=== PATIENT | female | born 1945 | race Caucasian/White ===

== ENCOUNTER → 2016-12-03 | Outpatient (CLI) | payer MEDICARE ==
--- NOTE | 2016-12-03 16:26 | XR ---
Third digit left hand HISTORY: Swelling and pain 3 views of the third digit of the sample hand. Loss of joint space, marginal spurring present especially at the distal interphalangeal joint. Soft t issue swelling is noted. Soft tissue calcifications are present especially the dorsal aspect of the d istal interphalangeal joint. 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
== END | disposition home or self-care (01) ==
LOC: RADXRMAIN 15:46
PROVIDERS: ATTEND Family Medicine
DX: M79.645 Pain in left finger(s) (principal)

== ENCOUNTER 2017-03-07 10:07 | Day surgery (SDC) | payer MEDICARE ==
[2017-03-06 12:13] VITALS: BMI 41.0
[~2017-03-07 10:07] MED LIST: LACTATED RINGERS 1,000 ML IV SCH
[2017-03-07 11:25] VITALS: TEMP 96.9
[2017-03-07] MEDS ORDERED: LIDOCAINE 1% 20 ML VIAL (10MG/ML) FOR IV START INTRADERMA ONE (11:30)
[2017-03-07 11:34] LABS: Glucose,Whole Blood 103 mg/dL (75-99)
[2017-03-07] MEDS ORDERED: PROPOFOL 10 MG/ML 20 ML VIAL IV ONE (11:47)
--- NOTE | 2017-03-07 12:14 | P.PCN ---
Date of Procedure: 03/07/17 Preoperative Diagnosis: Postoperative Diagnosis: Procedure(s) Performed: Brief history: Patient is a pleasant scheduled for an elective upper endoscopy as well as colonoscopy as a part of evaluation of iron deficiency anemia and was recently detected on routine blood testing. Hemoglobin was 10 and iron indices consistent with iron deficiency anemia. Procedure performed: Esophagogastroduodenoscopy with biopsy Colonoscopy with snare polypectomy Preoperative diagnosis: Iron deficiency anemia Anesthesia: MAC Procedure: After informed consent was obtained from the patient was brought into the endoscopy unit and IV sedation was administered by anesthesia under continuous monitoring. Initially upper endoscopy was done. The Olympus GF 160 video endoscope was inserted inserted into the mouth and esophagus intubated without any difficulty and was gradually advanced into the stomach and duodenum and carefully examined. The bulb and second part of the duodenum appeared normal. Biopsies were done from the duodenum to rule out celiac disease. The scope was then withdrawn into the stomach adequately insufflated with air and upon careful examination the antrum had multiple scattered erosions in the antrum consistent with gastritis and biopsies were done from this area. The body, cardia and fundus appeared normal. The scope was then withdrawn into the esophagus. The GE junction was located at 40 cm to the incisors. It appeared regular with no erythema erosions or ulcerations. Rest of the esophagus appeared normal. Patient tolerated the procedure well. At this time the patient continued to remain sedation. Initial digital rectal examination was normal. Olympus CF 160 video colonoscope was then inserted into the rectum and gradually advanced to the cecum without any difficulty. Careful examination was performed as the scope was gradually being withdrawn. The prep was excellent. In the cecum there was a 1 cm flat polyp removed by snare polypectomy. The cecum, ascending colon, transverse colon, descending colon, appeared normal. In the descending colon there was a 5 mm polyp removed by snare polypectomy and in the sigmoid colon there was a 1 cm polyp removed by snare polypectomy. The rest of the sigmoid colon and rectum appeared normal. Retroflexion was performed in the rectum and no lesions were noted. Patient tolerated the procedure well. Impression: 1. Upper endoscopy revealed diffuse antral gastritis and mild duodenitis. 2. Colonoscopy revealed: a) 1 cm flat cecal polyp status post snare polypectomy b) 5 mm descending colon polyp status post snare polypectomy c) 1 cm sigmoid colon polyp status post snare polypectomy. Recommendations: Findings of this examination were discussed with the patient as well as her family. She was advised to follow with the biopsy results. If the biopsies of the colon polyp showed tubal adenoma she can have a repeat colonoscopy in 3 years. In the meantime she was advised to start omeprazole 20 mg daily. Implants: Indications for Procedure: Operative Findings: Description of Procedure:
[2017-03-07 12:19] VITALS: RESP 16
[2017-03-07 12:39] VITALS: BP 131/85; PULSE 78
== END 2017-03-07 13:04 | disposition home or self-care (01) ==
LOC: ORWHC2ENDO 10:07
PROVIDERS: ATTEND Internal Medicine Gastroenterology
DX: D12.0 Benign neoplasm of cecum (principal); D12.4 Benign neoplasm of descending colon; D12.5 Benign neoplasm of sigmoid colon; K29.80 Duodenitis without bleeding; K29.70 Gastritis, unspecified, without bleeding; I10 Essential (primary) hypertension; E78.5 Hyperlipidemia, unspecified; E11.9 Type 2 diabetes mellitus without complications; Z79.84 Long term (current) use of oral hypoglycemic drugs; Z79.899 Other long term (current) drug therapy; Z88.5 Allergy status to narcotic agent
CPT/HCPCS: 88305; 88342; 45385; 43239; J2704

== ENCOUNTER → 2017-07-31 | Outpatient (CLI) | payer MEDICARE ==
--- NOTE | 2017-07-31 11:58 | US ---
EXAMINATION TYPE: US liver DATE OF EXAM: 07/31/2017 COMPARISON: NONE CLINICAL HISTORY: Abnormal LFTs R94.5. Difficult and limited exam due to patient body habitus and ove rlying bowel gas EXAM MEASUREMENTS: Liver Length: 18.2 cm Gallbladder Wall: 0.2 cm CBD: 0.3 cm Right Kidney: 12.5 x 4.6 x 4.9 cm Pancreas: Tail obscured by overlying bowel gas Liver: Limited visualization. Enlarged, heterogeneous. This finding limits evaluation for underlying hepatic masses. Gallbladder: wnl Evidence for sonographic Minor's sign: No CBD: wnl as visualized, distal portion obscured by bowel gas Right Kidney: No hydronephrosis or masses seen IMPRESSION: Slightly heterogenous hepatic echotexture, most commonly related to underlying mild hepat ic steatosis. No sonographic evidence of acute cholecystitis or cholelithiasis.
== END | disposition home or self-care (01) ==
LOC: RADUSWWP 10:53
PROVIDERS: ATTEND Internal Medicine Hematology & Oncology
DX: R93.2 Abnormal findings on diagnostic imaging of liver and biliary tract (principal); R94.5 Abnormal results of liver function studies
CPT/HCPCS: 76705

== ENCOUNTER → 2017-11-13 | Outpatient (CLI) | payer MEDICARE ==
[2017-11-13 14:14] LABS: HCT 36.1 % (34.0-46.0); HGB 11.7 gm/dL (11.4-16.0); MCH 30.5 pg (25.0-35.0); MCHC 32.3 g/dL (31.0-37.0); MCV 94.6 fL (80.0-100.0); Platelet Count 207 k/uL (150-450); RBC 3.82 m/uL (3.80-5.40); RDW 14.2 % (11.5-15.5); WBC 4.3 k/uL (3.8-10.6)
[2017-11-13 14:45] LABS: Appearance,Urine Clear (Clear); Bilirubin,Urine Negative (Negative); Blood,Urine Negative (Negative); Color,Urine Yellow; Glucose,Urine (UA) Negative (Negative); Hyaline Casts,Urine 3 /lpf (0-2); Ketones,Urine Negative (Negative); Leukocyte Esterase,Urine Trace (Negative); Mucus,Urine Rare /hpf; Nitrite,Urine Negative (Negative); PH, Urine 5.5 (5.0-8.0); Protein,Urine Trace (Negative); RBC,Urine 1 /hpf (0-5); Specific Gravity,Urine 1.017 (1.001-1.035); Squamous Epithelial Cell,Urine 4 /hpf (0-4); Urobilinogen,Urine <2.0 mg/dL (<2.0); WBC,Urine 2 /hpf (0-5)
[2017-11-13 14:59] LABS: C Reactive Protein 9.4 mg/L (<10.0); Calcium 9.5 mg/dL (8.4-10.2); Magnesium 1.6 mg/dL (1.6-2.3); Potassium 4.3 mmol/L (3.5-5.1); Total Bilirubin 0.4 mg/dL (0.2-1.3); Total Protein 7.4 g/dL (6.3-8.2)
[2017-11-13 17:47] LABS: Erythrocyte Sedimentation Rate 46 mm/hr (0-20)
[2017-11-15 07:58] LABS: Vitamin B6 7 ug/L (5-50)
[2017-11-16 01:19] LABS: Vitamin B1 54 ug/L (38-122)
[2017-11-16 11:04] LABS: Vitamin A 61 ug/dL (38-106); Vitamin E (Alpha Tocopherol) 744 ug/dL (500-1800)
== END ==
LOC: LABWHC1 13:39
PROVIDERS: ATTEND Psychiatry & Neurology Pain Medicine
DX: Z01.818 Encounter for other preprocedural examination (principal); G89.4 Chronic pain syndrome; M79.7 Fibromyalgia; Z79.899 Other long term (current) drug therapy
CPT/HCPCS: 36415; 80053; 81001; 82306; 82550; 83036; 83519; 83735; 84207; 84425; 84446; 84590; 84591; 84597; 85027; 85652; 86140; 93005

== ENCOUNTER 2018-04-25 23:45 | Emergency (ER) | payer MEDICARE ==
[2018-04-25 23:55] VITALS: BP 119/59; PULSE 81; RESP 20; TEMP 98.3
[2018-04-26] MEDS ORDERED: DIPH,PERTUS(ACELL)TETVAC-LF 0.5 ML VIAL IM ONE (00:15)
--- NOTE | 2018-04-26 00:18 | ED ---
Upper Extremity HPI - General Chief Complaint: Extremity Injury, Upper Stated Complaint: FINGER INJURY Time Seen by Provider: 04/26/18 00:13 Source: patient, family, RN notes reviewed Mode of arrival: ambulatory Limitations: no limitations - History of Present Illness Initial Comments: This is a 73-year-old female who presents to the emergency department with chief complaint of left pinky finger injury. Patient states that prior to arrival she was getting out of the shower. She states that she normally puts her foot up onto the toilet seat to dry her legs. She states that her foot slipped and she fell forward hitting her left pinky on the toilet seat. She states that the pinky bent backwards and when she turned her hand over noticed a laceration. Patient states she has normal range of motion and sensation. States she does not believe she is up-to-date with her tetanus vaccination. Denies any other injuries or trauma. Denies hitting her head. Denies neck or back pain. Denies actually falling and hitting the ground. Denies recent fevers or chills, chest pain or shortness of breath, abdominal pain, nausea or vomiting, dizziness or weakness. - Related Data Home Medications Medication Instructions Recorded Confirmed Pioglitazone HCl/Metformin HCl 1 each PO BID 09/17/14 04/25/18 [Pioglitazone-Metformin 15-850] Simvastatin [Zocor] 40 mg PO HS 09/17/14 04/25/18 Valsartan/Hydrochlorothiazide 1 each PO HS 09/17/14 04/25/18 [Diovan Hct 320-25 mg Tablet] Calcium Carbonate/Vitamin D3 2 tab PO DAILY 09/28/14 04/25/18 [Caltrate 600 Plus D3 Tablet] Gabapentin [Neurontin] 400 mg PO TID 12/05/15 04/25/18 Aspirin 81 mg PO DAILY 03/06/17 04/25/18 Allergies Allergy/AdvReac Type Severity Reaction Status Date / Time tramadol Allergy Nausea, Verified 04/25/18 23:55 "DRY HEAVES" Review of Systems ROS Statement: Those systems with pertinent positive or pertinent negative responses have been documented in the HPI. ROS Other: All systems not noted in ROS Statement are negative. Past Medical History Past Medical History: Diabetes Mellitus, Hyperlipidemia, Hypertension, Pneumonia , Sleep Apnea/CPAP/BIPAP Additional Past Medical History / Comment(s): anemia,arthritis History of Any Multi-Drug Resistant Organisms: None Reported Past Surgical History: Joint Replacement, Orthopedic Surgery Additional Past Surgical History / Comment(s): total lt knee,carpel tunnel lt wrist Past Anesthesia/Blood Transfusion Reactions: Motion Sickness, Postoperative Nausea & Vomiting (PONV) Additional Past Anesthesia/Blood Transfusion Reaction / Comment(s): no hx blood transfusion Past Psychological History: No Psychological Hx Reported Smoking Status: Former smoker Past Alcohol Use History: None Reported Past Drug Use History: None Reported - Past Family History Sister(s) Family Medical History: Cancer Additional Family Medical History / Comment(s): lymph General Exam - General Exam Comments Initial Comments: General: Awake and alert, well-developed; in no apparent distress. HEENT: Head atraumatic, normocephalic. Pupils are equal, round and reactive to light. Extraocular movements intact. Oropharynx moist without erythema or exudate. Neck: Supple. Normal ROM. Cardiovascular: Regular rate and rhythm. No murmurs, rubs or gallops. Chest symmetrical. Respiratory: Lungs clear to auscultation bilaterally. No wheezes, rales or rhonchi. Normal respiratory effort with no use of accessory muscles. Musculoskeletal: Normal range of motion of the left fifth finger. There is an approximately 1.0 cm linear laceration to the distal left fifth finger. No active bleeding. Sensation is intact. Radial pulses are 2+ equal and palpable bilaterally. Skin: [place], warm and dry without rashes. Neurological: Alert and oriented x3. CN II-XII grossly intact. Speech is fluent and answers are appropriate. No focal neuro deficits. Psychiatric: Normal mood and affect. No overt signs of depression or anxiety noted. Limitations: no limitations Course Vital Signs 04/25/18 23:51 Temperature 98.3 F Pulse Rate 81 Respiratory 20 Rate Blood Pressure 119/59 O2 Sat by Pulse 97 Oximetry Procedures - Laceration Laceration #1 Consent Obtained: verbal consent Indication: laceration Site: hand (left fifth finger) Size (cm): 1 Description: linear Depth: simple, single layer Anesthetic Used: lidocaine 1% Anesthesia Technique: local infiltration Amount (mls): 3 Pre-repair: wound explored, irrigated extensively, deep structures intact Type of Sutures: nylon Size of Sutures: 5-0 Number of Sutures: 3 Technique: simple, interrupted Patient Tolerated Procedure: well, no complications Medical Decision Making - Medical Decision Making This is a 73-year-old female who presents to the emergency department with chief complaint of left fifth finger injury. Patient reports the finger bending backwards and sustaining a laceration. On physical examination, patient has normal range of motion of the left fifth finger and normal sensation. She is neurovascularly intact. There is an approximately 1.0 cm linear laceration to the distal pad of the left fifth finger. 3 sutures were placed and patient tolerated without complication. X-ray revealed no acute abnormalities. Recommended removal of sutures in 10-14 days. Patient is in agreement with plan and voices understanding. All questions were answered. Patient is in no acute distress and will be discharged home at this time. - Radiology Data Radiology results: report reviewed, image reviewed Left fifth finger x-ray impression: No acute abnormalities the left little finger. Disposition Clinical Impression: Finger laceration Disposition: HOME SELF-CARE Condition: Good Instructions: Finger Laceration (ED), Care For Your Stitches (ED) Additional Instructions: Please have sutures removed in 10-14 days. Please follow up with primary care provider within 1-2 days. Return to emergency department if symptoms should worsen or any concerns arise. Is patient prescribed a controlled substance at d/c from ED?: No Referrals: Gelacio Iverson MD [Primary Care Provider] - 1-2 days Time of Disposition: 00:56
[2018-04-26] MEDS ORDERED: LIDOCAINE 1% INJ 10MG/ML (20 ML MDV) SQ ONE (00:26)
--- NOTE | 2018-04-26 00:48 | XR ---
EXAMINATION TYPE: XR finger LT DATE OF EXAM: 04/26/2018 COMPARISON: NONE HISTORY: Hyperextension injury. Pain TECHNIQUE: 3 views FINDINGS: There is some spurring at the posterior base of the middle phalanx of the little finger. I see no definite fracture. There is no dislocation. There is some narrowing of the IP joint spaces. IMPRESSION: No acute abnormality of the left little finger.
== END 2018-04-26 01:06 | disposition home or self-care (01) ==
LOC: EC 23:45
DX: S61.217A Laceration without foreign body of left little finger without damage to nail, initial encounter (principal); E78.5 Hyperlipidemia, unspecified; I10 Essential (primary) hypertension; E11.9 Type 2 diabetes mellitus without complications; G47.30 Sleep apnea, unspecified; M19.90 Unspecified osteoarthritis, unspecified site; Z87.891 Personal history of nicotine dependence; Z79.82 Long term (current) use of aspirin; Z79.84 Long term (current) use of oral hypoglycemic drugs; Z79.899 Other long term (current) drug therapy; Z88.5 Allergy status to narcotic agent; Z99.89 Dependence on other enabling machines and devices; Z23 Encounter for immunization; W01.198A Fall on same level from slipping, tripping and stumbling with subsequent striking against other object, initial encounter; Y93.89 Activity, other specified; Y92.002 Bathroom of unspecified non-institutional (private) residence as the place of occurrence of the external cause
CPT/HCPCS: 73140; 90715; 99283; 12001; 90471; J2001

== ENCOUNTER → 2018-07-29 | Outpatient (CLI) | payer MEDICARE ==
--- NOTE | 2018-08-04 10:24 | MM ---
Reason for exam: screening (asymptomatic). Last mammogram was performed 1 year and 1 month ago. History: Patient is postmenopausal and is nulliparous. Family history of breast cancer in sister at age 66. Benign MG stereo VAD BX LT of the left breast, August 24, 2015. Physical Findings: A clinical breast exam by your physician is recommended on an annual basis and results should be correlated with mammographic findings. MG 3D Screening Mammo W/Cad Bilateral CC and MLO view(s) were taken. Prior study comparison: July 12, 2017, bilateral MG 3d screening mammo w/cad. July 06, 2016, bilateral MG 3d diag mammo w/cad [facility]. There are scattered fibroglandular densities. Previous mammotome biopsy in the left breast. Lateral asymmetric density right breast was seen on 07/05/15. No significant changes when compared with prior studies. ASSESSMENT: Benign, BI-RAD 2 RECOMMENDATION: Routine screening mammogram of both breasts in 1 year.
== END | disposition home or self-care (01) ==
LOC: RADMAMWWP 13:53
PROVIDERS: ATTEND Family Medicine
DX: Z12.31 Encounter for screening mammogram for malignant neoplasm of breast (principal)
CPT/HCPCS: 77063; 77067

== ENCOUNTER → 2018-09-25 | Outpatient (CLI) | payer MEDICARE | END | disposition home or self-care (01) | LOC: LABWHC1 14:54 | PROVIDERS: ATTEND Psychiatry & Neurology Pain Medicine | DX: Z01.818 Encounter for other preprocedural examination (principal) | CPT/HCPCS: 36415; 93005 ==

== ENCOUNTER → 2019-05-26 | Outpatient (CLI) | payer MEDICARE ==
--- NOTE | 2019-05-26 16:35 | XR ---
EXAMINATION TYPE: XR chest 2V DATE OF EXAM: 05/26/2019 COMPARISON: Prior chest x-ray 06/27/2017 HISTORY: Z 71.3, R 79.89, D50.0, R 74.0, abnormal chest x-ray TECHNIQUE: Frontal and lateral views of the chest are obtained. FINDINGS: Prominent lung volumes may be indicative of underlying COPD. There is no focal air space op acity, pleural effusion, or pneumothorax seen. The cardiac silhouette size is stable and enlarged ac counting for patient rotation and differences in technique. The osseous structures are intact, ther e is thoracic spondylosis. IMPRESSION: Cardiomegaly. Correlate for COPD.
== END | disposition home or self-care (01) ==
LOC: RADXRMAIN 14:03
PROVIDERS: ATTEND Internal Medicine Hematology & Oncology
DX: I51.7 Cardiomegaly (principal); R79.89 Other specified abnormal findings of blood chemistry; R74.0 Nonspecific elevation of levels of transaminase and lactic acid dehydrogenase [LDH]; Z71.3 Dietary counseling and surveillance
CPT/HCPCS: 71046

== ENCOUNTER → 2019-07-13 | Outpatient (CLI) | payer MEDICARE ==
--- NOTE | 2019-07-13 09:46 | US ---
EXAMINATION TYPE: US liver DATE OF EXAM: 07/13/2019 COMPARISON: US 2017 CLINICAL HISTORY: R74.0 Abnormal LFTS. Patient states no symptoms EXAM MEASUREMENTS: Liver Length: 18.2 cm Gallbladder Wall: 0.3 cm CBD: 0.3 cm Right Kidney: 12.8 x 5.1 x 4.5 cm Pancreas: limited by overlying midline bowel gas Liver: enlarged, heterogeneous as seen on the prior 2017, significantly limiting evaluation for hepa tic masses. Overall poor visualization of the liver. Gallbladder: 0.6cm echogenic focus within neck, wall measures in upper limits of normal Evidence for sonographic Minor's sign: no CBD: visualized portions wnl, limited by overlying bowel gas Right Kidney: no hydronephrosis or or nephrolithiasis. IMPRESSION: 1. Cholelithiasis and upper limits of normal gallbladder wall. Chronic cholecystitis is a possibility . No evidence of acute cholecystitis. 2. Hepatomegaly and sonographic findings most commonly related to hepatic steatosis as seen on the pr ior of 2017. This significantly limits evaluation for hepatic masses.
== END | disposition home or self-care (01) ==
LOC: RADUSWWP 09:05
PROVIDERS: ATTEND Internal Medicine Hematology & Oncology
DX: K80.20 Calculus of gallbladder without cholecystitis without obstruction (principal); R16.0 Hepatomegaly, not elsewhere classified; Z88.6 Allergy status to analgesic agent
CPT/HCPCS: 76705

== ENCOUNTER → 2019-11-06 | Outpatient (CLI) | payer MEDICARE ==
--- NOTE | 2019-11-06 15:50 | BD ---
EXAMINATION TYPE: Axial Bone Density DATE OF EXAM: 11/06/2019 COMPARISON: 03.31.2010 CLINICAL HISTORY: 74 YR OLD FEMALE....ICD-10 CODE: N95.1 POST MENOPAUSAL SYMPTOMS Height: 63 Weight: 260 FRAX RISK QUESTIONS: History of Fracture in Adulthood: YES, FOREARM Current Tobacco Use: NOT CIGARETTS RISK FACTORS HISTORY OF: History of Wrist Fracture: HX OF RT WRIST BREAK > 50 YRS OLD Surgery to Spine STIMULATOR IMPLANTED IN LOWER BACK Diet low in dairy products/other sources of calcium: YES, A BIT, AVOIDS MILK Postmenopausal woman: YES, AT ABOUT AGE 56 YRS OLD Lost more than 2 inches in height since high school: YES Hyperparathyroidism: NO Adrenal Insufficiency: NO MEDICATIONS: Additional Medications: BP MEDS, ORAL DIABETIC MEDS, REFLUX MEDS, STATIN FOR CHOLESTEROL, VIT D , CA LCIUM, CYMBALTA, ASPIRIN Additional History: HYPERTENSION, REFLUX IN THE PAST, CHOLESTEROL, DIABETIC EXAM MEASUREMENTS: Bone mineral densitometry was performed using the Referral.IM System. Bone mineral density as measured about the Lumbar spine is: ----- L1-L4(G/cm2): 1.431 T Score Values are as follows: ----- L1: 2.5 ----- L2: 1.0 ----- L3: 2.4 ----- L4: 2.1 ----- L1-L4: 2.1 Bone mineral density has: Increased 18.9% SINCE STUDY OF 03.31.2010 Bone mineral density about the R hip (g/cm2): 0.997 Bone mineral density about the L hip (g/cm2): 1.017 T Score values are as follows: -----R Neck: -0.6 -----L Neck: -1.2 -----R Total: -0.1 -----L Total: 0.1 Bone mineral density has: Decreased -7.5% SINCE STUDY 03.31.2010 FRAX%s: THERE IS A 15.6% CHANCE FOR A MAJOR OSTEOPOROTIC FX AND A 2.4% FOR HIP....PROBABILITY FOR F X I 10 YRS TIME IMPRESSION: Osteopenia (T Score between -2.5 and -1). There is slightly increased risk of fracture and the patient may be considered for treatment. Re-Screen 2-5 years. NOTE: T-SCORE=SD OF THE YOUNG ADULT MEAN.
--- NOTE | 2019-11-09 10:55 | MM ---
Reason for exam: screening (asymptomatic). Last mammogram was performed 1 year and 3 months ago. History: Patient is postmenopausal and is nulliparous. Family history of breast cancer in sister at age 66. Benign MG stereo VAD BX LT of the left breast, August 24, 2015. Physical Findings: A clinical breast exam by your physician is recommended on an annual basis and results should be correlated with mammographic findings. MG 3D Screening Mammo W/Cad Bilateral CC and MLO view(s) were taken. Prior study comparison: July 29, 2018, bilateral MG 3d screening mammo w/cad. July 12, 2017, bilateral MG 3d screening mammo w/cad. The breast tissue is heterogeneously dense. This may lower the sensitivity of mammography. Finding: There are typically benign vascular, round, linear calcifications in both breasts. Previous mammotome biopsy in the left breast. There is a chronic nodularity bilaterally. There is no discrete abnormality. ASSESSMENT: Benign, BI-RAD 2 RECOMMENDATION: Routine screening mammogram of both breasts in 1 year.
== END | disposition home or self-care (01) ==
LOC: RADMAMWWP 13:55
PROVIDERS: ATTEND Family Medicine
DX: Z12.31 Encounter for screening mammogram for malignant neoplasm of breast (principal); M85.80 Other specified disorders of bone density and structure, unspecified site
CPT/HCPCS: 77063; 77067; 77080

== ENCOUNTER 2019-11-08 16:48 | Emergency (ER) | payer MEDICARE ==
[2019-11-08] MEDS ORDERED: MORPHINE SULFATE 4 MG/ML SYRINGE IM STA (17:12)
[2019-11-08] MEDS ORDERED: ONDANSETRON ODT 4 MG TAB PO STA (17:12)
[2019-11-08] MEDS ORDERED: LIDOCAINE 5% PATCH TOPICAL STA (17:12)
--- NOTE | 2019-11-08 17:17 | ED ---
General Adult HPI - General Chief complaint: Fall Stated complaint: Fall Time Seen by Provider: 11/08/19 17:01 Source: patient, RN notes reviewed Mode of arrival: wheelchair Limitations: no limitations - History of Present Illness Initial comments: 74-year-old female with a past medical history of diabetes, hyperlipidemia, hypertension who takes baby aspirin daily presents to the emergency department for a chief complaint of fall. Patient states she was at [employer] where she was walking up a ramp and she caught her toe. States that she fell sideways in her left back hit a window backs. Patient did not hit her head or neck. States that the pain is on the left side of her back. Denies any lower back pain. Denies any abdominal pain. Denies chest pain. Patient does not take blood thinners. Patient has no other complaints at this time including shortness of breath, chest pain, abdominal pain, nausea or vomiting, headache, or visual changes. - Related Data Home Medications Medication Instructions Recorded Confirmed Pioglitazone HCl/Metformin HCl 1 each PO BID 09/17/14 04/25/18 [Pioglitazone-Metformin 15-850] Simvastatin [Zocor] 40 mg PO HS 09/17/14 04/25/18 Valsartan/Hydrochlorothiazide 1 each PO HS 09/17/14 04/25/18 [Diovan Hct 320-25 mg Tablet] Calcium Carbonate/Vitamin D3 2 tab PO DAILY 09/28/14 04/25/18 [Caltrate 600 Plus D3 Tablet] Gabapentin [Neurontin] 400 mg PO TID 12/05/15 04/25/18 Aspirin 81 mg PO DAILY 03/06/17 04/25/18 Previous Rx's Medication Instructions Recorded Lidocaine 5% Patch [Lidoderm 5% 1 patch TOPICAL DAILY PRN 5 Days 11/08/19 Patch] #5 patch Allergies Allergy/AdvReac Type Severity Reaction Status Date / Time tramadol Allergy Nausea, Verified 11/08/19 17:00 "DRY HEAVES" Review of Systems ROS Statement: Those systems with pertinent positive or pertinent negative responses have been documented in the HPI. ROS Other: All systems not noted in ROS Statement are negative. Past Medical History Past Medical History: Diabetes Mellitus, Hyperlipidemia, Hypertension, Pneumonia, Sleep Apnea/CPAP/BIPAP Additional Past Medical History / Comment(s): anemia,arthritis History of Any Multi-Drug Resistant Organisms: None Reported Past Surgical History: Joint Replacement, Orthopedic Surgery Additional Past Surgical History / Comment(s): total lt knee,carpel tunnel lt wrist Past Anesthesia/Blood Transfusion Reactions: Motion Sickness, Postoperative Nausea & Vomiting (PONV) Additional Past Anesthesia/Blood Transfusion Reaction / Comment(s): no hx blood transfusion Past Psychological History: No Psychological Hx Reported Smoking Status: Former smoker Past Alcohol Use History: None Reported Past Drug Use History: None Reported - Past Family History Sister(s) Family Medical History: Cancer Additional Family Medical History / Comment(s): lymph General Exam Limitations: no limitations General appearance: alert, in no apparent distress Head exam: Present: atraumatic, normocephalic, normal inspection Eye exam: Present: normal appearance, PERRL, EOMI. Absent: scleral icterus, conjunctival injection, periorbital swelling ENT exam: Present: normal exam, mucous membranes moist Neck exam: Present: normal inspection, full ROM. Absent: tenderness, meningismu s, lymphadenopathy Respiratory exam: Present: normal lung sounds bilaterally. Absent: respiratory distress, wheezes, rales, rhonchi, stridor Cardiovascular Exam: Present: regular rate, normal rhythm, normal heart sounds. Absent: systolic murmur, diastolic murmur, rubs, gallop, clicks GI/Abdominal exam: Present: soft, normal bowel sounds. Absent: distended, tenderness, guarding, rebound, rigid Back exam: Present: other (Patient has mild area of ecchymosis noted inferior to the left shoulder blade.). Absent: CVA tenderness (R), CVA tenderness (L), vertebral tenderness (No cervical thoracic or lumbar spine tenderness) Neurological exam: Present: alert Course Vital Signs 11/08/19 16:56 Temperature 97.8 F Pulse Rate 88 Respiratory 16 Rate Blood Pressure 131/83 O2 Sat by Pulse 96 Oximetry Medical Decision Making - Medical Decision Making HPI physical exam is documented. Patient has left-sided posterior rib pain. X- ray of the chest shows chronic changes and cardiomegaly without acute pulmonary process. No acute displaced left-sided rib fractures are seen. Patient is given morphine and lidocaine patch and isn't much better. Patient will be discharged home with Tylenol 3 and lidocaine patches. She will follow-up with her doctor in one to 2 days. I discussed deep breathing exercises 10 times every hour. Discussed returning if she has any worsening symptoms or difficulty getting around at home.I discussed this case with attending Dr. Arreguin who agrees with this assessment and treatment plan. Disposition Clinical Impression: Fall, Contusion Disposition: HOME SELF-CARE Condition: Good Instructions (If sedation given, give patient instructions): Rib Fracture (ED) Additional Instructions: Please take Tylenol [address] or operate machinery while taking these. Use lidocaine patches as directed. Follow-up with primary care in 1-2 days. Return to the emergency department if you have any worsening symptoms. Prescriptions: Lidocaine 5% Patch [Lidoderm 5% Patch] 1 patch TOPICAL DAILY PRN 5 Days #5 patch PRN Reason: Pain Is patient prescribed a controlled substance at d/c from ED?: No Referrals: Gelacio Iverson MD [Primary Care Provider] - 1-2 days Time of Disposition: 18:41
--- NOTE | 2019-11-08 18:06 | XR ---
EXAMINATION TYPE: XR ribs LT w pa chest x-ray DATE OF EXAM: 11/08/2019 CLINICAL HISTORY: Chest and left-sided rib pain after fall injury. TECHNIQUE: Single frontal view of the chest is obtained. COMPARISON: Chest x-ray May 26, 2019 FINDINGS: There is some chronic parenchymal change without suspicious new focal air space opacity, p leural effusion, or pneumothorax seen. The cardiac silhouette size remains enlarged with atheroscler otic aorta. Multilevel spurring in the lower thoracic spine. Dedicated images the left-sided ribs show no acute displaced left-sided rib fractures. Overlying soft tissue is unremarkable. IMPRESSION: 1. Chronic changes and cardiomegaly without acute pulmonary process. 2. No acute displaced left-sided rib fractures are seen.
[2019-11-08] MEDS ORDERED: ACET/COD 300 MG/30 MG STARTER PACK 6 TAB BTL PO STA (19:01)
[2019-11-08 19:17] VITALS: BP 132/74; PULSE 84; RESP 18; TEMP 98
== END 2019-11-08 19:16 | disposition home or self-care (01) ==
LOC: EC 16:48
DX: S40.012A Contusion of left shoulder, initial encounter (principal); I10 Essential (primary) hypertension; E78.5 Hyperlipidemia, unspecified; E11.9 Type 2 diabetes mellitus without complications; G47.30 Sleep apnea, unspecified; Z79.84 Long term (current) use of oral hypoglycemic drugs; Z79.899 Other long term (current) drug therapy; Z79.82 Long term (current) use of aspirin; Z88.5 Allergy status to narcotic agent; Z87.891 Personal history of nicotine dependence; Z99.89 Dependence on other enabling machines and devices; W18.09XA Striking against other object with subsequent fall, initial encounter
CPT/HCPCS: 71101; 99283; 96372; J2270

== ENCOUNTER → 2020-07-26 | Outpatient (CLI) | payer MEDICARE ==
--- NOTE | 2020-07-26 16:44 | CT ---
EXAMINATION TYPE: CT abdomen pelvis w con DATE OF EXAM: 07/26/2020 COMPARISON: None HISTORY: Lower back pain CT DLP: 2469 mGycm Automated exposure control for dose reduction was used. TECHNIQUE: Helical acquisition of images from the lung bases through the pelvis have been completed. CONTRAST: Performed with Oral Contrast and with IV Contrast, patient injected with 80 mL of Isovue 300. FINDINGS: The heart is enlarged. LUNG BASES: There are probable atelectatic changes or scarring at the lung bases. Minimal pericardial effusion noted incidentally. AORTA: No significant abnormality is appreciated. LIVER/GB: Dependent high dense focus in the gallbladder likely gallstones. Liver shows no mass.. PANCREAS: No significant abnormality is seen. SPLEEN: No significant abnormality is seen. Probable splenule present adjacent to the spleen ADRENALS: No significant abnormality is seen. KIDNEYS: Exophytic low dense focus at the midpole the left kidney measures 2.2 cm however attenuation is slightly elevated greater than that of water. REPRODUCTIVE ORGANS: Somewhat atrophic. BOWEL: Probable lipoma present within the duodenum. Appendix is normal.. FREE AIR: No Free Air visible. ASCITES: None visible. PELVIC ADENOPATHY: None visualized. RETROPERITONEAL ADENOPATHY: No Retroperitoneal Adenopathy visible. URINARY BLADDER: No significant abnormality is seen. OSSEOUS STRUCTURES: There is a spinal curvature. Multilevel spondylosis is present. Posterior disc b ulges are present at L5-S1, L4-5, L3-4, there is some associated loss of disc height. Lumbar vertebra l bodies show preserved height. Sacroiliac joint on the left shows ankylosis, there is no evident ero dong bilaterally. There is a chondroid lesion in the proximal right femur which may represent enchond gina. Lesion measures approximately 2 cm in size. There is a device in the left gluteal region, lead courses into the lower spinal canal at L3-4 terminates at the left neural foramen L3-4. Facet arthrop athy changes present at the lower lumbar spine. There is no evident spondylolisthesis or spondylolysi s. Suspect spinal stenosis at L5 IMPRESSION: FACET ARTHROPATHY, DEGENERATIVE DISC DISEASE, SPINAL CURVATURE AND SPINAL STENOSIS. ANKYLOSIS OF THE LEFT SACROILIAC JOINT. INDETERMINATE LEFT RENAL LESION, FOLLOW-UP RECOMMENDED. CHOLELITHIASIS. CARDIO MEGALY. ADDITIONAL FINDINGS ABOVE.
== END | disposition home or self-care (01) ==
LOC: RADCTMAIN 12:28
PROVIDERS: ATTEND Psychiatry & Neurology Neurology
DX: Z01.818 Encounter for other preprocedural examination (principal); K80.20 Calculus of gallbladder without cholecystitis without obstruction; N94.89 Other specified conditions associated with female genital organs and menstrual cycle; R93.422 Abnormal radiologic findings on diagnostic imaging of left kidney
CPT/HCPCS: 82565; 84520; 74177; 36415; Q9967

== ENCOUNTER → 2020-10-19 | Outpatient (CLI) | payer MEDICARE | END | disposition home or self-care (01) | LOC: LABWHC1 13:37 | PROVIDERS: ATTEND Psychiatry & Neurology Neurology | DX: Z01.818 Encounter for other preprocedural examination (principal) | CPT/HCPCS: 93005 ==

== ENCOUNTER → 2020-10-24 | Outpatient (CLI) | payer MEDICARE | END | disposition home or self-care (01) | LOC: LABWHC1 14:26 | PROVIDERS: ATTEND Psychiatry & Neurology Neurology | DX: Z01.818 Encounter for other preprocedural examination (principal) | CPT/HCPCS: U0003; C9803 ==

== ENCOUNTER → 2022-02-08 | Outpatient (CLI) | payer MEDICARE ==
--- NOTE | 2022-02-08 13:54 | XR ---
EXAMINATION TYPE: XR knee complete bilateral DATE OF EXAM: 02/08/2022 COMPARISON: NONE HISTORY: Pain TECHNIQUE: Three views are submitted. FINDINGS: Severe narrowing the medial compartment of the knee joint and patellofemoral joint. No acute fracture . No dislocation. Postsurgical change involving the left knee. IMPRESSION: 1. Severe osteoarthritis right knee. 2. Postsurgical changes left knee
--- NOTE | 2022-02-08 13:57 | XR ---
EXAMINATION TYPE: XR thoracic spine complete DATE OF EXAM: 02/08/2022 COMPARISON: NONE HISTORY: Pain TECHNIQUE: 3 views submitted FINDINGS: Alignment is anatomic. There is no compression deformities. There is multilevel hypertrophic and deg enerative change with diffuse osteopenia. IMPRESSION: 1. Multilevel hypertrophic and degenerative changes.
== END | disposition home or self-care (01) ==
LOC: RADXRMAIN 11:56
PROVIDERS: ATTEND Psychiatry & Neurology Neurology
DX: M17.11 Unilateral primary osteoarthritis, right knee (principal); M25.562 Pain in left knee; M47.814 Spondylosis without myelopathy or radiculopathy, thoracic region; R94.31 Abnormal electrocardiogram [ECG] [EKG]
CPT/HCPCS: 72072; 93005

== ENCOUNTER → 2022-03-27 | Outpatient (CLI) | payer MEDICARE ==
[2022-03-27 21:03] LABS: INR 0.9 (<1.2); Partial Thromboplastin Time 24.5 sec (22.0-30.0); Prothrombin Time 10.2 sec (9.0-12.0)
== END | disposition home or self-care (01) ==
LOC: LABWHC1 14:18
DX: Z01.818 Encounter for other preprocedural examination (principal); R94.31 Abnormal electrocardiogram [ECG] [EKG]
CPT/HCPCS: 36415; 85610; 85730; 93005

== ENCOUNTER → 2023-12-27 | Outpatient (CLI) | payer MEDICARE ==
--- NOTE | 2023-12-27 18:18 | XR ---
EXAMINATION TYPE: XR foot complete LT DATE OF EXAM: 12/27/2023 4:14 PM CLINICAL INDICATION:Female, 78 years old with history of M79.672 L FOOT PAIN XR; [facility] COMPARISON: None. TECHNIQUE: Three views left foot were obtained. FINDINGS: Generalized osteopenia. No acute fracture or dislocation. No periarticular erosions. No significant g reat toe digital deviation is seen. Possible minimal overlying bunion formation. Appearance of the se cond metatarsal head suggests the possibility of Freiberg's infraction. Lisfranc joints appear normal ly aligned. There is moderate degenerative change of the forefoot and midfoot. Moderate to large dors al calcaneal and plantar calcaneal spurs. Unremarkable soft tissues without radiopaque foreign body s een. IMPRESSION: 1. No evidence of an acute osseous abnormality. 2. Moderate chronic/degenerative changes as above.
== END | disposition home or self-care (01) ==
LOC: RADXRMAIN 15:32
PROVIDERS: ATTEND Family Medicine
DX: M79.672 Pain in left foot (principal)

== ENCOUNTER → 2024-05-25 | Outpatient (CLI) | payer MEDICARE ==
--- NOTE | 2024-05-26 12:49 | CT ---
EXAMINATION TYPE: CT chest wo con DATE OF EXAM: 05/25/2024 COMPARISON: 08/14/2011 HISTORY: 79-year-old female R06.00, shortness of breath, dyspnea, pulmonary hypertension TECHNIQUE: Contiguous axial scanning of the chest without IV contrast. Coronal/sagittal reconstructio ns performed. CT DLP: 556.9mGycm. Automatic exposure control utilized for a dose reduction. FINDINGS: The heart is mildly enlarged with trace to small pericardial effusion measuring up to 7 mm thick. Pro minent LAD coronary artery calcification is present. Mild atherosclerotic arch calcifications with conventional arch vessel branching anatomy. Large caliber main right and left pulmonary arteries measuring up to 2.9 cm suggesting underlying pul monary arterial hypertension. Prominent left pericardiac lymph node measuring 9 mm remains unchanged suggesting a benign etiology. A prominent right pericardiac lymph node measures 7 mm and is increased from 2011, likely reactive as well. Otherwise, no thoracic lymphadenopathy by CT size criteria. Suspect bibasilar pleural parenchymal scarring given strandy subpleural opacities, increased from 201 1. Otherwise, no fernando consolidation or pleural effusion. A 1 cm right upper lobe pulmonary nodule, axial image 14 is new and suspicious. 3 mm lateral left midlung pulmonary nodule, axial image 30. Tiny hiatal hernia. Partially visualized abnormal appearance to the left kidney. Underlying kidney ma ss or other abnormality not excluded. Further dedicated evaluation advised. Accentuated thoracic kyphosis. 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 Bony fusion across the sup raspinatus ligament as well. IMPRESSION: 1. Partially visualized abnormal appearance to the left kidney. Underlying kidney mass/RCC or other r enal abnormality not excluded. Dedicated further evaluation with contrast-enhanced renal mass protoco l CT of the abdomen and pelvis is advised. 2. A new 1 cm right upper lobe pulmonary nodule. Early primary neoplasm and metastatic disease are luisa th in the differential at this time. Additional tiny 3 mm left mid lung pulmonary nodule is nonspecif ic. 3. Mild cardiomegaly with trace to small pericardial effusion and LAD coronary artery calcifications. Pulmonary arterial hypertension. 4. 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 [facility], , 05/26/2024 12:46 PM
== END | disposition home or self-care (01) ==
LOC: RADCTMAIN 13:21
PROVIDERS: ATTEND Internal Medicine Pulmonary Disease
DX: R06.00 Dyspnea, unspecified
CPT/HCPCS: 71250

== ENCOUNTER → 2024-06-23 | Outpatient (CLI) | payer MEDICARE ==
--- NOTE | 2024-06-25 11:37 | US ---
EXAMINATION TYPE: US kidneys/renal and bladder DATE OF EXAM: 06/23/2024 COMPARISON: CT chest 05/25/2024, CT abdomen and pelvis 07/26/2020 CLINICAL INDICATION: Female, 79 years old with history of R94.4 ABN RENAL FUNCTION; Patient denies an y signs/symptoms. Hx HTN/DM TECHNIQUE: Grayscale and color Doppler imaging of the bilateral kidneys and urinary bladder: FINDINGS: EXAM MEASUREMENTS: Right Kidney: 13.7 x 4.6 x 4.7 cm Left Kidney: 13.8 x 6.8 x 6.1 Post Void Residual Volume: NAmL Right Kidney: WNL Left Kidney: Heterogenous vascular lesion seen lower pole = 5.9 x 4.8 x 5.4 cm Bladder: Not fully distended, patient stated bladder was full Bilateral Jets seen: Not able to assess Normal Post Void Residual: NA There is no evidence for hydronephrosis at this point in time. The urinary bladder is anechoic. No ne phrolithiasis identified within either kidney. No right renal lesion. Heterogenous vascular lesion wi thin the lower pole of the left kidney measuring up to 5.9 cm. Incidental gallstone measuring 1.2 cm . IMPRESSION: 1. Left renal lower pole 5.9 cm lesion. Raises concern for renal cell carcinoma versus other etiolog ies. Further evaluation with CT or MR abdomen with IV contrast (renal mass protocol) is highly recomm ended. 2. No hydronephrosis or nephrolithiasis. 3. Incidental 1.6 mm gallstone. [facility], , 06/25/2024 11:35 AM
== END | disposition home or self-care (01) ==
LOC: RADUSWWP 14:08
PROVIDERS: ATTEND Family Medicine
CPT/HCPCS: 76770

== ENCOUNTER → 2024-09-11 | Outpatient (CLI) | payer MEDICARE ==
[2024-09-11 12:47] LABS: African American GFR (CKD) 62 (>60 ml/min/1.73 sqM); Blood Urea Nitrogen 35 mg/dL (7-17); Non-African American GFR(CKD) 54 (>60 ml/min/1.73 sqM)
--- NOTE | 2024-09-11 14:39 | CT ---
EXAMINATION TYPE: CT abdomen wo/w con CT DLP: 2389.6 mGycm, Automated exposure control for dose reduction was used. DATE OF EXAM: 09/11/2024 2:22 PM COMPARISON: Renal ultrasound 06/23/2024, CT chest 05/25/2024, CT scan of pelvis 07/26/2020 CLINICAL INDICATION:Female, 79 years old with history of D41.02 NEOPLASM OF UNCERTAIN BEHAVIOR OF LEF T KIDN; renal mass TECHNIQUE: Standard CT of the abdomen before and after the uneventful administration of 80 cc of Is ovue-370 intravenously. Oral contrast was administered. Coronal and sagittal reformats were performed . FINDINGS: LOWER CHEST: Trace right pleural effusion with associated atelectasis. Cardiomegaly. Trace pericardia l effusion. Minimal left lower lobe subsegmental atelectasis. ABDOMEN LIVER: Unremarkable GALLBLADDER AND BILE DUCTS: Cholelithiasis. No biliary duct dilatation. PANCREAS: Unremarkable. SPLEEN: Unremarkable. ADRENAL GLANDS: Unremarkable. KIDNEYS AND URETERS: No evidence of hydronephrosis or renal calculus. No suspicious right renal lesi on. Diffusely enlarged left kidney with patchy heterogenous enhancement. There is an ill-defined mass along the mid to lower pole laterally measuring 8.3 x 6.1 cm (series 3, image 44). There appears to be extension into the renal sinus and proximal ureter. There is some extension of abnormal soft tissu e along the medial aspect of the kidney (series 3, image 45). No definitive extension into the IVC ov er renal vein. Contrast is only demonstrated within the right renal collecting system on the delayed imaging. STOMACH AND BOWEL: Stomach and duodenum are unremarkable. Enteric contrast reaches the distal small b owel. No focal bowel wall thickening or surrounding inflammatory changes. No evidence of bowel obstru ction. PERITONEUM: No evidence of pneumoperitoneum or free fluid. VASCULATURE: Mild atherosclerotic calcifications are present throughout the abdominal aorta and its b ranches. No evidence of aortic aneurysm. MUSCULOSKELETAL: No acute osseous abnormalities. Prominent Schmorl's noted involving the superior end plate of the L2 vertebral body. Multilevel degenerative disc disease and facet arthropathy. No aggres sive osseous lesion. Degenerative changes of the left SI joint. LYMPH NODES: No gross evidence for lymphadenopathy. SOFT TISSUE/ABDOMINAL WALL: Left gluteal nerve stimulator device power pack with lead entering the sp inal canal at the L3-L4 interspace and terminating at the L2-L3 vertebral body. Prominent Schmorl's n oted involving the superior endplate of the L2 vertebral body. Multilevel degenerative disc disease a nd facet arthropathy. IMPRESSION: 1. Enlarged heterogenous enhancing left kidney with ill-defined mass measuring 8.3 cm. There appears to be invasion into the renal sinus and proximal ureter. Findings are highly concerning for renal ce ll carcinoma until proven otherwise. Urology consultation is recommended. 2. Cholelithiasis. [facility], , 09/11/2024 2:37 PM
== END | disposition home or self-care (01) ==
LOC: RADCTMAIN 11:40
PROVIDERS: ATTEND Urology
DX: D41.02 Neoplasm of uncertain behavior of left kidney (principal); K80.20 Calculus of gallbladder without cholecystitis without obstruction; I70.0 Atherosclerosis of aorta
CPT/HCPCS: 82565; 84520; 74170; 36415; Q9967

== ENCOUNTER → 2024-09-29 | Outpatient (CLI) | payer MEDICARE ==
[2024-09-29 18:22] LABS: Basophils # (A) 0.02 X 10*3/uL (0.00-0.10); Basophils % (A) 0.5 %; Eosinophils # (A) 0.14 X 10*3/uL (0.04-0.35); Eosinophils % (A) 3.3 %; HCT 30.4 % (37.2-46.3); HGB 8.8 g/dL (12.0-15.0); MCH 28.6 pg (27.0-32.0); MCHC 28.9 g/dL (32.0-37.0); MCV 98.7 FL (80.0-97.0); Mean Platelet Volume 11.3 FL (9.5-12.2); Monocytes # (A) 0.42 X 10*3/uL (0.20-1.00); Monocytes % (A) 9.8 %; NRBC Per 100 WBC 0 X 10*3/uL (0.00-0.01); Neutrophils # (A) 3.08 X 10*3/uL (1.80-7.70); Neutrophils % (A) 71.9 %; Platelet Count 168 X 10*3/uL (140-440); RBC 3.08 X 10*6/uL (4.10-5.20); RDW 13.5 % (11.5-14.5); WBC 4.28 X 10*3/uL (4.50-10.00)
[2024-09-29 19:14] LABS: BUN/Creat Ratio 23.92 Ratio (12.00-20.00); Blood Urea Nitrogen 31.1 mg/dL (9.0-27.0); Calcium 9.6 mg/dL (8.7-10.3); Carbon Dioxide 23.1 mmol/L (21.6-31.8); Chloride 104 mmol/L (96-109); Glucose 163 mg/dL (70-110); Potassium 5.2 mmol/L (3.5-5.5); Sodium 140 mmol/L (135-145)
== END | disposition home or self-care (01) ==
LOC: LABPAT 13:21
PROVIDERS: ATTEND Urology
DX: Z01.818 Encounter for other preprocedural examination (principal); D41.02 Neoplasm of uncertain behavior of left kidney; R94.31 Abnormal electrocardiogram [ECG] [EKG]
CPT/HCPCS: 80048; 85025; 86850; 86900; 86901; 93005

== ENCOUNTER 2024-10-30 14:25 | Inpatient (IN) | payer MEDICARE ==
--- NOTE | 2024-10-30 14:50 | ED ---
General Adult HPI - General Chief complaint: Shortness of Breath Stated complaint: Post-op-SOB Time Seen by Provider: 10/30/24 14:32 Source: patient, RN notes reviewed, old records reviewed Mode of arrival: ambulatory Limitations: no limitations - History of Present Illness Initial comments: 79-year-old female presenting with weakness, fatigue, mild dyspnea. Patient was seen by primary care today and sent to the emergency room for evaluation. She is approximately 3 weeks postop left nephrectomy. She denies abdominal pain. Denies fever. Denies dysuria she states she has had normal urine output. She has not been eating and drinking well. And there was concern for possible anemia. She does report left leg swelling and mild dyspnea. - Related Data Home Medications Medication Instructions Recorded Confirmed Pioglitazone HCl/Metformin HCl 1 tab PO BID 09/17/14 10/30/24 [Pioglitazone-Metformin 15-850] Simvastatin [Zocor] 40 mg PO HS 09/17/14 10/30/24 Valsartan/Hydrochlorothiazide 1 tab PO HS 09/17/14 10/30/24 [Diovan Hct 320-25 mg Tablet] Calcium Carbonate/Vitamin D3 2 tab PO DAILY 09/28/14 10/30/24 [Caltrate 600 Plus D3 Tablet] Aspirin 81 mg PO DAILY 03/06/17 10/30/24 DULoxetine HCL [Cymbalta] 60 mg PO DAILY 10/05/24 10/30/24 Ferrous Sulfate [Iron (65 MG 1 tab PO DAILY 10/05/24 10/30/24 Elemental)] Previous Rx's Medication Instructions Recorded HYDROcodone/APAP 5-325MG [Otisco 1 tab PO Q4HR PRN 3 Days #18 tab 10/14/24 5-325] Allergies Allergy/AdvReac Type Severity Reaction Status Date / Time tramadol Allergy Nausea, Verified 10/30/24 17:01 "DRY HEAVES" Review of Systems ROS Statement: Those systems with pertinent positive or pertinent negative responses have been documented in the HPI. ROS Other: All systems not noted in ROS Statement are negative. Past Medical History Past Medical History: Diabetes Mellitus, Hyperlipidemia, Hypertension, Sleep Apnea/CPAP/BIPAP Additional Past Medical History / Comment(s): anemia,arthritis History of Any Multi-Drug Resistant Organisms: None Reported Past Surgical History: Joint Replacement, Orthopedic Surgery Additional Past Surgical History / Comment(s): total lt knee,carpel tunnel lt wrist, left nephrectomy -2024 Past Anesthesia/Blood Transfusion Reactions: Motion Sickness, Postoperative Nausea & Vomiting (PONV) Additional Past Anesthesia/Blood Transfusion Reaction / Comment(s): no hx blood transfusion Past Psychological History: No Psychological Hx Reported Smoking Status: Never smoker Past Alcohol Use History: None Reported Past Drug Use History: None Reported - Past Family History Sister(s) Family Medical History: Cancer Additional Family Medical History / Comment(s): lymph General Exam Limitations: no limitations General appearance: alert, in no apparent distress Head exam: Present: atraumatic, normocephalic Eye exam: Present: normal appearance, PERRL ENT exam: Present: mucous membranes dry Respiratory exam: Present: normal lung sounds bilaterally. Absent: respiratory distress Cardiovascular Exam: Present: regular rate, normal rhythm GI/Abdominal exam: Present: soft. Absent: distended, tenderness, guarding Extremities exam: Present: pedal edema (left side) Neurological exam: Present: alert, oriented X3, CN II-XII intact. Absent: motor sensory deficit Psychiatric exam: Present: normal affect, normal mood Skin exam: Present: warm, dry, intact, pallor Course Vital Signs 10/30/24 10/30/24 10/30/24 14:27 15:14 15:26 Temperature 97.8 F Pulse Rate 95 88 Respiratory 18 28 H 30 H Rate Blood Pressure 127/57 147/64 O2 Sat by Pulse 95 95 Oximetry 10/30/24 10/30/24 16:05 17:11 Temperature 98.0 F 98.1 F Pulse Rate 101 H 103 H Respiratory 20 20 Rate Blood Pressure 143/54 137/68 O2 Sat by Pulse 94 L 94 L Oximetry Medical Decision Making - Medical Decision Making Was pt. sent in by a medical professional or institution (, PA, RN IMMUNOLOGY, urgent care, hospital, or jail...) When possible be specific @ -No Did you speak to anyone other than the patient for history (EMS, parent, family, police, friend...)? What history was obtained from this source @ -No Did you review nursing and triage notes (agree or disagree)? Why? @ -I reviewed and agree with nursing and triage notes Were old charts reviewed (outside hosp., previous admission, EMS record, old EKG, old radiological studies, urgent care reports/EKG's, jail records)? Report findings @ -No old charts were reviewed Differential Weakness: Hypoglycemia, shock, sepsis, hyponatremia, anemia, infection, AK, ETOH, adverse medicine reaction, overdose, stroke, this is not meant to be an all-inclusive list. EKG interpreted by me (3pts min.). @Sinus rhythm rate of 91, TX interval 107, QRS duration 88, QTc [address] segment elevation. X-rays interpreted by me (1pt min.). @ -Single view chest x-ray showing bilateral lower airspace opacity likely atelectasis. CT interpreted by me (1pt min.). @ -None done U/S interpreted by me (1pt. min.). @ -None done What testing was considered but not performed or refused? (CT, X-rays, U/S, labs)? Why? @ -None What meds were considered but not given or refused? Why? @ -None Did you discuss the management of the patient with other professionals (professionals i.e. , PA, RN IMMUNOLOGY, lab, RT, psych nurse, secondary social studies teacher, mica machine operator, teacher, community service officer, case packer and sealer)? Give summary @ -[Case discussed with Alice suazo for [facility] covering for Dr. Iverson Was smoking cessation discussed for >3mins.? @ -No Was critical care preformed (if so, how long)? @ -No Were there social determinants of health that impacted care today? How? (Homelessness, low income, unemployed, alcoholism, drug addiction, transportation, low edu. Level, literacy, decrease access to med. care, senior care, rehab)? @ -No Was there de-escalation of care discussed even if they declined (Discuss DNR or withdrawal of care, Hospice)? DNR status @ -No What co-morbidities impacted this encounter? (DM, HTN, Smoking, COPD, CAD, Cancer, CVA, ARF, Chemo, Hep., AIDS, mental health diagnosis, sleep apnea, morbid obesity)? @ -Recent nephrectomy Was patient admitted / discharged? Hospital course, mention meds given and route, prescriptions, significant lab abnormalities, going to OR and other pertinent info. @ -[79-year-old female sent over from primary care with weakness. Patient has stable vitals upon arrival. She has no complaints of abdominal pain, no chest pain, no fever, no cough. Her white blood cell count is normal. Her hemoglobin is low but stable at 7.5. She has a normal lactic acid. She has improved kidney function at 1.4. She has a magnesium of 1.4 which is replaced in the emergency department. She is in sinus rhythm with a rate of 91. Urinalysis pending. Undiagnosed new problem with uncertain prognosis? @ -No Drug Therapy requiring intensive monitoring for toxicity (Heparin, Nitro, Insulin, Cardizem)? @ -No Were any procedures done? @ -No Diagnosis/symptom? @ -Weakness, dehydration Acute, or Chronic, or Acute on Chronic? @ -Acute Uncomplicated (without systemic symptoms) or Complicated (systemic symptoms)? @ -Default Side effects of treatment? @ -No Exacerbation, Progression, or Severe Exacerbation? @ -No Poses a threat to life or bodily function? How? (Chest pain, USA, AK, pneumonia, PE, COPD, DKA, ARF, appy, cholecystitis, CVA, Diverticulitis, Homicidal, Suicidal, threat to staff... and all critical care pts) @ -No - Lab Data Result diagrams: 10/30/24 16:05 10/30/24 16:05 Lab Results 10/30/24 10/30/24 10/30/24 Range/Units 15:56 16:05 16:05 WBC 5.0 (3.8-10.6) k/uL RBC 2.48 L (3.80-5.40) m/uL Hgb 7.5 L (11.4-16.0) gm/dL Hct 24.2 L (34.0-46.0) % MCV 97.3 (80.0-100.0) fL MCH 30.2 (25.0-35.0) pg MCHC 31.1 (31.0-37.0) g/dL RDW 15.1 (11.5-15.5) % Plt Count 235 (150-450) k/uL MPV 7.8 Neutrophils % 67 % Lymphocytes % 18 % Monocytes % 5 % Eosinophils % 8 % Basophils % 0 % Neutrophils # 3.4 (1.3-7.7) k/uL Lymphocytes # 0.9 L (1.0-4.8) k/uL Monocytes # 0.2 (0-1.0) k/uL Eosinophils # 0.4 (0-0.7) k/uL Basophils # 0.0 (0-0.2) k/uL Hypochromasia Marked PT 10.9 (10.0-12.5) sec INR 1.0 (<1.2) APTT 24.9 (22.0-30.0) sec Sodium (137-145) mmol/L Potassium (3.5-5.1) mmol/L Chloride (98-107) mmol/L Carbon Dioxide (22-30) mmol/L Anion Gap mmol/L BUN (7-17) mg/dL Creatinine (0.52-1.04) mg/dL Est GFR (CKD-EPI)AfAm (>60 ml/min/1.73 sqM) Est GFR (CKD-EPI)NonAf (>60 ml/min/1.73 sqM) Glucose (74-99) mg/dL Plasma Lactic Acid Grant (0.7-2.0) mmol/L Calcium (8.4-10.2) mg/dL Magnesium (1.6-2.3) mg/dL Total Bilirubin (0.2-1.3) mg/dL AST (14-36) U/L ALT (4-34) U/L Alkaline Phosphatase (38-126) U/L Total Protein (6.3-8.2) g/dL Albumin (3.5-5.0) g/dL Blood Type A Positive Blood Type Recheck A Pos Bld Type Recheck Status No Antibody Screen NEGATIVE Spec Expiration Date 11/02/2024 - 235510/30/24 10/30/24 Range/Units 16:05 16:05 WBC (3.8-10.6) k/uL RBC (3.80-5.40) m/uL Hgb (11.4-16.0) gm/dL Hct (34.0-46.0) % MCV (80.0-100.0) fL MCH (25.0-35.0) pg MCHC (31.0-37.0) g/dL RDW (11.5-15.5) % Plt Count (150-450) k/uL MPV Neutrophils % % Lymphocytes % % Monocytes % % Eosinophils % % Basophils % % Neutrophils # (1.3-7.7) k/uL Lymphocytes # (1.0-4.8) k/uL Monocytes # (0-1.0) k/uL Eosinophils # (0-0.7) k/uL Basophils # (0-0.2) k/uL Hypochromasia PT (10.0-12.5) sec INR (<1.2) APTT (22.0-30.0) sec Sodium 140 (137-145) mmol/L Potassium 4.4 (3.5-5.1) mmol/L Chloride 103 (98-107) mmol/L Carbon Dioxide 25 (22-30) mmol/L Anion Gap 12 mmol/L BUN 27 H (7-17) mg/dL Creatinine 1.41 H (0.52-1.04) mg/dL Est GFR (CKD-EPI)AfAm 42 (>60 ml/min/1.73 sqM) Est GFR (CKD-EPI)NonAf 36 (>60 ml/min/1.73 sqM) Glucose 89 (74-99) mg/dL Plasma Lactic Acid Grant 0.9 (0.7-2.0) mmol/L Calcium 10.9 H (8.4-10.2) mg/dL Magnesium 1.4 L (1.6-2.3) mg/dL Total Bilirubin 0.5 (0.2-1.3) mg/dL AST 20 (14-36) U/L ALT 9 (4-34) U/L Alkaline Phosphatase 130 H (38-126) U/L Total Protein 6.2 L (6.3-8.2) g/dL Albumin 3.3 L (3.5-5.0) g/dL Blood Type Blood Type Recheck Bld Type Recheck Status Antibody Screen Spec Expiration Date Disposition Clinical Impression: Dehydration, Weakness Disposition: ADMITTED IP TO THIS [facility] Condition: Stable Is patient prescribed a controlled substance at d/c from ED?: No Referrals: Gelacio Iverson MD [Primary Care Provider] - 1-2 days Time of Disposition: 18:10
--- NOTE | 2024-10-30 15:29 | XR ---
EXAMINATION TYPE: XR chest 1V portable DATE OF EXAM: 10/30/2024 3:23 PM COMPARISON: 10/12/2024 CLINICAL INDICATION: Female, 79 years old with history of SOB, TECHNIQUE: XR chest 1V portable view(s) obtained. FINDINGS: The heart size is enlarged. The pulmonary vasculature is normal. Mild bibasilar infiltrates are present. Right lower infiltrate has improved IMPRESSION: 1. Mild bibasilar infiltrates. Correlate for atelectasis or pneumonia. [facility], , 10/30/2024 3:27 PM
--- NOTE | 2024-10-30 15:44 | US ---
EXAMINATION TYPE: US venous doppler duplex LE LT DATE OF EXAM: 10/30/2024 3:37 PM COMPARISON: NONE CLINICAL INDICATION: Female, 79 years old with history of swelling; Pain. On baby aspirin. , Pain TECHNIQUE: The lower extremity deep venous system is examined utilizing real time linear array sonog dayami with graded compression, color doppler sonography, and spectral doppler. SIDE PERFORMED: Left FINDINGS: VESSELS IMAGED: Common Femoral Vein Deep Femoral Vein Greater Saphenous Vein * Femoral Vein Popliteal Vein Small Saphenous Vein * Proximal Calf Veins (* superficial vessels) Left Leg: Negative for DVT, Color Doppler imaging shows patency of the vessels. Spectral waveforms a re within normal limits. IMPRESSION: No evidence of deep vein thrombosis of the left lower extremity. [facility], , 10/30/2024 3:42 PM
[2024-10-30] MEDS: SODIUM CHLORIDE 0.9% 500 ML 500 ML IV STA (16:04)
[2024-10-30] MEDS: SODIUM CHLORIDE 0.9% 1,000 ML IV STA (16:04)
[2024-10-30 16:18] LABS: Basophils % (A) 0 %; Eosinophils # (A) 0.4 k/uL (0-0.7); Eosinophils % (A) 8 %; HCT 24.2 % (34.0-46.0); HGB 7.5 gm/dL (11.4-16.0); Hypochromasia Marked; Lymphocytes # (A) 0.9 k/uL (1.0-4.8); Lymphocytes % (A) 18 %; MCH 30.2 pg (25.0-35.0); MCHC 31.1 g/dL (31.0-37.0); MCV 97.3 fL (80.0-100.0); Mean Platelet Volume 7.8; Monocytes # (A) 0.2 k/uL (0-1.0); Monocytes % (A) 5 %; Neutrophils # (A) 3.4 k/uL (1.3-7.7); Neutrophils % (A) 67 %; Platelet Count 235 k/uL (150-450); RBC 2.48 m/uL (3.80-5.40); RDW 15.1 % (11.5-15.5)
[2024-10-30 16:29] LABS: Partial Thromboplastin Time 24.9 sec (22.0-30.0); Prothrombin Time 10.9 sec (10.0-12.5)
[2024-10-30 16:36] LABS: ALT 9 U/L (4-34); AST 20 U/L (14-36); African American GFR (CKD) 42 (>60 ml/min/1.73 sqM); Albumin 3.3 g/dL (3.5-5.0); Alkaline Phosphatase 130 U/L (38-126); Anion Gap 12 mmol/L; Blood Urea Nitrogen 27 mg/dL (7-17); Calcium 10.9 mg/dL (8.4-10.2); Carbon Dioxide 25 mmol/L (22-30); Chloride 103 mmol/L (98-107); Glucose 89 mg/dL (74-99); Magnesium 1.4 mg/dL (1.6-2.3); Non-African American GFR(CKD) 36 (>60 ml/min/1.73 sqM); Potassium 4.4 mmol/L (3.5-5.1); Sodium 140 mmol/L (137-145); Total Bilirubin 0.5 mg/dL (0.2-1.3); Total Protein 6.2 g/dL (6.3-8.2)
[2024-10-30] MEDS: MAGNESIUM SULFATE-D5W PMX 1 GM in DEXTROSE/WATER 1 100ML.BAG IVPB SCH (18:04)
[2024-10-30] MEDS ORDERED: ACETAMINOPHEN TAB 325 MG TAB PO PRN (19:34)
[2024-10-30] MEDS ORDERED: NALOXONE 0.4 MG/ML 1 ML VIAL IV PRN (19:34)
[2024-10-30 20:48] LABS: Appearance,Urine Clear (Clear); Bacteria,Urine Rare /hpf; Bilirubin,Urine Negative (Negative); Blood,Urine Negative (Negative); Color,Urine Light Yellow; Glucose,Urine (UA) Negative (Negative); Hyaline Casts,Urine 5 /lpf (0-2); Ketones,Urine 1+ (Negative); Leukocyte Esterase,Urine Small (Negative); Mucus,Urine Rare /hpf; Nitrite,Urine Negative (Negative); Protein,Urine Negative (Negative); RBC,Urine <1 /hpf (0-5); Specific Gravity,Urine 1.011 (1.001-1.035); Squamous Epithelial Cell,Urine 3 /hpf (0-4); Urobilinogen,Urine <2.0 mg/dL (<2.0); WBC,Urine 8 /hpf (0-5)
[2024-10-31] MEDS ORDERED: MAG HYDROX/AL HYDROX/SIMETH 30 ML CUP PO PRN (10:32)
[2024-10-31] MEDS ORDERED: MELATONIN 3 MG TABLET PO PRN (10:32)
[2024-10-31] MEDS ORDERED: NALOXONE 0.4 MG/ML 1 ML VIAL IV PRN (10:32)
[2024-10-31] MEDS ORDERED: HYDROcodone/APAP 5-325MG 1 EACH TAB PO PRN (10:32)
[2024-10-31] MEDS ORDERED: ONDANSETRON 4 MG/2 ML VIAL IVP PRN (10:32)
--- NOTE | 2024-10-31 13:22 | P.HPIM ---
History of Present Illness H&P Date: 10/31/24 History of present illness; patient 79-year-old lady with past medical history significant for anemia, recent nephrectomy presenting the ER because of weakness and lethargy. Patient stated that she had left nephrectomy in around 3 weeks back. Patient stated for the last couple of days she has been feeling increasing weakness and lethargy. Patient also complaining of shortness of breath on exertion. Patient denies any orthopnea or PND. Patient does have swelling of left lower extremity. Patient denies any chest pain. There is no complaint of nausea, vomiting abdominal pain. Patient has any fever or chills. Patient went to her follow-up yesterday and was told to come to the ER Initial lab work done in the ER showed WBC 5, hemoglobin 7.5, platelet count 235, sodium 140, potassium 4.4, BUN 27, creatinine 1.41, magnesium 1.4, albumin 3.3 UA negative for infection EKG done in the ER showed heart rate of 91, no ST segment elevation or depression seen, no T-wave inversions seen. Chest x-ray done in the ER showed bibasilar atelectasis. Ultrasound of left lower extremity was negative for DVT Patient admitted to internal medicine service REVIEW OF SYSTEMS: CONSTITUTIONAL: As mentioned above HEENT: No recent visual problems or hearing problems. Denied any sore throat. CARDIOVASCULAR: As mentioned above PULMONARY: As mentioned above GASTROINTESTINAL: No diarrhea, no nausea, no vomiting, no abdominal pain. NEUROLOGICAL: No headaches, no weakness, no numbness. HEMATOLOGICAL: Denies any bleeding or petechiae. GENITOURINARY: Denies any burning micturition, frequency, or urgency. MUSCULOSKELETAL/RHEUMATOLOGICAL: Denies any joint pain, swelling, or any muscle pain. ENDOCRINE: Denies any polyuria or polydipsia. The rest of the 14-point review of systems is negative. PHYSICAL EXAMINATION: GENERAL: The patient is alert and oriented x3, ill looking, HEENT: Pupils are round and equally reacting to light. EOMI. pallor seen CARDIOVASCULAR: S1 and S2 present. No murmurs, rubs, or gallops. PULMONARY: Chest is clear to auscultation, no wheezing or crackles. ABDOMEN: Soft, nontender, nondistended, left-sided surgical incision seen MUSCULOSKELETAL: No joint swelling or deformity. EXTREMITIES: No cyanosis, clubbing, or pedal edema. NEUROLOGICAL: Gross neurological examination did not reveal any focal deficits. SKIN: No rashes. Assessment and plan Anemia Lethargy Weakness Acute hypoxemic respiratory failure Recent left nephrectomy Hypomagnesemia Hypertension Hyperlipidemia Diabetes mellitus History of obstructive sleep apnea Monitor vital signs Monitor CBC Monitor CMP Continue telemetry monitoring Ordered D-dimer Ordered proBNP Ordered anemia workup with FOBT and iron levels Ordered breathing treatments Resume home meds Consult pulmonary Consult urology Labs and medication were reviewed.. Continue same treatment. Continue with symptomatic treatment. Resume home medication. Monitor labs and vitals. DVT and GI prophylaxis. Further recommendations as per clinical course of the patient Dictation was produced using [employer] dictation software. please excuse any grammatical, word or spelling errors. Past Medical History Past Medical History: Diabetes Mellitus, Hyperlipidemia, Hypertension, Sleep Apnea/CPAP/BIPAP Additional Past Medical History / Comment(s): anemia,arthritis History of Any Multi-Drug Resistant Organisms: None Reported Past Surgical History: Joint Replacement, Orthopedic Surgery Additional Past Surgical History / Comment(s): total lt knee,carpel tunnel lt wrist, left nephrectomy 2-2024 Past Anesthesia/Blood Transfusion Reactions: Motion Sickness, Postoperative Nausea & Vomiting (PONV) Additional Past Anesthesia/Blood Transfusion Reaction / Comment(s): no hx blood transfusion Past Psychological History: No Psychological Hx Reported Smoking Status: Never smoker Past Alcohol Use History: None Reported Past Drug Use History: None Reported - Past Family History Sister(s) Family Medical History: Cancer Additional Family Medical History / Comment(s): lymph Medications and Allergies Home Medications Medication Instructions Recorded Confirmed Type Pioglitazone HCl/Metformin HCl 1 tab PO BID 09/17/14 10/30/24 History [Pioglitazone-Metformin 15-850] Simvastatin [Zocor] 40 mg PO HS 09/17/14 10/30/24 History Valsartan/Hydrochlorothiazide 1 tab PO HS 09/17/14 10/30/24 History [Diovan Hct 320-25 mg Tablet] Calcium Carbonate/Vitamin D3 2 tab PO DAILY 09/28/14 10/30/24 History [Caltrate 600 Plus D3 Tablet] Aspirin 81 mg PO DAILY 03/06/17 10/30/24 History DULoxetine HCL [Cymbalta] 60 mg PO DAILY 10/05/24 10/30/24 History Ferrous Sulfate [Iron (65 MG 1 tab PO DAILY 10/05/24 10/30/24 History Elemental)] HYDROcodone/APAP 5-325MG [[place] 1 tab PO Q4HR PRN 3 Days #18 tab 10/14/24 10/30/24 Rx 5-325] Allergies Allergy/AdvReac Type Severity Reaction Status Date / Time tramadol Allergy Nausea, Verified 10/30/24 17:01 "DRY HEAVES" Physical Exam Vitals: Vital Signs Temp Pulse Resp BP Pulse Ox 10/31/24 07:42 101 H 16 134/57 99 10/31/24 04:21 96 18 142/52 97 10/30/24 22:16 102 H 18 145/54 100 10/30/24 22:10 105 H 20 148/49 100 10/30/24 20:57 101 H 18 97/62 97 10/30/24 18:10 101 H 24 149/66 95 10/30/24 17:11 98.1 F 103 H 20 137/68 94 L 10/30/24 16:05 98.0 F 101 H 20 143/54 94 L 10/30/24 15:26 30 H 10/30/24 15:14 88 28 H 147/64 95 10/30/24 14:27 97.8 F 95 18 127/57 95 Results CBC & Chem 7: 10/30/24 16:05 10/30/24 16:05 Labs: Abnormal Lab Results - Last 24 Hours (Table) 10/30/24 10/30/24 10/30/24 Range/Units 16:05 16:05 20:41 RBC 2.48 L (3.80-5.40) m/uL Hgb 7.5 L (11.4-16.0) gm/dL Hct 24.2 L (34.0-46.0) % Lymphocytes # 0.9 L (1.0-4.8) k/uL BUN 27 H (7-17) mg/dL Creatinine 1.41 H (0.52-1.04) mg/dL Calcium 10.9 H (8.4-10.2) mg/dL Magnesium 1.4 L (1.6-2.3) mg/dL Alkaline Phosphatase 130 H (38-126) U/L Total Protein 6.2 L (6.3-8.2) g/dL Albumin 3.3 L (3.5-5.0) g/dL Urine Ketones 1+ H (Negative) Ur Leukocyte Esterase Small H (Negative) Urine WBC 8 H (0-5) /hpf Urine Bacteria Rare H (None) /hpf Hyaline Casts 5 H (0-2) /lpf Urine Mucus Rare H (None) /hpf
[2024-10-31 13:41] LABS: Influenza A Not Detected (Not Detectd); Influenza B Not Detected (Not Detectd); RSV Not Detected (Not Detectd)
[2024-10-31 16:53] LABS: Glucose,Whole Blood 98 mg/dL (70-110)
[2024-10-31] MEDS: ATORVASTATIN 20 MG TAB PO SCH (20:22)
[2024-10-31] MEDS: hydroCHLOROthiazide 25 MG TAB PO SCH (20:22)
[2024-10-31 21:55] LABS: Glucose,Whole Blood 99 mg/dL (70-110)
[2024-11-01] MEDS: VALSARTAN 160 MG TAB PO SCH (00:09)
[2024-11-01 06:44] LABS: Glucose,Whole Blood 106 mg/dL (70-110)
[2024-11-01] MEDS: DULoxetine HCL 60 MG CAPSULE.DR PO SCH (08:28)
[2024-11-01] MEDS: FERROUS SULFATE 325 MG TAB PO SCH (08:28)
[2024-11-01] MEDS: CALCIUM CARB-VIT D 500 MG-5 MCG TAB PO SCH (08:28)
[2024-11-01 10:05] LABS: Basophils # (A) 0.04 X 10*3/uL (0.00-0.10); Basophils % (A) 0.9 %; Eosinophils # (A) 0.57 X 10*3/uL (0.04-0.35); Eosinophils % (A) 13.2 %; HCT 22.9 % (37.2-46.3); HGB 6.7 g/dL (12.0-15.0); Hypochromasia (M) 2+ (None Seen); Lymphocytes # (A) 0.89 X 10*3/uL (0.90-5.00); Lymphocytes % (A) 20.6 %; MCH 29.6 pg (27.0-32.0); MCHC 29.3 g/dL (32.0-37.0); MCV 101.3 FL (80.0-97.0); Mean Platelet Volume 11.2 FL (9.5-12.2); Monocytes # (A) 0.42 X 10*3/uL (0.20-1.00); Monocytes % (A) 9.7 %; NRBC Per 100 WBC 0 X 10*3/uL (0.00-0.01); Neutrophils # (A) 2.39 X 10*3/uL (1.80-7.70); Neutrophils % (A) 55.1 %; Platelet Count 215 X 10*3/uL (140-440); RBC 2.26 X 10*6/uL (4.10-5.20); RDW 15.5 % (11.5-14.5); WBC 4.33 X 10*3/uL (4.50-10.00)
--- NOTE | 2024-11-01 11:36 | P.GSCN ---
History of Present Illness Consult date: 11/01/24 Reason for Consult: Left renal cell carcinoma Requesting physician: Tom Macias History of present illness: The patient is a 79-year-old white female who underwent a left radical nephrectomy on October 06, 2024. 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 She was seen by Dr. Iverson in the office on October 30, 2024 and advised to come to the ER. Her marked primary complaints are weakness, dyspnea, and diminished appetite. She denies abdominal pain, dysuria, and hematuria. Review of Systems - Constitutional Reports fatigue, Reports poor appetite, Reports weakness, Denies chills, Denies fever - Gastrointestinal Denies abdominal pain Past Medical History Past Medical History: Cancer (Renal cell carcinoma, post left nephrectomy), Diabetes Mellitus, Hyperlipidemia, Hypertension, Renal Disease, Sleep Apnea/CPAP/BIPAP Additional Past Medical History / Comment(s): anemia,arthritis History of Any Multi-Drug Resistant Organisms: None Reported Past Surgical History: Joint Replacement, Orthopedic Surgery Additional Past Surgical History / Comment(s): total lt knee,carpel tunnel lt wrist, left nephrectomy Past Anesthesia/Blood Transfusion Reactions: Motion Sickness, Postoperative Nausea & Vomiting (PONV) Additional Past Anesthesia/Blood Transfusion Reaction / Comm: no hx blood transfusion Past Psychological History: No Psychological Hx Reported Smoking Status: Never smoker Past Alcohol Use History: None Reported Past Drug Use History: None Reported - Past Family History Sister(s) Family Medical History: Cancer Additional Family Medical History / Comment(s): lymph Medications and Allergies Home Medications Medication Instructions Recorded Confirmed Type Pioglitazone HCl/Metformin HCl 1 tab PO BID 09/17/14 10/30/24 History [Pioglitazone-Metformin 15-850] Simvastatin [Zocor] 40 mg PO HS 09/17/14 10/30/24 History Valsartan/Hydrochlorothiazide 1 tab PO HS 09/17/14 10/30/24 History [Diovan Hct 320-25 mg Tablet] Calcium Carbonate/Vitamin D3 2 tab PO DAILY 09/28/14 10/30/24 History [Caltrate 600 Plus D3 Tablet] Aspirin 81 mg PO DAILY 03/06/17 10/30/24 History DULoxetine HCL [Cymbalta] 60 mg PO DAILY 10/05/24 10/30/24 History Ferrous Sulfate [Iron (65 MG 1 tab PO DAILY 10/05/24 10/30/24 History Elemental)] HYDROcodone/APAP 5-325MG [[place] 1 tab PO Q4HR PRN 3 Days #18 tab 10/14/24 10/30/24 Rx 5-325] Allergies Allergy/AdvReac Type Severity Reaction Status Date / Time tramadol Allergy Nausea, Verified 10/30/24 17:01 "DRY HEAVES" Surgical - Exam Vital Signs Temp Pulse Resp BP Pulse Ox 97.8 F 95 18 127/57 95 10/30/24 14:27 10/30/24 14:27 10/30/24 14:27 10/30/24 14:27 10/30/24 14:27 - General well developed, well nourished, no distress - Respiratory normal respiratory effort - Abdomen Soft, non-tender, non-distended. Incision is healing well. - Psychiatric oriented to time, oriented to person, oriented to place, speech is normal, memory intact Results - Labs 11/01/24 02:47 10/30/24 16:05 Abnormal Lab Results - Last 24 Hours (Table) 10/30/24 10/31/24 11/01/24 Range/Units 15:56 11:03 02:47 WBC 4.33 L (4.50-10.00) X 10*3/uL RBC 2.26 L (4.10-5.20) X 10*6/uL Hgb 6.7 A* (12.0-15.0) g/dL Hct 22.9 L (37.2-46.3) % MCV 101.3 H (80.0-97.0) FL MCHC 29.3 L (32.0-37.0) g/dL RDW 15.5 H (11.5-14.5) % Lymphocytes # 0.89 L (0.90-5.00) X 10*3/uL Eosinophils # 0.57 H (0.04-0.35) X 10*3/uL Hypochromasia (manual) 2+ A (None Seen) D-Dimer 3.93 H (<0.60) mg/L FEU Crossmatch See Detail Assessment and Plan Plan: The patient is noted to be anemic. This is likely the primary cause of her weakness. She states that this is chronic, and she is followed by Dr. Austin for this. She should follow-up with Dr. Austin additionally given her adverse renal cell carcinoma pathology. She is not need of any urologic intervention at this time.
[2024-11-01 11:57] LABS: % Iron Saturation 16.53 (12.00-45.00); Iron 41 UG/DL (50-170); Total Iron Binding Capacity 248 UG/DL (228-460)
[2024-11-01 12:09] LABS: ALT 8 U/L (8-44); AST 22 U/L (13-35); Albumin 3.1 g/dL (3.8-4.9); Albumin/Globulin Ratio 1.11 Ratio (1.60-3.17); Alkaline Phosphatase 120 U/L (41-126); BUN/Creat Ratio 17.18 Ratio (12.00-20.00); Blood Urea Nitrogen 18.9 mg/dL (9.0-27.0); Calcium 9.8 mg/dL (8.7-10.3); Carbon Dioxide 24.2 mmol/L (21.6-31.8); Chloride 105 mmol/L (96-109); Globulin 2.8 g/dL (1.6-3.3); Glucose 92 mg/dL (70-110); Potassium 4.6 mmol/L (3.5-5.5); Sodium 142 mmol/L (135-145); Total Bilirubin <0.2 mg/dL (0.3-1.2); Total Protein 5.9 g/dL (6.2-8.2)
--- NOTE | 2024-11-01 13:43 | P.PN ---
Subjective Progress Note Date: 11/01/24 patient 79-year-old lady with past medical history significant for anemia, recent nephrectomy presenting the ER because of weakness and lethargy. Patient stated that she had left nephrectomy in around 3 weeks back. Patient stated for the last couple of days she has been feeling increasing weakness and lethargy. Patient also complaining of shortness of breath on exertion. Patient denies any orthopnea or PND. Patient does have swelling of left lower extremity. Patient denies any chest pain. There is no complaint of nausea, vomiting abdominal pain. Patient has any fever or chills. Patient went to her follow-up yesterday and was told to come to the ER Initial lab work done in the ER showed WBC 5, hemoglobin 7.5, platelet count 235, sodium 140, potassium 4.4, BUN 27, creatinine 1.41, magnesium 1.4, albumin 3.3 UA negative for infection EKG done in the ER showed heart rate of 91, no ST segment elevation or depression seen, no T-wave inversions seen. Chest x-ray done in the ER showed bibasilar atelectasis. Ultrasound of left lower extremity was negative for DVT Patient admitted to internal medicine service 11/01. Patient seen and examined. Blood work done this morning showedWBC 4.33, hemoglobin 6.7, platelet count 215. D-dimer was elevated, will order CT angio chest. Will also order CT abdomen pelvis to rule out retroperitoneal bleed. Denies any shortness of breath. Still complain lethargic or weakness REVIEW OF SYSTEMS: CONSTITUTIONAL: No fever, no malaise,. CARDIOVASCULAR: No chest pain, no palpitations, no syncope. PULMONARY: As mentioned above GASTROINTESTINAL: No diarrhea, no nausea, no vomiting, no abdominal pain. NEUROLOGICAL: No headaches, no weakness, PHYSICAL EXAMINATION: GENERAL: The patient is alert and oriented x3, chronically ill looking HEENT: Pupils are round and equally reacting to light. EOMI. No scleral icterus. No conjunctival pallor. Normocephalic, atraumatic. No pharyngeal erythema. No thyromegaly. CARDIOVASCULAR: S1 and S2 present. No murmurs, rubs, or gallops. PULMONARY: Chest is clear to auscultation, no wheezing or crackles. ABDOMEN: Soft, nontender, nondistended, normoactive bowel sounds. No palpable organomegaly. Left-sided surgical incision seen MUSCULOSKELETAL: No joint swelling or deformity. EXTREMITIES: No cyanosis, clubbing, or pedal edema. NEUROLOGICAL: Gross neurological examination did not reveal any focal deficits. SKIN: No rashes. Assessment and plan Acute blood loss anemia Lethargy Weakness Acute hypoxemic respiratory failure Recent left nephrectomy Hypomagnesemia Hypertension Hyperlipidemia Diabetes mellitus History of obstructive sleep apnea Monitor vital signs Monitor CBC Monitor CMP Continue telemetry monitoring Ordered anemia workup with FOBT and iron levels Ordered CT abdominal pelvis without contrast Ordered CT chest PE protocol Ordered breathing treatments Urology following Consult hematology Labs and medication were reviewed.. Continue same treatment. Continue with symptomatic treatment. Resume home medication. Monitor labs and vitals. DVT and GI prophylaxis. Further recommendations as per clinical course of the patient Dictation was produced using [employer] dictation software. please excuse any grammatical, word or spelling errors. Objective - Vital Signs Vital signs: Vital Signs Temp 98.0 F 11/01/24 07:06 Pulse 91 11/01/24 08:30 Resp 16 11/01/24 08:30 BP 138/80 11/01/24 07:06 Pulse Ox 97 11/01/24 07:06 FiO2 Intake & Output 10/31/24 11/01/24 11/01/24 18:59 06:59 18:59 Intake Total 1080 Balance 1080 Weight 83.915 kg Intake: Oral 1080 Other: Voiding Method Toilet Toilet # Voids 3 6 - Labs CBC & Chem 7: 11/01/24 02:47 11/01/24 02:47 Labs: Abnormal Lab Results - Last 24 Hours (Table) 10/31/24 11/01/24 Range/Units 11:03 02:47 WBC 4.33 L (4.50-10.00) X 10*3/uL RBC 2.26 L (4.10-5.20) X 10*6/uL Hgb 6.7 A* (12.0-15.0) g/dL Hct 22.9 L (37.2-46.3) % MCV 101.3 H (80.0-97.0) FL MCHC 29.3 L (32.0-37.0) g/dL RDW 15.5 H (11.5-14.5) % Lymphocytes # 0.89 L (0.90-5.00) X 10*3/uL Eosinophils # 0.57 H (0.04-0.35) X 10*3/uL Hypochromasia (manual) 2+ A (None Seen) D-Dimer 3.93 H (<0.60) mg/L FEU
--- NOTE | 2024-11-01 14:51 | P.CNPUL ---
History of Present Illness Consult date: 10/31/24 Reason for consult: hypoxemia History of present illness: This is a 79-year-old female patient presented to the ED with generalized weakness and lethargy. I was asked to evaluate this patient for hypoxic respiratory failure the patient is currently on 2 L of oxygen by nasal cannula with a pulse ox of 99%. Chest x-ray done in the emergency department shows some atelectatic changes in lung bases bilaterally. No evidence of any pneumonia. D oppler of the lower extremities were also done that showed no evidence of any DVT. This patient had further workup in the emergency department. The patient's hemoglobin has been chronically low at 7.5. Coagulation profile was normal. D- dimer was at 3.9. BUN was 27 and a creatinine was 1.4 noted the patient's creatinine has been improving following her nephrectomy. Sodium is at 140, potassium is at 4.4, bicarb is at 25. Calcium levels at 10.9. LFTs are normal. UA showed few WBCs. And +1 blood. Otherwise negative. The viral screen was negative. This patient was seen by our services back in October 2024. The patient had a left renal mass and the patient underwent a radical nephrectomy and postop the patient sustained acute kidney injury and her kidney function has been gradually improving. She also had blood loss anemia which was an expected outcome of, Surgery and hemoglobin has remained stable and the most recent hemoglobin is at 7.5. The patient also required hemodialysis for acute kidney injury that occurred after the surgery. Ultimately, urine output improved and her renal function gradually improved. Most recent creatinine is at 1.4. She is also known to have obstructive sleep apnea, maintained on a BiPAP pressure of 13 over 9 cm of water and she had an AirFit F20 fullface mask. She is obese and her body mass index is around 37. She has diabetes mellitus type 2, hypertension hyperlipidemia. Her surgery was performed on 10/06/2024 and the pathology was consistent with high-grade renal cell carcinoma grade 4 and the tumor invaded the perirenal fat and the hilar vessels and the ureter had positive margins. As such, the patient was given a T3a disease with invasion of the perirenal tissue. Review of Systems CONSTITUTIONAL: As mentioned above HEENT: No recent visual problems or hearing problems. Denied any sore throat. CARDIOVASCULAR: As mentioned above PULMONARY: As mentioned above GASTROINTESTINAL: No diarrhea, no nausea, no vomiting, no abdominal pain. NEUROLOGICAL: No headaches, no weakness, no numbness. HEMATOLOGICAL: Denies any bleeding or petechiae. GENITOURINARY: Denies any burning micturition, frequency, or urgency. MUSCULOSKELETAL/RHEUMATOLOGICAL: Denies any joint pain, swelling, or any muscle pain. ENDOCRINE: Denies any polyuria or polydipsia. The rest of the 14-point review of systems is negative. Past Medical History Past Medical History: Cancer (Renal cell carcinoma, post left nephrectomy), Diabetes Mellitus, Hyperlipidemia, Hypertension, Renal Disease, Sleep Apnea/CPAP/BIPAP Additional Past Medical History / Comment(s): anemia,arthritis History of Any Multi-Drug Resistant Organisms: None Reported Past Surgical History: Joint Replacement, Orthopedic Surgery Additional Past Surgical History / Comment(s): total lt knee,carpel tunnel lt wrist, left nephrectomy -2024 Past Anesthesia/Blood Transfusion Reactions: Motion Sickness, Postoperative Nausea & Vomiting (PONV) Additional Past Anesthesia/Blood Transfusion Reaction / Comment(s): no hx blood transfusion Past Psychological History: No Psychological Hx Reported Smoking Status: Never smoker Past Alcohol Use History: None Reported Past Drug Use History: None Reported - Past Family History Sister(s) Family Medical History: Cancer Additional Family Medical History / Comment(s): lymph Medications and Allergies Home Medications Medication Instructions Recorded Confirmed Type Pioglitazone HCl/Metformin HCl 1 tab PO BID 09/17/14 10/30/24 History [Pioglitazone-Metformin 15-850] Simvastatin [Zocor] 40 mg PO HS 09/17/14 10/30/24 History Valsartan/Hydrochlorothiazide 1 tab PO HS 09/17/14 10/30/24 History [Diovan Hct 320-25 mg Tablet] Calcium Carbonate/Vitamin D3 2 tab PO DAILY 09/28/14 10/30/24 History [Caltrate 600 Plus D3 Tablet] Aspirin 81 mg PO DAILY 03/06/17 10/30/24 History DULoxetine HCL [Cymbalta] 60 mg PO DAILY 10/05/24 10/30/24 History Ferrous Sulfate [Iron (65 MG 1 tab PO DAILY 10/05/24 10/30/24 History Elemental)] HYDROcodone/APAP 5-325MG [[place] 1 tab PO Q4HR PRN 3 Days #18 tab 10/14/24 10/30/24 Rx 5-325] Allergies Allergy/AdvReac Type Severity Reaction Status Date / Time tramadol Allergy Nausea, Verified 10/30/24 17:01 "DRY HEAVES" Physical Exam Vitals: Vital Signs Temp Pulse Pulse Resp BP BP Pulse Ox 10/31/24 15:14 93 18 10/31/24 14:14 98.4 F 92 18 146/60 100 10/31/24 14:00 93 16 161/76 99 10/31/24 12:10 98.0 F 92 18 126/53 95 10/31/24 07:42 101 H 16 134/57 99 10/31/24 04:21 96 18 142/52 97 10/30/24 22:16 102 H 18 145/54 100 10/30/24 22:10 105 H 20 148/49 100 10/30/24 20:57 101 H 18 97/62 97 10/30/24 18:10 101 H 24 149/66 95 10/30/24 17:11 98.1 F 103 H 20 137/68 94 L 10/30/24 16:05 98.0 F 101 H 20 143/54 94 L Intake and Output 10/31/24 10/31/24 10/31/24 06:59 14:59 22:59 Other: Voiding Method Toilet Weight 83.915 kg The patient appeared well nourished and normally developed. Vital signs as documented. Comfortable on 2 L of oxygen by nasal cannula Head exam is unremarkable. No scleral icterus or corneal arcus noted. Neck is without jugular venous distension, thyromegaly, or carotid bruits. Carotid upstrokes are brisk bilaterally. . Lungs are clear to auscultation and percussion. Cardiac exam reveals the PMI to be normally sized and situated. Rhythm is regular. First and second heart sounds normal. No murmurs, rubs or gallops. Abdominal exam reveals normal bowel sounds, no masses, no organomegaly and no aortic enlargement. Surgical wound site over the left lateral abdominal wall is dry clean and intact. Bowel sounds are hypoactive. Extremities are nonedematous and both femoral and pedal pulses are normal. Examination of the skin revealed no evidence of significant rashes, suspicious appearing nevi or other concerning lesions. Neurologically, the patient is awake and alert and the patient does not have any focal neurological deficit. Cranial nerves are essentially intact. Results - Laboratory Findings CBC and BMP: 10/30/24 16:05 10/30/24 16:05 PT/INR, D-dimer PT 10.9 sec (10.0-12.5) 10/30/24 16:05 INR 1.0 (<1.2) 10/30/24 16:05 D-Dimer 3.93 mg/L FEU (<0.60) H 10/31/24 11:03 Abnormal lab findings: Abnormal Labs 10/30/24 10/30/24 10/30/24 16:05 16:05 20:41 RBC 2.48 L Hgb 7.5 L Hct 24.2 L Lymphocytes # 0.9 L D-Dimer BUN 27 H Creatinine 1.41 H Calcium 10.9 H Magnesium 1.4 L Alkaline Phosphatase 130 H Total Protein 6.2 L Albumin 3.3 L Urine Ketones 1+ H Ur Leukocyte Esterase Small H Urine WBC 8 H Urine Bacteria Rare H Hyaline Casts 5 H Urine Mucus Rare H 10/31/24 11:03 RBC Hgb Hct Lymphocytes # D-Dimer 3.93 H BUN Creatinine Calcium Magnesium Alkaline Phosphatase Total Protein Albumin Urine Ketones Ur Leukocyte Esterase Urine WBC Urine Bacteria Hyaline Casts Urine Mucus - Diagnostic Findings Chest x-ray: image reviewed Assessment and Plan Plan: Generalized weakness, multifactorial Acute hypoxic respiratory failure, currently on 2 L of oxygen by nasal cannula. Chest x-ray showed atelectatic changes in lung base bilaterally. 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, post left radical nephrectomy, surgery was done on 10/06/2024 Acute kidney injury, secondary to postop ATN, required hemodialysis, and currently she is off hemodialysis and the creatinine is down to 1.4 Chronic anemia with a component of iron deficiency Obesity, losing weight Obstructive sleep apnea maintained on a BiPAP pressure of 13 over 9 cm of water using an AirFit F20 fullface mask Diabetes mellitus type 2 Hypertension Hyperlipidemia Plan Clinically stable on 2 L of O2 nasal cannula Resume BiPAP from home Hemodynamically stable Incentive spirometer Resume home medications Consult medical oncology Will follow
--- NOTE | 2024-11-01 14:52 | P.PN ---
Subjective Progress Note Date: 11/01/24 On 11/01/2024, the patient is being seen for a follow-up., Comfortable. No significant respiratory distress at rest. Hemoglobin is dropped down to 6.7 and the patient will be given a unit of packed RBC. No signs of any acute bleeding. Surgical site over the left upper quadrant remains dry clean and intact. The patient does have iron deficiency and a serum iron is low at 41. Meanwhile, the white cell count of 4.3. Platelet count is at 1215. Creatinine today is at 1.1. The patient remains on oxygen at 2 L with a pulse ox of 97%. No cough. No sputum production. No chest tightness. No wheezing. No other complaints otherwise. CAT scan of the chest and abdomen was ordered by the medical team. Objective - Vital Signs Vital signs: Vital Signs Temp 97.9 F 11/01/24 14:20 Pulse 101 H 11/01/24 14:20 Resp 16 11/01/24 14:20 BP 147/82 11/01/24 14:20 Pulse Ox 97 11/01/24 14:20 FiO2 Intake & Output 10/31/24 11/01/24 11/01/24 18:59 06:59 18:59 Intake Total 1080 0 Balance 1080 0 Weight 83.915 kg Intake: Oral 1080 Blood Product 0 Rc As-1 Unit 0 [id number] Other: Voiding Method Toilet Toilet # Voids 3 6 - Exam The patient appeared well nourished and normally developed. Vital signs as documented. Comfortable on 2 L of oxygen by nasal cannula Head exam is unremarkable. No scleral icterus or corneal arcus noted. Neck is without jugular venous distension, thyromegaly, or carotid bruits. C arotid upstrokes are brisk bilaterally. . Lungs are clear to auscultation and percussion. Cardiac exam reveals the PMI to be normally sized and situated. Rhythm is regular. First and second heart sounds normal. No murmurs, rubs or gallops. Abdominal exam reveals normal bowel sounds, no masses, no organomegaly and no aortic enlargement. Surgical wound site over the left lateral abdominal wall is dry clean and intact. Bowel sounds are hypoactive. Extremities are nonedematous and both femoral and pedal pulses are normal. Examination of the skin revealed no evidence of significant rashes, suspicious appearing nevi or other concerning lesions. Neurologically, the patient is awake and alert and the patient does not have any focal neurological deficit. Cranial nerves are essentially intact. - Labs CBC & Chem 7: 11/01/24 02:47 11/01/24 02:47 Labs: Abnormal Lab Results - Last 24 Hours (Table) 10/30/24 11/01/24 11/01/24 Range/Units 15:56 02:47 02:47 WBC 4.33 L (4.50-10.00) X 10*3/uL RBC 2.26 L (4.10-5.20) X 10*6/uL Hgb 6.7 A* (12.0-15.0) g/dL Hct 22.9 L (37.2-46.3) % MCV 101.3 H (80.0-97.0) FL MCHC 29.3 L (32.0-37.0) g/dL RDW 15.5 H (11.5-14.5) % Lymphocytes # 0.89 L (0.90-5.00) X 10*3/uL Eosinophils # 0.57 H (0.04-0.35) X 10*3/uL Hypochromasia (manual) 2+ A (None Seen) Anion Gap 12.80 H (4.00-12.00) mmol/L Est GFR (CKD-EPI) 52 L (>=60) Iron 41 L (50-170) UG/DL Transferrin 177.0 L (204.0-354.0) mg/dL Total Bilirubin <0.2 L (0.3-1.2) mg/dL Total Protein 5.9 L (6.2-8.2) g/dL Albumin 3.1 L (3.8-4.9) g/dL Albumin/Globulin Ratio 1.11 L (1.60-3.17) Ratio Crossmatch See Detail Assessment and Plan Plan: Generalized weakness, multifactorial Acute hypoxic respiratory failure, currently on 2 L of oxygen by nasal cannula. Chest x-ray showed atelectatic changes in lung base bilaterally. 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, post left radical nephrectomy, surgery was done on 10/06/2024 Acute kidney injury, secondary to postop ATN, required hemodialysis, and currently she is off hemodialysis and the creatinine is down to 1.1 Chronic anemia with a component of iron deficiency Obesity, losing weight Obstructive sleep apnea maintained on a BiPAP pressure of 13 over 9 cm of water using an AirFit F20 fullface mask Diabetes mellitus type 2 Hypertension Hyperlipidemia Plan Clinically stable on 2 L of O2 nasal cannula Resume BiPAP from home Hemodynamically stable Incentive spirometer t ransfuse 2 unit of packed RBC Urology consultation CT scan of the chest abdomen pelvis has been ordered by the medical team, we will review the results Resume home medications Consult medical oncology Will follow Time with Patient: Greater than 30
[2024-11-01 20:55] LABS: Glucose,Whole Blood 124 mg/dL (70-110)
--- NOTE | 2024-11-02 04:20 | CT ---
EXAM: CT Angiography Chest With Intravenous Contrast CLINICAL HISTORY: ITS.REASON CT Reason: Dyspnea TECHNIQUE: Axial computed tomographic angiography images of the chest with intravenous contrast. CTDI is 15.5 mGy and DLP is 400.2 mGy-cm. This CT exam was performed using one or more of the following dose reduction techniques: automated exposure control, adjustment of the mA and/or kV according to patient size, and/or use of iterative reconstruction technique. MIP reconstructed images were created and reviewed. COMPARISON: CT dated 05/25/2024. FINDINGS: Pulmonary arteries: Unremarkable. No pulmonary embolism. Aorta: Calcifications are seen within a nondilated aorta. Lungs: 5.2 mm left upper lobe pulmonary nodule seen on series 401 image 68. 1.5 cm right upper lobe pulmonary nodule seen on series 401 image 34, previously measuring 8.4 mm. 4.6 mm right upper lobe pulmonary nodule seen on series 401 image 49. Bilateral lower lobe atelectasis. Pleural space: Bilateral pleural effusions. No pneumothorax. Heart: Coronary artery calcifications. Moderate cardiac enlargement. Small pericardial effusion. No evidence of RV dysfunction. Mediastinum: Mild mediastinal lymphadenopathy. Mild right hilar lymphadenopathy. Bones/joints: Degenerative changes are seen within the spine and shoulders. No acute fracture. No dislocation. Soft tissues: Unremarkable. Lymph nodes: Enlarged lymph nodes are seen along the gastrohepatic ligament. Prominent lymph nodes are seen within the cardiophrenic fat. Intraperitoneal space: Upper abdominal ascites. IMPRESSION: 1. Increasing bilateral pulmonary nodules. Findings are concerning for malignancy. Recommend pulmonary consultation and follow-up CT in 3 months time. Consider PET scan. 2. Bilateral pleural effusions with adjacent atelectasis and underlying pneumonia not excluded. 3. No pulmonary artery embolism. 4. Upper abdominal ascites and lymphadenopathy.
--- NOTE | 2024-11-02 05:13 | CT ---
EXAM: CT Abdomen and Pelvis With Intravenous Contrast CLINICAL HISTORY: Anemia, rule out retroperitoneal bleed TECHNIQUE: Axial computed tomography images of the abdomen and pelvis with intravenous contrast. CTDI is 51.1 mGy and DLP is 2234.9 mGy-cm. This CT exam was performed using one or more of the following dose reduction techniques: automated exposure control, adjustment of the mA and/or kV according to patient size, and/or use of iterative reconstruction technique. COMPARISON: No relevant prior studies available. FINDINGS: Lung bases: For findings regarding the lung bases, please see the CTA report of the chest performed concurrently. ABDOMEN: Liver: Lobular contours to the liver. Relative hypertrophy of the left lobe. No focal abnormality. Gallbladder and bile ducts: A solitary subcentimeter gallstone is noted in the gallbladder which is mildly distended. No gallbladder wall thickening or biliary dilatation. Pancreas: Unremarkable. No mass. No ductal dilation. Spleen: Unremarkable. No splenomegaly. Adrenals: Unremarkable. No mass. Kidneys and ureters: Status post left nephrectomy. The right kidney demonstrates normal enhancement without pyelonephritis or hydronephrosis. Delayed phase imaging demonstrates excreted contrast in the right renal collecting system and ureter. Stomach and bowel: The stomach is predominately decompressed. Only minimal fluid and gas noted internally. Coastal thickening of the distal duodenum and proximal jejunal bowel loops. No evidence for high-grade bowel obstruction. PELVIS: Appendix: No findings to suggest acute appendicitis. Bladder: There is excreted contrast in the bladder on initial imaging. No bladder wall thickening. Reproductive: Unremarkable as visualized. ABDOMEN and PELVIS: Intraperitoneal space: Mild hypodense free fluid noted throughout the abdomen and pelvis. No loculation. No layering hematocrit. No free air. Retroperitoneal space: No retroperitoneal hematoma. Bones/joints: No acute fracture. No dislocation. Soft tissues: Diffuse soft tissue edema suggesting anasarca. Vasculature: The portal vein is patent. The aorta is normal in caliber without this chronic calcification. The IVC is patent. No abdominal aortic aneurysm. Lymph nodes: Nonspecific periportal and portacaval lymph nodes. No significant lymphadenopathy. Tubes, lines and devices: A spinal stimulator device is noted with the stimulator lead extending into the interspinous space at L3-4 level with the lead extending along the left L3-4 neural foramina. The spinal stimulator generator overlies the soft tissues of the left flank. IMPRESSION: 1. The stomach is predominately decompressed. Only minimal fluid and gas noted internally. Coastal thickening of the distal duodenum and proximal jejunal bowel loops. No evidence for high-grade bowel obstruction. The appearance is suspicious for duodenitis/jejunitis. 2. Mild hypodense free fluid noted throughout the abdomen and pelvis. No loculation. No layering hematocrit. Suspect ascites given the appearance of the liver. 3. Lobular contours to the liver. Relative hypertrophy of the left lobe. No focal abnormality. The appearance is suspicious for cirrhosis. 4. No retroperitoneal hematoma. Status post left nephrectomy. 5. Diffuse soft tissue edema suggesting anasarca.
[2024-11-02 06:24] LABS: Glucose,Whole Blood 122 mg/dL (70-110)
--- NOTE | 2024-11-02 08:48 | P.PN ---
Subjective Progress Note Date: 11/02/24 This is a 79-year-old female with a recent history of left nephrectomy who presented to the emergency department with increasing weakness and lethargy. Patient also had some shortness of breath on exertion. Chest x-ray on admission showed bibasilar infiltrates. Patient's hemoglobin yesterday dipped to 6.7 and she received 2 units of packed red blood cells. Repeat blood work for today not back yet at time of dictation. Patient had a CT of the abdomen and chest this morning. She is seen this morning sitting up in the chair at bedside. She reports she is breathing a lot better and is feeling somewhat better. Objective - Vital Signs Vital signs: Vital Signs Temp 98.3 F 11/02/24 02:30 Pulse 96 11/02/24 02:30 Resp 16 11/02/24 02:30 BP 141/72 11/02/24 02:30 Pulse Ox 97 11/02/24 02:30 FiO2 Intake & Output 11/01/24 11/02/24 11/02/24 18:59 06:59 18:59 Intake Total 310 1830 Balance 310 1830 Intake: Oral 1830 Blood Product 310 Rc As-1 Unit 310 [id number] Other: Voiding Method Toilet Toilet # Voids 3 6 - Constitutional General appearance: Present: cooperative, no acute distress - EENT Eyes: Present: PERRLA - Neck Neck: Present: normal ROM. Absent: lymphadenopathy, rigidity - Respiratory Respiratory: bilateral: CTA - Cardiovascular Heart sounds: normal: S1, S2 - Gastrointestinal General gastrointestinal: Present: soft. Absent: tenderness - Integumentary Integumentary: Present: normal, normal turgor - Musculoskeletal Musculoskeletal: Present: generalized weakness - Psychiatric Psychiatric: Present: A&O x's 3, appropriate affect, intact judgment & insight - Labs CBC & Chem 7: 11/01/24 02:47 11/01/24 02:47 Labs: Abnormal Lab Results - Last 24 Hours (Table) 10/30/24 11/01/24 11/01/24 Range/Units 15:56 02:47 02:47 WBC 4.33 L (4.50-10.00) X 10*3/uL RBC 2.26 L (4.10-5.20) X 10*6/uL Hgb 6.7 A* (12.0-15.0) g/dL Hct 22.9 L (37.2-46.3) % MCV 101.3 H (80.0-97.0) FL MCHC 29.3 L (32.0-37.0) g/dL RDW 15.5 H (11.5-14.5) % Lymphocytes # 0.89 L (0.90-5.00) X 10*3/uL Eosinophils # 0.57 H (0.04-0.35) X 10*3/uL Hypochromasia (manual) 2+ A (None Seen) Anion Gap 12.80 H (4.00-12.00) mmol/L Est GFR (CKD-EPI) 52 L (>=60) POC Glucose (mg/dL) (70-110) mg/dL Iron 41 L (50-170) UG/DL Transferrin 177.0 L (204.0-354.0) mg/dL Total Bilirubin <0.2 L (0.3-1.2) mg/dL Total Protein 5.9 L (6.2-8.2) g/dL Albumin 3.1 L (3.8-4.9) g/dL Albumin/Globulin Ratio 1.11 L (1.60-3.17) Ratio Crossmatch See Detail 11/01/24 11/02/24 Range/Units 20:55 06:23 WBC (4.50-10.00) X 10*3/uL RBC (4.10-5.20) X 10*6/uL Hgb (12.0-15.0) g/dL Hct (37.2-46.3) % MCV (80.0-97.0) FL MCHC (32.0-37.0) g/dL RDW (11.5-14.5) % Lymphocytes # (0.90-5.00) X 10*3/uL Eosinophils # (0.04-0.35) X 10*3/uL Hypochromasia (manual) (None Seen) Anion Gap (4.00-12.00) mmol/L Est GFR (CKD-EPI) (>=60) POC Glucose (mg/dL) 124 H 122 H (70-110) mg/dL Iron (50-170) UG/DL Transferrin (204.0-354.0) mg/dL Total Bilirubin (0.3-1.2) mg/dL Total Protein (6.2-8.2) g/dL Albumin (3.8-4.9) g/dL Albumin/Globulin Ratio (1.60-3.17) Ratio Crossmatch Assessment and Plan (1) Weakness Current Visit: Yes Status: Acute Code(s): R53.1 - WEAKNESS SNOMED Code(s): 82288756 (2) Anemia Current Visit: Yes Status: Acute Code(s): D64.9 - ANEMIA, UNSPECIFIED SNOMED Code(s): 701147037 (3) History of left nephrectomy Current Visit: Yes Status: Acute Code(s): Z90.5 - ACQUIRED ABSENCE OF KIDNEY SNOMED Code(s): 22813122060706 (4) Hypertension Current Visit: Yes Status: Acute Code(s): I10 - ESSENTIAL (PRIMARY) HYPERTENSION SNOMED Code(s): 99358195 (5) Hyperlipemia Current Visit: Yes Status: Acute Code(s): E78.5 - HYPERLIPIDEMIA, UNSPECIFIED SNOMED Code(s): 02509701 (6) Diabetes Current Visit: Yes Status: Acute Code(s): E11.9 - TYPE 2 DIABETES MELLITUS WITHOUT COMPLICATIONS SNOMED Code(s): 46654483 Plan: Await CBC results from today. Check CBC and CMP in the morning. Appreciate multiple consultants. Patient seen and evaluated by nurse practitioner, physician in agreement with plan.
--- NOTE | 2024-11-02 13:36 | P.PN ---
Subjective Progress Note Date: 11/02/24 This is a 79-year-old female patient presented to the ED with generalized weakness and lethargy. I was asked to evaluate this patient for hypoxic respiratory failure the patient is currently on 2 L of oxygen by nasal cannula with a pulse ox of 99%. Chest x-ray done in the emergency department shows some atelectatic changes in lung bases bilaterally. No evidence of any pneumonia. Doppler of the lower extremities were also done that showed no evidence of any DVT. This patient had further workup in the emergency department. The patient's hemoglobin has been chronically low at 7.5. Coagulation profile was normal. D- dimer was at 3.9. BUN was 27 and a creatinine was 1.4 noted the patient's crea tinine has been improving following her nephrectomy. Sodium is at 140, potassium is at 4.4, bicarb is at 25. Calcium levels at 10.9. LFTs are normal. UA showed few WBCs. And +1 blood. Otherwise negative. The viral screen was negative. This patient was seen by our services back in October 2024. The patient had a left renal mass and the patient underwent a radical nephrectomy and postop the patient sustained acute kidney injury and her kidney function has been gradually improving. She also had blood loss anemia which was an expected outcome of, Surgery and hemoglobin has remained stable and the most recent hemoglobin is at 7.5. The patient also required hemodialysis for acute kidney injury that occurred after the surgery. Ultimately, urine output improved and her renal function gradually improved. Most recent creatinine is at 1.4. She is also known to have obstructive sleep apnea, maintained on a BiPAP pressure of 13 over 9 cm of water and she had an AirFit F20 fullface mask. She is obese and her body mass index is around 37. She has diabetes mellitus type 2, h ypertension hyperlipidemia. Her surgery was performed on 10/06/2024 and the pathology was consistent with high-grade renal cell carcinoma grade 4 and the tumor invaded the perirenal fat and the hilar vessels and the ureter had positive margins. As such, the patient was given a T3a disease with invasion of the perirenal tissue. On 11/01/2024, the patient is being seen for a follow-up., Comfortable. No significant respiratory distress at rest. Hemoglobin is dropped down to 6.7 and the patient will be given a unit of packed RBC. No signs of any acute bleeding. Surgical site over the left upper quadrant remains dry clean and intact. The patient does have iron deficiency and a serum iron is low at 41. Meanwhile, the white cell count of 4.3. Platelet count is at 1215. Creatinine today is at 1.1. The patient remains on oxygen at 2 L with a pulse ox of 97%. No cough. No sputum production. No chest tightness. No wheezing. No other complaints otherwise. CAT scan of the chest and abdomen was ordered by the medical team. The patient is seen today November 02, 2024 in follow-up on the regular medical floor. She is awake and alert in no acute distress. Currently sitting up in a chair at the bedside. She is maintaining good O2 saturations in the 90s on room air. Her hemoglobin yesterday was 6.7. She did receive 1 unit of packed red blood cells. Follow-up labs are pending. Glucose 122. She is utilizing [place] for pain control. Objective - Vital Signs Vital signs: Vital Signs Temp 97.9 F 11/02/24 06:35 Pulse 100 11/02/24 07:40 Resp 17 11/02/24 07:40 BP 128/71 11/02/24 06:35 Pulse Ox 97 11/02/24 06:35 FiO2 Intake & Output 11/01/24 11/02/24 11/02/24 18:59 06:59 18:59 Intake Total 310 1830 Balance 310 1830 Intake: Oral 1830 Blood Product 310 Rc As-1 Unit 310 [id number] Other: Voiding Method Toilet Toilet Toilet # Voids 3 6 1 - Exam GENERAL EXAM: Alert, active, 79-year-old female, up in a chair, on room air, comfortable in no apparent distress. HEAD: Normocephalic. EYES: Normal reaction of pupils, equal size. NOSE: Clear with pink turbinates. THROAT: No erythema or exudates. NECK: No masses, no JVD. CHEST: No chest wall deformity. LUNGS: Equal air entry with no crackles, wheeze, rhonchi or dullness. CVS: S1 and S2 normal with no audible murmur, regular rhythm. ABDOMEN: Surgical site is clean and dry. No hepatosplenomegaly, normal bowel sounds, no guarding or rigidity. SPINE: No scoliosis or deformity SKIN: No rashes CENTRAL NERVOUS SYSTEM: No focal deficits, tone is normal in all 4 extremities. EXTREMITIES: There is no peripheral edema. No clubbing, no cyanosis. Peripheral pulses are intact. - Labs CBC & Chem 7: 11/01/24 02:47 11/01/24 02:47 Labs: Abnormal Lab Results - Last 24 Hours (Table) 10/30/24 11/01/24 11/01/24 Range/Units 15:56 02:47 20:55 POC Glucose (mg/dL) 124 H (70-110) mg/dL RBC Folate 1,012 H (280 - 791) ng/mL Crossmatch See Detail 11/02/24 Range/Units 06:23 POC Glucose (mg/dL) 122 H (70-110) mg/dL RBC Folate (280 - 791) ng/mL Crossmatch Assessment and Plan Assessment: Generalized weakness, multifactorial Acute hypoxic respiratory failure secondary to atelectasis, recovered and on room air. Chest x-ray showed atelectatic changes in lung base bilaterally. 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 Follow-up hemoglobin pending Obesity, losing weight Obstructive sleep apnea maintained on a BiPAP pressure of 13 over 9 cm of water using an AirFit F20 fullface mask Diabetes mellitus type 2 Hypertension Hyperlipidemia Plan: The patient was seen and evaluated Medications reviewed Follow-up hemoglobin pending Up in a chair and stable on room air Plan will be for home with home care at discharge I have personally seen and examined the patient, performed the documentation and the assessment and plan as written. Number of minutes spent on the visit: 10 Dictation was produced using [employer] dictation software. Please excuse any grammatical, word or spelling errors.
[2024-11-02 15:07] LABS: HCT 28.5 % (37.2-46.3); HGB 8.3 g/dL (12.0-15.0); MCH 28.2 pg (27.0-32.0); MCHC 29.1 g/dL (32.0-37.0); MCV 96.9 FL (80.0-97.0); Mean Platelet Volume 11.1 FL (9.5-12.2); NRBC Per 100 WBC 0 X 10*3/uL (0.00-0.01); Platelet Count 223 X 10*3/uL (140-440); RBC 2.94 X 10*6/uL (4.10-5.20); WBC 3.99 X 10*3/uL (4.50-10.00)
--- NOTE | 2024-11-02 15:08 | US ---
EXAMINATION TYPE: US chest DATE OF EXAM: 11/02/2024 COMPARISON: Chest x-ray 3 days ago and older studies. CLINICAL INDICATION: Female, 79 years old with history of Bilateral effusions; Pleural effusions TECHNIQUE: Grayscale imaging of the chest. Targeted ultrasound of the posterior lower bilateral gretta thoraces FINDINGS: EXAM MEASUREMENTS: Right Pleural Effusion pocket size: 3.2 cm - lung visualized within pocket Right skin surface to fluid distance: 4.8 cm Left Pleural Effusion pocket size: 2.1 cm Left skin surface to fluid distance: 4.7 cm Right side marked for possible thoracentesis outside the dept. Left side NOT marked for possible thoracentesis outside the dept. Pulmonologists are able to review the images in the patient?s EMR. IMPRESSIONS: Small right greater than left pleural effusions are seen on images saved which correlate s with most recent x-ray. [facility], , 11/02/2024 3:05 PM
[2024-11-02 16:40] LABS: Glucose,Whole Blood 113 mg/dL (70-110)
--- NOTE | 2024-11-02 19:34 | P.CONS ---
History of Present Illness - Reason for Consult Consult date: 11/02/24 anemia Requesting physician: Tom Macias - Chief Complaint SOB - History of Present Illness Ms Hess is a patient with chronic anemia, who follows with Dr. Austin. She has required iron transfusions abd Vit B12 injections in the past. Workup most recently revealing anemia of inflammation likely r/t suspected malignancy. More has been in the 8-9 range, and more recently in the 7 range. At her visit in 06/02, the patient had a routine chest x-ray done which apparently revealed suspicious lung nodule. She was seen by pulmonary medicine, and had a CT chest without contrast on 05/25/24 that revealed a 1 cm right upper lobe nodule that was new and there was also a 3 mm left lung nodule seen. There was a partially visualized abnormality related to the left kidney with underlying mass not excluded. The patient therefore had a PET scan done on 08/03/24, that was negative in the lung. However it did show significant activity in a mass involving the left kidney, 16 x 9 cm, with SUV greater than 8. The patient was referred to urology. Her laboratory tests last visit had shown normal iron stores. She continued on oral iron once a day with good compliance and toleranc e. Her CBC showed drop in hemoglobin to 8.7. Repeat iron studies studies again were again consistent with anemia of inflammation, most likely due to the malignancy itself. Patient has since underwent left nephrectomy on 10/06/2024. 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 Patient was admitted for progressing weakness and shortness of breath. Chest x- ray showed mild bibasilar infiltrates, correlate for atelectasis versus pneum onia. Hemoglobin on admit 7.5, MCV 97.3. Nutritional studies showing, iron saturation 16.5%, ferritin 200. Vitamin B12 797. Creatinine 1.1, GFR 52. Repeat CBC showed hemoglobin 6.7, platelets 215,000. Patient was transfused 1 unit PRBCs. D-dimer was elevated at 3.93 and subsequent CTA chest was negative for PE. Increasing bilateral pulmonary nodules compared to previous scan. Bilateral pleural effusions with adjacent atelectasis versus underlying pneumonia. Upper abdominal ascites and lymphadenopathy. CT abdomen pelvis showing coastal thickening of the distal duodenum and proximal jejunal bowel loops with no evidence for high-grade bowel obstruction. Mild hypodense free fluid noted throughout the abdomen and pelvis with no loculation noted. Lobular contour to the liver and relative hypertrophy of the left lobe suspicious for cirrhosis. No retroperitoneal hematoma. Diffuse soft tissue edema suggesting anasarca. Review of Systems 10 point ROS is negative except as stated in the HPI Past Medical History Past Medical History: Cancer (Renal cell carcinoma, post left nephrectomy), Diabetes Mellitus, Hyperlipidemia, Hypertension, Renal Disease, Sleep Apnea/CPAP/BIPAP Additional Past Medical History / Comment(s): anemia,arthritis History of Any Multi-Drug Resistant Organisms: None Reported Past Surgical History: Joint Replacement, Orthopedic Surgery Additional Past Surgical History / Comment(s): total lt knee,carpel tunnel lt wrist, left nephrectomy -2024 Past Anesthesia/Blood Transfusion Reactions: Motion Sickness, Postoperative Nausea & Vomiting (PONV) Additional Past Anesthesia/Blood Transfusion Reaction / Comm: no hx blood transfusion Past Psychological History: No Psychological Hx Reported Smoking Status: Never smoker Past Alcohol Use History: None Reported Past Drug Use History: None Reported - Past Family History Sister(s) Family Medical History: Cancer Additional Family Medical History / Comment(s): lymph Medications and Allergies Home Medications Medication Instructions Recorded Confirmed Type Pioglitazone HCl/Metformin HCl 1 tab PO BID 09/17/14 10/30/24 History [Pioglitazone-Metformin 15-850] Simvastatin [Zocor] 40 mg PO HS 09/17/14 10/30/24 History Valsartan/Hydrochlorothiazide 1 tab PO HS 09/17/14 10/30/24 History [Diovan Hct 320-25 mg Tablet] Calcium Carbonate/Vitamin D3 2 tab PO DAILY 09/28/14 10/30/24 History [Caltrate 600 Plus D3 Tablet] Aspirin 81 mg PO DAILY 03/06/17 10/30/24 History DULoxetine HCL [Cymbalta] 60 mg PO DAILY 10/05/24 10/30/24 History Ferrous Sulfate [Iron (65 MG 1 tab PO DAILY 10/05/24 10/30/24 History Elemental)] HYDROcodone/APAP 5-325MG [[place] 1 tab PO Q4HR PRN 3 Days #18 tab 10/14/24 10/30/24 Rx 5-325] Allergies Allergy/AdvReac Type Severity Reaction Status Date / Time tramadol Allergy Nausea, Verified 10/30/24 17:01 "DRY HEAVES" Physical Exam Vitals: Vital Signs Temp Pulse Pulse Resp BP BP Pulse Ox 11/02/24 07:40 100 17 11/02/24 06:35 97.9 F 100 17 128/71 97 11/02/24 02:30 98.3 F 96 16 141/72 97 11/01/24 19:38 98.4 F 103 H 16 113/67 96 11/01/24 15:37 97.9 F 99 18 147/82 11/01/24 14:20 97.9 F 101 H 16 147/82 97 11/01/24 12:58 97.8 F 96 18 126/74 11/01/24 12:38 97.6 F 95 18 145/76 97 11/01/24 12:28 97.7 F 96 18 145/75 100 Intake and Output 11/01/24 11/02/24 11/02/24 22:59 06:59 14:59 Intake Total 1060 1080 Balance 1060 1080 Intake: Oral 750 1080 Blood Product 310 Rc As-1 Unit 310 [id number] Other: Voiding Method Toilet Toilet # Voids 2 6 1 - Constitutional General appearance: no acute distress - EENT Eyes: anicteric sclerae, EOMI ENT: hearing grossly normal - Respiratory Respiratory: right: diminished, rales - Cardiovascular Rhythm: regular - Gastrointestinal General gastrointestinal: soft, no tenderness - Integumentary Integumentary: no cyanotic, no jaundiced - Psychiatric Psychiatric: A&O x's 3 Results CBC & Chem 7: 11/02/24 08:37 11/01/24 02:47 Labs: Abnormal Lab Results - Last 24 Hours (Table) 10/30/24 11/01/24 11/01/24 Range/Units 15:56 02:47 02:47 WBC 4.33 L (4.50-10.00) X 10*3/uL RBC 2.26 L (4.10-5.20) X 10*6/uL Hgb 6.7 A* (12.0-15.0) g/dL Hct 22.9 L (37.2-46.3) % MCV 101.3 H (80.0-97.0) FL MCHC 29.3 L (32.0-37.0) g/dL RDW 15.5 H (11.5-14.5) % Lymphocytes # 0.89 L (0.90-5.00) X 10*3/uL Eosinophils # 0.57 H (0.04-0.35) X 10*3/uL Hypochromasia (manual) 2+ A (None Seen) Anion Gap 12.80 H (4.00-12.00) mmol/L Est GFR (CKD-EPI) 52 L (>=60) POC Glucose (mg/dL) (70-110) mg/dL Iron 41 L (50-170) UG/DL Transferrin 177.0 L (204.0-354.0) mg/dL Total Bilirubin <0.2 L (0.3-1.2) mg/dL Total Protein 5.9 L (6.2-8.2) g/dL Albumin 3.1 L (3.8-4.9) g/dL Albumin/Globulin Ratio 1.11 L (1.60-3.17) Ratio Crossmatch See Detail 11/01/24 11/02/24 Range/Units 20:55 06:23 WBC (4.50-10.00) X 10*3/uL RBC (4.10-5.20) X 10*6/uL Hgb (12.0-15.0) g/dL Hct (37.2-46.3) % MCV (80.0-97.0) FL MCHC (32.0-37.0) g/dL RDW (11.5-14.5) % Lymphocytes # (0.90-5.00) X 10*3/uL Eosinophils # (0.04-0.35) X 10*3/uL Hypochromasia (manual) (None Seen) Anion Gap (4.00-12.00) mmol/L Est GFR (CKD-EPI) (>=60) POC Glucose (mg/dL) 124 H 122 H (70-110) mg/dL Iron (50-170) UG/DL Transferrin (204.0-354.0) mg/dL Total Bilirubin (0.3-1.2) mg/dL Total Protein (6.2-8.2) g/dL Albumin (3.8-4.9) g/dL Albumin/Globulin Ratio (1.60-3.17) Ratio Crossmatch Chest x-ray: report reviewed CT scan - abdomen: report reviewed CT scan - chest: report reviewed CT scan - pelvis: report reviewed Assessment and Plan (1) Renal cell carcinoma Current Visit: Yes Status: Acute Priority: High Code(s): C64.9 - MALIGNANT NEOPLASM OF UNSP KIDNEY, EXCEPT RENAL PELVIS SNOMED Code(s): 580206569 (2) Anemia Current Visit: Yes Status: Acute Priority: High Code(s): D64.9 - ANEMIA, UNSPECIFIED SNOMED Code(s): 429505359 (3) History of left nephrectomy Current Visit: Yes Status: Acute Priority: Medium Code(s): Z90.5 - ACQUIRED ABSENCE OF KIDNEY SNOMED Code(s): 85954997364314 Plan: Anemia History of chronic anemia, who follows with Dr. Austin. She has required iron transfusions and Vit B12 injections in the past. Workup most recently revealing anemia of inflammation likely r/t suspected malignancy. Has been in the 8-9 range, and more recently in the 7 range. Does report diarrhea, and dark stools but attributes this to oral iron she takes, no acute changes in stool color. -On admit hemoglobin was 7.5, MCV 97.3. Nutritional studies showing, iron saturation 16.5%, ferritin 200, vitamin B12 797, labs consistent with anemia of inflammation. Repeat CBC showed hemoglobin 6.7, platelets 215,000. Patient was transfused 1 unit PRBCs. Today hemoglobin showed appropriate response at 8.3 -Continue to monitor CBC. Transfuse for hgb < 7 or if symptomatic Renal cell carcinoma: -Oncology history as dictated in the HPI. At her visit in 05/2024, the patient had a routine chest x-ray done which apparently revealed suspicious lung nodule. She was seen by pulmonary medicine, and had a CT chest without contrast on 05/25/24 that revealed a 1 cm right upper lobe nodule that was new and there was also a 3 mm left lung nodule seen. There was a partially visualized abnormality related to the left kidney with underlying mass not excluded. The patient therefore had a PET scan done on 08/03/24, that was negative for uptake in the lung. However it did show significant activity in a mass involving the left kidney, 16 x 9 cm, with SUV greater than 8. The patient was thus referred to urology -Patient has since underwent left nephrectomy on 10/06/2024. 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 Bilateral pleural effusions with adjacent atelectasis versus underlying pneumonia. Upper abdominal ascites and lymphadenopathy. CT abdomen pelvis showing coastal thickening of the distal duodenum and proximal jejunal bowel loops with no evidence for high-grade bowel obstruction. Mild hypodense free fluid noted throughout the abdomen and pelvis with no loculation noted. Lobular contour to the liver and relative hypertrophy of the left lobe suspicious for cirrhosis. No retroperitoneal hematoma. Diffuse soft tissue edema suggesting anasarca -Based on imaging obtained concern for metastatic disease. Discussed case with pulmonology to evaluate for possible thoracentesis with cytology, as metastatic disease would change course of systemic treatment. They will obtain chest US to further evaluate -Clinic f/u will be scheduled upon discharge to further discuss goals of care and treatment options Results and POC discussed with pt and she was agreeable to the same Dr attests: I have seen and examined pt, performed H&P, developed impression and plan of care. Discussed with dictator. Agree with documentation, dictated as a scribe.
[2024-11-02 21:14] LABS: Glucose,Whole Blood 121 mg/dL (70-110)
[2024-11-03 04:07] LABS: Anisocytosis Slight; HCT 26.4 % (34.0-46.0); HGB 8.1 gm/dL (11.4-16.0); Hypochromasia Marked; MCH 29.2 pg (25.0-35.0); MCHC 30.7 g/dL (31.0-37.0); MCV 95.2 fL (80.0-100.0); Mean Platelet Volume 7.9; Platelet Count 201 k/uL (150-450); RBC 2.78 m/uL (3.80-5.40); RDW 16.5 % (11.5-15.5); WBC 3.9 k/uL (3.8-10.6)
[2024-11-03 06:21] LABS: Glucose,Whole Blood 110 mg/dL (70-110)
[2024-11-03 08:41] LABS: Blood Urea Nitrogen 11.9 mg/dL (9.0-27.0); Chloride 103 mmol/L (96-109); Glucose 100 mg/dL (70-110); Potassium 3.9 mmol/L (3.5-5.5); Sodium 140 mmol/L (135-145)
[2024-11-03 08:42] LABS: ALT 8 U/L (8-44); AST 19 U/L (13-35); Alkaline Phosphatase 119 U/L (41-126); Calcium 9.6 mg/dL (8.7-10.3); Carbon Dioxide 28.1 mmol/L (21.6-31.8); Globulin 2.5 g/dL (1.6-3.3); Total Bilirubin <0.2 mg/dL (0.3-1.2); Total Protein 5.5 g/dL (6.2-8.2)
--- NOTE | 2024-11-03 09:02 | P.PN ---
Subjective Progress Note Date: 11/03/24 This is a 79-year-old female with a recent history of left nephrectomy who presented to the emergency department with increasing weakness and lethargy. Patient also had some shortness of breath on exertion. Chest x-ray on admission showed bibasilar infiltrates. Patient's hemoglobin yesterday dipped to 6.7 and she received 2 units of packed red blood cells. Repeat blood work for today not back yet at time of dictation. Patient had a CT of the abdomen and chest this morning. She is seen this morning sitting up in the chair at bedside. She reports she is breathing a lot better and is feeling somewhat better. 11/03/2024 Patient seen this morning sitting up in chair at bedside. She reports more fatigue this morning, did not sleep well last night. Patient had an ultrasound of the chest done yesterday morning. Hemoglobin is stable. Objective - Vital Signs Vital signs: Vital Signs Temp 97.8 F 11/03/24 07:00 Pulse 97 11/03/24 07:00 Resp 17 11/03/24 07:00 BP 138/70 11/03/24 07:00 Pulse Ox 92 L 11/03/24 07:00 FiO2 Intake & Output 11/02/24 11/03/24 11/03/24 18:59 06:59 18:59 Other: Voiding Method Toilet Toilet # Voids 3 2 - Constitutional General appearance: Present: cooperative, no acute distress - EENT Eyes: Present: PERRLA - Neck Neck: Present: normal ROM. Absent: lymphadenopathy, rigidity - Respiratory Respiratory: bilateral: CTA - Cardiovascular Heart sounds: normal: S1, S2 - Gastrointestinal General gastrointestinal: Present: soft. Absent: tenderness - Integumentary Integumentary: Present: normal, normal turgor - Musculoskeletal Musculoskeletal: Present: generalized weakness - Psychiatric Psychiatric: Present: A&O x's 3, appropriate affect, intact judgment & insight - Labs CBC & Chem 7: 11/03/24 03:03 11/03/24 03:03 Labs: Abnormal Lab Results - Last 24 Hours (Table) 11/01/24 11/02/24 11/02/24 Range/Units 02:47 08:37 16:37 WBC 3.99 L (4.50-10.00) X 10*3/uL RBC 2.94 L (4.10-5.20) X 10*6/uL Hgb 8.3 L (12.0-15.0) g/dL Hct 28.5 L (37.2-46.3) % MCHC 29.1 L (32.0-37.0) g/dL RDW 18.0 H (11.5-14.5) % Est GFR (CKD-EPI) (>=60) BUN/Creatinine Ratio (12.00-20.00) Ratio POC Glucose (mg/dL) 113 H (70-110) mg/dL Total Bilirubin (0.3-1.2) mg/dL Total Protein (6.2-8.2) g/dL Albumin (3.8-4.9) g/dL Albumin/Globulin Ratio (1.60-3.17) Ratio RBC Folate 1,012 H (280 - 791) ng/mL 11/02/24 11/03/24 11/03/24 Range/Units 21:13 03:03 03:03 WBC (4.50-10.00) X 10*3/uL RBC 2.78 L (4.10-5.20) X 10*6/uL Hgb 8.1 L (12.0-15.0) g/dL Hct 26.4 L (37.2-46.3) % MCHC 30.7 L (32.0-37.0) g/dL RDW 16.5 H (11.5-14.5) % Est GFR (CKD-EPI) 58 L (>=60) BUN/Creatinine Ratio 11.90 L (12.00-20.00) Ratio POC Glucose (mg/dL) 121 H (70-110) mg/dL Total Bilirubin <0.2 L (0.3-1.2) mg/dL Total Protein 5.5 L (6.2-8.2) g/dL Albumin 3.0 L (3.8-4.9) g/dL Albumin/Globulin Ratio 1.20 L (1.60-3.17) Ratio RBC Folate (280 - 791) ng/mL Assessment and Plan (1) Weakness Current Visit: Yes Status: Acute Code(s): R53.1 - WEAKNESS SNOMED Code(s): 93332984 (2) Anemia Current Visit: Yes Status: Acute Priority: High Code(s): D64.9 - ANEMIA, UNSPECIFIED SNOMED Code(s): 293971637 (3) History of left nephrectomy Current Visit: Yes Status: Acute Priority: Medium Code(s): Z90.5 - ACQUIRED ABSENCE OF KIDNEY SNOMED Code(s): 69648574428983 (4) Hypertension Current Visit: Yes Status: Acute Code(s): I10 - ESSENTIAL (PRIMARY) HYPERTENSION SNOMED Code(s): 05644230 (5) Hyperlipemia Current Visit: Yes Status: Acute Code(s): E78.5 - HYPERLIPIDEMIA, UNSPECIFIED SNOMED Code(s): 41234817 (6) Diabetes Current Visit: Yes Status: Acute Code(s): E11.9 - TYPE 2 DIABETES MELLITUS WITHOUT COMPLICATIONS SNOMED Code(s): 20995287 Plan: Check CBC and CMP in the morning. Appreciate multiple consultants. Patient seen and evaluated by nurse practitioner, physician in agreement with plan.
[2024-11-03 11:44] LABS: Glucose,Whole Blood 112 mg/dL (70-110)
--- NOTE | 2024-11-03 13:34 | P.PN ---
Subjective Progress Note Date: 11/03/24 This is a 79-year-old female patient presented to the ED with generalized weakness and lethargy. I was asked to evaluate this patient for hypoxic respiratory failure the patient is currently on 2 L of oxygen by nasal cannula with a pulse ox of 99%. Chest x-ray done in the emergency department shows some atelectatic changes in lung bases bilaterally. No evidence of any pneumonia. Doppler of the lower extremities were also done that showed no evidence of any DVT. This patient had further workup in the emergency department. The patient's hemoglobin has been chronically low at 7.5. Coagulation profile was normal. D- dimer was at 3.9. BUN was 27 and a creatinine was 1.4 noted the patient's crea tinine has been improving following her nephrectomy. Sodium is at 140, potassium is at 4.4, bicarb is at 25. Calcium levels at 10.9. LFTs are normal. UA showed few WBCs. And +1 blood. Otherwise negative. The viral screen was negative. This patient was seen by our services back in October 2024. The patient had a left renal mass and the patient underwent a radical nephrectomy and postop the patient sustained acute kidney injury and her kidney function has been gradually improving. She also had blood loss anemia which was an expected outcome of, Surgery and hemoglobin has remained stable and the most recent hemoglobin is at 7.5. The patient also required hemodialysis for acute kidney injury that occurred after the surgery. Ultimately, urine output improved and her renal function gradually improved. Most recent creatinine is at 1.4. She is also known to have obstructive sleep apnea, maintained on a BiPAP pressure of 13 over 9 cm of water and she had an AirFit F20 fullface mask. She is obese and her body mass index is around 37. She has diabetes mellitus type 2, h ypertension hyperlipidemia. Her surgery was performed on 10/06/2024 and the pathology was consistent with high-grade renal cell carcinoma grade 4 and the tumor invaded the perirenal fat and the hilar vessels and the ureter had positive margins. As such, the patient was given a T3a disease with invasion of the perirenal tissue. On 11/01/2024, the patient is being seen for a follow-up., Comfortable. No significant respiratory distress at rest. Hemoglobin is dropped down to 6.7 and the patient will be given a unit of packed RBC. No signs of any acute bleeding. Surgical site over the left upper quadrant remains dry clean and intact. The patient does have iron deficiency and a serum iron is low at 41. Meanwhile, the white cell count of 4.3. Platelet count is at 1215. Creatinine today is at 1.1. The patient remains on oxygen at 2 L with a pulse ox of 97%. No cough. No sputum production. No chest tightness. No wheezing. No other complaints otherwise. CAT scan of the chest and abdomen was ordered by the medical team. The patient is seen today November 02, 2024 in follow-up on the regular medical floor. She is awake and alert in no acute distress. Currently sitting up in a chair at the bedside. She is maintaining good O2 saturations in the 90s on room air. Her hemoglobin yesterday was 6.7. She did receive 1 unit of packed red blood cells. Follow-up labs are pending. Glucose 122. She is utilizing [place] for pain control. The patient is seen today November 03, 2024 in follow-up on the regular medical floor. She is awake and alert in no acute distress. Currently resting comfortably in bed. Maintaining good O2 saturations in the 90s on room air. She has been afebrile. Hemodynamically stable. CT angiogram revealed no evidence of pulmonary embolism. There is increasing bilateral pulmonary nodules. Findings are concerning for malignancy. Bilateral pleural effusions with adjacent atelectasis and underlying pneumonia not excluded. Upper abdominal ascites and lymphadenopathy. CT scan of the abdomen and pelvis revealed no evidence for high-grade bowel obstruction. Appearance is suspicious for duodenitis/jejunitis. Mild hyperdense free fluid noted throughout the abdomen and pelvis. No loculation. Suspect ascites given the appearance of the liver. Lobular contour to the liver. Relative hypertrophy of the left lobe. No focal abnormality. The appearance is suspicious for cirrhosis. No retroperitoneal hematoma. Status post left nephrectomy. Ultrasound of the chest revealed a minimal 3.2 cm pocket with lung visualized within the pocket on the right. 2.1 cm pocket on the left. Not marked for thoracentesis. White count 3.9. Hemoglobin 8.1. Platelets 201. Sodium 140. Potassium 3.9. Bicarb 28. BUN 12. Creatinine 1.0. Glucose 100. Objective - Vital Signs Vital signs: Vital Signs Temp 97.8 F 11/03/24 07:00 Pulse 97 11/03/24 07:00 Resp 17 11/03/24 07:00 BP 138/70 11/03/24 07:00 Pulse Ox 92 L 11/03/24 07:00 FiO2 Intake & Output 11/02/24 11/03/24 11/03/24 18:59 06:59 18:59 Other: Voiding Method Toilet Toilet # Voids 3 2 - Exam GENERAL EXAM: Alert, pleasant 79-year-old female, resting in bed, on room air, comfortable in no apparent distress. HEAD: Normocephalic. EYES: Normal reaction of pupils, equal size. NOSE: Clear with pink turbinates. THROAT: No erythema or exudates. NECK: No masses, no JVD. CHEST: No chest wall deformity. LUNGS: Equal air entry with crackles in the bilateral bases. CVS: S1 and S2 normal with no audible murmur, regular rhythm. ABDOMEN: Surgical site is clean and dry. No hepatosplenomegaly, normal bowel sounds, no guarding or rigidity. SPINE: No scoliosis or deformity SKIN: No rashes CENTRAL NERVOUS SYSTEM: No focal deficits, tone is normal in all 4 extremities. EXTREMITIES: There is no peripheral edema. No clubbing, no cyanosis. Peripheral pulses are intact. - Labs CBC & Chem 7: 11/03/24 03:03 11/03/24 03:03 Labs: Abnormal Lab Results - Last 24 Hours (Table) 11/02/24 11/02/24 11/02/24 Range/Units 08:37 16:37 21:13 WBC 3.99 L (4.50-10.00) X 10*3/uL RBC 2.94 L (4.10-5.20) X 10*6/uL Hgb 8.3 L (12.0-15.0) g/dL Hct 28.5 L (37.2-46.3) % MCHC 29.1 L (32.0-37.0) g/dL RDW 18.0 H (11.5-14.5) % Est GFR (CKD-EPI) (>=60) BUN/Creatinine Ratio (12.00-20.00) Ratio POC Glucose (mg/dL) 113 H 121 H (70-110) mg/dL Total Bilirubin (0.3-1.2) mg/dL Total Protein (6.2-8.2) g/dL Albumin (3.8-4.9) g/dL Albumin/Globulin Ratio (1.60-3.17) Ratio 11/03/24 11/03/24 11/03/24 Range/Units 03:03 03:03 11:42 WBC (4.50-10.00) X 10*3/uL RBC 2.78 L (4.10-5.20) X 10*6/uL Hgb 8.1 L (12.0-15.0) g/dL Hct 26.4 L (37.2-46.3) % MCHC 30.7 L (32.0-37.0) g/dL RDW 16.5 H (11.5-14.5) % Est GFR (CKD-EPI) 58 L (>=60) BUN/Creatinine Ratio 11.90 L (12.00-20.00) Ratio POC Glucose (mg/dL) 112 H (70-110) mg/dL Total Bilirubin <0.2 L (0.3-1.2) mg/dL Total Protein 5.5 L (6.2-8.2) g/dL Albumin 3.0 L (3.8-4.9) g/dL Albumin/Globulin Ratio 1.20 L (1.60-3.17) Ratio Assessment and Plan Assessment: Generalized weakness, multifactorial Acute hypoxic respiratory failure secondary to atelectasis, recovered and on room air. Chest x-ray showed atelectatic changes in lung base bilaterally. CT angiogram revealed no evidence of pulmonary embolism. There is increasing bilateral pulmonary nodules. Findings are concerning for malignancy. Bilateral pleural effusions with adjacent atelectasis and underlying pneumonia not excluded. Ultrasound of the chest revealed a minimal 3.2 cm pocket with lung visualized within the pocket on the right. 2.1 cm pocket on the left. Not marked for thoracentesis. Upper abdominal ascites and lymphadenopathy. CT scan of the abdomen and pelvis revealed no evidence for high-grade bowel obstruction. Appearance is suspicious for duodenitis/jejunitis. Mild hyperdense free fluid noted throughout the abdomen and pelvis. No loculation. Suspect ascites given the appearance of the liver. Lobular contour to the liver. Relative hypertrophy of the left lobe. No focal abnormality. The appearance is suspicious for cirrhosis. No retroperitoneal hematoma. Status post left nephrectomy. 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, post left radical nephrectomy, surgery was done on 10/06/2024 Acute kidney injury, secondary to postop ATN, required hemodialysis, and currently she is off hemodialysis and the creatinine is down to 1.0 Chronic anemia with a component of iron deficiency received 1 unit of packed red blood cells for hemoglobin of 6.7. Follow-up hemoglobin 8.1 Obesity, losing weight Obstructive sleep apnea maintained on a BiPAP pressure of 13 over 9 cm of water using an AirFit F20 fullface mask Diabetes mellitus type 2 Hypertension Hyperlipidemia Plan: The patient was seen and evaluated Imaging, labs and medications reviewed No plans for thoracentesis Recommend outpatient PET scan Recommend outpatient follow-up in our office May require bronchoscopy with biopsies based on PET scan results Plan will be for home with home care at discharge I have personally seen and examined the patient, performed the documentation and the assessment and plan as written. Number of minutes spent on the visit: 10 Dictation was produced using [employer] dictation software. Please excuse any grammatical, word or spelling errors.
--- NOTE | 2024-11-03 14:40 | P.PN ---
Subjective Progress Note Date: 11/03/24 Pt reporting some improvement in weakness, ambulating with 1 person assist. Per pulm. not enough fluid for thoracentesis. Hgb stable, 8.1 today Objective - Vital Signs Vital signs: Vital Signs Temp 97.8 F 11/03/24 07:00 Pulse 97 11/03/24 07:00 Resp 17 11/03/24 07:00 BP 138/70 11/03/24 07:00 Pulse Ox 92 L 11/03/24 07:00 FiO2 Intake & Output 11/02/24 11/03/24 11/03/24 18:59 06:59 18:59 Other: Voiding Method Toilet Toilet # Voids 3 2 - Constitutional General appearance: Present: no acute distress - EENT Eyes: Present: anicteric sclerae, EOMI ENT: Present: hearing grossly normal - Respiratory Details: breathing is even and unlabored - Cardiovascular Details: skin warm and dry - Musculoskeletal Musculoskeletal: Present: generalized weakness - Psychiatric Psychiatric: Present: A&O x's 3 - Labs CBC & Chem 7: 11/03/24 03:03 11/03/24 03:03 Labs: Abnormal Lab Results - Last 24 Hours (Table) 11/01/24 11/02/24 11/02/24 Range/Units 02:47 08:37 16:37 WBC 3.99 L (4.50-10.00) X 10*3/uL RBC 2.94 L (4.10-5.20) X 10*6/uL Hgb 8.3 L (12.0-15.0) g/dL Hct 28.5 L (37.2-46.3) % MCHC 29.1 L (32.0-37.0) g/dL RDW 18.0 H (11.5-14.5) % Est GFR (CKD-EPI) (>=60) BUN/Creatinine Ratio (12.00-20.00) Ratio POC Glucose (mg/dL) 113 H (70-110) mg/dL Total Bilirubin (0.3-1.2) mg/dL Total Protein (6.2-8.2) g/dL Albumin (3.8-4.9) g/dL Albumin/Globulin Ratio (1.60-3.17) Ratio RBC Folate 1,012 H (280 - 791) ng/mL 11/02/24 11/03/24 11/03/24 Range/Units 21:13 03:03 03:03 WBC (4.50-10.00) X 10*3/uL RBC 2.78 L (4.10-5.20) X 10*6/uL Hgb 8.1 L (12.0-15.0) g/dL Hct 26.4 L (37.2-46.3) % MCHC 30.7 L (32.0-37.0) g/dL RDW 16.5 H (11.5-14.5) % Est GFR (CKD-EPI) 58 L (>=60) BUN/Creatinine Ratio 11.90 L (12.00-20.00) Ratio POC Glucose (mg/dL) 121 H (70-110) mg/dL Total Bilirubin <0.2 L (0.3-1.2) mg/dL Total Protein 5.5 L (6.2-8.2) g/dL Albumin 3.0 L (3.8-4.9) g/dL Albumin/Globulin Ratio 1.20 L (1.60-3.17) Ratio RBC Folate (280 - 791) ng/mL 11/03/24 Range/Units 11:42 WBC (4.50-10.00) X 10*3/uL RBC (4.10-5.20) X 10*6/uL Hgb (12.0-15.0) g/dL Hct (37.2-46.3) % MCHC (32.0-37.0) g/dL RDW (11.5-14.5) % Est GFR (CKD-EPI) (>=60) BUN/Creatinine Ratio (12.00-20.00) Ratio POC Glucose (mg/dL) 112 H (70-110) mg/dL Total Bilirubin (0.3-1.2) mg/dL Total Protein (6.2-8.2) g/dL Albumin (3.8-4.9) g/dL Albumin/Globulin Ratio (1.60-3.17) Ratio RBC Folate (280 - 791) ng/mL Assessment and Plan (1) Renal cell carcinoma Current Visit: Yes Status: Acute Priority: High Code(s): C64.9 - MALIGNANT NEOPLASM OF UNSP KIDNEY, EXCEPT RENAL PELVIS SNOMED Code(s): 388544150 (2) Anemia Current Visit: Yes Status: Acute Priority: High Code(s): D64.9 - ANEMIA, UNSPECIFIED SNOMED Code(s): 086151072 (3) History of left nephrectomy Current Visit: Yes Status: Acute Priority: Medium Code(s): Z90.5 - ACQUIRED ABSENCE OF KIDNEY SNOMED Code(s): 73585679935434 Plan: Anemia History of chronic anemia, who follows with Dr. Austin. She has required iron transfusions and Vit B12 injections in the past. Workup most recently revealing anemia of inflammation likely r/t suspected malignancy. Has been in the 8-9 range, and more recently in the 7 range. Does report diarrhea, and dark stools but attributes this to oral iron she takes, no acute changes in stool color. -On admit hemoglobin was 7.5, MCV 97.3. Nutritional studies showing, iron saturation 16.5%, ferritin 200, vitamin B12 797, labs consistent with anemia of inflammation. Repeat CBC showed hemoglobin 6.7, platelets 215,000. Patient was transfused 1 unit PRBCs, with appropriate response at 8.3. Hgb stable today at 8.1 -Continue to monitor CBC. Transfuse for hgb < 7 or if symptomatic Renal cell carcinoma: -CT chest without contrast on 05/25/24 that revealed a 1 cm right upper lobe nodule that was new and there was also a 3 mm left lung nodule seen. There was a partially visualized abnormality related to the left kidney with underlying mass not excluded. The patient therefore had a PET scan done on 08/03/24, that was negative for uptake in the lung. However it did show significant activity in a mass involving the left kidney, 16 x 9 cm, with SUV greater than 8. The patient was thus referred to urology -Patient has since underwent left nephrectomy on 10/06/2024. 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 Bilateral pleural effusions with adjacent atelectasis versus underlying pneumonia. Upper abdominal ascites and lymphadenopathy. CT abdomen pelvis showing coastal thickening of the distal duodenum and proximal jejunal bowel loops with no evidence for high-grade bowel obstruction. Mild hypodense free fluid noted throughout the abdomen and pelvis with no loculation noted. Lobular contour to the liver and relative hypertrophy of the left lobe suspicious for cirrhosis. No retroperitoneal hematoma. Diffuse soft tissue edema suggesting anasarca -Based on imaging obtained concern for metastatic disease. Discussed case with pulmonology to evaluate for possible thoracentesis with cytology, as metastatic disease would change course of systemic treatment. Chest US was obtained, and per pulm no thoracentesis at this time. Recommending repeat PET and f/u with Dr. Cheri shafer for evaluation for bronchoscopy -Clinic f/u will be scheduled upon discharge to further discuss goals of care and treatment options. Pulmonology consult will be sent from clinic Results and POC discussed with pt and she was agreeable to the same
[2024-11-03 16:53] LABS: Glucose,Whole Blood 122 mg/dL (70-110)
[2024-11-03 20:58] LABS: Glucose,Whole Blood 117 mg/dL (70-110)
[2024-11-04 02:53] VITALS: RESP 18
[2024-11-04 06:14] LABS: Glucose,Whole Blood 117 mg/dL (70-110)
[2024-11-04 07:12] VITALS: BP 148/72; PULSE 100; TEMP 98.6
[2024-11-04 08:30] LABS: HCT 27.1 % (37.2-46.3); HGB 8.2 g/dL (12.0-15.0); MCH 29.1 pg (27.0-32.0); MCHC 30.3 g/dL (32.0-37.0); MCV 96.1 FL (80.0-97.0); Mean Platelet Volume 10.9 FL (9.5-12.2); NRBC Per 100 WBC 0 X 10*3/uL (0.00-0.01); Platelet Count 211 X 10*3/uL (140-440); RBC 2.82 X 10*6/uL (4.10-5.20); RDW 17.2 % (11.5-14.5); WBC 3.78 X 10*3/uL (4.50-10.00)
[2024-11-04 09:07] LABS: ALT 8 U/L (8-44); AST 20 U/L (13-35); Albumin/Globulin Ratio 1.15 Ratio (1.60-3.17); Alkaline Phosphatase 122 U/L (41-126); BUN/Creat Ratio 12.56 Ratio (12.00-20.00); Blood Urea Nitrogen 11.3 mg/dL (9.0-27.0); Calcium 9.9 mg/dL (8.7-10.3); Chloride 102 mmol/L (96-109); Globulin 2.6 g/dL (1.6-3.3); Glucose 101 mg/dL (70-110); Potassium 3.8 mmol/L (3.5-5.5); Sodium 141 mmol/L (135-145); Total Bilirubin 0.2 mg/dL (0.3-1.2); Total Protein 5.6 g/dL (6.2-8.2)
--- NOTE | 2024-11-04 09:10 | P.DS ---
Providers Date of admission: 10/30/24 19:35 Attending physician: Gelacio Iverson Consults: 10/31/24 10:36 Consult Physician Routine Consulting Provider: Rosa M Alonzo Consult Reason/Comments: Acute respiratory failure Do you want consulting provider notified?: Yes 11/01/24 10:44 Consult Physician Routine Consulting Provider: Severiano Soto Consult Reason/Comments: Recent nephrectomy Do you want consulting provider notified?: Yes 11/01/24 13:42 Consult Physician Routine Consulting Provider: Hoang Austin Consult Reason/Comments: Acute on chronic anemia Do you want consulting provider notified?: Yes Primary care physician: Gelacio Iverson Hospital Course: The patient was admitted essentially for bilateral pneumonia/pleural effusions. She has recent grade 4 renal cell carcinoma removal and her postop recovery was a little bit anabell. She was readmitted and treated appropriately pulmonology was consulted she did have new finding of pulmonary nodule which will be followed up with a PET scan on an outpatient basis. The patient is now resting comfortably strong enough to transfer. She does sleep in a recliner and has appropriate ambulatory adjustments in her home. She is using her walker re latively easily and will be discharged in stable condition. Patient Condition at Discharge: Stable Plan - Discharge Summary Discharge Rx Participant: No New Discharge Prescriptions: New Melatonin 3 mg PO HS PRN tab PRN Reason: Insomnia Continue Simvastatin [Zocor] 40 mg PO HS Valsartan/Hydrochlorothiazide [Diovan Hct 320-25 mg Tablet] 1 tab PO HS Pioglitazone HCl/Metformin HCl [Pioglitazone-Metformin 15-850] 1 tab PO BID Calcium Carbonate/Vitamin D3 [Caltrate 600 Plus D3 Tablet] 2 tab PO DAILY Aspirin 81 mg PO DAILY DULoxetine HCL [Cymbalta] 60 mg PO DAILY Ferrous Sulfate [Iron (65 MG Elemental)] 1 tab PO DAILY HYDROcodone/APAP 5-325MG [Viola 5-325] 1 tab PO Q4HR PRN 3 Days #18 tab PRN Reason: Pain Discharge Medication List Pioglitazone HCl/Metformin HCl [Pioglitazone-Metformin 15-850] 1 tab PO BID 09/17/14 [History] Simvastatin [Zocor] 40 mg PO HS 09/17/14 [History] Valsartan/Hydrochlorothiazide [Diovan Hct 320-25 mg Tablet] 1 tab PO HS 09/17/14 [History] Calcium Carbonate/Vitamin D3 [Caltrate 600 Plus D3 Tablet] 2 tab PO DAILY 09/28/14 [History] Aspirin 81 mg PO DAILY 03/06/17 [History] DULoxetine HCL [Cymbalta] 60 mg PO DAILY 10/05/24 [History] Ferrous Sulfate [Iron (65 MG Elemental)] 1 tab PO DAILY 10/05/24 [History] HYDROcodone/APAP 5-325MG [Viola 5-325] 1 tab PO Q4HR PRN 3 Days #18 tab 10/14/24 [Rx] Melatonin 3 mg PO HS PRN tab 11/04/24 [Rx] Follow up Appointment(s)/Referral(s): Rosa M Alonzo MD [STAFF PHYSICIAN] - 1 Week [facility] Visiting Nurse, [NON-STAFF] - As Needed Gelacio Iverson MD [Primary Care Provider] - 1 Week
[2024-11-04 11:28] LABS: Glucose,Whole Blood 122 mg/dL (70-110)
[2024-11-04] MEDS: ARTIFICIAL TEARS-HYPROMELLOSE DROPS 15 ML BTL BOTH EYES PRN (12:09)
--- NOTE | 2024-11-04 13:32 | P.PN ---
Subjective Progress Note Date: 11/04/24 This is a 79-year-old female patient presented to the ED with generalized weakness and lethargy. I was asked to evaluate this patient for hypoxic respiratory failure the patient is currently on 2 L of oxygen by nasal cannula with a pulse ox of 99%. Chest x-ray done in the emergency department shows some atelectatic changes in lung bases bilaterally. No evidence of any pneumonia. Doppler of the lower extremities were also done that showed no evidence of any DVT. This patient had further workup in the emergency department. The patient's hemoglobin has been chronically low at 7.5. Coagulation profile was normal. D- dimer was at 3.9. BUN was 27 and a creatinine was 1.4 noted the patient's crea tinine has been improving following her nephrectomy. Sodium is at 140, potassium is at 4.4, bicarb is at 25. Calcium levels at 10.9. LFTs are normal. UA showed few WBCs. And +1 blood. Otherwise negative. The viral screen was negative. This patient was seen by our services back in October 2024. The patient had a left renal mass and the patient underwent a radical nephrectomy and postop the patient sustained acute kidney injury and her kidney function has been gradually improving. She also had blood loss anemia which was an expected outcome of, Surgery and hemoglobin has remained stable and the most recent hemoglobin is at 7.5. The patient also required hemodialysis for acute kidney injury that occurred after the surgery. Ultimately, urine output improved and her renal function gradually improved. Most recent creatinine is at 1.4. She is also known to have obstructive sleep apnea, maintained on a BiPAP pressure of 13 over 9 cm of water and she had an AirFit F20 fullface mask. She is obese and her body mass index is around 37. She has diabetes mellitus type 2, h ypertension hyperlipidemia. Her surgery was performed on 10/06/2024 and the pathology was consistent with high-grade renal cell carcinoma grade 4 and the tumor invaded the perirenal fat and the hilar vessels and the ureter had positive margins. As such, the patient was given a T3a disease with invasion of the perirenal tissue. On 11/01/2024, the patient is being seen for a follow-up., Comfortable. No significant respiratory distress at rest. Hemoglobin is dropped down to 6.7 and the patient will be given a unit of packed RBC. No signs of any acute bleeding. Surgical site over the left upper quadrant remains dry clean and intact. The patient does have iron deficiency and a serum iron is low at 41. Meanwhile, the white cell count of 4.3. Platelet count is at 1215. Creatinine today is at 1.1. The patient remains on oxygen at 2 L with a pulse ox of 97%. No cough. No sputum production. No chest tightness. No wheezing. No other complaints otherwise. CAT scan of the chest and abdomen was ordered by the medical team. The patient is seen today November 02, 2024 in follow-up on the regular medical floor. She is awake and alert in no acute distress. Currently sitting up in a chair at the bedside. She is maintaining good O2 saturations in the 90s on room air. Her hemoglobin yesterday was 6.7. She did receive 1 unit of packed red blood cells. Follow-up labs are pending. Glucose 122. She is utilizing Perry for pain control. The patient is seen today November 03, 2024 in follow-up on the regular medical floor. She is awake and alert in no acute distress. Currently resting comfortably in bed. Maintaining good O2 saturations in the 90s on room air. She has been afebrile. Hemodynamically stable. CT angiogram revealed no evidence of pulmonary embolism. There is increasing bilateral pulmonary nodules. Findings are concerning for malignancy. Bilateral pleural effusions with adjacent atelectasis and underlying pneumonia not excluded. Upper abdominal ascites and lymphadenopathy. CT scan of the abdomen and pelvis revealed no evidence for high-grade bowel obstruction. Appearance is suspicious for duodenitis/jejunitis. Mild hyperdense free fluid noted throughout the abdomen and pelvis. No loculation. Suspect ascites given the appearance of the liver. Lobular contour to the liver. Relative hypertrophy of the left lobe. No focal abnormality. The appearance is suspicious for cirrhosis. No retroperitoneal hematoma. Status post left nephrectomy. Ultrasound of the chest revealed a minimal 3.2 cm pocket with lung visualized within the pocket on the right. 2.1 cm pocket on the left. Not marked for thoracentesis. White count 3.9. Hemoglobin 8.1. Platelets 201. Sodium 140. Potassium 3.9. Bicarb 28. BUN 12. Creatinine 1.0. Glucose 100. The patient is seen today November 04, 2024 in follow-up on the regular medical floor. She is currently resting comfortably in bed. Awake and alert in no acute distress. Maintaining O2 saturations in the 90s on room air. She denies any shortness of breath, cough or congestion. No hemoptysis. White count 3.7. Hemoglobin 8.2. Platelets 211. Sodium 141. Potassium 3.8. Bicarb 28. BUN 11. Creatinine 0.9. Glucose 101. Objective - Vital Signs Vital signs: Vital Signs Temp 98.6 F 11/04/24 07:12 Pulse 100 11/04/24 07:12 Resp 18 11/04/24 07:12 BP 148/72 11/04/24 07:12 Pulse Ox 90 L 11/04/24 07:12 FiO2 Intake & Output 11/03/24 11/04/24 11/04/24 18:59 06:59 18:59 Other: Voiding Method Toilet # Voids 3 1 - Exam GENERAL EXAM: Alert, 79-year-old female, on room air, comfortable in no apparent distress. HEAD: Normocephalic. EYES: Normal reaction of pupils, equal size. NOSE: Clear with pink turbinates. THROAT: No erythema or exudates. NECK: No masses, no JVD. CHEST: No chest wall deformity. LUNGS: Equal air entry with crackles in the bilateral bases. CVS: S1 and S2 normal with no audible murmur, regular rhythm. ABDOMEN: Surgical site is clean and dry. No hepatosplenomegaly, normal bowel sounds, no guarding or rigidity. SPINE: No scoliosis or deformity SKIN: No rashes CENTRAL NERVOUS SYSTEM: No focal deficits, tone is normal in all 4 extremities. EXTREMITIES: There is no peripheral edema. No clubbing, no cyanosis. Peripheral pulses are intact. - Labs CBC & Chem 7: 11/04/24 03:01 11/04/24 03:01 Labs: Abnormal Lab Results - Last 24 Hours (Table) 11/03/24 11/03/24 11/04/24 Range/Units 16:50 20:57 03:01 WBC 3.78 L (4.50-10.00) X 10*3/uL RBC 2.82 L (4.10-5.20) X 10*6/uL Hgb 8.2 L (12.0-15.0) g/dL Hct 27.1 L (37.2-46.3) % MCHC 30.3 L (32.0-37.0) g/dL RDW 17.2 H (11.5-14.5) % POC Glucose (mg/dL) 122 H 117 H (70-110) mg/dL Total Bilirubin (0.3-1.2) mg/dL Total Protein (6.2-8.2) g/dL Albumin (3.8-4.9) g/dL Albumin/Globulin Ratio (1.60-3.17) Ratio 11/04/24 11/04/24 11/04/24 Range/Units 03:01 06:13 11:27 WBC (4.50-10.00) X 10*3/uL RBC (4.10-5.20) X 10*6/uL Hgb (12.0-15.0) g/dL Hct (37.2-46.3) % MCHC (32.0-37.0) g/dL RDW (11.5-14.5) % POC Glucose (mg/dL) 117 H 122 H (70-110) mg/dL Total Bilirubin 0.2 L (0.3-1.2) mg/dL Total Protein 5.6 L (6.2-8.2) g/dL Albumin 3.0 L (3.8-4.9) g/dL Albumin/Globulin Ratio 1.15 L (1.60-3.17) Ratio Assessment and Plan Assessment: Acute hypoxic respiratory failure secondary to atelectasis, recovered and on room air. Chest x-ray showed atelectatic changes in lung base bilaterally. CT angiogram revealed no evidence of pulmonary embolism. There is increasing bilateral pulmonary nodules. Findings are concerning for malignancy. Bilateral pleural effusions with adjacent atelectasis and underlying pneumonia not excluded. Ultrasound of the chest revealed a minimal 3.2 cm pocket with lung visualized within the pocket on the right. 2.1 cm pocket on the left. Not marked for thoracentesis. Upper abdominal ascites and lymphadenopathy. CT scan of the abdomen and pelvis revealed no evidence for high-grade bowel obstruction. Appearance is suspicious for duodenitis/jejunitis. Mild hyperdense free fluid noted throughout the abdomen and pelvis. No loculation. Suspect ascites given the appearance of the liver. Lobular contour to the liver. Relative hypertrophy of the left lobe. No focal abnormality. The appearance is suspicious for cirrhosis. No retroperitoneal hematoma. Status post left nephrectomy. 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, post left radical nephrectomy, surgery was done on 10/06/2024 Acute kidney injury, secondary to postop ATN, required hemodialysis, and currently she is off hemodialysis and the creatinine is down to 1.0 Chronic anemia with a component of iron deficiency received 1 unit of packed red blood cells for hemoglobin of 6.7. Follow-up hemoglobin 8.1 Obesity, losing weight Obstructive sleep apnea maintained on a BiPAP pressure of 13 over 9 cm of water using an AirFit F20 fullface mask Diabetes mellitus type 2 Hypertension Hyperlipidemia Plan: The patient was seen and evaluated Labs and medications reviewed Recommend outpatient PET scan May require bronchoscopy with biopsies Follow-up in our office with Dr. Alonzo This patient was seen independently by the pulmonary nurse practitioner addressing pulmonary issues I have personally seen and examined the patient, performed the documentation and the assessment and plan as written. Number of minutes spent on the visit: 23 Dictation was produced using [employer] dictation software. Please excuse any grammatical, word or spelling errors.
== END 2024-11-04 13:17 | disposition home health service (06) | DRG 811 ==
LOC: EC 14:25 → 4SSUR 19:35 → 5NMEDONC 10-31 00:15 → 4SSUR 10-31 06:46
PROVIDERS: ADMIT Family Medicine; ATTEND Family Medicine
PROC: 30233N1 Transfusion of Nonautologous Red Blood Cells into Peripheral Vein, Percutaneous Approach (ICD-10-PCS; principal; 2024-11-01)
DX: D64.89 Other specified anemias (principal); J96.01 Acute respiratory failure with hypoxia; N17.0 Acute kidney failure with tubular necrosis; J90 Pleural effusion, not elsewhere classified; E11.9 Type 2 diabetes mellitus without complications; I10 Essential (primary) hypertension; E66.9 Obesity, unspecified; R18.8 Other ascites; J98.11 Atelectasis; Z11.52 Encounter for screening for COVID-19; E86.0 Dehydration; E78.5 Hyperlipidemia, unspecified; E83.42 Hypomagnesemia; G47.33 Obstructive sleep apnea (adult) (pediatric); D62 Acute posthemorrhagic anemia; M19.90 Unspecified osteoarthritis, unspecified site; Z79.899 Other long term (current) drug therapy; Z79.82 Long term (current) use of aspirin; Z85.528 Personal history of other malignant neoplasm of kidney; Z90.5 Acquired absence of kidney; Z88.5 Allergy status to narcotic agent; Z71.3 Dietary counseling and surveillance; Z68.29 Body mass index [BMI] 29.0-29.9, adult
CPT/HCPCS: 36415; 71045; 71275; 74177; 76604; 80053; 81001; 82607; 82728; 82747; 83540; 83550; 83605; 83735; 83880; 85025; 85027; 85379; 85610; 85730; 86850; 86900; 86901; 86920; 87636; 93005; 96361; 96365; 99285

== ENCOUNTER 2024-11-22 09:50 | Inpatient (IN) | payer MEDICARE ==
--- NOTE | 2024-11-22 10:17 | ED ---
General Adult HPI - General Chief complaint: Altered Mental Status Stated complaint: AMS Time Seen by Provider: 11/22/24 10:00 Source: EMS Mode of arrival: EMS - History of Present Illness Initial comments: Dictation was produced using [employer]bar dictation software. please excuse any gr ammatical, word or spelling errors. Chief Complaint: 79-year-old female altered mental status History of Present Illness: Patient 79-year-old female presents emergency department altered mental status brought in from home by EMS. Patient is a poor historian according EMS she has been altered and hypoxic. Patient states she woke up with EMS waking her up to bring her to the ER. Patient states she feels malaise however denies any shortness of breath. Denies any fever chills or night sweats. Denies any pain complaints. The ROS documented in this emergency department record has been reviewed and confirmed by me. Those systems with pertinent positive or negative responses have been documented in the HPI. All other systems are other negative and/or noncontributory. - Related Data Home Medications Medication Instructions Recorded Confirmed Pioglitazone HCl/Metformin HCl 1 tab PO BID 09/17/14 10/30/24 [Pioglitazone-Metformin 15-850] Simvastatin [Zocor] 40 mg PO HS 09/17/14 10/30/24 Valsartan/Hydrochlorothiazide 1 tab PO HS 09/17/14 10/30/24 [Diovan Hct 320-25 mg Tablet] Calcium Carbonate/Vitamin D3 2 tab PO DAILY 09/28/14 10/30/24 [Caltrate 600 Plus D3 Tablet] Aspirin 81 mg PO DAILY 03/06/17 10/30/24 DULoxetine HCL [Cymbalta] 60 mg PO DAILY 10/05/24 10/30/24 Ferrous Sulfate [Iron (65 MG 1 tab PO DAILY 10/05/24 10/30/24 Elemental)] Previous Rx's Medication Instructions Recorded HYDROcodone/APAP 5-325MG [[place] 1 tab PO Q4HR PRN 3 Days #18 tab 10/14/24 5-325] Melatonin 3 mg PO HS PRN tab 11/04/24 Allergies Allergy/AdvReac Type Severity Reaction Status Date / Time tramadol Allergy Nausea, Verified 10/30/24 17:01 "DRY HEAVES" Review of Systems ROS Statement: Those systems with pertinent positive or pertinent negative responses have been documented in the HPI. ROS Other: All systems not noted in ROS Statement are negative. Past Medical History Past Medical History: Cancer, Diabetes Mellitus, Hyperlipidemia, Hypertension, Renal Disease, Sleep Apnea/CPAP/BIPAP Additional Past Medical History / Comment(s): anemia,arthritis History of Any Multi-Drug Resistant Organisms: None Reported Past Surgical History: Joint Replacement, Orthopedic Surgery Additional Past Surgical History / Comment(s): total lt knee,carpel tunnel lt wrist, left nephrectomy -2024 Past Anesthesia/Blood Transfusion Reactions: Motion Sickness, Postoperative Nausea & Vomiting (PONV) Additional Past Anesthesia/Blood Transfusion Reaction / Comment(s): no hx blood transfusion Past Psychological History: No Psychological Hx Reported Smoking Status: Never smoker Past Alcohol Use History: None Reported Past Drug Use History: None Reported - Past Family History Sister(s) Family Medical History: Cancer Additional Family Medical History / Comment(s): lymph General Exam - General Exam Comments Initial Comments: PHYSICAL EXAM: General Impression: Alert and oriented x3, not in acute distress HEENT: Normocephalic atraumatic, extra-ocular movements intact, pupils equal and reactive to light bilaterally, mucous membranes moist. Cardiovascular: Heart regular rate and rhythm Chest: Able to complete full sentences, no retractions, no tachypnea Abdomen: abdomen soft, non-tender, non-distended, no organomegaly Musculoskeletal: Pulses present and equal in all extremities, no peripheral edema Motor: no focal deficits noted Neurological: CN II-XII grossly intact, no focal motor or sensory deficits noted Skin: Intact with no visualized rashes Psych: Normal affect and mood Course Vital Signs 11/22/24 11/22/24 11/22/24 09:57 10:06 10:15 Temperature 97.5 F L Pulse Rate 99 95 95 Respiratory 17 16 14 Rate Blood Pressure 107/37 86/72 113/43 O2 Sat by Pulse 93 L 95 Oximetry 11/22/24 11:39 Temperature Pulse Rate 85 Respiratory 16 Rate Blood Pressure 109/65 O2 Sat by Pulse 100 Oximetry Medical Decision Making - Medical Decision Making Was pt. sent in by a medical professional or institution (, PA, SWIMMING POOL SERVICER, urgent care, hospital, or detention...) When possible be specific @ -No Did you speak to anyone other than the patient for history (EMS, parent, family, police, friend...)? What history was obtained from this source @ -No history obtained from who is currently at the bedside states that patient has been having worsening mentation. He states that he is aware she is having a stroke due to confusion, aphasia and dysarthria with slurred speech. States that she was last normal around 3 days ago Did you review nursing and triage notes (agree or disagree)? Why? @ -I reviewed and agree with nursing and triage notes Were old charts reviewed (outside hosp., previous admission, EMS record, old EKG, old radiological studies, urgent care reports/EKG's, detention records)? Report findings @ -No old charts were reviewed Differential Diagnosis (chest pain, altered mental status, abdominal pain women, abdominal pain men, vaginal bleeding, musculoskeletal, weakness, fever, dyspnea, syncope, headache, dizziness, GI bleed, back pain, seizure, CVA, palpatations, mental health)? @ -Differential Altered Mental Status: Hypoglycemia, DKA, hypercapnia, ETOH, overdose, CO poisoning, trauma, myxedema coma, HTN encephalopathy, infection, encephalitis, psychosis, intercranial hemorrhage, hepatic encephalopathy, meningitis, CVA, this is not meant to be an all-inclusive list EKG interpreted by me (3pts min.). @ -My EKG interpretation: Ventricular rate 100, sinus tachycardia, ID 141, QRS 110, QTc 387. No ID prolongation, no QTC prolongation, no ST or T-wave changes noted. Overall, this EKG is unremarkable X-rays interpreted by me (1pt min.). @ -Chest x-ray is nonacute CT interpreted by me (1pt min.). @ -CT brain is nonacute U/S interpreted by me (1pt. min.). @ -None done What testing was considered but not performed or refused? (CT, X-rays, U/S, labs)? Why? @ -None What meds were considered but not given or refused? Why? @ -None Was smoking cessation discussed for >3mins.? @ -No Were there social determinants of health that impacted care today? How? (Homelessness, low income, unemployed, alcoholism, drug addiction, tra nsportation, low edu. Level, literacy, decrease access to med. care, detention, rehab)? @ -No Was there de-escalation of care discussed even if they declined (Discuss DNR or withdrawal of care, Hospice)? DNR status @ -No What co-morbidities impacted this encounter? (DM, HTN, Smoking, COPD, CAD, Cancer, CVA, ARF, Chemo, Hep., AIDS, mental health diagnosis, sleep apnea, morbid obesity)? @ -None Was patient admitted / discharged? Hospital course, mention meds given and route, prescriptions, significant lab abnormalities, going to OR and other pertinent info. @ -79-year-old female altered mental status. She is malaise at the bedside. She is however arousable. Patient having these intermittent episodes of confused altered speech. No extremity neurologic deficits. No facial asymmetry. Vital signs upon arrival are within acceptable limits. Last normal according to hospitalist 3 days ago. Labs imaging obtained showing no acute processes. She did have a low blood pressure of 86/72 improved with fluids. There is concern of acute neurologic process including CVA. Patient given an aspirin. Will be admitted consultation to neurology. Case discussed with hospitalist for admission Did you discuss the management of the patient with other professionals (professionals i.e. , PA, SWIMMING POOL SERVICER, lab, RT, psych nurse, public health social worker, early childhood director, teacher, armed custom protection officer, catalytic case operator)? Give summary @ -See above Was critical care preformed (if so, how long)? @ -No Undiagnosed new problem with uncertain prognosis? @ -No Drug Therapy requiring intensive monitoring for toxicity (Heparin, Nitro, In sulin, Cardizem)? @ -No Were any procedures done? @ -No Diagnosis/symptom? Acute, or Chronic, or Acute on Chronic? Uncomplicated (without systemic symptoms) or Complicated (systemic symptoms)? @ -Altered mental status Side effects of treatment? @ -No Exacerbation, Progression, or Severe Exacerbation? @ -No Poses a threat to life or bodily function? How? (Chest pain, [place], SD, pneumonia, PE, COPD, DKA, ARF, appy, cholecystitis, CVA, Diverticulitis, Homicidal, Suicidal, threat to staff... and all critical care pts) @ -yes - Lab Data Result diagrams: 11/22/24 11:36 11/22/24 11:36 Lab Results 11/22/24 11/22/24 11/22/24 Range/Units 10:52 11:36 11:36 WBC 6.2 (3.8-10.6) k/uL RBC 3.03 L (3.80-5.40) m/uL Hgb 8.9 L (11.4-16.0) gm/dL Hct 28.8 L (34.0-46.0) % MCV 94.9 (80.0-100.0) fL MCH 29.2 (25.0-35.0) pg MCHC 30.8 L (31.0-37.0) g/dL RDW 15.3 (11.5-15.5) % Plt Count 220 (150-450) k/uL MPV 8.7 Neutrophils % 67 % Lymphocytes % 21 % Monocytes % 6 % Eosinophils % 3 % Basophils % 0 % Neutrophils # 4.2 (1.3-7.7) k/uL Lymphocytes # 1.3 (1.0-4.8) k/uL Monocytes # 0.4 (0-1.0) k/uL Eosinophils # 0.2 (0-0.7) k/uL Basophils # 0.0 (0-0.2) k/uL Hypochromasia Moderate PT 11.0 (10.0-12.5) sec INR 1.0 (<1.2) APTT 22.1 (22.0-30.0) sec Sodium (137-145) mmol/L Potassium (3.5-5.1) mmol/L Chloride (98-107) mmol/L Carbon Dioxide (22-30) mmol/L Anion Gap mmol/L BUN (7-17) mg/dL Creatinine (0.52-1.04) mg/dL Est GFR (CKD-EPI)AfAm (>60 ml/min/1.73 sqM) Est GFR (CKD-EPI)NonAf (>60 ml/min/1.73 sqM) Glucose (74-99) mg/dL POC Glucose (mg/dL) 89 (70-110) mg/dL POC Glu Machine [employer] Helper ID Law Chen Calcium (8.4-10.2) mg/dL Total Bilirubin (0.2-1.3) mg/dL AST (14-36) U/L ALT (4-34) U/L Alkaline Phosphatase (38-126) U/L Troponin I (0.000-0.034) ng/mL NT-Pro-B Natriuret Pep pg/mL Total Protein (6.3-8.2) g/dL Albumin (3.5-5.0) g/dL Influenza Type A (PCR) (Not Detectd) Influenza Type B (PCR) (Not Detectd) RSV (PCR) (Not Detectd) SARS-CoV-2 (PCR) (Not Detectd) 11/22/24 11/22/24 11/22/24 Range/Units 11:36 11:36 11:36 WBC (3.8-10.6) k/uL RBC (3.80-5.40) m/uL Hgb (11.4-16.0) gm/dL Hct (34.0-46.0) % MCV (80.0-100.0) fL MCH (25.0-35.0) pg MCHC (31.0-37.0) g/dL RDW (11.5-15.5) % Plt Count (150-450) k/uL MPV Neutrophils % % Lymphocytes % % Monocytes % % Eosinophils % % Basophils % % Neutrophils # (1.3-7.7) k/uL Lymphocytes # (1.0-4.8) k/uL Monocytes # (0-1.0) k/uL Eosinophils # (0-0.7) k/uL Basophils # (0-0.2) k/uL Hypochromasia PT (10.0-12.5) sec INR (<1.2) APTT (22.0-30.0) sec Sodium 133 L (137-145) mmol/L Potassium 4.0 (3.5-5.1) mmol/L Chloride 93 L (98-107) mmol/L Carbon Dioxide 29 (22-30) mmol/L Anion Gap 11 mmol/L BUN 37 H (7-17) mg/dL Creatinine 4.65 H (0.52-1.04) mg/dL Est GFR (CKD-EPI)AfAm 10 (>60 ml/min/1.73 sqM) Est GFR (CKD-EPI)NonAf 9 (>60 ml/min/1.73 sqM) Glucose 92 (74-99) mg/dL POC Glucose (mg/dL) (70-110) mg/dL POC Glu Machine [employer] Helper ID Calcium 11.8 H (8.4-10.2) mg/dL Total Bilirubin 0.6 (0.2-1.3) mg/dL AST 15 (14-36) U/L ALT 7 (4-34) U/L Alkaline Phosphatase 96 (38-126) U/L Troponin I 0.033 (0.000-0.034) ng/mL NT-Pro-B Natriuret Pep 3700 pg/mL Total Protein 6.1 L (6.3-8.2) g/dL Albumin 3.2 L (3.5-5.0) g/dL Influenza Type A (PCR) Not Detected (Not Detectd) Influenza Type B (PCR) Not Detected (Not Detectd) RSV (PCR) Not Detected (Not Detectd) SARS-CoV-2 (PCR) Not Detected (Not Detectd) Disposition Clinical Impression: AMS (altered mental status) Disposition: ADMITTED IP TO THIS HOSP Condition: Fair Referrals: Gelacio Iverson MD [Primary Care Provider] - 1-2 days Decision Time: 13:43
[2024-11-22 10:53] LABS: Glucose,Whole Blood 89 mg/dL (70-110)
[2024-11-22] MEDS: SODIUM CHLORIDE 0.9% 1,000 ML IV STA (11:36)
[2024-11-22 12:01] LABS: ALT 7 U/L (4-34); AST 15 U/L (14-36); African American GFR (CKD) 10 (>60 ml/min/1.73 sqM); Albumin 3.2 g/dL (3.5-5.0); Alkaline Phosphatase 96 U/L (38-126); Anion Gap 11 mmol/L; Blood Urea Nitrogen 37 mg/dL (7-17); Calcium 11.8 mg/dL (8.4-10.2); Carbon Dioxide 29 mmol/L (22-30); Chloride 93 mmol/L (98-107); Glucose 92 mg/dL (74-99); Non-African American GFR(CKD) 9 (>60 ml/min/1.73 sqM); Sodium 133 mmol/L (137-145); Total Bilirubin 0.6 mg/dL (0.2-1.3); Total Protein 6.1 g/dL (6.3-8.2)
[2024-11-22 12:05] LABS: Basophils % (A) 0 %; Eosinophils # (A) 0.2 k/uL (0-0.7); Eosinophils % (A) 3 %; HCT 28.8 % (34.0-46.0); HGB 8.9 gm/dL (11.4-16.0); Hypochromasia Moderate; Lymphocytes # (A) 1.3 k/uL (1.0-4.8); Lymphocytes % (A) 21 %; MCH 29.2 pg (25.0-35.0); MCHC 30.8 g/dL (31.0-37.0); MCV 94.9 fL (80.0-100.0); Mean Platelet Volume 8.7; Monocytes # (A) 0.4 k/uL (0-1.0); Monocytes % (A) 6 %; Neutrophils # (A) 4.2 k/uL (1.3-7.7); Neutrophils % (A) 67 %; Partial Thromboplastin Time 22.1 sec (22.0-30.0); Platelet Count 220 k/uL (150-450); RBC 3.03 m/uL (3.80-5.40); RDW 15.3 % (11.5-15.5); WBC 6.2 k/uL (3.8-10.6)
--- NOTE | 2024-11-22 12:07 | XR ---
EXAMINATION TYPE: XR chest 2V DATE OF EXAM: 11/22/2024 12:01 PM COMPARISON: Chest radiographs from 11/09/2024 TECHNIQUE: XR chest 2V Frontal and lateral views of the chest. CLINICAL INDICATION:Female, 79 years old with history of hypoxia; FINDINGS: Patient is rotated which limits evaluation. Lungs/Pleura: There is no evidence of pleural effusion, focal consolidation, or pneumothorax. Pulmonary vascularity: Unremarkable. Heart/mediastinum: Cardiomediastinal silhouette is enlarged and stable. Musculoskeletal: Multiple level degenerative disc disease changes seen throughout the spine. IMPRESSION: Chronic changes and cardiomegaly without acute pulmonary process. [facility], , 11/22/2024 12:05 PM
[2024-11-22 12:10] LABS: NT-Pro-B-Type Natriuretic Pept 3700 pg/mL
--- NOTE | 2024-11-22 12:10 | CT ---
EXAMINATION TYPE: CT brain wo con CT DLP: 1151.4 mGycm, Automated exposure control for dose reduction was used. DATE OF EXAM: 11/22/2024 12:01 PM COMPARISON: None. CLINICAL INDICATION:Female, 79 years old with history of hypoxia, AMS, hypoxia, recent sx for renal c a TECHNIQUE: Brain: Multiple axial CT images of the brain were obtained without IV contrast. . Coronal and sagitta l reformats reviewed. FINDINGS: Brain: Extra-axial spaces: No abnormal extra-axial fluid collections. Ventricular system: Within normal limits Cerebral parenchyma: Cerebral atrophy. No acute intraparenchymal hemorrhage or mass effect. The cruz -white junction is well differentiated. Hypodense focus within the right lentiform nucleus of the bas al ganglia. Scattered hypoattenuating areas are seen within the periventricular white matter. Cerebellum: Unremarkable. Mass effect: No evidence of midline shift. Intracranial vasculature: Atherosclerotic calcifications of the intracranial vessels. Soft tissues: Normal. Calvarium/osseous structures: No depressed skull fracture. Paranasal sinuses and mastoid air cells: Clear Visualized orbits: Bilateral aphakia IMPRESSION: 1. No acute intracranial hemorrhage. 2. Age-indeterminate right basal ganglia lacunar infarct. 3. Nonspecific white matter changes, likely secondary to chronic small vessel ischemic disease. [facility], , 11/22/2024 12:07 PM
[2024-11-22 12:23] LABS: Influenza A Not Detected (Not Detectd); Influenza B Not Detected (Not Detectd); RSV Not Detected (Not Detectd)
[2024-11-22] MEDS ORDERED: NALOXONE 0.4 MG/ML 1 ML VIAL IV PRN (13:38)
[2024-11-22] MEDS: SODIUM CHLORIDE 0.9% 1,000 ML IV SCH (14:22)
[2024-11-22] MEDS: ASPIRIN 81 MG PO STA (14:31)
--- NOTE | 2024-11-22 17:33 | P.CNNES ---
History of Present Illness Consult date: 11/22/24 Reason for Consult: Altered mental status History of Present Illness: The patient is a 79-year-old female who was seen in neurologic consultation on November 22, 2024, in collaboration with Corrina Landon, via teleneurology. History is obtained from review of the chart. The patient is unable to tell me why she came into the hospital. She states that her thought it was a good idea. According to the emergency department note the patient was brought in because of hypoxia. The patient reportedly was awakened by EMS. She was found to be hypoxic. The patient was reportedly registering an O2 sat of 87% on room air. Chest x-ray performed in the emergency department was negative for acute process. CT scan of the brain was negative for acute hemorrhage and infarct. The patient reports that she has a very dry mouth and because of this, she is having difficulty talking. She denies headache. She denies numbness, tingling and weakness in her extremities. The patient denies shortness of breath. Past Medical History Past Medical History: Cancer, Diabetes Mellitus, Hyperlipidemia, Hypertension, Renal Disease, Sleep Apnea/CPAP/BIPAP Additional Past Medical History / Comment(s): anemia,arthritis History of Any Multi-Drug Resistant Organisms: None Reported Past Surgical History: Joint Replacement, Orthopedic Surgery Additional Past Surgical History / Comment(s): total lt knee,carpel tunnel lt wrist, left nephrectomy -2024 Past Anesthesia/Blood Transfusion Reactions: Motion Sickness, Postoperative Nausea & Vomiting (PONV) Additional Past Anesthesia/Blood Transfusion Reaction / Comment(s): no hx blood transfusion Past Psychological History: No Psychological Hx Reported Smoking Status: Never smoker Past Alcohol Use History: None Reported Past Drug Use History: None Reported - Past Family History Sister(s) Family Medical History: Cancer Additional Family Medical History / Comment(s): lymph Medications and Allergies Home Medications Medication Instructions Recorded Confirmed Type Pioglitazone HCl/Metformin HCl 1 tab PO BID 09/17/14 11/22/24 History [Pioglitazone-Metformin 15-850] Simvastatin [Zocor] 40 mg PO HS 09/17/14 11/22/24 History Valsartan/Hydrochlorothiazide 1 tab PO HS 09/17/14 11/22/24 History [Diovan Hct 320-25 mg Tablet] Calcium Carbonate/Vitamin D3 2 tab PO DAILY 09/28/14 11/22/24 History [Caltrate 600 Plus D3 Tablet] Aspirin 81 mg PO DAILY 03/06/17 11/22/24 History DULoxetine HCL [Cymbalta] 60 mg PO DAILY 10/05/24 11/22/24 History Ferrous Sulfate [Iron (65 MG 1 tab PO DAILY 10/05/24 11/22/24 History Elemental)] HYDROcodone/APAP 5-325MG [[place] 1 tab PO Q4HR PRN 3 Days #18 tab 10/14/24 11/22/24 Rx 5-325] Melatonin 3 mg PO HS PRN tab 11/04/24 11/22/24 Rx Ondansetron [Zofran] 8 mg PO BID 11/22/24 11/22/24 History Allergies Allergy/AdvReac Type Severity Reaction Status Date / Time tramadol Allergy Nausea, Verified 11/22/24 15:17 "DRY HEAVES" Physical Examination - Vital Signs Vital Signs: Vital Signs Temp Pulse Resp BP Pulse Ox 11/22/24 11:39 85 16 109/65 100 11/22/24 10:15 95 14 113/43 95 11/22/24 10:06 95 16 86/72 11/22/24 09:57 97.5 F L 99 17 107/37 93 L Intake and Output 11/22/24 11/22/24 11/22/24 06:59 14:59 22:59 Other: Weight 104.326 kg General: The patient is reclining in the bed. Well-nourished, well-developed and in no acute distress. HEENT: Head is atraumatic, normocephalic. Fundus not visualized. There is no scleral icterus. Mucous membranes are dry. Neck: Supple without carotid bruits Heart: Regular rate and rhythm Lungs: Essentially clear to auscultation Extremities: Without edema Neurological examination Mental status: Patient is awake and alert. She is able to state her full name, date of , age, year, "hospital", and city in which she is located. She is not oriented to the month or upcoming holiday. The patient's speech is clear. There is no dysarthria or aphasia. Cranial nerves: Pupils are equal at 3 mm and reactive to light. Visual lau are full to confrontation. Extraocular movements are intact. There is no nystagmus. Facial sensation is intact. There is no facial asymmetry. Hearing is diminished. Uvula and palate are midline. Shoulder shrug is symmetric. Tongue protrudes midline, without evidence of bite. Motor: Strength is 5/5 throughout, with the exception of the bilateral hip flexors at 4/5. Sensation: Intact to light touch throughout. There is no extinction with double simultaneous stimulation. Coordination: [id number] and rapid alternating movements are intact. There is no pronator drift. The patient has mild difficulty with [id number] testing Deep tendon reflexes: 2+/4+ in the bilateral biceps and brachioradialis reflexes. Patellar reflexes are absent. Plantar responses are flexor bilaterally. Gait: Not assessed Results CT scan of the brain images are personally viewed. I agree with the radiology report - Laboratory Findings CBC and BMP: 11/22/24 11:36 11/22/24 11:36 Abnormal Lab Findings: Abnormal Labs 11/22/24 11/22/24 11:36 11:36 RBC 3.03 L Hgb 8.9 L Hct 28.8 L MCHC 30.8 L Sodium 133 L Chloride 93 L BUN 37 H Creatinine 4.65 H Calcium 11.8 H Total Protein 6.1 L Albumin 3.2 L Assessment and Plan Assessment: 1. Reported altered mental status likely secondary to hypoxia and/or renal failure 2. History of diabetes mellitus 3. History of cancer 4. History of sleep apnea Plan: 1. Continue to monitor respiratory status 2. Please notify neurology with worsening of mental status 3. Consider MRI of the brain to further delineate right basal ganglia infarct age Thank you for allowing us to participate in care of this patient Dr. Luther will assume neurologic coverage of this patient as of November 23, 2024 Time with Patient: Greater than 30 (60 minutes were spent caring for this patient today including, obtaining a history, examining the patient, reviewing imaging, chart documentation, labs, placing orders and creating this note)
[2024-11-22] MEDS: PANTOPRAZOLE 40 MG/10 ML VIAL IVP SCH (22:24)
--- NOTE | 2024-11-22 22:38 | HP ---
HISTORY AND PHYSICAL CHIEF COMPLAINT: Change in mental status. HISTORY OF PRESENT ILLNESS: This 79-year-old woman with a past medical history with multiple medical problems is being followed by Dr. Iverson in the outpatient setting has some change in mental status. The patient was found to be hypoxic also. The patient's creatinine has worsened to 4.65. The patient is being closely monitored at this time. The CT scan and other testing did not show any acute abnormality at this time. Right basal ganglionic lateral infarct was noted. Currently, the patient is unable to provide a coherent history. Most of the history is taken by discussion with the staff and as per discussion with the at the bedside. PAST MEDICAL HISTORY: Reviewed and includes history of cancer, diabetes mellitus, hypertension, and hyperlipidemia. Rest of history and rest of the chart is also reviewed. HOME MEDICATIONS: Reviewed and include Diovan; dose and rest of medications reviewed. ALLERGIES: Ultram. FAMILY HISTORY: History of lung cancer. SOCIAL HISTORY: No history of smoking, alcohol, or THC. REVIEW OF SYSTEMS: Could not be taken. PHYSICAL EXAMINATION: VITAL SIGNS: Pulse is 88, blood pressure 106/44, respiratory rate 20. HEENT: Conjunctivae normal. Oral mucosa dry. NECK: No jugular venous distention. CARDIOVASCULAR: S1, S2. RESPIRATIONS: Breath sounds diminished at the bases. ABDOMEN: Soft and obese. LEGS: No edema. LABORATORY DATA: Creatinine 4.65. The previous creatinine was 0.9. Calcium is 7.8. The chest x-ray reviewed cardiomegaly, some increased vascular markings present. No evidence of CHF. ASSESSMENT: 1. Change in mental status and metabolic encephalopathy secondary to acute on chronic renal failure, possibly prerenal. 2. Hypercalcemia. 3. Anemia. 4. Diabetes type 2. 5. Hypertension. 6. Hyperlipidemia. 7. Sleep apnea. RECOMMENDATIONS AND DISCUSSION: This 79-year-old presented with multiple complex medical issues, we will monitor the patient closely. I would recommend Nephrology consultation and cautious hydration. I would recommend Neurology to continue to follow. Avoid nephrotoxic medications. Prognosis is guarded. Further recommendations to follow. Discussed with the family at the bedside. There is no evidence of any infection currently, but we will monitor. MMODL / IJN: [id number] /
[2024-11-23] MEDS: LORazepam 2 MG/ML INJ IV STA (02:21)
--- NOTE | 2024-11-23 08:42 | P.PN ---
Subjective Progress Note Date: 11/23/24 This is a 79-year-old female who was brought into the emergency department via EMS for altered mental status. Patient reportedly has been very confused and unarousable at home with an oxygen saturation of 87%. Patient has had recent admissions for a left nephrectomy for a history of renal carcinoma, and more recent hospital stay found a possible pulmonary nodule which is being worked up as an outpatient. Patient seen this morning laying in bed. She is very confused and pulling at her oxygen tubing. She is unable to answer questions, has garbled speech. Neurology has seen and evaluated patient. Nephrology is on consult, creatinine on admission was 4.65. On prior admission creatinine was 0.9. Objective - Vital Signs Vital signs: Vital Signs Temp 98.7 F 11/23/24 06:37 Pulse 89 11/23/24 06:37 Resp 18 11/23/24 06:37 BP 130/61 11/23/24 06:37 Pulse Ox 100 11/23/24 06:37 FiO2 Intake & Output 11/22/24 11/23/24 11/23/24 18:59 06:59 18:59 Weight 104.326 kg - Constitutional Constitutional Comment(s): fidgety General appearance: Present: no acute distress - EENT Eyes: Present: PERRLA - Neck Neck: Present: normal ROM. Absent: lymphadenopathy, rigidity - Respiratory Respiratory: bilateral: diminished - Cardiovascular Details: tachycardic Heart sounds: normal: S1, S2 - Gastrointestinal General gastrointestinal: Present: soft. Absent: tenderness - Integumentary Integumentary: Present: normal, normal turgor - Musculoskeletal Musculoskeletal: Present: generalized weakness - Psychiatric Psychiatric Comment(s): garbled speech, answers to her name - Labs CBC & Chem 7: 11/22/24 11:36 11/22/24 11:36 Labs: Abnormal Lab Results - Last 24 Hours (Table) 11/22/24 11/22/24 Range/Units 11:36 11:36 RBC 3.03 L (3.80-5.40) m/uL Hgb 8.9 L (11.4-16.0) gm/dL Hct 28.8 L (34.0-46.0) % MCHC 30.8 L (31.0-37.0) g/dL Sodium 133 L (137-145) mmol/L Chloride 93 L (98-107) mmol/L BUN 37 H (7-17) mg/dL Creatinine 4.65 H (0.52-1.04) mg/dL Calcium 11.8 H (8.4-10.2) mg/dL Total Protein 6.1 L (6.3-8.2) g/dL Albumin 3.2 L (3.5-5.0) g/dL Assessment and Plan (1) AMS (altered mental status) Current Visit: Yes Status: Acute Code(s): R41.82 - ALTERED MENTAL STATUS, UNSPECIFIED SNOMED Code(s): 032400001 (2) Diabetes Current Visit: No Status: Acute Code(s): E11.9 - TYPE 2 DIABETES MELLITUS WITHOUT COMPLICATIONS SNOMED Code(s): 45252987 (3) History of left nephrectomy Current Visit: No Status: Acute Priority: Medium Code(s): Z90.5 - ACQUIRED ABSENCE OF KIDNEY SNOMED Code(s): 74497947107171 (4) Hyperlipemia Current Visit: No Status: Acute Code(s): E78.5 - HYPERLIPIDEMIA, UNSPECIFIED SNOMED Code(s): 85876766 (5) Hypertension Current Visit: No Status: Acute Code(s): I10 - ESSENTIAL (PRIMARY) HYPERTENSION SNOMED Code(s): 84405773 (6) Renal cell carcinoma Current Visit: No Status: Acute Priority: High Code(s): C64.9 - MALIGNANT NEOPLASM OF UNSP KIDNEY, EXCEPT RENAL PELVIS SNOMED Code(s): 056264849 (7) NANCY (acute kidney injury) Current Visit: Yes Status: Acute Code(s): N17.9 - ACUTE KIDNEY FAILURE, UNSPECIFIED SNOMED Code(s): 03118480 (8) Hypoxia Current Visit: Yes Status: Acute Code(s): R09.02 - HYPOXEMIA SNOMED Code(s): 139442148 Plan: Will order sitter for today due to patient's mental status. Check CBC and CMP in the morning. Start Accu-Cheks and add sliding scale coverage. Appreciate neurology and nephrology input. Patient seen and evaluated by nurse practitioner, physician in agreement with plan.
[2024-11-23] MEDS: HEPARIN SODIUM,PORCINE 5,000 UNIT/ML 1 ML VIAL SQ SCH (08:54)
[2024-11-23] MEDS: ASPIRIN 81 MG PO SCH (08:56)
[2024-11-23] MEDS: ONDANSETRON ODT 4 MG TAB PO SCH (08:56)
[2024-11-23 09:29] LABS: Glucose,Whole Blood 77 mg/dL (70-110)
[2024-11-23 10:14] LABS: Basophils % (A) 0 %; Eosinophils # (A) 0.2 k/uL (0-0.7); Eosinophils % (A) 5 %; HCT 30.2 % (34.0-46.0); HGB 9.2 gm/dL (11.4-16.0); Hypochromasia Moderate; Lymphocytes % (A) 22 %; MCH 29.1 pg (25.0-35.0); MCHC 30.5 g/dL (31.0-37.0); MCV 95.3 fL (80.0-100.0); Mean Platelet Volume 10.3; Monocytes # (A) 0.3 k/uL (0-1.0); Monocytes % (A) 7 %; Neutrophils # (A) 2.9 k/uL (1.3-7.7); Neutrophils % (A) 64 %; Platelet Count 166 k/uL (150-450); RBC 3.17 m/uL (3.80-5.40); RDW 15.3 % (11.5-15.5); WBC 4.6 k/uL (3.8-10.6)
[2024-11-23 12:12] LABS: Appearance,Urine Turbid (Clear); Bacteria,Urine Many /hpf; Bilirubin,Urine 1+ (Negative); Blood,Urine Small (Negative); Color,Urine Yellow; Glucose,Urine (UA) Negative (Negative); Ketones,Urine Negative (Negative); Leukocyte Esterase,Urine Moderate (Negative); Mucus,Urine Rare /hpf; Nitrite,Urine Negative (Negative); PH, Urine 5.5 (5.0-8.0); Protein,Urine 1+ (Negative); RBC,Urine 15 /hpf (0-5); Squamous Epithelial Cell,Urine 445 /hpf (0-4); WBC,Urine 43 /hpf (0-5)
[2024-11-23] MEDS: INSULIN LISPRO (HumaLOG) 100 UNIT/ML 10 mL VL SQ SCH (12:59)
[2024-11-23] MEDS: DEXTROSE 5%-0.9% NACL 1,000 ML IV SCH (12:59)
[2024-11-23] MEDS: ZINC OXIDE PASTE (Z-GUARD) 1 APPLIC TOPICAL PRN (13:05)
[2024-11-23 13:08] LABS: Glucose,Whole Blood 87 mg/dL (70-110)
[2024-11-23] MEDS: LEVOFLOXACIN 750MG-D5W PMX 750 MG in DEXTROSE/WATER 1 150ML.BAG IVPB ONE (13:36)
--- NOTE | 2024-11-23 14:42 | P.NPCON ---
History of Present Illness - Reason for Consult acute renal failure - History of Present Illness Patient is a 79-year-old female with history of type 2 diabetes, hypertension. She is admitted to the hospital with unclear complaints. Patient is a poor historian. It appears that she was noted to be hypoxic when EMS arrived and was brought into the hospital. Serum creatinine at 4.6 yesterday with previous creatinine 0.9 on 11/04/2024. Currently maintained on IV fluids. Low blood pressure noted with systolic at 86 mmHg yesterday. Home medications included angiotensin receptor blockers diuretics, currently on hold. No fever noted Patient has been voiding but has had poor output. Calcium noted to be 11.8 Past Medical History Past Medical History: Cancer, Diabetes Mellitus, Hyperlipidemia, Hypertension, Pneumonia, Renal Disease, Sleep Apnea/CPAP/BIPAP Additional Past Medical History / Comment(s): anemia, arthritis, grade 4 renal c arcinoma, acute respiratory failure, pleural effusions, pulmonary nodules, x smoker History of Any Multi-Drug Resistant Organisms: None Reported Past Surgical History: Joint Replacement, Orthopedic Surgery Additional Past Surgical History / Comment(s): total lt knee, carpel tunnel lt wrist, left nephrectomy , bilateral cataracts, Past Anesthesia/Blood Transfusion Reactions: Motion Sickness, Postoperative Nausea & Vomiting (PONV) Additional Past Anesthesia/Blood Transfusion Reaction / Comment(s): no hx blood transfusion Past Psychological History: No Psychological Hx Reported Smoking Status: Former smoker Past Alcohol Use History: None Reported Past Drug Use History: Marijuana Additional Drug Use History / Comment(s): marijuana daily freq - Past Family History Sister(s) Family Medical History: Cancer Additional Family Medical History / Comment(s): lymph Medications and Allergies Home Medications Medication Instructions Recorded Confirmed Type Pioglitazone HCl/Metformin HCl 1 tab PO BID 09/17/14 11/22/24 History [Pioglitazone-Metformin 15-850] Simvastatin [Zocor] 40 mg PO HS 09/17/14 11/22/24 History Valsartan/Hydrochlorothiazide 1 tab PO HS 09/17/14 11/22/24 History [Diovan Hct 320-25 mg Tablet] Calcium Carbonate/Vitamin D3 2 tab PO DAILY 09/28/14 11/22/24 History [Caltrate 600 Plus D3 Tablet] Aspirin 81 mg PO DAILY 03/06/17 11/22/24 History DULoxetine HCL [Cymbalta] 60 mg PO DAILY 10/05/24 11/22/24 History Ferrous Sulfate [Iron (65 MG 1 tab PO DAILY 10/05/24 11/22/24 History Elemental)] HYDROcodone/APAP 5-325MG [Dodson 1 tab PO Q4HR PRN 3 Days #18 tab 10/14/24 11/22/24 Rx 5-325] Melatonin 3 mg PO HS PRN tab 11/04/24 11/22/24 Rx Ondansetron [Zofran] 8 mg PO BID 11/22/24 11/22/24 History Allergies Allergy/AdvReac Type Severity Reaction Status Date / Time tramadol Allergy Nausea, Verified 11/22/24 15:17 "DRY HEAVES" Physical Exam Vitals: Vital Signs Temp Pulse Pulse Resp BP BP Pulse Ox 11/23/24 08:52 97.5 F L 64 18 130/60 93 L 11/23/24 06:37 98.7 F 89 18 130/61 100 11/23/24 04:15 92 16 93/81 100 11/23/24 00:08 92 19 132/58 100 11/22/24 22:41 85 18 126/62 100 11/22/24 21:00 92 18 126/62 99 11/22/24 18:08 97.6 F 88 20 106/45 100 Intake and Output 11/22/24 11/23/24 11/23/24 22:59 06:59 14:59 Output Total 575 Balance -575 Output: Urine 575 Straight 575 Other: Weight 104.326 kg Patient is awake, comfortable. She is not able to give any detailed history. Examination of the heart S1 and S2 Examination of the lungs bilateral breath sounds are heard Abdomen is soft nontender Examination of lower extremities shows no significant edema PLANER SETUP OPERATOR exam shows patient is moving all 4 extremities Results - Lab Results Most recent lab results Calcium 11.8 mg/dL (8.4-10.2) H 11/22/24 11:36 11/23/24 09:17 11/22/24 11:36 Assessment and Plan Assessment: 1. Acute kidney injury, ATN from hypotension as well as secondary to hypercalcemia. Component of urine retention noted as well as bladder scan showed about 600 mL of urine. UA shows 1+ protein small blood WBC is 43. 2. Mental status changes most likely metabolic encephalopathy 3. Pyuria rule out UTI 4. Anemia rule out iron deficiency 5. Hypercalcemia secondary to calcium supplements. Patient was also maintained on hydrochlorothiazide. Expect improvement with IV hydration. Calcium supplements will be discontinued. Plan: Continue with IV fluids Maintain off of all calcium supplements even on discharge Continue to hold angiotensin receptor blockers and diuretics Check ultrasound of the kidneys Straight cath x 1 for urine retention and repeat bladder scan Repeat labs in a.m. Thank you for the consultation. We will continue to follow the patient with you during her hospitalization
[2024-11-23 15:02] LABS: ALT 7 U/L (8-44); AST 18 U/L (13-35); Albumin 3.2 g/dL (3.8-4.9); Alkaline Phosphatase 94 U/L (41-126); BUN/Creat Ratio 8.54 Ratio (12.00-20.00); Blood Urea Nitrogen 33.3 mg/dL (9.0-27.0); Calcium 10.8 mg/dL (8.7-10.3); Carbon Dioxide 27.5 mmol/L (21.6-31.8); Chloride 101 mmol/L (96-109); Creatine Kinase 111 U/L (26-186); Globulin 2.9 g/dL (1.6-3.3); Glucose 92 mg/dL (70-110); Potassium 4.6 mmol/L (3.5-5.5); Sodium 139 mmol/L (135-145); Total Bilirubin 0.2 mg/dL (0.3-1.2); Total Protein 6.1 g/dL (6.2-8.2)
--- NOTE | 2024-11-23 15:26 | US ---
EXAMINATION TYPE: US kidneys/renal and bladder DATE OF EXAM: 11/23/2024 COMPARISON: 06/23/24, CT: 11/02/24 CLINICAL INDICATION: Female, 79 years old with history of sathish; sathish, left nephrectomy TECHNIQUE: Grayscale imaging of the bilateral kidneys and urinary bladder: FINDINGS: EXAM MEASUREMENTS: Right Kidney: 12.6 x 6.5 x 5.2 cm Left Kidney: Surgically absent Right Kidney: No hydronephrosis or masses seen Left Kidney: Surgically absent Bladder: not visualized. Aide states pt was straight cathed right before exam. There is no evidence for hydronephrosis at this point in time. No nephrolithiasis is seen. No valention s are identified. The urinary bladder is anechoic. IMPRESSION: 1. No evidence for obstructive uropathy. 2. Surgically absent left kidney. [facility], , 11/23/2024 3:24 PM
[2024-11-23 17:33] LABS: Glucose,Whole Blood 102 mg/dL (70-110)
[2024-11-23 20:24] LABS: Glucose,Whole Blood 156 mg/dL (70-110)
[2024-11-23] MEDS: ACETAMINOPHEN IV (For NPO) 1,000 MG in EMPTY BAG 1 BAG IVPB ONE (21:03)
[2024-11-24 07:32] LABS: Glucose,Whole Blood 117 mg/dL (70-110)
--- NOTE | 2024-11-24 08:33 | P.PN ---
Subjective Progress Note Date: 11/24/24 This is a 79-year-old female who was brought into the emergency department via EMS for altered mental status. Patient reportedly has been very confused and unarousable at home with an oxygen saturation of 87%. Patient has had recent admissions for a left nephrectomy for a history of renal carcinoma, and more recent hospital stay found a possible pulmonary nodule which is being worked up as an outpatient. Patient seen this morning laying in bed. She is very confused and pulling at her oxygen tubing. She is unable to answer questions, has garbled speech. Neurology has seen and evaluated patient. Nephrology is on consult, creatinine on admission was 4.65. On prior admission creatinine was 0.9. 11/24/2024 Patient seen and evaluated laying in bed this morning with drug safety scientist at bedside. Patient continues to be confused and has garbled speech. She does respond to her name, but her answers to questions do not fully make sense. Patient seen and evaluated by nephrology yesterday who ordered an ultrasound of her kidneys which was normal. Blood work for today is not back yet at time of dictation. Sitter at bedside states patient has not slept since she has been admitted. Objective - Vital Signs Vital signs: Vital Signs Temp 97.6 F 11/24/24 01:59 Pulse 83 11/24/24 01:59 Resp 18 11/24/24 01:59 BP 107/66 11/24/24 01:59 Pulse Ox 95 11/24/24 01:59 FiO2 Intake & Output 11/23/24 11/24/24 11/24/24 18:59 06:59 18:59 Output Total 575 Balance -575 Weight 104.326 kg Output: Urine 575 Straight 575 Other: Voiding Method External Catheter # Voids 1 - Constitutional General appearance: Present: no acute distress - EENT Eyes: Present: PERRLA - Neck Neck: Present: normal ROM. Absent: lymphadenopathy, rigidity - Respiratory Respiratory: bilateral: diminished - Cardiovascular Heart sounds: normal: S1, S2 - Gastrointestinal General gastrointestinal: Present: soft. Absent: tenderness - Integumentary Integumentary: Present: normal, normal turgor - Psychiatric Psychiatric Comment(s): Confused, alert to person and will answer to her name. - Labs CBC & Chem 7: 11/23/24 09:17 11/23/24 09:17 Labs: Abnormal Lab Results - Last 24 Hours (Table) 11/23/24 11/23/24 11/23/24 Range/Units 09:17 09:17 11:38 RBC 3.17 L (3.80-5.40) m/uL Hgb 9.2 L (11.4-16.0) gm/dL Hct 30.2 L (34.0-46.0) % MCHC 30.5 L (31.0-37.0) g/dL BUN 33.3 H (9.0-27.0) mg/dL Creatinine 3.9 H (0.6-1.5) mg/dL Est GFR (CKD-EPI) 11 L (>=60) BUN/Creatinine Ratio 8.54 L (12.00-20.00) Ratio POC Glucose (mg/dL) (70-110) mg/dL Calcium 10.8 H (8.7-10.3) mg/dL Total Bilirubin 0.2 L (0.3-1.2) mg/dL ALT 7 L (8-44) U/L Total Protein 6.1 L (6.2-8.2) g/dL Albumin 3.2 L (3.8-4.9) g/dL Albumin/Globulin Ratio 1.10 L (1.60-3.17) Ratio Urine Appearance Turbid H (Clear) Urine Protein 1+ H (Negative) Urine Blood Small H (Negative) Urine Bilirubin 1+ H (Negative) Ur Leukocyte Esterase Moderate H (Negative) Urine RBC 15 H (0-5) /hpf Urine WBC 43 H (0-5) /hpf Ur Squamous Epith Cells 445 H (0-4) /hpf Urine Bacteria Many H (None) /hpf Urine Mucus Rare H (None) /hpf 11/23/24 11/24/24 Range/Units 20:23 07:31 RBC (3.80-5.40) m/uL Hgb (11.4-16.0) gm/dL Hct (34.0-46.0) % MCHC (31.0-37.0) g/dL BUN (9.0-27.0) mg/dL Creatinine (0.6-1.5) mg/dL Est GFR (CKD-EPI) (>=60) BUN/Creatinine Ratio (12.00-20.00) Ratio POC Glucose (mg/dL) 156 H 117 H (70-110) mg/dL Calcium (8.7-10.3) mg/dL Total Bilirubin (0.3-1.2) mg/dL ALT (8-44) U/L Total Protein (6.2-8.2) g/dL Albumin (3.8-4.9) g/dL Albumin/Globulin Ratio (1.60-3.17) Ratio Urine Appearance (Clear) Urine Protein (Negative) Urine Blood (Negative) Urine Bilirubin (Negative) Ur Leukocyte Esterase (Negative) Urine RBC (0-5) /hpf Urine WBC (0-5) /hpf Ur Squamous Epith Cells (0-4) /hpf Urine Bacteria (None) /hpf Urine Mucus (None) /hpf Assessment and Plan (1) AMS (altered mental status) Current Visit: Yes Status: Acute Code(s): R41.82 - ALTERED MENTAL STATUS, UNSPECIFIED SNOMED Code(s): 196807510 (2) Diabetes Current Visit: No Status: Acute Code(s): E11.9 - TYPE 2 DIABETES MELLITUS WITHOUT COMPLICATIONS SNOMED Code(s): 48021907 (3) History of left nephrectomy Current Visit: No Status: Acute Priority: Medium Code(s): Z90.5 - ACQUIRED ABSENCE OF KIDNEY SNOMED Code(s): 71591499277230 (4) Hyperlipemia Current Visit: No Status: Acute Code(s): E78.5 - HYPERLIPIDEMIA, UNSPECIFIED SNOMED Code(s): 33277041 (5) Hypertension Current Visit: No Status: Acute Code(s): I10 - ESSENTIAL (PRIMARY) HYPERTENSION SNOMED Code(s): 44252508 (6) Renal cell carcinoma Current Visit: No Status: Acute Priority: High Code(s): C64.9 - MALIGNANT NEOPLASM OF UNSP KIDNEY, EXCEPT RENAL PELVIS SNOMED Code(s): 680968236 (7) NANCY (acute kidney injury) Current Visit: Yes Status: Acute Code(s): N17.9 - ACUTE KIDNEY FAILURE, UNSPECIFIED SNOMED Code(s): 15257800 (8) Hypoxia Current Visit: Yes Status: Acute Code(s): R09.02 - HYPOXEMIA SNOMED Code(s): 582206119 Plan: Check CBC and CMP in the morning. Appreciate neurology and nephrology input. Patient seen and evaluated by nurse practitioner, physician in agreement with plan.
[2024-11-24 12:15] LABS: Glucose,Whole Blood 107 mg/dL (70-110)
[2024-11-24 15:48] LABS: HCT 31.5 % (37.2-46.3); HGB 9.3 g/dL (12.0-15.0); MCH 28.2 pg (27.0-32.0); MCHC 29.5 g/dL (32.0-37.0); MCV 95.5 FL (80.0-97.0); Mean Platelet Volume 12.7 FL (9.5-12.2); NRBC Per 100 WBC 0 X 10*3/uL (0.00-0.01); Platelet Count 201 X 10*3/uL (140-440); RDW 15.1 % (11.5-14.5); WBC 4.76 X 10*3/uL (4.50-10.00)
[2024-11-24 16:35] LABS: BUN/Creat Ratio 11.04 Ratio (12.00-20.00); Blood Urea Nitrogen 28.7 mg/dL (9.0-27.0); Chloride 104 mmol/L (96-109); Glucose 127 mg/dL (70-110); Potassium 3.5 mmol/L (3.5-5.5); Sodium 143 mmol/L (135-145)
[2024-11-24 16:36] LABS: ALT 7 U/L (8-44); AST 19 U/L (13-35); Albumin 3.3 g/dL (3.8-4.9); Albumin/Globulin Ratio 1.18 Ratio (1.60-3.17); Alkaline Phosphatase 95 U/L (41-126); Calcium 10.4 mg/dL (8.7-10.3); Globulin 2.8 g/dL (1.6-3.3); Total Bilirubin 0.2 mg/dL (0.3-1.2); Total Protein 6.1 g/dL (6.2-8.2)
[2024-11-24 17:10] LABS: Glucose,Whole Blood 130 mg/dL (70-110)
--- NOTE | 2024-11-24 17:43 | P.PN ---
Subjective Patient is seen for follow-up for acute kidney injury. Currently maintained on IV fluids. Labs are pending from today. Patient continues to have urine retention and Hart catheter will be placed. Objective - Vital Signs Vital signs: Vital Signs Temp 97.5 F L 11/24/24 13:01 Pulse 56 L 11/24/24 13:01 Resp 18 11/24/24 13:01 BP 131/74 11/24/24 13:01 Pulse Ox 94 L 11/24/24 13:01 FiO2 Intake & Output 11/23/24 11/24/24 11/24/24 18:59 06:59 18:59 Intake Total 540 Output Total 575 1100 Balance -575 -560 Weight 104.326 kg Intake: Oral 540 Output: Urine 575 1100 Straight 575 Uretheral (Hart) 400 Other: Voiding Method External Catheter External Catheter # Voids 1 # Bowel Movements 1 - Exam Patient is awake, comfortable, no acute distress Examination of the heart S1 and S2 Examination of the lungs bilateral breath sounds are heard Abdomen is soft obese nontender Examination of lower extremity shows no significant edema - Labs CBC & Chem 7: 11/24/24 09:20 11/24/24 09:20 Labs: Abnormal Lab Results - Last 24 Hours (Table) 11/23/24 11/24/24 11/24/24 Range/Units 20:23 07:31 09:20 RBC 3.30 L (4.10-5.20) X 10*6/uL Hgb 9.3 L (12.0-15.0) g/dL Hct 31.5 L (37.2-46.3) % MCHC 29.5 L (32.0-37.0) g/dL RDW 15.1 H (11.5-14.5) % MPV 12.7 H (9.5-12.2) FL BUN (9.0-27.0) mg/dL Creatinine (0.6-1.5) mg/dL Est GFR (CKD-EPI) (>=60) BUN/Creatinine Ratio (12.00-20.00) Ratio Glucose (70-110) mg/dL POC Glucose (mg/dL) 156 H 117 H (70-110) mg/dL Calcium (8.7-10.3) mg/dL Total Bilirubin (0.3-1.2) mg/dL ALT (8-44) U/L Total Protein (6.2-8.2) g/dL Albumin (3.8-4.9) g/dL Albumin/Globulin Ratio (1.60-3.17) Ratio 11/24/24 11/24/24 Range/Units 09:20 17:09 RBC (4.10-5.20) X 10*6/uL Hgb (12.0-15.0) g/dL Hct (37.2-46.3) % MCHC (32.0-37.0) g/dL RDW (11.5-14.5) % MPV (9.5-12.2) FL BUN 28.7 H (9.0-27.0) mg/dL Creatinine 2.6 H (0.6-1.5) mg/dL Est GFR (CKD-EPI) 18 L (>=60) BUN/Creatinine Ratio 11.04 L (12.00-20.00) Ratio Glucose 127 H (70-110) mg/dL POC Glucose (mg/dL) 130 H (70-110) mg/dL Calcium 10.4 H (8.7-10.3) mg/dL Total Bilirubin 0.2 L (0.3-1.2) mg/dL ALT 7 L (8-44) U/L Total Protein 6.1 L (6.2-8.2) g/dL Albumin 3.3 L (3.8-4.9) g/dL Albumin/Globulin Ratio 1.18 L (1.60-3.17) Ratio Microbiology - Last 24 Hours (Table) 11/22/24 21:52 Blood Culture - Preliminary Blood 11/23/24 11:38 Urine Culture - Preliminary Urine,Voided Gram Neg Bacilli Assessment and Plan Assessment: 1. Acute kidney injury, ATN from hypotension as well as secondary to hypercalcemia. Component of urine retention noted as well as bladder scan showed about 600 mL of urine. UA shows 1+ protein small blood WBC is 43. 2. Mental status changes most likely metabolic encephalopathy 3. UTI with urine culture growing gram-negative bacilli 4. Anemia rule out iron deficiency 5. Hypercalcemia secondary to calcium supplements. Patient was also maintained on hydrochlorothiazide. Expect improvement with IV hydration. Calcium supplements will be discontinued. Plan: Continue with IV fluids Maintain off of all calcium supplements even on discharge Continue to hold angiotensin receptor blockers and diuretics Insert Hart catheter if patient continues to refuse to avoid
[2024-11-24 20:10] LABS: Glucose,Whole Blood 127 mg/dL (70-110)
[2024-11-25 07:50] LABS: Glucose,Whole Blood 122 mg/dL (70-110)
--- NOTE | 2024-11-25 08:32 | P.PN ---
Subjective Progress Note Date: 11/25/24 Principal diagnosis: Altered mental status with acute renal failure. This is a continued progress on a 79-year-old white female with history of nephrectomy recently with significant postop complications. She has struggled at home and had acute altered mental status. Creatinine was significantly increased with acute renal failure. The patient's creatinine is now improving. But she is still disoriented. Objective - Vital Signs Vital signs: Vital Signs Temp 97.2 F L 11/25/24 07:58 Pulse 100 11/25/24 07:58 Resp 19 11/25/24 07:58 BP 126/57 11/25/24 07:58 Pulse Ox 94 L 11/25/24 07:58 FiO2 Intake & Output 11/24/24 11/25/24 11/25/24 18:59 06:59 18:59 Intake Total 540 Output Total 1100 400 Balance -560 -400 Intake: Oral 540 Output: Urine 1100 400 Uretheral (Hart) 400 Other: Voiding Method External Catheter External Catheter # Bowel Movements 1 - Constitutional General appearance: Present: no acute distress, obese - EENT Eyes: Absent: abnormal pupil - Neck Neck: Absent: lymphadenopathy - Respiratory Respiratory: bilateral: CTA - Cardiovascular Rhythm: regular Heart sounds: normal: S1, S2 Abnormal Heart Sounds: Absent: S3 Gallop - Gastrointestinal General gastrointestinal: Present: soft. Absent: tenderness - Psychiatric Psychiatric: Absent: A&O x's 3 - Labs CBC & Chem 7: 11/24/24 09:20 11/24/24 09:20 Labs: Abnormal Lab Results - Last 24 Hours (Table) 11/24/24 11/24/24 11/24/24 Range/Units 09:20 09:20 17:09 RBC 3.30 L (4.10-5.20) X 10*6/uL Hgb 9.3 L (12.0-15.0) g/dL Hct 31.5 L (37.2-46.3) % MCHC 29.5 L (32.0-37.0) g/dL RDW 15.1 H (11.5-14.5) % MPV 12.7 H (9.5-12.2) FL BUN 28.7 H (9.0-27.0) mg/dL Creatinine 2.6 H (0.6-1.5) mg/dL Est GFR (CKD-EPI) 18 L (>=60) BUN/Creatinine Ratio 11.04 L (12.00-20.00) Ratio Glucose 127 H (70-110) mg/dL POC Glucose (mg/dL) 130 H (70-110) mg/dL Calcium 10.4 H (8.7-10.3) mg/dL Total Bilirubin 0.2 L (0.3-1.2) mg/dL ALT 7 L (8-44) U/L Total Protein 6.1 L (6.2-8.2) g/dL Albumin 3.3 L (3.8-4.9) g/dL Albumin/Globulin Ratio 1.18 L (1.60-3.17) Ratio 11/24/24 11/25/24 Range/Units 20:07 07:46 RBC (4.10-5.20) X 10*6/uL Hgb (12.0-15.0) g/dL Hct (37.2-46.3) % MCHC (32.0-37.0) g/dL RDW (11.5-14.5) % MPV (9.5-12.2) FL BUN (9.0-27.0) mg/dL Creatinine (0.6-1.5) mg/dL Est GFR (CKD-EPI) (>=60) BUN/Creatinine Ratio (12.00-20.00) Ratio Glucose (70-110) mg/dL POC Glucose (mg/dL) 127 H 122 H (70-110) mg/dL Calcium (8.7-10.3) mg/dL Total Bilirubin (0.3-1.2) mg/dL ALT (8-44) U/L Total Protein (6.2-8.2) g/dL Albumin (3.8-4.9) g/dL Albumin/Globulin Ratio (1.60-3.17) Ratio Microbiology - Last 24 Hours (Table) 11/22/24 21:52 Blood Culture - Preliminary Blood 11/23/24 11:38 Urine Culture - Preliminary Urine,Voided Gram Neg Bacilli Assessment and Plan (1) NANCY (acute kidney injury) Current Visit: Yes Status: Acute Code(s): N17.9 - ACUTE KIDNEY FAILURE, UNSPECIFIED SNOMED Code(s): 85740171 (2) AMS (altered mental status) Current Visit: Yes Status: Acute Code(s): R41.82 - ALTERED MENTAL STATUS, UNSPECIFIED SNOMED Code(s): 214706241 (3) Diabetes Current Visit: No Status: Acute Code(s): E11.9 - TYPE 2 DIABETES MELLITUS WITHOUT COMPLICATIONS SNOMED Code(s): 73062264 (4) Hyperlipemia Current Visit: No Status: Acute Code(s): E78.5 - HYPERLIPIDEMIA, UNSPECIFIED SNOMED Code(s): 24080341 (5) Hypertension Current Visit: No Status: Acute Code(s): I10 - ESSENTIAL (PRIMARY) HYPERTENSION SNOMED Code(s): 12345654 (6) Renal cell carcinoma Current Visit: No Status: Acute Priority: High Code(s): C64.9 - MALIGNANT NEOPLASM OF UNSP KIDNEY, EXCEPT RENAL PELVIS SNOMED Code(s): 320558509 (7) Weakness Current Visit: No Status: Acute Code(s): R53.1 - WEAKNESS SNOMED Code(s): 78554623 Plan: Dietary consult. Encourage p.o. intake. Appreciate multiple consultants input. Creatinine continues to fall with slowly continued renal improvement. Check CBC and CMP in AM.
[2024-11-25 08:34] LABS: HCT 28.5 % (37.2-46.3); HGB 8.6 g/dL (12.0-15.0); MCH 28.9 pg (27.0-32.0); MCHC 30.2 g/dL (32.0-37.0); MCV 95.6 FL (80.0-97.0); Mean Platelet Volume 11.9 FL (9.5-12.2); NRBC Per 100 WBC 0 X 10*3/uL (0.00-0.01); Platelet Count 169 X 10*3/uL (140-440); RBC 2.98 X 10*6/uL (4.10-5.20); RDW 15.4 % (11.5-14.5); WBC 4.44 X 10*3/uL (4.50-10.00)
[2024-11-25] MEDS: LEVOFLOXACIN 500MG-D5W PMX 500 MG in DEXTROSE/WATER 1 100ML.BAG IVPB SCH (08:42)
[2024-11-25 08:44] LABS: ALT 7 U/L (8-44); AST 20 U/L (13-35); Albumin/Globulin Ratio 1.15 Ratio (1.60-3.17); Alkaline Phosphatase 90 U/L (41-126); BUN/Creat Ratio 12.37 Ratio (12.00-20.00); Blood Urea Nitrogen 23.5 mg/dL (9.0-27.0); Calcium 9.9 mg/dL (8.7-10.3); Carbon Dioxide 25.6 mmol/L (21.6-31.8); Chloride 106 mmol/L (96-109); Globulin 2.6 g/dL (1.6-3.3); Glucose 139 mg/dL (70-110); Potassium 3.5 mmol/L (3.5-5.5); Sodium 142 mmol/L (135-145); Total Bilirubin <0.2 mg/dL (0.3-1.2); Total Protein 5.6 g/dL (6.2-8.2)
--- NOTE | 2024-11-25 11:21 | P.PN ---
Subjective Patient is seen for follow-up for acute kidney injury. Currently maintained on IV fluids. Renal function has improved with creatinine down to 1.9 today. Ahrt catheter placed yesterday. Objective - Vital Signs Vital signs: Vital Signs Temp 97.2 F L 11/25/24 07:58 Pulse 100 11/25/24 08:00 Resp 19 11/25/24 08:00 BP 126/57 11/25/24 07:58 Pulse Ox 94 L 11/25/24 07:58 FiO2 Intake & Output 11/24/24 11/25/24 11/25/24 18:59 06:59 18:59 Intake Total 540 Output Total 1100 400 Balance -560 -400 Intake: Oral 540 Output: Urine 1100 400 Uretheral (Hart) 400 Other: Voiding Method External Catheter External Catheter External Catheter # Bowel Movements 1 - Exam Patient is awake, comfortable, no acute distress Examination of the heart S1 and S2 Examination of the lungs bilateral breath sounds are heard Abdomen is soft obese nontender Examination of lower extremity shows no significant edema - Labs CBC & Chem 7: 11/25/24 04:37 11/25/24 04:37 Labs: Abnormal Lab Results - Last 24 Hours (Table) 11/24/24 11/24/24 11/24/24 Range/Units 09:20 09:20 17:09 WBC (4.50-10.00) X 10*3/uL RBC 3.30 L (4.10-5.20) X 10*6/uL Hgb 9.3 L (12.0-15.0) g/dL Hct 31.5 L (37.2-46.3) % MCHC 29.5 L (32.0-37.0) g/dL RDW 15.1 H (11.5-14.5) % MPV 12.7 H (9.5-12.2) FL BUN 28.7 H (9.0-27.0) mg/dL Creatinine 2.6 H (0.6-1.5) mg/dL Est GFR (CKD-EPI) 18 L (>=60) BUN/Creatinine Ratio 11.04 L (12.00-20.00) Ratio Glucose 127 H (70-110) mg/dL POC Glucose (mg/dL) 130 H (70-110) mg/dL Calcium 10.4 H (8.7-10.3) mg/dL Total Bilirubin 0.2 L (0.3-1.2) mg/dL ALT 7 L (8-44) U/L Total Protein 6.1 L (6.2-8.2) g/dL Albumin 3.3 L (3.8-4.9) g/dL Albumin/Globulin Ratio 1.18 L (1.60-3.17) Ratio 11/24/24 11/25/24 11/25/24 Range/Units 20:07 04:37 04:37 WBC 4.44 L (4.50-10.00) X 10*3/uL RBC 2.98 L (4.10-5.20) X 10*6/uL Hgb 8.6 L (12.0-15.0) g/dL Hct 28.5 L (37.2-46.3) % MCHC 30.2 L (32.0-37.0) g/dL RDW 15.4 H (11.5-14.5) % MPV (9.5-12.2) FL BUN (9.0-27.0) mg/dL Creatinine 1.9 H (0.6-1.5) mg/dL Est GFR (CKD-EPI) 27 L (>=60) BUN/Creatinine Ratio (12.00-20.00) Ratio Glucose 139 H (70-110) mg/dL POC Glucose (mg/dL) 127 H (70-110) mg/dL Calcium (8.7-10.3) mg/dL Total Bilirubin <0.2 L (0.3-1.2) mg/dL ALT 7 L (8-44) U/L Total Protein 5.6 L (6.2-8.2) g/dL Albumin 3.0 L (3.8-4.9) g/dL Albumin/Globulin Ratio 1.15 L (1.60-3.17) Ratio 11/25/24 Range/Units 07:46 WBC (4.50-10.00) X 10*3/uL RBC (4.10-5.20) X 10*6/uL Hgb (12.0-15.0) g/dL Hct (37.2-46.3) % MCHC (32.0-37.0) g/dL RDW (11.5-14.5) % MPV (9.5-12.2) FL BUN (9.0-27.0) mg/dL Creatinine (0.6-1.5) mg/dL Est GFR (CKD-EPI) (>=60) BUN/Creatinine Ratio (12.00-20.00) Ratio Glucose (70-110) mg/dL POC Glucose (mg/dL) 122 H (70-110) mg/dL Calcium (8.7-10.3) mg/dL Total Bilirubin (0.3-1.2) mg/dL ALT (8-44) U/L Total Protein (6.2-8.2) g/dL Albumin (3.8-4.9) g/dL Albumin/Globulin Ratio (1.60-3.17) Ratio Microbiology - Last 24 Hours (Table) 11/22/24 21:52 Blood Culture - Preliminary Blood 11/23/24 11:38 Urine Culture - Preliminary Urine,Voided Gram Neg Bacilli Assessment and Plan Assessment: 1. Acute kidney injury, ATN from hypotension as well as secondary to hypercalcemia. Component of urine retention noted as well as bladder scan showed about 600 mL of urine. Status post Hart catheter placement. UA shows 1+ protein small blood WBC is 43. 2. Mental status changes most likely metabolic encephalopathy 3. UTI with urine culture growing gram-negative bacilli 4. Anemia rule out iron deficiency 5. Hypercalcemia secondary to calcium supplements. Patient was also maintained on hydrochlorothiazide. Expect improvement with IV hydration. Calcium supplements discontinued. Plan: Continue with IV fluids Maintain off of all calcium supplements even on discharge Continue to hold angiotensin receptor blockers and diuretics Continue with Hart catheter for now Check iron profile
[2024-11-25 12:39] LABS: Glucose,Whole Blood 102 mg/dL (70-110)
[2024-11-25 16:03] LABS: % Iron Saturation 26.36 (12.00-45.00)
[2024-11-25 17:11] LABS: Glucose,Whole Blood 119 mg/dL (70-110)
[2024-11-25 20:31] LABS: Glucose,Whole Blood 128 mg/dL (70-110)
[2024-11-26] MEDS: HYDROcodone/APAP 5-325MG 1 EACH TAB PO PRN (00:34)
[2024-11-26 07:19] LABS: Glucose,Whole Blood 135 mg/dL (70-110)
--- NOTE | 2024-11-26 08:33 | P.PN ---
Subjective Progress Note Date: 11/26/24 This is a 79-year-old female who was brought into the emergency department via EMS for altered mental status. Patient reportedly has been very confused and unarousable at home with an oxygen saturation of 87%. Patient has had recent admissions for a left nephrectomy for a history of renal carcinoma, and more recent hospital stay found a possible pulmonary nodule which is being worked up as an outpatient. Patient seen this morning laying in bed. She is very confused and pulling at her oxygen tubing. She is unable to answer questions, has garbled speech. Neurology has seen and evaluated patient. Nephrology is on consult, creatinine on admission was 4.65. On prior admission creatinine was 0.9. 11/24/2024 Patient seen and evaluated laying in bed this morning with campus safety officer at bedside. Patient continues to be confused and has garbled speech. She does respond to her name, but her answers to questions do not fully make sense. Patient seen and evaluated by nephrology yesterday who ordered an ultrasound of her kidneys which was normal. Blood work for today is not back yet at time of dictation. Sitter at bedside states patient has not slept since she has been admitted. 11/26/2024 Patient seen and evaluated laying in bed this morning with campus safety officer at bedside. Patient still only alerted to herself. She continues to have garbled speech, and today seems to have worsened processing time of information. She was able to follow a simple command of raising her left leg when asked. Staff reports patient is not wanting to eat, drink, or do any oral care. Creatinine down to 1.9 yesterday, labs for today not back at time of dictation. Objective - Vital Signs Vital signs: Vital Signs Temp 97.5 F L 11/26/24 07:00 Pulse 98 11/26/24 07:00 Resp 19 11/26/24 07:00 BP 160/89 11/26/24 07:00 Pulse Ox 92 L 11/26/24 07:00 FiO2 Intake & Output 11/25/24 11/26/24 11/26/24 18:59 06:59 18:59 Intake Total 120 Output Total 350 300 Balance -230 -300 Weight 104.326 kg Intake: Oral 120 Output: Urine 350 300 Other: Voiding Method External Catheter External Catheter # Bowel Movements 1 - Constitutional General appearance: Present: no acute distress - EENT Eyes: Present: PERRLA - Neck Neck: Present: normal ROM. Absent: lymphadenopathy, rigidity - Respiratory Respiratory: bilateral: diminished - Cardiovascular Heart sounds: normal: S1, S2 - Gastrointestinal General gastrointestinal: Present: soft. Absent: tenderness - Integumentary Integumentary: Present: normal, normal turgor - Musculoskeletal Musculoskeletal: Present: generalized weakness - Psychiatric Psychiatric Comment(s): Alert to person, garbled speech and delayed processing time. - Labs CBC & Chem 7: 11/25/24 04:37 11/25/24 04:37 Labs: Abnormal Lab Results - Last 24 Hours (Table) 11/25/24 11/25/24 11/25/24 Range/Units 04:37 04:37 04:37 WBC 4.44 L (4.50-10.00) X 10*3/uL RBC 2.98 L (4.10-5.20) X 10*6/uL Hgb 8.6 L (12.0-15.0) g/dL Hct 28.5 L (37.2-46.3) % MCHC 30.2 L (32.0-37.0) g/dL RDW 15.4 H (11.5-14.5) % Creatinine 1.9 H (0.6-1.5) mg/dL Est GFR (CKD-EPI) 27 L (>=60) Glucose 139 H (70-110) mg/dL POC Glucose (mg/dL) (70-110) mg/dL Transferrin 184.0 L (204.0-354.0) mg/dL Total Bilirubin <0.2 L (0.3-1.2) mg/dL ALT 7 L (8-44) U/L Total Protein 5.6 L (6.2-8.2) g/dL Albumin 3.0 L (3.8-4.9) g/dL Albumin/Globulin Ratio 1.15 L (1.60-3.17) Ratio 11/25/24 11/25/24 11/26/24 Range/Units 17:08 20:25 07:09 WBC (4.50-10.00) X 10*3/uL RBC (4.10-5.20) X 10*6/uL Hgb (12.0-15.0) g/dL Hct (37.2-46.3) % MCHC (32.0-37.0) g/dL RDW (11.5-14.5) % Creatinine (0.6-1.5) mg/dL Est GFR (CKD-EPI) (>=60) Glucose (70-110) mg/dL POC Glucose (mg/dL) 119 H 128 H 135 H (70-110) mg/dL Transferrin (204.0-354.0) mg/dL Total Bilirubin (0.3-1.2) mg/dL ALT (8-44) U/L Total Protein (6.2-8.2) g/dL Albumin (3.8-4.9) g/dL Albumin/Globulin Ratio (1.60-3.17) Ratio Microbiology - Last 24 Hours (Table) 11/22/24 21:52 Blood Culture - Preliminary Blood Assessment and Plan (1) AMS (altered mental status) Current Visit: Yes Status: Acute Code(s): R41.82 - ALTERED MENTAL STATUS, UNSPECIFIED SNOMED Code(s): 891954672 (2) Diabetes Current Visit: No Status: Acute Code(s): E11.9 - TYPE 2 DIABETES MELLITUS WITHOUT COMPLICATIONS SNOMED Code(s): 04057687 (3) History of left nephrectomy Current Visit: No Status: Acute Priority: Medium Code(s): Z90.5 - ACQUIRED ABSENCE OF KIDNEY SNOMED Code(s): 98214207499762 (4) Hyperlipemia Current Visit: No Status: Acute Code(s): E78.5 - HYPERLIPIDEMIA, UNSPECIFIED SNOMED Code(s): 60591965 (5) Hypertension Current Visit: No Status: Acute Code(s): I10 - ESSENTIAL (PRIMARY) HYPERTENSION SNOMED Code(s): 61067485 (6) Renal cell carcinoma Current Visit: No Status: Acute Priority: High Code(s): C64.9 - MALIGNANT NEOPLASM OF UNSP KIDNEY, EXCEPT RENAL PELVIS SNOMED Code(s): 271839004 (7) NANCY (acute kidney injury) Current Visit: Yes Status: Acute Code(s): N17.9 - ACUTE KIDNEY FAILURE, UNSPECIFIED SNOMED Code(s): 31275062 (8) Hypoxia Current Visit: Yes Status: Acute Code(s): R09.02 - HYPOXEMIA SNOMED Code(s): 228747938 Plan: Check CBC and CMP in the morning. Will ask neurology to come in for a reevaluation. Patient seen and evaluated by nurse practitioner, physician in agreement with plan.
[2024-11-26 08:48] LABS: HCT 27.9 % (37.2-46.3); HGB 8.6 g/dL (12.0-15.0); MCH 28.7 pg (27.0-32.0); MCHC 30.8 g/dL (32.0-37.0); Mean Platelet Volume 11.8 FL (9.5-12.2); NRBC Per 100 WBC 0 X 10*3/uL (0.00-0.01); Platelet Count 186 X 10*3/uL (140-440); RDW 15.5 % (11.5-14.5); WBC 4.35 X 10*3/uL (4.50-10.00)
[2024-11-26 08:54] LABS: ALT 8 U/L (8-44); AST 20 U/L (13-35); Albumin/Globulin Ratio 1.03 Ratio (1.60-3.17); Alkaline Phosphatase 103 U/L (41-126); BUN/Creat Ratio 10.31 Ratio (12.00-20.00); Blood Urea Nitrogen 16.5 mg/dL (9.0-27.0); Calcium 9.7 mg/dL (8.7-10.3); Carbon Dioxide 24.8 mmol/L (21.6-31.8); Chloride 109 mmol/L (96-109); Globulin 2.9 g/dL (1.6-3.3); Glucose 141 mg/dL (70-110); Potassium 3.4 mmol/L (3.5-5.5); Sodium 144 mmol/L (135-145); Total Bilirubin <0.2 mg/dL (0.3-1.2); Total Protein 5.9 g/dL (6.2-8.2)
[2024-11-26 12:18] LABS: Glucose,Whole Blood 131 mg/dL (70-110)
[2024-11-26 17:04] LABS: Glucose,Whole Blood 235 mg/dL (70-110)
--- NOTE | 2024-11-26 17:20 | P.PN ---
Subjective Patient is seen for follow-up for acute kidney injury. Currently maintained on IV fluids. Renal function has improved with creatinine down to 1.6 today. Hart catheter in place Objective - Vital Signs Vital signs: Vital Signs Temp 97.6 F 11/26/24 13:12 Pulse 102 H 11/26/24 13:12 Resp 18 11/26/24 13:12 BP 148/71 11/26/24 13:12 Pulse Ox 92 L 11/26/24 13:12 FiO2 Intake & Output 11/25/24 11/26/24 11/26/24 18:59 06:59 18:59 Intake Total 120 Output Total 350 300 Balance -230 -300 Weight 104.326 kg Intake: Oral 120 Output: Urine 350 300 Other: Voiding Method External Catheter External Catheter Indwelling Catheter # Bowel Movements 1 - Exam Patient is awake, comfortable, no acute distress Examination of the heart S1 and S2 Examination of the lungs bilateral breath sounds are heard Abdomen is soft obese nontender Examination of lower extremity shows no significant edema - Labs CBC & Chem 7: 11/26/24 05:34 11/26/24 05:34 Labs: Abnormal Lab Results - Last 24 Hours (Table) 11/25/24 11/26/24 11/26/24 Range/Units 20:25 05:34 05:34 WBC 4.35 L (4.50-10.00) X 10*3/uL RBC 3.00 L (4.10-5.20) X 10*6/uL Hgb 8.6 L (12.0-15.0) g/dL Hct 27.9 L (37.2-46.3) % MCHC 30.8 L (32.0-37.0) g/dL RDW 15.5 H (11.5-14.5) % Potassium 3.4 L (3.5-5.5) mmol/L Creatinine 1.6 H (0.6-1.5) mg/dL Est GFR (CKD-EPI) 33 L (>=60) BUN/Creatinine Ratio 10.31 L (12.00-20.00) Ratio Glucose 141 H (70-110) mg/dL POC Glucose (mg/dL) 128 H (70-110) mg/dL Total Bilirubin <0.2 L (0.3-1.2) mg/dL Total Protein 5.9 L (6.2-8.2) g/dL Albumin 3.0 L (3.8-4.9) g/dL Albumin/Globulin Ratio 1.03 L (1.60-3.17) Ratio 11/26/24 11/26/24 11/26/24 Range/Units 07:09 12:13 17:03 WBC (4.50-10.00) X 10*3/uL RBC (4.10-5.20) X 10*6/uL Hgb (12.0-15.0) g/dL Hct (37.2-46.3) % MCHC (32.0-37.0) g/dL RDW (11.5-14.5) % Potassium (3.5-5.5) mmol/L Creatinine (0.6-1.5) mg/dL Est GFR (CKD-EPI) (>=60) BUN/Creatinine Ratio (12.00-20.00) Ratio Glucose (70-110) mg/dL POC Glucose (mg/dL) 135 H 131 H 235 H (70-110) mg/dL Total Bilirubin (0.3-1.2) mg/dL Total Protein (6.2-8.2) g/dL Albumin (3.8-4.9) g/dL Albumin/Globulin Ratio (1.60-3.17) Ratio Microbiology - Last 24 Hours (Table) 11/23/24 11:38 Urine Culture - Final Urine,Voided Acinetobacter lwoffi grp 11/22/24 21:52 Blood Culture - Preliminary Blood Assessment and Plan Assessment: 1. Acute kidney injury, ATN from hypotension as well as secondary to hypercal cemia. Component of urine retention noted as well as bladder scan showed about 600 mL of urine. Status post Hart catheter placement. UA shows 1+ protein small blood WBC is 43. 2. Mental status changes most likely metabolic encephalopathy 3. UTI with urine culture growing gram-negative bacilli 4. Anemia rule out iron deficiency 5. Hypercalcemia secondary to calcium supplements. Patient was also maintained on hydrochlorothiazide. Improving with IV hydration. Calcium supplements discontinued. Plan: Continue with IV fluids Maintain off of all calcium supplements even on discharge Continue to hold angiotensin receptor blockers and diuretics Continue with Hart catheter for now
[2024-11-26 20:13] LABS: Glucose,Whole Blood 108 mg/dL (70-110)
[2024-11-27 07:31] LABS: Glucose,Whole Blood 198 mg/dL (70-110)
[2024-11-27] MEDS: LEVOFLOXACIN 750MG-D5W PMX 750 MG in DEXTROSE/WATER 1 150ML.BAG IVPB SCH (07:53)
[2024-11-27 08:12] LABS: ALT 9 U/L (8-44); AST 19 U/L (13-35); Albumin 2.7 g/dL (3.8-4.9); Albumin/Globulin Ratio 1.23 Ratio (1.60-3.17); Alkaline Phosphatase 104 U/L (41-126); BUN/Creat Ratio 18.08 Ratio (12.00-20.00); Blood Urea Nitrogen 23.5 mg/dL (9.0-27.0); Carbon Dioxide 24.9 mmol/L (21.6-31.8); Chloride 114 mmol/L (96-109); Globulin 2.2 g/dL (1.6-3.3); Glucose 141 mg/dL (70-110); Potassium 3.6 mmol/L (3.5-5.5); Sodium 147 mmol/L (135-145); Total Bilirubin <0.2 mg/dL (0.3-1.2); Total Protein 4.9 g/dL (6.2-8.2)
[2024-11-27 08:20] LABS: HCT 20.6 % (37.2-46.3); HGB 6.2 g/dL (12.0-15.0); MCHC 30.1 g/dL (32.0-37.0); MCV 96.3 FL (80.0-97.0); Mean Platelet Volume 11.3 FL (9.5-12.2); NRBC Per 100 WBC 0 X 10*3/uL (0.00-0.01); Platelet Count 136 X 10*3/uL (140-440); RBC 2.14 X 10*6/uL (4.10-5.20); RDW 15.9 % (11.5-14.5)
[2024-11-27] MEDS ORDERED: ONDANSETRON 4 MG/2 ML VIAL IVP PRN (08:24)
[2024-11-27 08:34] LABS: Basophils % (A) 0 %; Eosinophils # (A) 0.1 k/uL (0-0.7); Eosinophils % (A) 3 %; HCT 21.4 % (34.0-46.0); Hypochromasia Marked; Lymphocytes # (A) 0.9 k/uL (1.0-4.8); Lymphocytes % (A) 20 %; MCH 28.8 pg (25.0-35.0); MCHC 30.6 g/dL (31.0-37.0); MCV 94.1 fL (80.0-100.0); Mean Platelet Volume 8.4; Monocytes # (A) 0.3 k/uL (0-1.0); Monocytes % (A) 6 %; Neutrophils % (A) 69 %; Platelet Count 153 k/uL (150-450); RBC 2.28 m/uL (3.80-5.40); RDW 15.8 % (11.5-15.5); WBC 4.3 k/uL (3.8-10.6)
[2024-11-27 08:46] LABS: HGB 6.6 gm/dL (11.4-16.0)
[2024-11-27] MEDS: PANTOPRAZOLE 40 MG/10 ML VIAL IVP SCH (10:45)
--- NOTE | 2024-11-27 11:26 | P.GSCN ---
History of Present Illness Consult date: 11/27/24 History of present illness: CHIEF COMPLAINT: Altered mental status HISTORY OF PRESENT ILLNESS: This is a 79-year-old female who presented with altered mental status. She has been treated for UTI and acute kidney injury. She has a known history of renal cell carcinoma. Last night patient started having multiple black stools. She was also having vomiting. Her hemoglobin dropped from 8.6-6.2 and she required a transfer to the ICU. Patient seen and examined in the ICU. Nursing staff reporting maroon dark stools in the ICU. Patient is receiving her first out of 2 units of blood. Vitals are stable. Patient is not on any blood thinners. She does take iron at home. PAST MEDICAL HISTORY: See below PAST SURGICAL HISTORY: See below MEDICATIONS: See below ALLERGIES: See below SOCIAL HISTORY: No illicit drug use. REVIEW OF SYSTEMS: CONSTITUTIONAL: Denies fever or chills. HEENT: Denies blurred vision, vision changes, or eye pain. Denies hemoptysis CARDIOVASCULAR: Denies chest pain or pressure. RESPIRATORY: No shortness of breath. GASTROINTESTINAL: See HPI for pertinent findings HEMATOLOGIC: Denies bleeding disorders. GENITOURINARY: Denies any blood in urine or increased urinary frequency. SKIN: Denies pruitis. Denies rash. PHYSICAL EXAM: VITAL SIGNS: Reviewed GENERAL: Well-developed in no acute distress. HEENT: No sclera icterus. Extraocular movements grossly intact. Moist buccal mucosa. Head is atraumatic, normocephalic. No nasal drainage. ABDOMEN: Soft. Nondistended. Nontender NEUROLOGIC: Awake and alert. Confused. LABORATORY DATA: WBC 4.3 Hgb 8.9 on admission. Hemoglobin went from 8.6 yesterday to 6.2. Last hemoglobin 6.6 platelets 153 Sodium 147 potassium 3.6 creatinine 1.3 Stool for occult blood positive IMAGING: ASSESSMENT: 1. Acute GI bleed with melanotic stools 2. Acute blood loss anemia 3. History of chronic anemia and iron deficiency anemia PLAN: -Patient scheduled for EGD today -Increase Protonix to 40 mg IV twice daily -Agree with transfusing 2 units of packed red blood cells -Continue to monitor hemoglobin -Continue to monitor for any signs or symptoms of bleeding Physician Order Detailer note has been reviewed by physician. Signing provider agrees with the documented findings, assessment, and plan of care. I have personally seen and examined the patient, reviewed the CREW SUPERVISOR /PAs history, exam and MDM and agree with the assessment and plan as written. Based on total visit time, I have performed more than 50% of the visit. As above: Patient with suspected upper GI bleed with melanotic stools and maroon color to it. Patient was transferred to the ICU because of the degree of bleedi ng. She is receiving blood. Will proceed with upper endoscopy. Spoke with GI. They will be on standby to assist if needed. Past Medical History Past Medical History: Cancer, Diabetes Mellitus, Hyperlipidemia, Hypertension, Pneumonia, Renal Disease, Sleep Apnea/CPAP/BIPAP Additional Past Medical History / Comment(s): anemia, arthritis, grade 4 renal carcinoma, acute respiratory failure, pleural effusions, pulmonary nodules, x sm oker History of Any Multi-Drug Resistant Organisms: None Reported Past Surgical History: Joint Replacement, Orthopedic Surgery Additional Past Surgical History / Comment(s): total lt knee, carpel tunnel lt wrist, left nephrectomy -2024, bilateral cataracts, Past Anesthesia/Blood Transfusion Reactions: Motion Sickness, Postoperative Nausea & Vomiting (PONV) Additional Past Anesthesia/Blood Transfusion Reaction / Comm: no hx blood transfusion Past Psychological History: No Psychological Hx Reported Smoking Status: Former smoker Past Alcohol Use History: None Reported Past Drug Use History: Marijuana Additional Drug Use History / Comment(s): marijuana daily freq - Past Family History Sister(s) Family Medical History: Cancer Additional Family Medical History / Comment(s): lymph Medications and Allergies Home Medications Medication Instructions Recorded Confirmed Type Pioglitazone HCl/Metformin HCl 1 tab PO BID 09/17/14 11/22/24 History [Pioglitazone-Metformin 15-850] Simvastatin [Zocor] 40 mg PO HS 09/17/14 11/22/24 History Valsartan/Hydrochlorothiazide 1 tab PO HS 09/17/14 11/22/24 History [Diovan Hct 320-25 mg Tablet] Calcium Carbonate/Vitamin D3 2 tab PO DAILY 09/28/14 11/22/24 History [Caltrate 600 Plus D3 Tablet] Aspirin 81 mg PO DAILY 03/06/17 11/22/24 History DULoxetine HCL [Cymbalta] 60 mg PO DAILY 10/05/24 11/22/24 History Ferrous Sulfate [Iron (65 MG 1 tab PO DAILY 10/05/24 11/22/24 History Elemental)] HYDROcodone/APAP 5-325MG [[place] 1 tab PO Q4HR PRN 3 Days #18 tab 10/14/24 11/22/24 Rx 5-325] Melatonin 3 mg PO HS PRN tab 11/04/24 11/22/24 Rx Ondansetron [Zofran] 8 mg PO BID 11/22/24 11/22/24 History Allergies Allergy/AdvReac Type Severity Reaction Status Date / Time tramadol Allergy Nausea, Verified 11/22/24 15:17 "DRY HEAVES" Surgical - Exam Vital Signs Temp Pulse Resp BP Pulse Ox 97.5 F L 99 17 107/37 93 L 11/22/24 09:57 11/22/24 09:57 11/22/24 09:57 11/22/24 09:57 11/22/24 09:57 Results - Labs 11/27/24 08:12 11/27/24 05:14 Abnormal Lab Results - Last 24 Hours (Table) 11/26/24 11/26/24 11/27/24 Range/Units 12:13 17:03 05:14 WBC 3.80 L (4.50-10.00) X 10*3/uL RBC 2.14 L (4.10-5.20) X 10*6/uL Hgb 6.2 A* (12.0-15.0) g/dL Hct 20.6 L (37.2-46.3) % MCHC 30.1 L (32.0-37.0) g/dL RDW 15.9 H (11.5-14.5) % Plt Count 136 L (140-440) X 10*3/uL Lymphocytes # (1.0-4.8) k/uL Sodium (135-145) mmol/L Chloride (96-109) mmol/L Est GFR (CKD-EPI) (>=60) Glucose (70-110) mg/dL POC Glucose (mg/dL) 131 H 235 H (70-110) mg/dL Total Bilirubin (0.3-1.2) mg/dL Total Protein (6.2-8.2) g/dL Albumin (3.8-4.9) g/dL Albumin/Globulin Ratio (1.60-3.17) Ratio Stool Occult Blood (Negative) Crossmatch 11/27/24 11/27/24 11/27/24 Range/Units 05:14 06:45 07:04 WBC (4.50-10.00) X 10*3/uL RBC (4.10-5.20) X 10*6/uL Hgb (12.0-15.0) g/dL Hct (37.2-46.3) % MCHC (32.0-37.0) g/dL RDW (11.5-14.5) % Plt Count (140-440) X 10*3/uL Lymphocytes # (1.0-4.8) k/uL Sodium 147 H (135-145) mmol/L Chloride 114 H (96-109) mmol/L Est GFR (CKD-EPI) 42 L (>=60) Glucose 141 H (70-110) mg/dL POC Glucose (mg/dL) 198 H (70-110) mg/dL Total Bilirubin <0.2 L (0.3-1.2) mg/dL Total Protein 4.9 L (6.2-8.2) g/dL Albumin 2.7 L (3.8-4.9) g/dL Albumin/Globulin Ratio 1.23 L (1.60-3.17) Ratio Stool Occult Blood Positive H (Negative) Crossmatch 11/27/24 11/27/24 Range/Units 08:12 08:23 WBC (4.50-10.00) X 10*3/uL RBC 2.28 L (4.10-5.20) X 10*6/uL Hgb 6.6 L* D (12.0-15.0) g/dL Hct 21.4 L (37.2-46.3) % MCHC 30.6 L (32.0-37.0) g/dL RDW 15.8 H (11.5-14.5) % Plt Count (140-440) X 10*3/uL Lymphocytes # 0.9 L (1.0-4.8) k/uL Sodium (135-145) mmol/L Chloride (96-109) mmol/L Est GFR (CKD-EPI) (>=60) Glucose (70-110) mg/dL POC Glucose (mg/dL) (70-110) mg/dL Total Bilirubin (0.3-1.2) mg/dL Total Protein (6.2-8.2) g/dL Albumin (3.8-4.9) g/dL Albumin/Globulin Ratio (1.60-3.17) Ratio Stool Occult Blood (Negative) Crossmatch See Detail Microbiology - Last 24 Hours (Table) 11/23/24 11:38 Urine Culture - Final Urine,Voided Acinetobacter irene grp 11/22/24 21:52 Blood Culture - Preliminary Blood Diabetes panel 11/27/24 Range/Units 05:14 Sodium 147 H (135-145) mmol/L Potassium 3.6 (3.5-5.5) mmol/L Chloride 114 H (96-109) mmol/L Carbon Dioxide 24.9 (21.6-31.8) mmol/L BUN 23.5 (9.0-27.0) mg/dL Creatinine 1.3 (0.6-1.5) mg/dL Glucose 141 H (70-110) mg/dL Calcium 9.0 (8.7-10.3) mg/dL AST 19 (13-35) U/L ALT 9 (8-44) U/L Alkaline Phosphatase 104 (41-126) U/L Total Protein 4.9 L (6.2-8.2) g/dL Albumin 2.7 L (3.8-4.9) g/dL Calcium panel 11/27/24 Range/Units 05:14 Calcium 9.0 (8.7-10.3) mg/dL Albumin 2.7 L (3.8-4.9) g/dL Pituitary panel 11/27/24 Range/Units 05:14 Sodium 147 H (135-145) mmol/L Potassium 3.6 (3.5-5.5) mmol/L Chloride 114 H (96-109) mmol/L Carbon Dioxide 24.9 (21.6-31.8) mmol/L BUN 23.5 (9.0-27.0) mg/dL Creatinine 1.3 (0.6-1.5) mg/dL Glucose 141 H (70-110) mg/dL Calcium 9.0 (8.7-10.3) mg/dL Adrenal panel 11/27/24 Range/Units 05:14 Sodium 147 H (135-145) mmol/L Potassium 3.6 (3.5-5.5) mmol/L Chloride 114 H (96-109) mmol/L Carbon Dioxide 24.9 (21.6-31.8) mmol/L BUN 23.5 (9.0-27.0) mg/dL Creatinine 1.3 (0.6-1.5) mg/dL Glucose 141 H (70-110) mg/dL Calcium 9.0 (8.7-10.3) mg/dL Total Bilirubin <0.2 L (0.3-1.2) mg/dL AST 19 (13-35) U/L ALT 9 (8-44) U/L Alkaline Phosphatase 104 (41-126) U/L Total Protein 4.9 L (6.2-8.2) g/dL Albumin 2.7 L (3.8-4.9) g/dL
[2024-11-27] MEDS: IV FLUID CONTINUATION 1,000 ML IV ONE (12:49)
[2024-11-27] MEDS ORDERED: PROPOFOL 10 MG/ML 20 ML VIAL IV ONE (12:49)
--- NOTE | 2024-11-27 13:22 | P.PCN ---
Date of Procedure: 11/27/24 Procedure(s) Performed: Preoperative Dx: Upper GI bleed Postoperative Dx: Superficial duodenal ulcer, gastritis, small hiatal hernia Procedure: EGD Anesthesia: Sedation Endoscopist: Dr. Silva Specimens: None Endoscopic Procedure: The patient was on the ICU table in the left decubitus position. The Olympus gastroscope was inserted into the oropharynx and passed under direct visualization to the region of the proximal jejunum. From that point the scope was slowly withdrawn inspecting all surfaces carefully. There was noted to be 2 small superficial ulcers in the proximal duodenum. One of the 2 ulcers had a very small amount of loose blood adjacent to it however there was no visible vessel or adherent clot. Size of the ulcer base was only about 6 mm. The opposite wall of the duodenum was not able to be well-visualized because of tortuosity however no inflammatory changes in that area was identified to suggest ulceration there. The pylorus was widely patent. The patient had mild gastritis. Retroflexion revealed a small hiatal hernia. The esophagus had mild reflux esophagitis changes but otherwise normal. The only blood that was seen was tiny bit adjacent to one of the duodenal ulcers. None was present within the stomach remainder of the duodenum or jejunum. During the procedure I did have Dr. Palacios from GI evaluate the small duodenal ulcerations and she agreed with no intervention in the form of clip, cautery, or injection at this time given the small size and appearance of the ulcers. Recommendations: Most likely source of bleeding was from 1 of these 2 small duodenal ulcers. Continue aggressive antiacid therapy and will add Carafate. Resume clear liquid. Findings discussed with the patient's . Patient high risk for any surgical intervention if bleeding recurred. Discussed the options of tertiary care referral for appropriate GI intervention or interve ntional radiology angioembolization if the patient were to rebleed briskly. Continue transfusion as ordered. Will follow-up.
--- NOTE | 2024-11-27 15:28 | P.PN ---
Subjective Chief complaint Altered mental status and acute renal failure. History of present illness Ifeoma Hess, a [id number] female, was originally admitted for altered mental status. She has a history of nephrectomy related to renal cell carcinoma and has been readmitted since then for pneumonia. Earlier this week, she was readmitted with altered mental status and found to have acute renal failure with an elevated creatinine level of 4.5. She also has a history of diabetes and past cannabis use. She was found to have lactar stool and continued confusion. Her hemoglobin has dropped acutely, leading to her transfer to the ICU for appropriate treatment. Past medical history History of renal cell carcinoma, diabetes, and altered mental status. Past surgical history Nephrectomy related to renal cell carcinoma. Social history - Cannabis use noted in the past Physical exam - CARDIOVASCULAR: Heart regular rate and rhythm without murmur. - LUNGS: Further auscultation. - ABDOMEN: Nontender to palpation. - NEUROLOGIC: Disoriented, responds slowly to questions. - EXTREMITIES: No significant edema in extremities. Lab results Elevated creatinine: 4.5. Acute drop in hemoglobin. Assessment - Acute renal failure with elevated creatinine. - Metabolic encephalopathy. - History of nephrectomy due to renal cell carcinoma. - Diabetes. - Altered mental status. Plan - Transfuse two units of blood to address acute hemoglobin drop. - Perform serial CBC checks to monitor blood parameters. - Transfer to ICU for appropriate treatment and monitoring. - Consult with general surgery, specifically Doctor Silva or Doctor Camp, for further evaluation and management. Appointments - Consult with Dr. Silva/Dr. Camp for general surgery. Visit diagnoses suggestions (2) - Acute kidney failure, unspecified [N17.9] - Type 2 diabetes mellitus without complications [E11.9] Objective - Vital Signs Vital signs: Vital Signs Temp 98.1 F 11/27/24 13:09 Pulse 91 11/27/24 13:09 Resp 19 11/27/24 13:09 BP 126/53 11/27/24 13:09 Pulse Ox 98 11/27/24 10:30 FiO2 Intake & Output 11/26/24 11/27/24 11/27/24 18:59 06:59 18:59 Intake Total 1200 410 Output Total 400 500 Balance -400 700 410 Intake: IV 100 Intake, IV Titration 1200 Amount Dextrose 5%-0.9% NaCl 1, 1200 000 ml @ 100 mls/hr IV . Q10H [facility] Rx#:[id number] Oral 0 Blood Product 310 Rc As-1 Unit 310 [id number] Output: Urine 400 500 Other: Voiding Method Indwelling Catheter Indwelling Catheter Indwelling Catheter # Bowel Movements 1 - Labs CBC & Chem 7: 11/27/24 08:12 11/27/24 05:14 Labs: Abnormal Lab Results - Last 24 Hours (Table) 11/26/24 11/27/24 11/27/24 Range/Units 17:03 05:14 05:14 WBC 3.80 L (4.50-10.00) X 10*3/uL RBC 2.14 L (4.10-5.20) X 10*6/uL Hgb 6.2 A* (12.0-15.0) g/dL Hct 20.6 L (37.2-46.3) % MCHC 30.1 L (32.0-37.0) g/dL RDW 15.9 H (11.5-14.5) % Plt Count 136 L (140-440) X 10*3/uL Lymphocytes # (1.0-4.8) k/uL Sodium 147 H (135-145) mmol/L Chloride 114 H (96-109) mmol/L Est GFR (CKD-EPI) 42 L (>=60) Glucose 141 H (70-110) mg/dL POC Glucose (mg/dL) 235 H (70-110) mg/dL Total Bilirubin <0.2 L (0.3-1.2) mg/dL Total Protein 4.9 L (6.2-8.2) g/dL Albumin 2.7 L (3.8-4.9) g/dL Albumin/Globulin Ratio 1.23 L (1.60-3.17) Ratio Stool Occult Blood (Negative) Crossmatch 11/27/24 11/27/24 11/27/24 Range/Units 06:45 07:04 08:12 WBC (4.50-10.00) X 10*3/uL RBC 2.28 L (4.10-5.20) X 10*6/uL Hgb 6.6 L* D (12.0-15.0) g/dL Hct 21.4 L (37.2-46.3) % MCHC 30.6 L (32.0-37.0) g/dL RDW 15.8 H (11.5-14.5) % Plt Count (140-440) X 10*3/uL Lymphocytes # 0.9 L (1.0-4.8) k/uL Sodium (135-145) mmol/L Chloride (96-109) mmol/L Est GFR (CKD-EPI) (>=60) Glucose (70-110) mg/dL POC Glucose (mg/dL) 198 H (70-110) mg/dL Total Bilirubin (0.3-1.2) mg/dL Total Protein (6.2-8.2) g/dL Albumin (3.8-4.9) g/dL Albumin/Globulin Ratio (1.60-3.17) Ratio Stool Occult Blood Positive H (Negative) Crossmatch 11/27/24 Range/Units 08:23 WBC (4.50-10.00) X 10*3/uL RBC (4.10-5.20) X 10*6/uL Hgb (12.0-15.0) g/dL Hct (37.2-46.3) % MCHC (32.0-37.0) g/dL RDW (11.5-14.5) % Plt Count (140-440) X 10*3/uL Lymphocytes # (1.0-4.8) k/uL Sodium (135-145) mmol/L Chloride (96-109) mmol/L Est GFR (CKD-EPI) (>=60) Glucose (70-110) mg/dL POC Glucose (mg/dL) (70-110) mg/dL Total Bilirubin (0.3-1.2) mg/dL Total Protein (6.2-8.2) g/dL Albumin (3.8-4.9) g/dL Albumin/Globulin Ratio (1.60-3.17) Ratio Stool Occult Blood (Negative) Crossmatch See Detail Microbiology - Last 24 Hours (Table) 11/23/24 11:38 Urine Culture - Final Urine,Voided Acinetobacter quianaoffi grp 11/22/24 21:52 Blood Culture - Preliminary Blood Assessment and Plan (1) NANCY (acute kidney injury) Current Visit: Yes Status: Acute Code(s): N17.9 - ACUTE KIDNEY FAILURE, UNSPECIFIED SNOMED Code(s): 99789153 (2) AMS (altered mental status) Current Visit: Yes Status: Acute Code(s): R41.82 - ALTERED MENTAL STATUS, UNSPECIFIED SNOMED Code(s): 227527361 (3) Diabetes Current Visit: No Status: Acute Code(s): E11.9 - TYPE 2 DIABETES MELLITUS WITHOUT COMPLICATIONS SNOMED Code(s): 79369371 (4) Hyperlipemia Current Visit: No Status: Acute Code(s): E78.5 - HYPERLIPIDEMIA, UNSPECIFIED SNOMED Code(s): 40729105 (5) Hypertension Current Visit: No Status: Acute Code(s): I10 - ESSENTIAL (PRIMARY) HYPERTENSION SNOMED Code(s): 83953855 (6) Renal cell carcinoma Current Visit: No Status: Acute Priority: High Code(s): C64.9 - MALIGNANT NEOPLASM OF UNSP KIDNEY, EXCEPT RENAL PELVIS SNOMED Code(s): 233055022 (7) Weakness Current Visit: No Status: Acute Code(s): R53.1 - WEAKNESS SNOMED Code(s): 88292300
[2024-11-27 20:43] LABS: Anisocytosis Slight; HCT 26.9 % (34.0-46.0); HGB 8.1 gm/dL (11.4-16.0); Hypochromasia Marked; MCH 28.4 pg (25.0-35.0); MCV 94.5 fL (80.0-100.0); Mean Platelet Volume 8.4; Platelet Count 149 k/uL (150-450); Poikilocytosis Slight; RBC 2.85 m/uL (3.80-5.40); RDW 17.3 % (11.5-15.5); WBC 4.3 k/uL (3.8-10.6)
[2024-11-27] MEDS: SUCRALFATE 1 GM TAB PO SCH (20:48)
[2024-11-28 03:39] LABS: Anisocytosis Slight; Basophils % (A) 0 %; Eosinophils # (A) 0.2 k/uL (0-0.7); Eosinophils % (A) 5 %; HCT 23.9 % (34.0-46.0); HGB 7.3 gm/dL (11.4-16.0); Hypochromasia Marked; Lymphocytes % (A) 21 %; MCH 28.3 pg (25.0-35.0); MCHC 30.6 g/dL (31.0-37.0); MCV 92.5 fL (80.0-100.0); Mean Platelet Volume 9.3; Monocytes # (A) 0.4 k/uL (0-1.0); Monocytes % (A) 8 %; Neutrophils # (A) 2.8 k/uL (1.3-7.7); Neutrophils % (A) 63 %; Poikilocytosis Slight; RBC 2.58 m/uL (3.80-5.40); RDW 17.5 % (11.5-15.5); WBC 4.5 k/uL (3.8-10.6)
[2024-11-28 04:42] LABS: Platelet Count 89 k/uL (150-450)
[2024-11-28 05:27] LABS: Anisocytosis Slight; HCT 25.4 % (34.0-46.0); HGB 7.6 gm/dL (11.4-16.0); Hypochromasia Marked; MCH 28.3 pg (25.0-35.0); MCHC 29.9 g/dL (31.0-37.0); MCV 94.8 fL (80.0-100.0); Mean Platelet Volume 8.2; Poikilocytosis Slight; RBC 2.67 m/uL (3.80-5.40); RDW 17.4 % (11.5-15.5); WBC 4.7 k/uL (3.8-10.6)
[2024-11-28 05:42] LABS: ALT 9 U/L (4-34); AST 14 U/L (14-36); African American GFR (CKD) 53 (>60 ml/min/1.73 sqM); Albumin 2.3 g/dL (3.5-5.0); Alkaline Phosphatase 83 U/L (38-126); Anion Gap 3 mmol/L; Blood Urea Nitrogen 28 mg/dL (7-17); Calcium 8.7 mg/dL (8.4-10.2); Carbon Dioxide 28 mmol/L (22-30); Chloride 115 mmol/L (98-107); Glucose 137 mg/dL (74-99); Non-African American GFR(CKD) 46 (>60 ml/min/1.73 sqM); Platelet Count 151 k/uL (150-450); Potassium 3.3 mmol/L (3.5-5.1); Sodium 146 mmol/L (137-145); Total Bilirubin 0.4 mg/dL (0.2-1.3); Total Protein 4.9 g/dL (6.3-8.2)
[2024-11-28] MEDS ORDERED: Potassium Replacement Protocol 1 EACH MISC MISCELLANE PRN (05:53)
[2024-11-28] MEDS: POTASSIUM BICARBONATE/CIT AC 20 MEQ TABLET.EFF NG-TUBE SCH (06:17)
--- NOTE | 2024-11-28 08:37 | P.PN ---
Subjective This is a pleasant 79 years old female who presents on 11/22 for altered mental status, she has been evaluated by nephrology and neurology service, her creatinine was elevated 4.6 on admission, currently improved down to 1.1. And she was more confused and obtained and currently more awake and alert although she still mildly confused but clinically she is showing good improvement. Neurologist already evaluated her as above. On 11/27 her hemoglobin dropped to 6.6 and she received blood transfusion, hemoglobin improved to 8.1, she is s/p emergent EGD for possible upper GI bleed on 11/27 showing superficial duodenal ulcer and gastritis Also there is suspicion of UTI and already patient was started on Levaquin 750 mg renal dose. With improvement of creatinine we can switch to her regular dose and continued for 4 more days to finish treatment. Urine culture is positive for Acinetobacter species. Patient mentation is also improving currently she knows she is in the [facility] and she no November 2024, she still thinks the president is Lars Gunderson. She has little insight into her illness and she follows command. She denies chest pain or dyspnea or abdominal pain. She had small bloody bowel movement. Currently she is off BiPAP and she is on 2 L oxygen She looks calm. She is getting IV fluid D5 normal saline at 100 mL per blood. Currently on clear liquid diet. Has low appetite She is mildly tachycardic at 102 and tachypneic at 23 Hemoglobin 7.6, creatinine 1.15. Sodium 146, potassium 3.3 which has been replaced She is on D5 normal saline at 100 and Levaquin IV 500 mg daily x 4 days left. Also she is on IV Protonix Carafate. On aspirin 81 mg. Subcutaneous heparin was discontinued Review of systems CONSTITUTIONAL: No fever, no malaise, no fatigue. HEENT: No recent visual problems or hearing problems. Denied any sore throat. NEUROLOGICAL: No headaches, no weakness, no numbness. HEMATOLOGICAL: Denies any bleeding or petechiae. GENITOURINARY: Denies any burning micturition, frequency, or urgency. MUSCULOSKELETAL/RHEUMATOLOGICAL: Denies any joint pain, swelling, or any muscle pain. ENDOCRINE: Denies any polyuria or polydipsia. Active Medications Generic Name Dose Route Start Last Admin Trade Name Freq PRN Reason Stop Dose Admin Hydrocodone Bitart/Acetaminophen 1 each 11/22/24 21:31 11/26/24 00:34 Hydrocodone/Apap 5-325mg 1 Each Tab PO 1 each Q4HR PRN Administration Pain Aspirin 81 mg 11/23/24 09:00 11/27/24 07:22 Aspirin 81 Mg PO Not Given DAILY [facility] Dextrose/Sodium Chloride 1,000 mls @ 100 mls/hr 11/23/24 13:00 11/28/24 04:03 Dextrose 5%-Ns Iv Soln IV 100 mls/hr .Q10H [facility] Administration Levofloxacin 500 mg/ IV 100 mls @ 100 mls/hr 11/28/24 09:00 Solution IVPB 12/02/24 08:59 DAILY [facility] Insulin Human Lispro 0 unit 11/23/24 12:30 11/28/24 06:36 Insulin Lispro (Humalog) 100 Unit/Ml 10 Ml Vl SQ Not Given ACHS [facility] Protocol Miscellaneous Information 1 each 11/28/24 05:53 Potassium Replacement Protocol 1 Each Misc MISCELLANE DAILY PRN Per Protocol Protocol Naloxone HCl 0.2 mg 11/22/24 13:38 Naloxone 0.4 Mg/Ml 1 Ml Vial IV Q2M PRN Opioid Reversal Ondansetron HCl 4 mg 11/27/24 08:24 Ondansetron 4 Mg/2 Ml Vial IVP Q6HR PRN Nausea And Vomiting Pantoprazole Sodium 40 mg 11/27/24 10:45 11/27/24 20:57 Pantoprazole 40 Mg/10 Ml Vial IVP 40 mg BID [facility] Administration Petrolatum 1 applic 11/23/24 11:39 11/23/24 13:05 Zinc Oxide Paste (Z-Guard) 1 Applic TOPICAL 1 applic Q2HR PRN Administration Wound Healing Protocol Sucralfate 1 gm 11/27/24 17:30 11/28/24 06:36 Sucralfate 1 Gm Tab PO 1 gm AC-TID [facility] Administration Objective - Vital Signs Vital signs: Vital Signs Temp 97.9 F 11/28/24 07:30 Pulse 102 H 11/28/24 07:30 Resp 23 11/28/24 07:30 BP 117/46 11/28/24 07:30 Pulse Ox 100 11/28/24 07:30 FiO2 40 11/28/24 04:22 Intake & Output 11/27/24 11/28/24 11/28/24 18:59 06:59 18:59 Intake Total 720 1100 100 Output Total 500 370 45 Balance 220 730 55 Weight 99 kg Intake: IV 100 Intake, IV Titration 1100 100 Amount Dextrose 5%-0.9% NaCl 1, 1100 100 000 ml @ 100 mls/hr IV . Q10H [facility] Rx#:[id number] Blood Product 620 Rc As-1 Unit 310 [id number] Rc As-1 Unit 310 [id number] Output: Urine 500 370 45 Other: Voiding Method Indwelling Catheter Indwelling Catheter # Bowel Movements 1 1 - Exam -GENERAL: The patient is alert and oriented x3, mildly confused, not in any acute distress. Well developed, well nourished. HEENT: Pupils are round and equally reacting to light. EOMI. No scleral icterus. No conjunctival pallor. Normocephalic, atraumatic. No pharyngeal erythema. No thyromegaly. CARDIOVASCULAR: S1 and S2 present. No murmurs, rubs, or gallops. PULMONARY: Chest is clear to auscultation, no wheezing , no crackles. ABDOMEN: Soft, nontender, nondistended, normoactive bowel sounds. No palpable organomegaly. MUSCULOSKELETAL: No joint swelling or deformity. EXTREMITIES: No cyanosis, clubbing, or pedal edema. NEUROLOGICAL: Gross neurological examination did not reveal any focal deficits. SKIN: No rashes. no petechiae. - Labs CBC & Chem 7: 11/28/24 05:14 11/28/24 05:14 Labs: Abnormal Lab Results - Last 24 Hours (Table) 11/27/24 11/27/24 11/27/24 Range/Units 08:12 08:23 20:19 RBC 2.28 L 2.85 L (3.80-5.40) m/uL Hgb 6.6 L* D 8.1 L D (11.4-16.0) gm/dL Hct 21.4 L 26.9 L (34.0-46.0) % MCHC 30.6 L 30.0 L (31.0-37.0) g/dL RDW 15.8 H 17.3 H (11.5-15.5) % Plt Count 149 L (150-450) k/uL Lymphocytes # 0.9 L (1.0-4.8) k/uL Sodium (137-145) mmol/L Potassium (3.5-5.1) mmol/L Chloride (98-107) mmol/L BUN (7-17) mg/dL Creatinine (0.52-1.04) mg/dL Glucose (74-99) mg/dL Total Protein (6.3-8.2) g/dL Albumin (3.5-5.0) g/dL Crossmatch See Detail 11/28/24 11/28/24 11/28/24 Range/Units 03:12 05:14 05:14 RBC 2.58 L 2.67 L (3.80-5.40) m/uL Hgb 7.3 L 7.6 L (11.4-16.0) gm/dL Hct 23.9 L 25.4 L (34.0-46.0) % MCHC 30.6 L 29.9 L (31.0-37.0) g/dL RDW 17.5 H 17.4 H (11.5-15.5) % Plt Count 89 L (150-450) k/uL Lymphocytes # (1.0-4.8) k/uL Sodium 146 H (137-145) mmol/L Potassium 3.3 L (3.5-5.1) mmol/L Chloride 115 H (98-107) mmol/L BUN 28 H (7-17) mg/dL Creatinine 1.15 H (0.52-1.04) mg/dL Glucose 137 H (74-99) mg/dL Total Protein 4.9 L (6.3-8.2) g/dL Albumin 2.3 L (3.5-5.0) g/dL Crossmatch Assessment and Plan Assessment: Upper GI bleed s/p EGD on 11/27 showing superficial duodenal ulcer and gastritis Acute kidney injury improved Altered mental status most likely metabolic/toxic encephalopathy Acute urinary tract infection History of renal cell cancer s/p nephrectomy Plan: Continue with normal saline, which can be lowered per nephrology team Continue with Levaquin, x 4 days Continue with Protonix and Carafate Discontinue heparin Plan continue aspirin 81 mg with close monitoring General Surgery on the case Nephrology input is appreciated Pulmonary/critical care team Labs and medication were reviewed.. Continue same treatment. Continue with symptomatic treatment. Resume home medication. Monitor labs and vitals. DVT and GI prophylaxis. Further recommendations as per clinical course of the pa tient DVT prophylaxis: no Subcutaneous heparin GI Prophylaxis: Protonix PT/OT: Pending Prognosis is guarded
[2024-11-28] MEDS ORDERED: LEVOFLOXACIN 750MG-D5W PMX 500 MG in DEXTROSE/WATER 1 150ML.BAG IVPB SCH (09:00)
[2024-11-28] MEDS: LEVOFLOXACIN 500MG-D5W PMX 500 MG in DEXTROSE/WATER 1 100ML.BAG IVPB SCH (09:03)
--- NOTE | 2024-11-28 10:09 | P.PN ---
Subjective Progress Note Date: 11/28/24 Principal diagnosis: GI bleed Patient doing better today much more alert. Hemoglobin 7.6 today. Tolerating clear liquids. No abdominal pain. No vomiting. 1 small tarry stool overnight. Objective - Vital Signs Vital signs: Vital Signs Temp 97.9 F 11/28/24 07:30 Pulse 86 11/28/24 10:00 Resp 24 11/28/24 10:00 BP 103/56 11/28/24 10:00 Pulse Ox 100 11/28/24 10:00 FiO2 40 11/28/24 04:22 Intake & Output 11/27/24 11/28/24 11/28/24 18:59 06:59 18:59 Intake Total 720 1100 500 Output Total 500 370 135 Balance 220 730 365 Weight 99 kg Intake: IV 100 Intake, IV Titration 1100 500 Amount Dextrose 5%-0.9% NaCl 1, 1100 400 000 ml @ 100 mls/hr IV . Q10H [facility] Rx#:[id number] Levofloxacin 500Mg-D5w 100 Pmx 500 mg In Dextrose/ Water 1 100ml.bag @ 100 mls/hr IVPB DAILY [facility] Rx# :[id number] Blood Product 620 Rc As-1 Unit 310 [id number] Rc As-1 Unit 310 [id number] Output: Urine 500 370 135 Other: Voiding Method Indwelling Catheter Indwelling Catheter # Bowel Movements 1 1 - Exam Abdomen: Soft, nontender, nondistended - Labs CBC & Chem 7: 11/28/24 05:14 11/28/24 05:14 Labs: Abnormal Lab Results - Last 24 Hours (Table) 11/27/24 11/27/24 11/28/24 Range/Units 08:23 20:19 03:12 RBC 2.85 L 2.58 L (3.80-5.40) m/uL Hgb 8.1 L D 7.3 L (11.4-16.0) gm/dL Hct 26.9 L 23.9 L (34.0-46.0) % MCHC 30.0 L 30.6 L (31.0-37.0) g/dL RDW 17.3 H 17.5 H (11.5-15.5) % Plt Count 149 L 89 L (150-450) k/uL Sodium (137-145) mmol/L Potassium (3.5-5.1) mmol/L Chloride (98-107) mmol/L BUN (7-17) mg/dL Creatinine (0.52-1.04) mg/dL Glucose (74-99) mg/dL Total Protein (6.3-8.2) g/dL Albumin (3.5-5.0) g/dL Crossmatch See Detail 11/28/24 11/28/24 Range/Units 05:14 05:14 RBC 2.67 L (3.80-5.40) m/uL Hgb 7.6 L (11.4-16.0) gm/dL Hct 25.4 L (34.0-46.0) % MCHC 29.9 L (31.0-37.0) g/dL RDW 17.4 H (11.5-15.5) % Plt Count (150-450) k/uL Sodium 146 H (137-145) mmol/L Potassium 3.3 L (3.5-5.1) mmol/L Chloride 115 H (98-107) mmol/L BUN 28 H (7-17) mg/dL Creatinine 1.15 H (0.52-1.04) mg/dL Glucose 137 H (74-99) mg/dL Total Protein 4.9 L (6.3-8.2) g/dL Albumin 2.3 L (3.5-5.0) g/dL Crossmatch Assessment and Plan (1) Duodenal ulcer Narrative/Plan: 79-year-old female with upper GI bleed and findings of duodenal ulcer yesterday. No definite further bleeding noted. Hemoglobin 7.6 after having 2 units transfused yesterday. Follow hemoglobin. May advance to full liquids. I ncrease activity. Continue antiacid therapy. Current Visit: Yes Status: Acute Code(s): K26.9 - DUODENAL ULCER, UNSP A CUTE OR CHRONIC, W/O HEMOR OR PERF SNOMED Code(s): 76289166
--- NOTE | 2024-11-28 11:32 | P.PN ---
Subjective Patient is seen for follow-up for acute kidney injury. Currently maintained on IV fluids. Renal function has improved with creatinine down to 1.1 today. Patient was noted to have GI bleed with multiple black stools yesterday. She was transferred to the ICU as hemoglobin dropped to 6.2. EGD showed superficial duodenal ulcer with gastritis. Currently maintained on Carafate and Protonix. Objective - Vital Signs Vital signs: Vital Signs Temp 97.9 F 11/28/24 07:30 Pulse 86 11/28/24 10:00 Resp 24 11/28/24 10:00 BP 103/56 11/28/24 10:00 Pulse Ox 100 11/28/24 10:00 FiO2 40 11/28/24 04:22 Intake & Output 11/27/24 11/28/24 11/28/24 18:59 06:59 18:59 Intake Total 720 1100 600 Output Total 500 370 165 Balance 220 730 435 Weight 99 kg Intake: IV 100 Intake, IV Titration 1100 600 Amount Dextrose 5%-0.9% NaCl 1, 1100 500 000 ml @ 100 mls/hr IV . Q10H [facility] Rx#:[id number] Levofloxacin 500Mg-D5w 100 Pmx 500 mg In Dextrose/ Water 1 100ml.bag @ 100 mls/hr IVPB DAILY [facility] Rx# :[id number] Blood Product 620 As-1 Unit 310 [id number] As-1 Unit 310 [id number] Output: Urine 500 370 165 Other: Voiding Method Indwelling Catheter Indwelling Catheter # Bowel Movements 1 1 - Exam Patient is awake, comfortable, no acute distress Examination of the heart S1 and S2 Examination of the lungs bilateral breath sounds are heard Abdomen is soft obese nontender Examination of lower extremity shows no significant edema - Labs CBC & Chem 7: 11/28/24 05:14 11/28/24 05:14 Labs: Abnormal Lab Results - Last 24 Hours (Table) 11/27/24 11/27/24 11/28/24 Range/Units 08:23 20:19 03:12 RBC 2.85 L 2.58 L (3.80-5.40) m/uL Hgb 8.1 L D 7.3 L (11.4-16.0) gm/dL Hct 26.9 L 23.9 L (34.0-46.0) % MCHC 30.0 L 30.6 L (31.0-37.0) g/dL RDW 17.3 H 17.5 H (11.5-15.5) % Plt Count 149 L 89 L (150-450) k/uL Sodium (137-145) mmol/L Potassium (3.5-5.1) mmol/L Chloride (98-107) mmol/L BUN (7-17) mg/dL Creatinine (0.52-1.04) mg/dL Glucose (74-99) mg/dL Total Protein (6.3-8.2) g/dL Albumin (3.5-5.0) g/dL Crossmatch See Detail 11/28/24 11/28/24 Range/Units 05:14 05:14 RBC 2.67 L (3.80-5.40) m/uL Hgb 7.6 L (11.4-16.0) gm/dL Hct 25.4 L (34.0-46.0) % MCHC 29.9 L (31.0-37.0) g/dL RDW 17.4 H (11.5-15.5) % Plt Count (150-450) k/uL Sodium 146 H (137-145) mmol/L Potassium 3.3 L (3.5-5.1) mmol/L Chloride 115 H (98-107) mmol/L BUN 28 H (7-17) mg/dL Creatinine 1.15 H (0.52-1.04) mg/dL Glucose 137 H (74-99) mg/dL Total Protein 4.9 L (6.3-8.2) g/dL Albumin 2.3 L (3.5-5.0) g/dL Crossmatch Assessment and Plan Assessment: 1. Acute kidney injury, ATN from hypotension as well as secondary to hypercalcemia. Component of urine retention noted as well as bladder scan showed about 600 mL of urine. Status post Hart catheter placement. UA shows 1+ protein small blood WBC is 43. 2. Mental status changes most likely metabolic encephalopathy 3. UTI with urine culture growing gram-negative bacilli 4. Anemia rule out iron deficiency 5. Hypercalcemia secondary to calcium supplements. Patient was also maintained on hydrochlorothiazide. Improving with IV hydration. Calcium supplements discontinued. 6. GI bleed status post EGD which showed superficial duodenal ulcer and gastritis. Currently maintained on Protonix and Carafate. Hemoglobin is stable 7. Hypokalemia associated with decreased intake as well as GI fluid loss status post replacement Plan: Continue with IV fluids Change IV fluids to half-normal saline Repeat labs in a.m.
--- NOTE | 2024-11-28 11:57 | P.CNPUL ---
History of Present Illness Consult date: 11/28/24 Requesting physician: Gelacio Iverson Reason for consult: other (ICU management) Chief complaint: GI bleeding History of present illness: This is a 79-year-old female admitted to [facility] back on 11/22/2024, initial presentation was mostly related to altered mental status. Apparently the patient was noted to be hypoxic, on her initial presentation to the ER, and upon her initial evaluation by EMS. Neurology was consulted and felt that the patient had altered mental status secondary to hypoxia and/or renal failure. Patient was seen by nephrology for her renal failure,, felt that the patient had acute kidney injury ATN from hypotension as well as secondary to to hypercalcemia with component of urinary retention and the patient had pyuria with iron deficiency anemia. Her hypercalcemia was felt to be related to calcium supplements. And the patient was on hydrochlorothiazide. On 11/27, patient was seen by surgery on consultation for drop in her hemoglobin from 8.6 on her initial presentation down to 6.2. Hence the patient was transferred to the ICU and I was asked to see her in consultation yesterday, but she was having endoscopy. EGD done yesterday showed superficial duodenal ulcer gastritis, small hiatal hernia, but there was no active bleeding, and Dr. Turner felt that the source of the bleeding is most likely from the 2 small duodenal ulcers and he recommended mostly PPI and Carafate. Patient did not require any intervention. Since admission the patient received a total of 2 units of packed RBCs, hemoglobin today is 7.6. Her electrolytes are relatively normal BUN is 28 creatinine 1.15 WBC count is 4.7. Platelets are 151,000. Yesterday the patient had black stools noted, but no bright red blood per rectum and no hematemesis. Considering the patient was admitted to the ICU, I was asked to see her on consultation, and I plan to monitor the patient for the next 24 hours, if she continues to do well we will transfer the patient out of the ICU to medical surgical floor in the next 24 hours. Patient denies any shortness of breath denies any cough no wheezing, no chest pain, no nausea no vomiting no abdominal pain. Review of Systems REVIEW OF SYSTEMS: CONSTITUTIONAL: Negative. EYES: Negative. ENT: Negative. CARDIAC: Negative. PULMONARY: As above. GI: As noted in HPI GENITOURINARY: Negative. MUSCULOSKELETAL: Negative. SKIN: Negative. NEUROPSYCH: Negative. ENDOCRINE: Negative. HEMATOLOGIC: Negative. Past Medical History Past Medical History: Cancer, Diabetes Mellitus, Hyperlipidemia, Hypertension, Pneumonia, Renal Disease, Sleep Apnea/CPAP/BIPAP Additional Past Medical History / Comment(s): anemia, arthritis, grade 4 renal carcinoma, acute respiratory failure, pleural effusions, pulmonary nodules, x smoker History of Any Multi-Drug Resistant Organisms: None Reported Past Surgical History: Joint Replacement, Orthopedic Surgery Additional Past Surgical History / Comment(s): total lt knee, carpel tunnel lt wrist, left nephrectomy 2-2024, bilateral cataracts, Past Anesthesia/Blood Transfusion Reactions: Motion Sickness, Postoperative Nausea & Vomiting (PONV) Additional Past Anesthesia/Blood Transfusion Reaction / Comment(s): no hx blood transfusion Past Psychological History: No Psychological Hx Reported Smoking Status: Former smoker Past Alcohol Use History: None Reported Past Drug Use History: Marijuana Additional Drug Use History / Comment(s): marijuana daily freq - Past Family History Sister(s) Family Medical History: Cancer Additional Family Medical History / Comment(s): lymph Medications and Allergies Home Medications Medication Instructions Recorded Confirmed Type Pioglitazone HCl/Metformin HCl 1 tab PO BID 09/17/14 11/22/24 History [Pioglitazone-Metformin 15-850] Simvastatin [Zocor] 40 mg PO HS 09/17/14 11/22/24 History Valsartan/Hydrochlorothiazide 1 tab PO HS 09/17/14 11/22/24 History [Diovan Hct 320-25 mg Tablet] Calcium Carbonate/Vitamin D3 2 tab PO DAILY 09/28/14 11/22/24 History [Caltrate 600 Plus D3 Tablet] Aspirin 81 mg PO DAILY 03/06/17 11/22/24 History DULoxetine HCL [Cymbalta] 60 mg PO DAILY 10/05/24 11/22/24 History Ferrous Sulfate [Iron (65 MG 1 tab PO DAILY 10/05/24 11/22/24 History Elemental)] HYDROcodone/APAP 5-325MG [[place] 1 tab PO Q4HR PRN 3 Days #18 tab 10/14/24 11/22/24 Rx 5-325] Melatonin 3 mg PO HS PRN tab 11/04/24 11/22/24 Rx Ondansetron [Zofran] 8 mg PO BID 11/22/24 11/22/24 History Allergies Allergy/AdvReac Type Severity Reaction Status Date / Time tramadol Allergy Nausea, Verified 11/22/24 15:17 "DRY HEAVES" Physical Exam Vitals: Vital Signs Temp Pulse Resp BP Pulse Ox FiO2 11/28/24 10:00 86 24 103/56 100 11/28/24 09:30 91 22 128/56 100 11/28/24 09:00 97 17 128/52 100 11/28/24 08:30 90 77 H 123/55 93 L 11/28/24 08:00 92 15 120/50 100 11/28/24 07:30 97.9 F 102 H 23 117/46 100 11/28/24 07:00 81 18 111/52 99 11/28/24 06:30 89 18 122/43 100 11/28/24 06:00 101 H 20 120/49 97 11/28/24 05:30 77 101/45 100 11/28/24 05:00 14 121/45 100 11/28/24 04:30 20 107/40 100 11/28/24 04:22 40 11/28/24 04:00 97.7 F 89 17 124/49 100 35 11/28/24 03:30 79 13 110/41 100 11/28/24 03:00 79 11 L 102/46 100 11/28/24 02:30 81 14 115/45 11/28/24 02:00 82 24 114/44 95 11/28/24 01:30 77 19 111/48 100 11/28/24 01:00 71 16 114/42 100 11/28/24 00:34 89 14 118/49 100 11/28/24 00:30 71 14 104/49 100 11/28/24 00:16 40 11/28/24 00:00 97.6 F 77 14 111/48 100 35 11/27/24 23:30 85 12 112/45 98 11/27/24 23:00 84 14 117/47 100 11/27/24 22:30 78 14 104/48 100 11/27/24 22:00 84 13 116/46 100 11/27/24 21:30 93 16 115/49 100 11/27/24 21:00 84 15 125/51 100 11/27/24 20:30 89 14 115/47 100 11/27/24 20:18 40 11/27/24 20:00 97.9 F 85 17 113/49 100 35 11/27/24 19:30 90 15 123/42 100 11/27/24 19:00 95 16 99 11/27/24 18:25 97.9 F 85 22 128/60 96 11/27/24 18:00 84 14 127/67 96 11/27/24 17:50 35 11/27/24 17:30 93 14 130/54 91 L 35 11/27/24 17:00 100 14 114/60 95 11/27/24 16:30 82 23 124/54 80 L 11/27/24 16:05 98.1 F 90 20 119/59 11/27/24 16:00 98.7 F 94 16 123/59 87 L 11/27/24 15:45 98.3 F 88 19 123/59 97 11/27/24 15:40 12 122/56 87 L 11/27/24 15:35 97.8 F 99 13 122/56 91 L 11/27/24 15:30 98 16 131/51 97 11/27/24 15:20 101 H 14 131/51 90 L 11/27/24 15:10 94 13 128/56 100 11/27/24 15:00 97 17 123/56 99 11/27/24 14:50 98 13 123/56 97 11/27/24 14:40 92 6 L 126/58 91 L 11/27/24 14:30 103 H 24 89 L 11/27/24 14:20 98 27 H 96 11/27/24 14:10 98 12 94 L 11/27/24 14:00 94 8 L 100 11/27/24 13:50 98 16 92 L 11/27/24 13:40 96 14 97 11/27/24 13:30 99 23 92 L 11/27/24 13:20 59 H 96 11/27/24 13:09 98.1 F 91 19 126/53 11/27/24 12:40 98 24 93 L 11/27/24 12:30 98 11 L 126/53 95 11/27/24 12:20 98 13 126/53 97 11/27/24 12:10 98 24 127/81 95 11/27/24 12:00 98.1 F 98 23 114/52 96 11/27/24 11:50 91 22 114/52 94 L Intake and Output 11/27/24 11/28/24 11/28/24 22:59 06:59 14:59 Intake Total 610 800 600 Output Total 595 275 165 Balance 15 525 435 Intake: Intake, IV Titration 300 800 600 Amount Dextrose 5%-0.9% NaCl 1, 300 800 500 000 ml @ 100 mls/hr IV . Q10H VERONIQUE Rx#:[id number] Levofloxacin 500Mg-D5w 100 Pmx 500 mg In Dextrose/ Water 1 100ml.bag @ 100 mls/hr IVPB DAILY VERONIQUE Rx# :[id number] Blood Product 310 Rc As-1 Unit 310 [id number] Output: Urine 595 275 165 Other: Voiding Method Indwelling Catheter Indwelling Catheter # Bowel Movements 1 Weight 99 kg General : Revealed 79-year-old female on 2 L nasal cannula, O2 sat is now 100% HEENT: Normocephalic atraumatic, extra-ocular movements intact, pupils equal and reactive to light bilaterally, mucous membranes moist. Cardiovascular: Normal S1-S2, no S3 gallop, no murmur Chest: Diminished breath sounds at the bases no crackles rhonchi or wheezes Abdomen: abdomen soft, non-tender, non-distended, no organomegaly Musculoskeletal: No deformities and no limitation range of motion a Motor: no focal deficits noted Neurological: CN II-XII grossly intact, no focal motor or sensory deficits noted Skin: No rashes Psych: Normal mood, affect and no mental status examination Results - Laboratory Findings CBC and BMP: 11/28/24 05:14 11/28/24 05:14 PT/INR, D-dimer PT 11.0 sec (10.0-12.5) 11/22/24 11:36 INR 1.0 (<1.2) 11/22/24 11:36 Abnormal lab findings: Abnormal Labs 11/22/24 11/22/24 11/23/24 11:36 11:36 09:17 WBC RBC 3.03 L 3.17 L Hgb 8.9 L 9.2 L Hct 28.8 L 30.2 L MCHC 30.8 L 30.5 L RDW Plt Count MPV Lymphocytes # Sodium 133 L Potassium Chloride 93 L BUN 37 H Creatinine 4.65 H Est GFR (CKD-EPI) BUN/Creatinine Ratio Glucose POC Glucose (mg/dL) Calcium 11.8 H Transferrin Total Bilirubin ALT Total Protein 6.1 L Albumin 3.2 L Albumin/Globulin Ratio Urine Appearance Urine Protein Urine Blood Urine Bilirubin Ur Leukocyte Esterase Urine RBC Urine WBC Ur Squamous Epith Cells Urine Bacteria Urine Mucus Stool Occult Blood Crossmatch 11/23/24 11/23/24 11/23/24 09:17 11:38 20:23 WBC RBC Hgb Hct MCHC RDW Plt Count MPV Lymphocytes # Sodium Potassium Chloride BUN 33.3 H Creatinine 3.9 H Est GFR (CKD-EPI) 11 L BUN/Creatinine Ratio 8.54 L Glucose POC Glucose (mg/dL) 156 H Calcium 10.8 H Transferrin Total Bilirubin 0.2 L ALT 7 L Total Protein 6.1 L Albumin 3.2 L Albumin/Globulin Ratio 1.10 L Urine Appearance Turbid H Urine Protein 1+ H Urine Blood Small H Urine Bilirubin 1+ H Ur Leukocyte Esterase Moderate H Urine RBC 15 H Urine WBC 43 H Ur Squamous Epith Cells 445 H Urine Bacteria Many H Urine Mucus Rare H Stool Occult Blood Crossmatch 11/24/24 11/24/24 11/24/24 07:31 09:20 09:20 WBC RBC 3.30 L Hgb 9.3 L Hct 31.5 L MCHC 29.5 L RDW 15.1 H Plt Count MPV 12.7 H Lymphocytes # Sodium Potassium Chloride BUN 28.7 H Creatinine 2.6 H Est GFR (CKD-EPI) 18 L BUN/Creatinine Ratio 11.04 L Glucose 127 H POC Glucose (mg/dL) 117 H Calcium 10.4 H Transferrin Total Bilirubin 0.2 L ALT 7 L Total Protein 6.1 L Albumin 3.3 L Albumin/Globulin Ratio 1.18 L Urine Appearance Urine Protein Urine Blood Urine Bilirubin Ur Leukocyte Esterase Urine RBC Urine WBC Ur Squamous Epith Cells Urine Bacteria Urine Mucus Stool Occult Blood Crossmatch 11/24/24 11/24/24 11/25/24 17:09 20:07 04:37 WBC 4.44 L RBC 2.98 L Hgb 8.6 L Hct 28.5 L MCHC 30.2 L RDW 15.4 H Plt Count MPV Lymphocytes # Sodium Potassium Chloride BUN Creatinine Est GFR (CKD-EPI) BUN/Creatinine Ratio Glucose POC Glucose (mg/dL) 130 H 127 H Calcium Transferrin Total Bilirubin ALT Total Protein Albumin Albumin/Globulin Ratio Urine Appearance Urine Protein Urine Blood Urine Bilirubin Ur Leukocyte Esterase Urine RBC Urine WBC Ur Squamous Epith Cells Urine Bacteria Urine Mucus Stool Occult Blood Crossmatch 11/25/24 11/25/24 11/25/24 04:37 04:37 07:46 WBC RBC Hgb Hct MCHC RDW Plt Count MPV Lymphocytes # Sodium Potassium Chloride BUN Creatinine 1.9 H Est GFR (CKD-EPI) 27 L BUN/Creatinine Ratio Glucose 139 H POC Glucose (mg/dL) 122 H Calcium Transferrin 184.0 L Total Bilirubin <0.2 L ALT 7 L Total Protein 5.6 L Albumin 3.0 L Albumin/Globulin Ratio 1.15 L Urine Appearance Urine Protein Urine Blood Urine Bilirubin Ur Leukocyte Esterase Urine RBC Urine WBC Ur Squamous Epith Cells Urine Bacteria Urine Mucus Stool Occult Blood Crossmatch 11/25/24 11/25/24 11/26/24 17:08 20:25 05:34 WBC 4.35 L RBC 3.00 L Hgb 8.6 L Hct 27.9 L MCHC 30.8 L RDW 15.5 H Plt Count MPV Lymphocytes # Sodium Potassium Chloride BUN Creatinine Est GFR (CKD-EPI) BUN/Creatinine Ratio Glucose POC Glucose (mg/dL) 119 H 128 H Calcium Transferrin Total Bilirubin ALT Total Protein Albumin Albumin/Globulin Ratio Urine Appearance Urine Protein Urine Blood Urine Bilirubin Ur Leukocyte Esterase Urine RBC Urine WBC Ur Squamous Epith Cells Urine Bacteria Urine Mucus Stool Occult Blood Crossmatch 11/26/24 11/26/24 11/26/24 05:34 07:09 12:13 WBC RBC Hgb Hct MCHC RDW Plt Count MPV Lymphocytes # Sodium Potassium 3.4 L Chloride BUN Creatinine 1.6 H Est GFR (CKD-EPI) 33 L BUN/Creatinine Ratio 10.31 L Glucose 141 H POC Glucose (mg/dL) 135 H 131 H Calcium Transferrin Total Bilirubin <0.2 L ALT Total Protein 5.9 L Albumin 3.0 L Albumin/Globulin Ratio 1.03 L Urine Appearance Urine Protein Urine Blood Urine Bilirubin Ur Leukocyte Esterase Urine RBC Urine WBC Ur Squamous Epith Cells Urine Bacteria Urine Mucus Stool Occult Blood Crossmatch 11/26/24 11/27/24 11/27/24 17:03 05:14 05:14 WBC 3.80 L RBC 2.14 L Hgb 6.2 A* Hct 20.6 L MCHC 30.1 L RDW 15.9 H Plt Count 136 L MPV Lymphocytes # Sodium 147 H Potassium Chloride 114 H BUN Creatinine Est GFR (CKD-EPI) 42 L BUN/Creatinine Ratio Glucose 141 H POC Glucose (mg/dL) 235 H Calcium Transferrin Total Bilirubin <0.2 L ALT Total Protein 4.9 L Albumin 2.7 L Albumin/Globulin Ratio 1.23 L Urine Appearance Urine Protein Urine Blood Urine Bilirubin Ur Leukocyte Esterase Urine RBC Urine WBC Ur Squamous Epith Cells Urine Bacteria Urine Mucus Stool Occult Blood Crossmatch 11/27/24 11/27/24 11/27/24 06:45 07:04 08:12 WBC RBC 2.28 L Hgb 6.6 L* D Hct 21.4 L MCHC 30.6 L RDW 15.8 H Plt Count MPV Lymphocytes # 0.9 L Sodium Potassium Chloride BUN Creatinine Est GFR (CKD-EPI) BUN/Creatinine Ratio Glucose POC Glucose (mg/dL) 198 H Calcium Transferrin Total Bilirubin ALT Total Protein Albumin Albumin/Globulin Ratio Urine Appearance Urine Protein Urine Blood Urine Bilirubin Ur Leukocyte Esterase Urine RBC Urine WBC Ur Squamous Epith Cells Urine Bacteria Urine Mucus Stool Occult Blood Positive H Crossmatch 11/27/24 11/27/24 11/28/24 08:23 20:19 03:12 WBC RBC 2.85 L 2.58 L Hgb 8.1 L D 7.3 L Hct 26.9 L 23.9 L MCHC 30.0 L 30.6 L RDW 17.3 H 17.5 H Plt Count 149 L 89 L MPV Lymphocytes # Sodium Potassium Chloride BUN Creatinine Est GFR (CKD-EPI) BUN/Creatinine Ratio Glucose POC Glucose (mg/dL) Calcium Transferrin Total Bilirubin ALT Total Protein Albumin Albumin/Globulin Ratio Urine Appearance Urine Protein Urine Blood Urine Bilirubin Ur Leukocyte Esterase Urine RBC Urine WBC Ur Squamous Epith Cells Urine Bacteria Urine Mucus Stool Occult Blood Crossmatch See Detail 11/28/24 11/28/24 05:14 05:14 WBC RBC 2.67 L Hgb 7.6 L Hct 25.4 L MCHC 29.9 L RDW 17.4 H Plt Count MPV Lymphocytes # Sodium 146 H Potassium 3.3 L Chloride 115 H BUN 28 H Creatinine 1.15 H Est GFR (CKD-EPI) BUN/Creatinine Ratio Glucose 137 H POC Glucose (mg/dL) Calcium Transferrin Total Bilirubin ALT Total Protein 4.9 L Albumin 2.3 L Albumin/Globulin Ratio Urine Appearance Urine Protein Urine Blood Urine Bilirubin Ur Leukocyte Esterase Urine RBC Urine WBC Ur Squamous Epith Cells Urine Bacteria Urine Mucus Stool Occult Blood Crossmatch - Diagnostic Findings Chest x-ray: image reviewed (Chest x-ray on admission showed no acute process.) Assessment and Plan Assessment: Impression: Iron deficiency anemia secondary to duodenal ulcer and upper GI bleeding, likely acute on chronic. Acute hypoxic respiratory failure, exact etiology is not clear, apparently when the patient was brought in by EMS she was noted to have low O2 saturation, but no clear-cut etiology for her hypoxia except for possibly atelectasis and obesity/hypoventilation syndrome. With some component of anemia causing hypoxia. Acute kidney injury, likely secondary to hypotension on her initial presentation. Type 2 diabetes Benign essential hypertension History of obstructive sleep apnea syndrome, patient has been on CPAP/BiPAP. Acute on chronic iron deficiency anemia History of renal cell carcinoma and previous nephrectomy Dyslipidemia Recommendation: Continue present supportive care measures Continue Carafate and PPI for her upper GI bleeding/duodenal ulcers Transfuse for hemoglobin below 7 Monitor in the ICU for the next 24 hours, and if no active bleeding could transfer to medical surgical floor Continue BiPAP as needed patient is known to have history of obstructive sleep apnea syndrome with obesity/hypoventilation syndrome Resume home meds, avoid nonsteroidal anti-inflammatory drugs Will continue to follow Time with Patient: Greater than 30
[2024-11-28] MEDS: SODIUM CHLORIDE 0.45% 1,000 ML IV SCH (12:34)
[2024-11-28 16:09] LABS: Glucose,Whole Blood 130 mg/dL (70-110)
[2024-11-28 16:09] LABS: Glucose,Whole Blood 130 mg/dL (70-110)
[2024-11-28 16:09] LABS: Glucose,Whole Blood 129 mg/dL (70-110)
[2024-11-28 16:09] LABS: Glucose,Whole Blood 136 mg/dL (70-110)
[2024-11-28 16:09] LABS: Glucose,Whole Blood 122 mg/dL (70-110)
[2024-11-28 16:09] LABS: Glucose,Whole Blood 117 mg/dL (70-110)
[2024-11-28 20:01] LABS: Glucose,Whole Blood 102 mg/dL (70-110)
[2024-11-29 05:55] LABS: Glucose,Whole Blood 99 mg/dL (70-110)
[2024-11-29 05:59] LABS: Anisocytosis Slight; Basophils % (A) 0 %; Eosinophils # (A) 0.2 k/uL (0-0.7); Eosinophils % (A) 4 %; HCT 23.5 % (34.0-46.0); HGB 7.2 gm/dL (11.4-16.0); Hypochromasia Marked; Lymphocytes # (A) 0.7 k/uL (1.0-4.8); Lymphocytes % (A) 17 %; MCH 28.5 pg (25.0-35.0); MCHC 30.6 g/dL (31.0-37.0); MCV 93.3 fL (80.0-100.0); Mean Platelet Volume 8.3; Monocytes # (A) 0.3 k/uL (0-1.0); Monocytes % (A) 8 %; Neutrophils # (A) 2.7 k/uL (1.3-7.7); Neutrophils % (A) 69 %; Platelet Count 119 k/uL (150-450); Poikilocytosis Slight; RBC 2.52 m/uL (3.80-5.40); RDW 16.9 % (11.5-15.5); WBC 3.9 k/uL (3.8-10.6)
[2024-11-29 06:17] LABS: African American GFR (CKD) 60 (>60 ml/min/1.73 sqM); Anion Gap 2 mmol/L; Blood Urea Nitrogen 21 mg/dL (7-17); Calcium 8.5 mg/dL (8.4-10.2); Carbon Dioxide 25 mmol/L (22-30); Chloride 114 mmol/L (98-107); Glucose 100 mg/dL (74-99); Non-African American GFR(CKD) 52 (>60 ml/min/1.73 sqM); Potassium 3.5 mmol/L (3.5-5.1); Sodium 141 mmol/L (137-145)
[2024-11-29] MEDS: POTASSIUM CHLORIDE ER 20 MEQ TAB.ER PO SCH (06:35)
--- NOTE | 2024-11-29 09:29 | P.PN ---
Subjective This is a pleasant 79 years old female who presents on 11/22 for altered mental status, she has been evaluated by nephrology and neurology service, her creatinine was elevated 4.6 on admission, currently improved down to 1.1. And she was more confused and obtained and currently more awake and alert although she still mildly confused but clinically she is showing good improvement. Neurologist already evaluated her as above. On 11/27 her hemoglobin dropped to 6.6 and she received blood transfusion, hemoglobin improved to 8.1, she is s/p emergent EGD for possible upper GI bleed on 11/27 showing superficial duodenal ulcer and gastritis Also there is suspicion of UTI and already patient was started on Levaquin 750 mg renal dose. With improvement of creatinine we can switch to her regular dose and continued for 4 more days to finish treatment. Urine culture is positive for Acinetobacter species. Patient mentation is also improving currently she knows she is in the [facility] and she no November 2024, she still thinks the president is Lars Gunderson. She has little insight into her illness and she follows command. She denies chest pain or dyspnea or abdominal pain. She had small bloody bowel movement. Currently she is off BiPAP and she is on 2 L oxygen She looks calm. She is getting IV fluid D5 normal saline at 100 mL per blood. Currently on clear liquid diet. Has low appetite She is mildly tachycardic at 102 and tachypneic at 23 Hemoglobin 7.6, creatinine 1.15. Sodium 146, potassium 3.3 which has been replaced She is on D5 normal saline at 100 and Levaquin IV 500 mg daily x 4 days left. Also she is on IV Protonix Carafate. On aspirin 81 mg. Subcutaneous heparin was discontinued 11/29 Patient mentation continued to improve Breathing looks little better today. She still have epigastric pain and tenderness, hemoglobin dropped 7.6 down to 7.2 today. We are going to hold aspirin 81 mg Continue with Protonix twice daily and Carafate She is on normal saline 70 mL/h and creatinine improved down to 1.0. Sodium 141. Sodium improved. Potassium also better at 3.5. Will limit her antibiotic Levaquin to 2 more days today and tomorrow. Since she has minimal urinary symptoms. Will add iron pills Review of systems CONSTITUTIONAL: No fever, no malaise, no fatigue. HEENT: No recent visual problems or hearing problems. Denied any sore throat. NEUROLOGICAL: No headaches, no weakness, no numbness. HEMATOLOGICAL: Denies any bleeding or petechiae. GENITOURINARY: Denies any burning micturition, frequency, or urgency. MUSCULOSKELETAL/RHEUMATOLOGICAL: Denies any joint pain, swelling, or any muscle pain. ENDOCRINE: Denies any polyuria or polydipsia. Active Medications Generic Name Dose Route Start Last Admin Trade Name Freq PRN Reason Stop Dose Admin Hydrocodone Bitart/Acetaminophen 1 each 11/22/24 21:31 11/26/24 00:34 Hydrocodone/Apap 5-325mg 1 Each Tab PO 1 each Q4HR PRN Administration Pain Aspirin 81 mg 11/23/24 09:00 11/29/24 08:55 Aspirin 81 Mg PO Not Given DAILY VERONIQUE Levofloxacin 500 mg/ IV 100 mls @ 100 mls/hr 11/28/24 09:00 11/29/24 08:40 Solution IVPB 11/30/24 08:59 100 mls/hr DAILY VERONIQUE Administration Sodium Chloride 1,000 mls @ 70 mls/hr 11/28/24 11:45 11/29/24 02:35 Saline 0.45% IV 70 mls/hr .[id number] VERONIQUE Administration Insulin Human Lispro 0 unit 11/23/24 12:30 11/29/24 06:30 Insulin Lispro (Humalog) 100 Unit/Ml 10 Ml Vl SQ Not Given ACHS VERONIQUE Protocol Miscellaneous Information 1 each 11/28/24 05:53 Potassium Replacement Protocol 1 Each Misc MISCELLANE DAILY PRN Per Protocol Protocol Naloxone HCl 0.2 mg 11/22/24 13:38 Naloxone 0.4 Mg/Ml 1 Ml Vial IV Q2M PRN Opioid Reversal Ondansetron HCl 4 mg 11/27/24 08:24 Ondansetron 4 Mg/2 Ml Vial IVP Q6HR PRN Nausea And Vomiting Pantoprazole Sodium 40 mg 11/27/24 10:45 11/29/24 08:33 Pantoprazole 40 Mg/10 Ml Vial IVP 40 mg BID VERONIQUE Administration Petrolatum 1 applic 11/23/24 11:39 11/23/24 13:05 Zinc Oxide Paste (Z-Guard) 1 Applic TOPICAL 1 applic Q2HR PRN Administration Wound Healing Protocol Sucralfate 1 gm 11/27/24 17:30 11/29/24 06:35 Sucralfate 1 Gm Tab PO 1 gm AC-TID VERONIQUE Administration Objective - Vital Signs Vital signs: Vital Signs Temp 98.4 F 11/29/24 04:00 Pulse 101 H 11/29/24 09:00 Resp 25 H 11/29/24 09:00 BP 122/41 11/29/24 09:00 Pulse Ox 100 11/29/24 09:00 FiO2 40 11/29/24 00:04 Intake & Output 11/28/24 11/29/24 11/29/24 18:59 06:59 18:59 Intake Total 1190 770 210 Output Total 385 390 95 Balance 805 380 115 Weight 102.5 kg Intake: Intake, IV Titration 1190 770 210 Amount Dextrose 5%-0.9% NaCl 1, 600 000 ml @ 100 mls/hr IV . Q10H VERONIQUE Rx#:[id number] Levofloxacin 500Mg-D5w 100 Pmx 500 mg In Dextrose/ Water 1 100ml.bag @ 100 mls/hr IVPB DAILY VERONIQUE Rx# :[id number] Sodium Chloride 0.45% 1, 490 770 210 000 ml @ 70 mls/hr IV . [id number] VERONIQUE Rx#:[id number] Output: Urine 385 390 95 Other: Voiding Method Indwelling Catheter Indwelling Catheter - Exam -GENERAL: The patient is alert and oriented x3, mildly confused, not in any acute distress. Well developed, well nourished. HEENT: Pupils are round and equally reacting to light. EOMI. No scleral icterus. No conjunctival pallor. Normocephalic, atraumatic. No pharyngeal erythema. No thyromegaly. CARDIOVASCULAR: S1 and S2 present. No murmurs, rubs, or gallops. PULMONARY: Chest is clear to auscultation, no wheezing , no crackles. ABDOMEN: Soft, nontender, nondistended, normoactive bowel sounds. No palpable organomegaly. MUSCULOSKELETAL: No joint swelling or deformity. EXTREMITIES: No cyanosis, clubbing, or pedal edema. NEUROLOGICAL: Gross neurological examination did not reveal any focal deficits. SKIN: No rashes. no petechiae. - Labs CBC & Chem 7: 11/29/24 05:17 11/29/24 05:17 Labs: Abnormal Lab Results - Last 24 Hours (Table) 11/27/24 11/27/24 11/27/24 Range/Units 15:21 18:46 20:13 RBC (3.80-5.40) m/uL Hgb (11.4-16.0) gm/dL Hct (34.0-46.0) % MCHC (31.0-37.0) g/dL RDW (11.5-15.5) % Plt Count (150-450) k/uL Lymphocytes # (1.0-4.8) k/uL Chloride (98-107) mmol/L BUN (7-17) mg/dL Glucose (74-99) mg/dL POC Glucose (mg/dL) 130 H 129 H 122 H (70-110) mg/dL 11/28/24 11/28/24 11/28/24 Range/Units 05:58 10:55 16:02 RBC (3.80-5.40) m/uL Hgb (11.4-16.0) gm/dL Hct (34.0-46.0) % MCHC (31.0-37.0) g/dL RDW (11.5-15.5) % Plt Count (150-450) k/uL Lymphocytes # (1.0-4.8) k/uL Chloride (98-107) mmol/L BUN (7-17) mg/dL Glucose (74-99) mg/dL POC Glucose (mg/dL) 130 H 136 H 117 H (70-110) mg/dL 11/29/24 11/29/24 Range/Units 05:17 05:17 RBC 2.52 L (3.80-5.40) m/uL Hgb 7.2 L (11.4-16.0) gm/dL Hct 23.5 L (34.0-46.0) % MCHC 30.6 L (31.0-37.0) g/dL RDW 16.9 H (11.5-15.5) % Plt Count 119 L (150-450) k/uL Lymphocytes # 0.7 L (1.0-4.8) k/uL Chloride 114 H (98-107) mmol/L BUN 21 H (7-17) mg/dL Glucose 100 H (74-99) mg/dL POC Glucose (mg/dL) (70-110) mg/dL Microbiology - Last 24 Hours (Table) 11/22/24 21:52 Blood Culture - Final Blood Assessment and Plan Assessment: Upper GI bleed s/p EGD on 11/27 showing superficial duodenal ulcer and gastritis Acute kidney injury improved Altered mental status most likely metabolic/toxic encephalopathy. Improving Acute urinary tract infection, improving History of renal cell cancer s/p nephrectomy Plan: Continue with normal saline, which can be lowered per nephrology team Continue with Levaquin, x 2 more days Continue with Protonix and Carafate Discontinue heparin Plan continue aspirin 81 mg with close monitoring General Surgery on the case Nephrology input is appreciated Pulmonary/critical care team Labs and medication were reviewed.. Continue same treatment. Continue with symptomatic treatment. Resume home medication. Monitor labs and vitals. DVT and GI prophylaxis. Further recommendations as per clinical course of the patient DVT prophylaxis: no Subcutaneous heparin GI Prophylaxis: Protonix PT/OT: Pending Prognosis is guarded
--- NOTE | 2024-11-29 10:08 | P.PN ---
Subjective Progress Note Date: 11/29/24 Principal diagnosis: GI bleed Patient feeling somewhat nauseated today. No further bleeding noted. Hemoglobin stable at 7.2. Feels bloated. Objective - Vital Signs Vital signs: Vital Signs Temp 98.4 F 11/29/24 04:00 Pulse 101 H 11/29/24 09:00 Resp 25 H 11/29/24 09:00 BP 122/41 11/29/24 09:00 Pulse Ox 100 11/29/24 09:00 FiO2 40 11/29/24 00:04 Intake & Output 11/28/24 11/29/24 11/29/24 18:59 06:59 18:59 Intake Total 1190 770 210 Output Total 385 390 95 Balance 805 380 115 Weight 102.5 kg Intake: Intake, IV Titration 1190 770 210 Amount Dextrose 5%-0.9% NaCl 1, 600 000 ml @ 100 mls/hr IV . Q10H [facility] Rx#:[id number] Levofloxacin 500Mg-D5w 100 Pmx 500 mg In Dextrose/ Water 1 100ml.bag @ 100 mls/hr IVPB DAILY [facility] Rx# :[id number] Sodium Chloride 0.45% 1, 490 770 210 000 ml @ 70 mls/hr IV . [id number] [facility] Rx#:[id number] Output: Urine 385 390 95 Other: Voiding Method Indwelling Catheter Indwelling Catheter - Exam Abdomen: Soft, nontender, nondistended - Labs CBC & Chem 7: 11/29/24 05:17 11/29/24 05:17 Labs: Abnormal Lab Results - Last 24 Hours (Table) 11/27/24 11/27/24 11/27/24 Range/Units 15:21 18:46 20:13 RBC (3.80-5.40) m/uL Hgb (11.4-16.0) gm/dL Hct (34.0-46.0) % MCHC (31.0-37.0) g/dL RDW (11.5-15.5) % Plt Count (150-450) k/uL Lymphocytes # (1.0-4.8) k/uL Chloride (98-107) mmol/L BUN (7-17) mg/dL Glucose (74-99) mg/dL POC Glucose (mg/dL) 130 H 129 H 122 H (70-110) mg/dL 11/28/24 11/28/24 11/28/24 Range/Units 05:58 10:55 16:02 RBC (3.80-5.40) m/uL Hgb (11.4-16.0) gm/dL Hct (34.0-46.0) % MCHC (31.0-37.0) g/dL RDW (11.5-15.5) % Plt Count (150-450) k/uL Lymphocytes # (1.0-4.8) k/uL Chloride (98-107) mmol/L BUN (7-17) mg/dL Glucose (74-99) mg/dL POC Glucose (mg/dL) 130 H 136 H 117 H (70-110) mg/dL 11/29/24 11/29/24 Range/Units 05:17 05:17 RBC 2.52 L (3.80-5.40) m/uL Hgb 7.2 L (11.4-16.0) gm/dL Hct 23.5 L (34.0-46.0) % MCHC 30.6 L (31.0-37.0) g/dL RDW 16.9 H (11.5-15.5) % Plt Count 119 L (150-450) k/uL Lymphocytes # 0.7 L (1.0-4.8) k/uL Chloride 114 H (98-107) mmol/L BUN 21 H (7-17) mg/dL Glucose 100 H (74-99) mg/dL POC Glucose (mg/dL) (70-110) mg/dL Microbiology - Last 24 Hours (Table) 11/22/24 21:52 Blood Culture - Final Blood Assessment and Plan (1) Duodenal ulcer Narrative/Plan: Patient seems to be doing fairly well. Mild nausea and bloating. Continue full liquids for now. Recheck CBC tomorrow. Sinew antiacid use. Current Visit: Yes Status: Acute Code(s): K26.9 - DUODENAL ULCER, UNSP A CUTE OR CHRONIC, W/O HEMOR OR PERF SNOMED Code(s): 72507739
--- NOTE | 2024-11-29 11:20 | P.PN ---
Subjective Patient is seen for follow-up for acute kidney injury. Currently maintained on IV fluids. Renal function has improved with creatinine down to 1.0 today. Patient was noted to have GI bleed with multiple black stools and was transferred to the ICU as hemoglobin dropped to 6.2. Status post packed RBCs transfusion. Hemoglobin today is 7.2 g/dL. EGD showed superficial duodenal ulcer with gastritis. Currently maintained on Carafate and Protonix. Objective - Vital Signs Vital signs: Vital Signs Temp 98.4 F 11/29/24 04:00 Pulse 92 11/29/24 11:00 Resp 14 11/29/24 11:00 BP 113/42 11/29/24 11:00 Pulse Ox 100 11/29/24 11:00 FiO2 40 11/29/24 00:04 Intake & Output 11/28/24 11/29/24 11/29/24 18:59 06:59 18:59 Intake Total 1190 770 210 Output Total 385 390 95 Balance 805 380 115 Weight 102.5 kg Intake: Intake, IV Titration 1190 770 210 Amount Dextrose 5%-0.9% NaCl 1, 600 000 ml @ 100 mls/hr IV . Q10H [facility] Rx#:[id number] Levofloxacin 500Mg-D5w 100 Pmx 500 mg In Dextrose/ Water 1 100ml.bag @ 100 mls/hr IVPB DAILY [facility] Rx# :[id number] Sodium Chloride 0.45% 1, 490 770 210 000 ml @ 70 mls/hr IV . [id number] [facility] Rx#:[id number] Output: Urine 385 390 95 Other: Voiding Method Indwelling Catheter Indwelling Catheter - Exam Patient is awake, comfortable, no acute distress Examination of the heart S1 and S2 Examination of the lungs bilateral breath sounds are heard Abdomen is soft obese nontender Examination of lower extremity shows no significant edema - Labs CBC & Chem 7: 11/29/24 05:17 11/29/24 05:17 Labs: Abnormal Lab Results - Last 24 Hours (Table) 11/27/24 11/27/24 11/27/24 Range/Units 15:21 18:46 20:13 RBC (3.80-5.40) m/uL Hgb (11.4-16.0) gm/dL Hct (34.0-46.0) % MCHC (31.0-37.0) g/dL RDW (11.5-15.5) % Plt Count (150-450) k/uL Lymphocytes # (1.0-4.8) k/uL Chloride (98-107) mmol/L BUN (7-17) mg/dL Glucose (74-99) mg/dL POC Glucose (mg/dL) 130 H 129 H 122 H (70-110) mg/dL 11/28/24 11/28/24 11/28/24 Range/Units 05:58 10:55 16:02 RBC (3.80-5.40) m/uL Hgb (11.4-16.0) gm/dL Hct (34.0-46.0) % MCHC (31.0-37.0) g/dL RDW (11.5-15.5) % Plt Count (150-450) k/uL Lymphocytes # (1.0-4.8) k/uL Chloride (98-107) mmol/L BUN (7-17) mg/dL Glucose (74-99) mg/dL POC Glucose (mg/dL) 130 H 136 H 117 H (70-110) mg/dL 11/29/24 11/29/24 Range/Units 05:17 05:17 RBC 2.52 L (3.80-5.40) m/uL Hgb 7.2 L (11.4-16.0) gm/dL Hct 23.5 L (34.0-46.0) % MCHC 30.6 L (31.0-37.0) g/dL RDW 16.9 H (11.5-15.5) % Plt Count 119 L (150-450) k/uL Lymphocytes # 0.7 L (1.0-4.8) k/uL Chloride 114 H (98-107) mmol/L BUN 21 H (7-17) mg/dL Glucose 100 H (74-99) mg/dL POC Glucose (mg/dL) (70-110) mg/dL Microbiology - Last 24 Hours (Table) 11/22/24 21:52 Blood Culture - Final Blood Assessment and Plan Assessment: 1. Acute kidney injury, ATN from hypotension as well as secondary to hypercalcemia. Component of urine retention noted as well as bladder scan showed about 600 mL of urine. Status post Hart catheter placement. UA shows 1+ protein small blood WBC is 43. 2. Mental status changes most likely metabolic encephalopathy 3. UTI with urine culture growing gram-negative bacilli 4. Anemia rule out iron deficiency 5. Hypercalcemia secondary to calcium supplements. Patient was also maintained on hydrochlorothiazide. Improving with IV hydration. Calcium supplements discontinued. 6. GI bleed status post EGD which showed superficial duodenal ulcer and gastritis. Currently maintained on Protonix and Carafate. Hemoglobin is stable 7. Hypokalemia associated with decreased intake as well as GI fluid loss status post replacement Plan: DC IV fluids Repeat labs in a.m.
[2024-11-29] MEDS: FERROUS SULFATE 325 MG TAB PO SCH (11:40)
[2024-11-29 11:45] LABS: Glucose,Whole Blood 100 mg/dL (70-110)
--- NOTE | 2024-11-29 12:16 | P.PN ---
Subjective Progress Note Date: 11/29/24 Principal diagnosis: Acute upper GI bleed secondary to duodenal ulcers This is a 79-year-old female admitted to [facility] back on 11/22/2024, initial presentation was mostly related to altered mental status. Apparently the patient was noted to be hypoxic, on her initial presentation to the ER, and upon her initial evaluation by EMS. Neurology was consulted and felt that the patient had altered mental status secondary to hypoxia and/or renal failure. Patient was seen by nephrology for her renal failure,, felt that the patient had acute kidney injury ATN from hypotension as well as secondary to to hypercalcemia with component of urinary retention and the patient had pyuria with iron deficiency anemia. Her hypercalcemia was felt to be related to calc ium supplements. And the patient was on hydrochlorothiazide. On 11/27, patient was seen by surgery on consultation for drop in her hemoglobin from 8.6 on her initial presentation down to 6.2. Hence the patient was transferred to the ICU and I was asked to see her in consultation yesterday, but she was having endoscopy. EGD done yesterday showed superficial duodenal ulcer gastritis, small hiatal hernia, but there was no active bleeding, and Dr. Turner felt that the source of the bleeding is most likely from the 2 small duodenal ulcers and he recommended mostly PPI and Carafate. Patient did not require any intervention. Since admission the patient received a total of 2 units of packed RBCs, hemoglobin today is 7.6. Her electrolytes are relatively normal BUN is 28 creatinine 1.15 WBC count is 4.7. Platelets are 151,000. Yesterday the patient had black stools noted, but no bright red blood per rectum and no hematemesis. Considering the patient was admitted to the ICU, I was asked to see her on consultation, and I plan to monitor the patient for the next 24 hours, if she continues to do well we will transfer the patient out of the ICU to medical surgical floor in the next 24 hours. Patient denies any shortness of breath denies any cough no wheezing, no chest pain, no nausea no vomiting no abdominal pain. Patient was seen today on 11/29/2024, patient is doing well, hemodynamically stable, hemoglobin is holding, no active GI bleeding, she is not requiring any pressors, not requiring any further blood transfusions, she is now on 2 L nasal cannula, intermittently on BiPAP 12/6/35%, hemoglobin today is 7.2, patient received a total of 2 units of packed RBCs since admission. Her IV fluids at 70 cc/h, patient remains on Levaquin, and my plan today is to transfer the patient out of the ICU to a monitored bed and selective. Labs were reviewed including electrolytes and CBC. Objective - Vital Signs Vital signs: Vital Signs Temp 98.4 F 11/29/24 04:00 Pulse 92 11/29/24 11:00 Resp 14 11/29/24 11:00 BP 113/42 11/29/24 11:00 Pulse Ox 100 11/29/24 11:00 FiO2 40 11/29/24 00:04 Intake & Output 11/28/24 11/29/24 11/29/24 18:59 06:59 18:59 Intake Total 1190 770 350 Output Total 385 390 175 Balance 805 380 175 Weight 102.5 kg Intake: Intake, IV Titration 1190 770 350 Amount Dextrose 5%-0.9% NaCl 1, 600 000 ml @ 100 mls/hr IV . Q10H [facility] Rx#:[id number] Levofloxacin 500Mg-D5w 100 Pmx 500 mg In Dextrose/ Water 1 100ml.bag @ 100 mls/hr IVPB DAILY [facility] Rx# :[id number] Sodium Chloride 0.45% 1, 490 770 350 000 ml @ 70 mls/hr IV . [id number] [facility] Rx#:[id number] Output: Urine 385 390 175 Other: Voiding Method Indwelling Catheter Indwelling Catheter # Bowel Movements 1 - Exam General : Revealed 79-year-old female on 2 L nasal cannula, not in distress HEENT: Normocephalic atraumatic, extra-ocular movements intact, pupils equal and reactive to light bilaterally, mucous membranes moist. Cardiovascular: Normal S1-S2, no S3 gallop, no murmur Chest: Diminished breath sounds at the bases no crackles rhonchi or wheezes Abdomen: abdomen soft, non-tender, non-distended, no organomegaly Musculoskeletal: No deformities and no limitation range of motion a Motor: no focal deficits noted Neurological: CN II-XII grossly intact, no focal motor or sensory deficits noted Skin: No rashes Psych: Normal mood, affect and no mental status examination - Labs CBC & Chem 7: 11/29/24 05:17 11/29/24 05:17 Labs: Abnormal Lab Results - Last 24 Hours (Table) 11/27/24 11/27/24 11/27/24 Range/Units 15:21 18:46 20:13 RBC (3.80-5.40) m/uL Hgb (11.4-16.0) gm/dL Hct (34.0-46.0) % MCHC (31.0-37.0) g/dL RDW (11.5-15.5) % Plt Count (150-450) k/uL Lymphocytes # (1.0-4.8) k/uL Chloride (98-107) mmol/L BUN (7-17) mg/dL Glucose (74-99) mg/dL POC Glucose (mg/dL) 130 H 129 H 122 H (70-110) mg/dL 11/28/24 11/28/24 11/28/24 Range/Units 05:58 10:55 16:02 RBC (3.80-5.40) m/uL Hgb (11.4-16.0) gm/dL Hct (34.0-46.0) % MCHC (31.0-37.0) g/dL RDW (11.5-15.5) % Plt Count (150-450) k/uL Lymphocytes # (1.0-4.8) k/uL Chloride (98-107) mmol/L BUN (7-17) mg/dL Glucose (74-99) mg/dL POC Glucose (mg/dL) 130 H 136 H 117 H (70-110) mg/dL 11/29/24 11/29/24 Range/Units 05:17 05:17 RBC 2.52 L (3.80-5.40) m/uL Hgb 7.2 L (11.4-16.0) gm/dL Hct 23.5 L (34.0-46.0) % MCHC 30.6 L (31.0-37.0) g/dL RDW 16.9 H (11.5-15.5) % Plt Count 119 L (150-450) k/uL Lymphocytes # 0.7 L (1.0-4.8) k/uL Chloride 114 H (98-107) mmol/L BUN 21 H (7-17) mg/dL Glucose 100 H (74-99) mg/dL POC Glucose (mg/dL) (70-110) mg/dL Microbiology - Last 24 Hours (Table) 11/22/24 21:52 Blood Culture - Final Blood Assessment and Plan Assessment: Impression: Iron deficiency anemia secondary to duodenal ulcer and upper GI bleeding, likely acute on chronic. Acute hypoxic respiratory failure, exact etiology is not clear, apparently when the patient was brought in by EMS she was noted to have low O2 saturation, but no clear-cut etiology for her hypoxia except for possibly atelectasis and obesity/hypoventilation syndrome. With some component of anemia causing hypoxia. Acute kidney injury, likely secondary to hypotension on her initial presentation. Type 2 diabetes Benign essential hypertension History of obstructive sleep apnea syndrome, patient has been on CPAP/BiPAP. Acute on chronic iron deficiency anemia History of renal cell carcinoma and previous nephrectomy Dyslipidemia Recommendation: Patient could be transferred out of the ICU to a monitored bed and selective Continue present supportive care measures Continue Carafate and PPI for her upper GI bleeding/duodenal ulcers Transfuse for hemoglobin below 7 Continue BiPAP as needed patient is known to have history of obstructive sleep apnea syndrome with obesity/hypoventilation syndrome Continue to avoid nonsteroidal anti-inflammatory drugs Will continue to follow Time with Patient: Less than 30
[2024-11-29 16:58] LABS: Glucose,Whole Blood 107 mg/dL (70-110)
[2024-11-29 20:26] LABS: Glucose,Whole Blood 111 mg/dL (70-110)
[2024-11-30 06:38] LABS: Anisocytosis Slight; Basophils % (A) 0 %; Eosinophils # (A) 0.2 k/uL (0-0.7); Eosinophils % (A) 4 %; HCT 24.2 % (34.0-46.0); HGB 7.3 gm/dL (11.4-16.0); Hypochromasia Marked; Lymphocytes # (A) 0.7 k/uL (1.0-4.8); Lymphocytes % (A) 17 %; MCH 28.5 pg (25.0-35.0); MCHC 30.2 g/dL (31.0-37.0); MCV 94.4 fL (80.0-100.0); Mean Platelet Volume 8.9; Monocytes # (A) 0.3 k/uL (0-1.0); Monocytes % (A) 6 %; Neutrophils % (A) 72 %; Platelet Count 136 k/uL (150-450); Poikilocytosis Slight; RBC 2.56 m/uL (3.80-5.40); RDW 16.9 % (11.5-15.5); WBC 4.2 k/uL (3.8-10.6)
[2024-11-30 06:39] LABS: Glucose,Whole Blood 105 mg/dL (70-110)
[2024-11-30 06:55] LABS: African American GFR (CKD) 61 (>60 ml/min/1.73 sqM); Anion Gap 5 mmol/L; Blood Urea Nitrogen 18 mg/dL (7-17); Calcium 8.1 mg/dL (8.4-10.2); Carbon Dioxide 26 mmol/L (22-30); Chloride 109 mmol/L (98-107); Glucose 110 mg/dL (74-99); Non-African American GFR(CKD) 53 (>60 ml/min/1.73 sqM); Potassium 3.8 mmol/L (3.5-5.1); Sodium 140 mmol/L (137-145)
--- NOTE | 2024-11-30 08:18 | P.PN ---
Subjective Progress Note Date: 11/30/24 This is a 79-year-old female who was brought into the emergency department via EMS for altered mental status. Patient reportedly has been very confused and unarousable at home with an oxygen saturation of 87%. Patient has had recent admissions for a left nephrectomy for a history of renal carcinoma, and more recent hospital stay found a possible pulmonary nodule which is being worked up as an outpatient. Patient seen this morning laying in bed. She is very confused and pulling at her oxygen tubing. She is unable to answer questions, has garbled speech. Neurology has seen and evaluated patient. Nephrology is on consult, creatinine on admission was 4.65. On prior admission creatinine was 0.9. 11/24/2024 Patient seen and evaluated laying in bed this morning with fire safety director at bedside. Patient continues to be confused and has garbled speech. She does respond to her name, but her answers to questions do not fully make sense. Patient seen and evaluated by nephrology yesterday who ordered an ultrasound of her kidneys which was normal. Blood work for today is not back yet at time of dictation. Sitter at bedside states patient has not slept since she has been admitted. 11/26/2024 Patient seen and evaluated laying in bed this morning with fire safety director at bedside. Patient still only alerted to herself. She continues to have garbled speech, and today seems to have worsened processing time of information. She was able to follow a simple command of raising her left leg when asked. Staff reports patient is not wanting to eat, drink, or do any oral care. Creatinine down to 1.9 yesterday, labs for today not back at time of dictation. 11/30/2024 Patient seen this morning resting comfortably in bed. On Saturday patient's hemoglobin dropped to 6.2, she underwent an EGD which showed a superficial duodenal ulcer and gastritis. She received 2 units of packed red blood cells and hemoglobin has been stable since. Hemoglobin today is 7.3. Her Protonix was increased and she was started on Carafate. Patient's mentation has improved through the weekend. She is alert and oriented but unable to remember what happened the previous week. Her kidney function has also improved. Objective - Vital Signs Vital signs: Vital Signs Temp 97.7 F 11/30/24 04:00 Pulse 73 11/30/24 07:00 Resp 20 11/30/24 07:00 BP 109/66 11/30/24 07:00 Pulse Ox 82 L 11/30/24 07:00 FiO2 35 11/30/24 04:00 Intake & Output 11/29/24 11/30/24 11/30/24 18:59 06:59 18:59 Intake Total 350 Output Total 255 395 Balance 95 -395 Weight 101 kg Intake: Intake, IV Titration 350 Amount Sodium Chloride 0.45% 1, 350 000 ml @ 70 mls/hr IV . [id number] [facility] Rx#:[id number] Output: Urine 255 395 Other: Voiding Method Indwelling Catheter Indwelling Catheter # Bowel Movements 1 - Constitutional General appearance: Present: cooperative, no acute distress - EENT Eyes: Present: PERRLA - Neck Neck: Present: normal ROM. Absent: lymphadenopathy, rigidity - Respiratory Respiratory: bilateral: diminished - Cardiovascular Heart sounds: normal: S1, S2 - Gastrointestinal General gastrointestinal: Present: soft. Absent: tenderness - Integumentary Integumentary: Present: normal, normal turgor - Musculoskeletal Musculoskeletal: Present: generalized weakness - Psychiatric Psychiatric: Present: A&O x's 3 - Labs CBC & Chem 7: 11/30/24 05:34 11/30/24 05:34 Labs: Abnormal Lab Results - Last 24 Hours (Table) 11/29/24 11/30/24 11/30/24 Range/Units 20:25 05:34 05:34 RBC 2.56 L (3.80-5.40) m/uL Hgb 7.3 L (11.4-16.0) gm/dL Hct 24.2 L (34.0-46.0) % MCHC 30.2 L (31.0-37.0) g/dL RDW 16.9 H (11.5-15.5) % Plt Count 136 L (150-450) k/uL Lymphocytes # 0.7 L (1.0-4.8) k/uL Chloride 109 H (98-107) mmol/L BUN 18 H (7-17) mg/dL Glucose 110 H (74-99) mg/dL POC Glucose (mg/dL) 111 H (70-110) mg/dL Calcium 8.1 L (8.4-10.2) mg/dL Assessment and Plan (1) AMS (altered mental status) Current Visit: Yes Status: Acute Code(s): R41.82 - ALTERED MENTAL STATUS, UNSPECIFIED SNOMED Code(s): 753042042 (2) Diabetes Current Visit: No Status: Acute Code(s): E11.9 - TYPE 2 DIABETES MELLITUS WITHOUT COMPLICATIONS SNOMED Code(s): 18153748 (3) History of left nephrectomy Current Visit: No Status: Acute Priority: Medium Code(s): Z90.5 - ACQUIRED ABSENCE OF KIDNEY SNOMED Code(s): 77692830067280 (4) Hyperlipemia Current Visit: No Status: Acute Code(s): E78.5 - HYPERLIPIDEMIA, UNSPECIFIED SNOMED Code(s): 93340092 (5) Hypertension Current Visit: No Status: Acute Code(s): I10 - ESSENTIAL (PRIMARY) HYPERTENSION SNOMED Code(s): 46502594 (6) Renal cell carcinoma Current Visit: No Status: Acute Priority: High Code(s): C64.9 - MALIGNANT NEOPLASM OF UNSP KIDNEY, EXCEPT RENAL PELVIS SNOMED Code(s): 693295803 (7) NANCY (acute kidney injury) Current Visit: Yes Status: Acute Code(s): N17.9 - ACUTE KIDNEY FAILURE, UNSPECIFIED SNOMED Code(s): 55544188 (8) Hypoxia Current Visit: Yes Status: Acute Code(s): R09.02 - HYPOXEMIA SNOMED Code(s): 157601662 (9) Duodenal ulcer Current Visit: Yes Status: Acute Code(s): K26.9 - DUODENAL ULCER, UNSP ACUTE OR CHRONIC, W/O HEMOR OR PERF SNOMED Code(s): 16309148 (10) Anemia Current Visit: No Status: Acute Priority: High Code(s): D64.9 - ANEMIA, UNSPECIFIED SNOMED Code(s): 906318777 (11) Weakness Current Visit: No Status: Acute Code(s): R53.1 - WEAKNESS SNOMED Code(s): 96292394 Plan: Check CBC and CMP in the morning. Appreciate multiple consultants and their recommendations. Patient seen and evaluated by nurse practitioner, physician in agreement with plan.
--- NOTE | 2024-11-30 09:48 | P.PN ---
Subjective Patient is seen in follow-up for acute kidney injury. Renal function improved. Off IV fluids. Has Hart catheter for retention. On full liquid diet. Vital signs are stable. General: No acute distress. HEENT: Head exam is unremarkable. On nasal cannula. LUNGS: No audible rhonchi or wheezes. HEART: Rate and Rhythm are regular. ABDOMEN: Nontender. EXTREMITITES: Trace edema. Objective - Vital Signs Vital signs: Vital Signs Temp 97.7 F 11/30/24 04:00 Pulse 73 11/30/24 07:00 Resp 20 11/30/24 07:00 BP 109/66 11/30/24 07:00 Pulse Ox 82 L 11/30/24 07:00 FiO2 35 11/30/24 04:00 Intake & Output 11/29/24 11/30/24 11/30/24 18:59 06:59 18:59 Intake Total 350 Output Total 255 395 Balance 95 -395 Weight 101 kg Intake: Intake, IV Titration 350 Amount Sodium Chloride 0.45% 1, 350 000 ml @ 70 mls/hr IV . [id number] [facility] Rx#:[id number] Output: Urine 255 395 Other: Voiding Method Indwelling Catheter Indwelling Catheter # Bowel Movements 1 - Labs CBC & Chem 7: 11/30/24 05:34 11/30/24 05:34 Labs: Abnormal Lab Results - Last 24 Hours (Table) 11/29/24 11/30/24 11/30/24 Range/Units 20:25 05:34 05:34 RBC 2.56 L (3.80-5.40) m/uL Hgb 7.3 L (11.4-16.0) gm/dL Hct 24.2 L (34.0-46.0) % MCHC 30.2 L (31.0-37.0) g/dL RDW 16.9 H (11.5-15.5) % Plt Count 136 L (150-450) k/uL Lymphocytes # 0.7 L (1.0-4.8) k/uL Chloride 109 H (98-107) mmol/L BUN 18 H (7-17) mg/dL Glucose 110 H (74-99) mg/dL POC Glucose (mg/dL) 111 H (70-110) mg/dL Calcium 8.1 L (8.4-10.2) mg/dL Assessment and Plan Plan: Assessment: 1. Acute kidney injury secondary to ATN secondary to hypotension and hypercalcemia. Also component of urinary retention. Creatinine 4.65 on admission and is 1.03 today. 2. Chronic kidney disease stage IIIa secondary to solitary right kidney. No hydronephrosis noted on kidney ultrasound this admission. 3. UTI on antibiotics. Urine culture positive for Acinetobacter. 4. Hypercalcemia secondary to hypovolemia and calcium supplementation. Was also on thiazide diuretic. Resolved. 5. GI bleed status post blood transfusions this admission. Status post EGD which showed superficial duodenal ulcer and gastritis. 6. Hypokalemia from poor intake and GI fluid loss. Replaced. Improved. Plan: Encouraged oral intake. Diet to be advanced per GI recs. Avoid nephrotoxins. Continue to monitor renal function and urine output.
[2024-11-30 11:10] LABS: Glucose,Whole Blood 124 mg/dL (70-110)
--- NOTE | 2024-11-30 12:12 | P.PN ---
Subjective Progress Note Date: 11/30/24 Principal diagnosis: GI bleed. Acute upper GI bleed secondary to duodenal ulcers This is a 79-year-old female admitted to [facility] back on 11/22/2024, initial presentation was mostly related to altered mental status. Apparently the patient was noted to be hypoxic, on her initial presentation to the ER, and upon her initial evaluation by EMS. Neurology was consulted and felt that the patient had altered mental status secondary to hypoxia and/or renal failure. Patient was seen by nephrology for her renal failure,, felt that the patient had acute kidney injury ATN from hypotension as well as secondary to to hypercalcemia with component of urinary retention and the patient had pyuria with iron deficiency anemia. Her hypercalcemia was felt to be related to calcium supplements. And the patient was on hydrochlorothiazide. On 11/27, patient was seen by surgery on consultation for drop in her hemoglobin from 8.6 on her initial presentation down to 6.2. Hence the patient was transferred to the ICU and I was asked to see her in consultation yesterday, but she was having endoscopy. EGD done yesterday showed superficial duodenal ulcer gastritis, s mall hiatal hernia, but there was no active bleeding, and Dr. Turner felt that the source of the bleeding is most likely from the 2 small duodenal ulcers and he recommended mostly PPI and Carafate. Patient did not require any intervention. Since admission the patient received a total of 2 units of packed RBCs, hemoglobin today is 7.6. Her electrolytes are relatively normal BUN is 28 creatinine 1.15 WBC count is 4.7. Platelets are 151,000. Yesterday the patient had black stools noted, but no bright red blood per rectum and no hematemesis. Considering the patient was admitted to the ICU, I was asked to see her on consultation, and I plan to monitor the patient for the next 24 hours, if she continues to do well we will transfer the patient out of the ICU to medical surgical floor in the next 24 hours. Patient denies any shortness of breath denies any cough no wheezing, no chest pain, no nausea no vomiting no abdominal pain. Patient was seen today on 11/29/2024, patient is doing well, hemodynamically stable, hemoglobin is holding, no active GI bleeding, she is not requiring any pressors, not requiring any further blood transfusions, she is now on 2 L nasal cannula, intermittently on BiPAP 08/14/35%, hemoglobin today is 7.2, patient received a total of 2 units of packed RBCs since admission. Her IV fluids at 70 cc/h, patient remains on Levaquin, and my plan today is to transfer the patient out of the ICU to a monitored bed and selective. Labs were reviewed including electrolytes and CBC. Progress note dated November 30, 2024. This is a 79-year-old female admitted back on November 22 with mental status changes. The patient came to the intensive care unit, on November 27, with a GI bleed. Since that time, she has received a total of 2 units of packed red blood cells. She had an EGD which revealed a nonbleeding duodenal ulcer. No interventions were undertaken. She is seen today in room 256. She is resting comfortably in bed. She is on 2 L of oxygen. No fluids. The patient is an overflow patient, to 3 S. unit. Current labs include a white count 4.2, hemoglobin 7.3, hematocrit 24.2, and a platelet count of 136,000. Sodium 140, potassium 3.8, chlorides 109, CO2 26, BUN 18, and creatinine 1.03. Glucose 124. Calcium 8.1. Urine from November 23 with positive for Acinetobacter. No chest x- ray today. Objective - Vital Signs Vital signs: Vital Signs Temp 98.0 F 11/30/24 08:00 Pulse 75 11/30/24 10:00 Resp 16 11/30/24 10:00 BP 124/52 11/30/24 10:00 Pulse Ox 96 11/30/24 10:00 FiO2 35 11/30/24 04:00 Intake & Output 11/29/24 11/30/24 11/30/24 18:59 06:59 18:59 Intake Total 350 Output Total 255 395 Balance 95 -395 Weight 101 kg Intake: Intake, IV Titration 350 Amount Sodium Chloride 0.45% 1, 350 000 ml @ 70 mls/hr IV . [id number] [facility] Rx#:[id number] Output: Urine 255 395 Other: Voiding Method Indwelling Catheter Indwelling Catheter # Bowel Movements 1 - Exam No acute distress, oriented 3. No respiratory distress. Currently on 2 L of oxygen. HEENT examination is grossly unremarkable. Mucous membranes are moist. No oral lesions. Neck supple. Full range of motion. No adenopathy thyromegaly or neck vein distention. Cardiovascular examination reveals regular rhythm rate. S1-S2 normal. No S3 or S4. No discernible murmur noted. Lungs reveal clear breath sounds. Breath sounds are equal bilaterally. No adventitious lung sounds including wheezes rhonchi or crackles. Abdomen soft bowel sounds are heard. No masses or tenderness. Extremities are intact. No cyanosis clubbing or edema. Skin is without rash or lesion. Neurologic examination is brief but nonfocal. - Labs CBC & Chem 7: 11/30/24 05:34 11/30/24 05:34 Labs: Abnormal Lab Results - Last 24 Hours (Table) 11/29/24 11/30/24 11/30/24 Range/Units 20:25 05:34 05:34 RBC 2.56 L (3.80-5.40) m/uL Hgb 7.3 L (11.4-16.0) gm/dL Hct 24.2 L (34.0-46.0) % MCHC 30.2 L (31.0-37.0) g/dL RDW 16.9 H (11.5-15.5) % Plt Count 136 L (150-450) k/uL Lymphocytes # 0.7 L (1.0-4.8) k/uL Chloride 109 H (98-107) mmol/L BUN 18 H (7-17) mg/dL Glucose 110 H (74-99) mg/dL POC Glucose (mg/dL) 111 H (70-110) mg/dL Calcium 8.1 L (8.4-10.2) mg/dL 11/30/24 Range/Units 11:09 RBC (3.80-5.40) m/uL Hgb (11.4-16.0) gm/dL Hct (34.0-46.0) % MCHC (31.0-37.0) g/dL RDW (11.5-15.5) % Plt Count (150-450) k/uL Lymphocytes # (1.0-4.8) k/uL Chloride (98-107) mmol/L BUN (7-17) mg/dL Glucose (74-99) mg/dL POC Glucose (mg/dL) 124 H (70-110) mg/dL Calcium (8.4-10.2) mg/dL Assessment and Plan Assessment: Iron deficiency anemia, secondary to duodenal ulcer and upper GI bleeding, acute on chronic. Acute hypoxemic respiratory failure, recovered. Acute kidney injury, secondary to hypotension. Type 2 diabetes mellitus. Benign essential hypertension. History of obstructive sleep apnea syndrome, currently on CPAP. Acute on chronic iron deficiency anemia. History of renal cell carcinoma with previous nephrectomy. Hyperlipidemia. Plan: Plan dated November 30, 2024. The patient is seen today in room 256. She was admitted back on November 22. She came to the intensive care unit on November 27, with an acute GI bleed. The patient initially was admitted with mental status changes. An EGD was performed, there was a duodenal ulcer, which was not actively bleeding. There was no interventions. Today she is not receiving any IV fluids. The patient is on 2 L of oxygen by nasal cannula. Since being here in the hospital she has received a total of 2 units of packed red blood cells. Labs, x-rays, and all medications are reviewed. The patient's overall prognosis remains guarded. We will continue to follow. Dictation was produced using TESAR[employer] dictation software. Please excuse any grammatical, word or spelling errors. Time with Patient: Less than 30
--- NOTE | 2024-11-30 12:33 | P.PN ---
Subjective Progress Note Date: 11/30/24 SURGICAL PROGRESS NOTE CHIEF COMPLAINT: GI bleed HISTORY OF PRESENT ILLNESS: Patient is lying in bed comfortably. She is a 3 S. overflow. Per nursing staff she had a black smear of a bowel movement yest erday. Since then no further bleeding. Denies any abdominal pain. Tolerating diet. Vital stable. Hemoglobin stable at 7.3 patient is on iron supplement. PHYSICAL EXAM: VITAL SIGNS: Reviewed. GENERAL: Well-developed in no acute distress. ABDOMEN: Soft. Nondistended. Nontender. NEUROLOGIC: Awake and alert ASSESSMENT: 1. GI bleed likely due to duodenal ulcer 2. Gastritis 3. Small hiatal hernia PLAN: -No active bleeding currently. Hemoglobin stable. -Continue Protonix and Carafate -Continue to monitor for any signs or symptoms of bleeding -Continue to monitor hemoglobin Physician Manager Installation note has been reviewed by physician. Signing provider agrees with the documented findings, assessment, and plan of care. I have personally seen and examined the patient, reviewed the RENAL TECHNICIAN /PAs history, exam and MDM and agree with the assessment and plan as written. Based on total visit time, I have performed more than 50% of the visit. As above: Patient denies abdominal pain. Appetite still somewhat diminished. No active bleeding. Hemoglobin stable. Will sign off. Please reconsult if needed. Objective - Vital Signs Vital signs: Vital Signs Temp 98.0 F 11/30/24 08:00 Pulse 75 11/30/24 10:00 Resp 16 11/30/24 10:00 BP 124/52 11/30/24 10:00 Pulse Ox 96 11/30/24 10:00 FiO2 35 11/30/24 04:00 Intake & Output 11/29/24 11/30/24 11/30/24 18:59 06:59 18:59 Intake Total 350 Output Total 255 395 Balance 95 -395 Weight 101 kg Intake: Intake, IV Titration 350 Amount Sodium Chloride 0.45% 1, 350 000 ml @ 70 mls/hr IV . [id number] [facility] Rx#:[id number] Output: Urine 255 395 Other: Voiding Method Indwelling Catheter Indwelling Catheter # Bowel Movements 1 - Labs CBC & Chem 7: 11/30/24 05:34 11/30/24 05:34 Labs: Abnormal Lab Results - Last 24 Hours (Table) 11/29/24 11/30/24 11/30/24 Range/Units 20:25 05:34 05:34 RBC 2.56 L (3.80-5.40) m/uL Hgb 7.3 L (11.4-16.0) gm/dL Hct 24.2 L (34.0-46.0) % MCHC 30.2 L (31.0-37.0) g/dL RDW 16.9 H (11.5-15.5) % Plt Count 136 L (150-450) k/uL Lymphocytes # 0.7 L (1.0-4.8) k/uL Chloride 109 H (98-107) mmol/L BUN 18 H (7-17) mg/dL Glucose 110 H (74-99) mg/dL POC Glucose (mg/dL) 111 H (70-110) mg/dL Calcium 8.1 L (8.4-10.2) mg/dL 11/30/24 Range/Units 11:09 RBC (3.80-5.40) m/uL Hgb (11.4-16.0) gm/dL Hct (34.0-46.0) % MCHC (31.0-37.0) g/dL RDW (11.5-15.5) % Plt Count (150-450) k/uL Lymphocytes # (1.0-4.8) k/uL Chloride (98-107) mmol/L BUN (7-17) mg/dL Glucose (74-99) mg/dL POC Glucose (mg/dL) 124 H (70-110) mg/dL Calcium (8.4-10.2) mg/dL
[2024-11-30 16:52] LABS: Glucose,Whole Blood 106 mg/dL (70-110)
[2024-11-30 19:53] LABS: Glucose,Whole Blood 123 mg/dL (70-110)
[2024-12-01 05:58] LABS: Anisocytosis Slight; HCT 25.5 % (34.0-46.0); HGB 7.8 gm/dL (11.4-16.0); Hypochromasia Marked; MCH 28.8 pg (25.0-35.0); MCHC 30.7 g/dL (31.0-37.0); MCV 93.6 fL (80.0-100.0); Mean Platelet Volume 8.3; Platelet Count 129 k/uL (150-450); RBC 2.72 m/uL (3.80-5.40); RDW 16.4 % (11.5-15.5); WBC 5.4 k/uL (3.8-10.6)
[2024-12-01 06:12] LABS: ALT 11 U/L (4-34); AST 24 U/L (14-36); African American GFR (CKD) 70 (>60 ml/min/1.73 sqM); Albumin 2.3 g/dL (3.5-5.0); Alkaline Phosphatase 204 U/L (38-126); Anion Gap 7 mmol/L; Blood Urea Nitrogen 16 mg/dL (7-17); Calcium 8.3 mg/dL (8.4-10.2); Carbon Dioxide 25 mmol/L (22-30); Chloride 107 mmol/L (98-107); Glucose 111 mg/dL (74-99); Non-African American GFR(CKD) 61 (>60 ml/min/1.73 sqM); Potassium 3.8 mmol/L (3.5-5.1); Sodium 139 mmol/L (137-145); Total Bilirubin 0.4 mg/dL (0.2-1.3)
[2024-12-01 06:24] LABS: Glucose,Whole Blood 101 mg/dL (70-110)
--- NOTE | 2024-12-01 08:34 | P.DS ---
Providers Date of admission: 11/22/24 13:38 Attending physician: Gelacio Iverson Consults: 11/22/24 21:32 Consult Physician Routine Consulting Provider: Chaparrita Alejandro Consult Reason/Comments: arf Do you want consulting provider notified?: Yes 11/26/24 08:28 Consult Physician Routine Consulting Provider: Aliyah Snyder Consult Reason/Comments: Gibberish speech, worsening mentation Do you want consulting provider notified?: Yes 11/27/24 17:04 Consult Physician Routine Consulting Provider: Gilberto Galloway Consult Reason/Comments: ICU Management Do you want consulting provider notified?: Already Contacted Primary care physician: Gelacio Iverson - Discharge Diagnosis(es) (1) AMS (altered mental status) Current Visit: Yes Status: Acute (2) Diabetes Current Visit: No Status: Acute (3) History of left nephrectomy Current Visit: No Status: Acute Priority: Medium (4) Hyperlipemia Current Visit: No Status: Acute (5) Hypertension Current Visit: No Status: Acute (6) Renal cell carcinoma Current Visit: No Status: Acute Priority: High (7) NANCY (acute kidney injury) Current Visit: Yes Status: Acute (8) Hypoxia Current Visit: Yes Status: Acute (9) Duodenal ulcer Current Visit: Yes Status: Acute (10) Anemia Current Visit: No Status: Acute Priority: High (11) Weakness Current Visit: No Status: Acute Hospital Course: This is a 79-year-old female who was originally brought into the emergency department via EMS for altered mental status. Patient had a low oxygen saturation at home and was reportedly very confused. Patient has had recent admissions for a left nephrectomy for a history of renal carcinoma, and more recently a hospital stay for a possible lung pulmonary lung nodule which is being worked up as an outpatient. Patient's creatinine elevated on admission at 4.65. Creatinine has improved and has normalized. Patient developed black stools during admission and her hemoglobin dropped to 6.2. Patient underwent an EGD with Dr. Silva which showed a superficial duodenal ulcer and gastritis. She received 2 units of packed red blood cells during this admission. Hemoglobin has been stable since EGD, today is 7.8. Patient has been maintained on Protonix and Carafate. Physical therapy is recommending rehab for patient. Her mentation is back to normal and she is alert and oriented x3. If placement is made possible today and she is cleared by consultants, she may be discharged to subacute rehab. Will hold patient's blood pressure medication on discharge as her blood pressure has been normal during this admission. Will reevaluate need for blood pressure medication follow-up appointments. Patient seen and evaluated by nurse practitioner, physician in agreement with plan. Patient Condition at Discharge: Fair Plan - Discharge Summary Discharge Rx Participant: No New Discharge Prescriptions: New Sucralfate [Carafate] 1 gm PO AC-TID tab Ferrous Sulfate [Iron (65 MG Elemental)] 325 mg PO BID-W/MEALS tab Pantoprazole [Protonix] 40 mg PO BID 30 Days #60 tab Continue Simvastatin [Zocor] 40 mg PO HS Pioglitazone HCl/Metformin HCl [Pioglitazone-Metformin ] 1 tab PO BID Aspirin 81 mg PO DAILY DULoxetine HCL [Cymbalta] 60 mg PO DAILY Melatonin 3 mg PO HS PRN tab PRN Reason: Insomnia Ondansetron [Zofran] 8 mg PO BID Changed HYDROcodone/APAP 5-325MG [[place] 5-325] 1 tab PO Q6HR PRN 3 Days #18 tab PRN Reason: Pain Discontinued Valsartan/Hydrochlorothiazide [Diovan Hct 320-25 mg Tablet] 1 tab PO HS Calcium Carbonate/Vitamin D3 [Caltrate 600 Plus D3 Tablet] 2 tab PO DAILY Ferrous Sulfate [Iron (65 MG Elemental)] 1 tab PO DAILY Discharge Medication List Pioglitazone HCl/Metformin HCl [Pioglitazone-Metformin ] 1 tab PO BID 09/17/14 [History] Simvastatin [Zocor] 40 mg PO HS 09/17/14 [History] Aspirin 81 mg PO DAILY 03/06/17 [History] DULoxetine HCL [Cymbalta] 60 mg PO DAILY 10/05/24 [History] Melatonin 3 mg PO HS PRN tab 11/04/24 [Rx] Ondansetron [Zofran] 8 mg PO BID 11/22/24 [History] Ferrous Sulfate [Iron (65 MG Elemental)] 325 mg PO BID-W/MEALS tab 12/01/24 [Rx] HYDROcodone/APAP 5-325MG [[place] 5-325] 1 tab PO Q6HR PRN 3 Days #18 tab 12/01/24 [Rx] Pantoprazole [Protonix] 40 mg PO BID 30 Days #60 tab 12/01/24 [Rx] Sucralfate [Carafate] 1 gm PO AC-TID tab 12/01/24 [Rx] Follow up Appointment(s)/Referral(s): Gelacio Iverson MD [Primary Care Provider] - 1 Week
[2024-12-01] MEDS: DULoxetine HCL 60 MG CAPSULE.DR PO SCH (09:56)
--- NOTE | 2024-12-01 10:07 | P.PN ---
Subjective Patient is seen in follow-up for acute kidney injury. Renal function improved. Off IV fluids. Has Hart catheter for retention. On full liquid diet. No active complaints. Vital signs are stable. General: No acute distress. HEENT: Head exam is unremarkable. LUNGS: No audible rhonchi or wheezes. HEART: Rate and Rhythm are regular. ABDOMEN: Nontender. EXTREMITITES: Trace edema. Objective - Vital Signs Vital signs: Vital Signs Temp 97.5 F L 12/01/24 08:00 Pulse 86 12/01/24 08:15 Resp 25 H 12/01/24 08:00 BP 114/45 12/01/24 08:00 Pulse Ox 96 12/01/24 08:15 FiO2 35 11/30/24 04:00 Intake & Output 11/30/24 12/01/24 12/01/24 18:59 06:59 18:59 Intake Total 400 400 Output Total 325 250 90 Balance 75 150 -90 Weight 101 kg 101 kg Intake: Oral 400 400 Output: Urine 325 250 90 Other: Voiding Method Indwelling Catheter Indwelling Catheter Indwelling Catheter - Labs CBC & Chem 7: 12/01/24 05:34 12/01/24 05:34 Labs: Abnormal Lab Results - Last 24 Hours (Table) 11/30/24 11/30/24 12/01/24 Range/Units 11:09 19:51 05:34 RBC 2.72 L (3.80-5.40) m/uL Hgb 7.8 L (11.4-16.0) gm/dL Hct 25.5 L (34.0-46.0) % MCHC 30.7 L (31.0-37.0) g/dL RDW 16.4 H (11.5-15.5) % Plt Count 129 L (150-450) k/uL Glucose (74-99) mg/dL POC Glucose (mg/dL) 124 H 123 H (70-110) mg/dL Calcium (8.4-10.2) mg/dL Alkaline Phosphatase (38-126) U/L Total Protein (6.3-8.2) g/dL Albumin (3.5-5.0) g/dL 12/01/24 Range/Units 05:34 RBC (3.80-5.40) m/uL Hgb (11.4-16.0) gm/dL Hct (34.0-46.0) % MCHC (31.0-37.0) g/dL RDW (11.5-15.5) % Plt Count (150-450) k/uL Glucose 111 H (74-99) mg/dL POC Glucose (mg/dL) (70-110) mg/dL Calcium 8.3 L (8.4-10.2) mg/dL Alkaline Phosphatase 204 H (38-126) U/L Total Protein 5.0 L (6.3-8.2) g/dL Albumin 2.3 L (3.5-5.0) g/dL Assessment and Plan Plan: Assessment: 1. Acute kidney injury secondary to ATN secondary to hypotension and hypercalcemia. Also component of urinary retention. Creatinine 4.65 on admission and is 0.91 today. 2. Chronic kidney disease stage IIIa secondary to solitary right kidney. No hydronephrosis noted on kidney ultrasound this admission. 3. UTI on antibiotics. Urine culture positive for Acinetobacter. 4. Hypercalcemia secondary to hypovolemia and calcium supplementation. Was also on thiazide diuretic. Resolved. 5. GI bleed status post blood transfusions this admission. Status post EGD which showed superficial duodenal ulcer and gastritis. 6. Hypokalemia from poor intake and GI fluid loss. Replaced. Improved. Plan: Encouraged oral intake. Diet to be advanced per GI recs. Avoid nephrotoxins. Continue to monitor renal function and urine output.
--- NOTE | 2024-12-01 10:42 | P.PN ---
Subjective Progress Note Date: 12/01/24 Principal diagnosis: GI bleed. Acute upper GI bleed secondary to duodenal ulcers This is a 79-year-old female admitted to [facility] back on 11/22/2024, initial presentation was mostly related to altered mental status. Apparently the patient was noted to be hypoxic, on her initial presentation to the ER, and upon her initial evaluation by EMS. Neurology was consulted and felt that the patient had altered mental status secondary to hypoxia and/or renal failure. Patient was seen by nephrology for her renal failure,, felt that the patient had acute kidney injury ATN from hypotension as well as secondary to to hypercalcemia with component of urinary retention and the patient had pyuria with iron deficiency anemia. Her hypercalcemia was felt to be related to calcium supplements. And the patient was on hydrochlorothiazide. On 11/27, patient was seen by surgery on consultation for drop in her hemoglobin from 8.6 on her initial presentation down to 6.2. Hence the patient was transferred to the ICU and I was asked to see her in consultation yesterday, but she was having endoscopy. EGD done yesterday showed superficial duodenal ulcer gastritis, s mall hiatal hernia, but there was no active bleeding, and Dr. Turner felt that the source of the bleeding is most likely from the 2 small duodenal ulcers and he recommended mostly PPI and Carafate. Patient did not require any intervention. Since admission the patient received a total of 2 units of packed RBCs, hemoglobin today is 7.6. Her electrolytes are relatively normal BUN is 28 creatinine 1.15 WBC count is 4.7. Platelets are 151,000. Yesterday the patient had black stools noted, but no bright red blood per rectum and no hematemesis. Considering the patient was admitted to the ICU, I was asked to see her on consultation, and I plan to monitor the patient for the next 24 hours, if she continues to do well we will transfer the patient out of the ICU to medical surgical floor in the next 24 hours. Patient denies any shortness of breath denies any cough no wheezing, no chest pain, no nausea no vomiting no abdominal pain. Patient was seen today on 11/29/2024, patient is doing well, hemodynamically stable, hemoglobin is holding, no active GI bleeding, she is not requiring any pressors, not requiring any further blood transfusions, she is now on 2 L nasal cannula, intermittently on BiPAP 12/35%, hemoglobin today is 7.2, patient received a total of 2 units of packed RBCs since admission. Her IV fluids at 70 cc/h, patient remains on Levaquin, and my plan today is to transfer the patient out of the ICU to a monitored bed and selective. Labs were reviewed including electrolytes and CBC. Progress note dated November 30, 2024. This is a 79-year-old female admitted back on November 22 with mental status changes. The patient came to the intensive care unit, on November 27, with a GI bleed. Since that time, she has received a total of 2 units of packed red blood cells. She had an EGD which revealed a nonbleeding duodenal ulcer. No interventions were undertaken. She is seen today in room 256. She is resting comfortably in bed. She is on 2 L of oxygen. No fluids. The patient is an overflow patient, to 3 S. unit. Current labs include a white count 4.2, hemoglobin 7.3, hematocrit 24.2, and a platelet count of 136,000. Sodium 140, potassium 3.8, chlorides 109, CO2 26, BUN 18, and creatinine 1.03. Glucose 124. Calcium 8.1. Urine from November 23 with positive for Acinetobacter. No chest x- ray today. Progress note dated December 01, 2024. 79-year-old female admitted back on November 22 with mental status changes. Subsequently, she came to the intensive care unit on November 27 with a GI bleed. She has received a total of 2 units of packed red blood cells. An EGD revealed a nonbleeding duodenal ulcer. There were no interventions. The patient is seen today in room 256. She is on room air. No IV fluids. Hemoglobin today was 7.8. Yesterday was 7.3. The rest of her labs include a white count of 5.4, hematocrit 25.5, and a platelet count of 129,000. Sodium 139, potassium 3.8, chlorides 107, CO2 25, BUN 16, creatinine 0.91. Glucose 101. Calcium 8.3, albumin 2.3. Objective - Vital Signs Vital signs: Vital Signs Temp 97.5 F L 12/01/24 08:00 Pulse 86 12/01/24 08:15 Resp 25 H 12/01/24 08:00 BP 114/45 12/01/24 08:00 Pulse Ox 96 12/01/24 08:15 FiO2 35 11/30/24 04:00 Intake & Output 11/30/24 12/01/24 12/01/24 18:59 06:59 18:59 Intake Total 400 400 Output Total 325 250 90 Balance 75 150 -90 Weight 101 kg 101 kg Intake: Oral 400 400 Output: Urine 325 250 90 Other: Voiding Method Indwelling Catheter Indwelling Catheter Indwelling Catheter - Exam No acute distress, oriented 3. No respiratory distress. Currently on no supplemental oxygen. HEENT examination is grossly unremarkable. Mucous membranes are moist. No oral lesions. Neck supple. Full range of motion. No adenopathy thyromegaly or neck vein distention. Cardiovascular examination reveals regular rhythm rate. S1-S2 normal. No S3 or S4. No discernible murmur noted. Lungs reveal clear breath sounds. Breath sounds are equal bilaterally. No adventitious lung sounds including wheezes rhonchi or crackles. Abdomen soft bowel sounds are heard. No masses or tenderness. Extremities are intact. No cyanosis clubbing or edema. Skin is without rash or lesion. Neurologic examination is brief but nonfocal. - Labs CBC & Chem 7: 12/01/24 05:34 12/01/24 05:34 Labs: Abnormal Lab Results - Last 24 Hours (Table) 11/30/24 11/30/24 12/01/24 Range/Units 11:09 19:51 05:34 RBC 2.72 L (3.80-5.40) m/uL Hgb 7.8 L (11.4-16.0) gm/dL Hct 25.5 L (34.0-46.0) % MCHC 30.7 L (31.0-37.0) g/dL RDW 16.4 H (11.5-15.5) % Plt Count 129 L (150-450) k/uL Glucose (74-99) mg/dL POC Glucose (mg/dL) 124 H 123 H (70-110) mg/dL Calcium (8.4-10.2) mg/dL Alkaline Phosphatase (38-126) U/L Total Protein (6.3-8.2) g/dL Albumin (3.5-5.0) g/dL 12/01/24 Range/Units 05:34 RBC (3.80-5.40) m/uL Hgb (11.4-16.0) gm/dL Hct (34.0-46.0) % MCHC (31.0-37.0) g/dL RDW (11.5-15.5) % Plt Count (150-450) k/uL Glucose 111 H (74-99) mg/dL POC Glucose (mg/dL) (70-110) mg/dL Calcium 8.3 L (8.4-10.2) mg/dL Alkaline Phosphatase 204 H (38-126) U/L Total Protein 5.0 L (6.3-8.2) g/dL Albumin 2.3 L (3.5-5.0) g/dL Assessment and Plan Assessment: Iron deficiency anemia, secondary to duodenal ulcer and upper GI bleeding, acute on chronic. Acute hypoxemic respiratory failure, recovered. Acute kidney injury, secondary to hypotension. Type 2 diabetes mellitus. Benign essential hypertension. History of obstructive sleep apnea syndrome, currently on CPAP. Acute on chronic iron deficiency anemia. History of renal cell carcinoma with previous nephrectomy. Hyperlipidemia. Plan: Plan dated November 30, 2024. The patient is seen today in room 256. She was admitted back on November 22. She came to the intensive care unit on November 27, with an acute GI bleed. The patient initially was admitted with mental status changes. An EGD was performed, there was a duodenal ulcer, which was not actively bleeding. There was no interventions. Today she is not receiving any IV fluids. The patient is on 2 L of oxygen by nasal cannula. Since being here in the hospital she has received a total of 2 units of packed red blood cells. Labs, x-rays, and all medications are reviewed. The patient's overall prognosis remains guarded. We will continue to follow. Dictation was produced using [employer] dictation software. Please excuse any grammatical, word or spelling errors. Plan dated December 01, 2024. The patient remains very stable. She has had no further bleeding. The patient was discovered to have a nonbleeding ulcer. The patient has received a total of 2 units of PRBCs. Labs, x-rays, medications are reviewed. Hemoglobin is stable at 7.8. It was 7.3 yesterday. The patient remains a full code. The patient could be transferred out of the intensive care unit. All labs, x-rays, and medications are reviewed. Dictation was produced using [employer] dictation software. Please excuse any grammatical, word or spelling errors. Time with Patient: Less than 30
[2024-12-01 11:16] LABS: Glucose,Whole Blood 114 mg/dL (70-110)
[2024-12-01] MEDS: FUROSEMIDE 10 MG/ML 2 ML VIAL IV ONE (15:27)
[2024-12-01 16:09] LABS: Glucose,Whole Blood 107 mg/dL (70-110)
[2024-12-01 20:13] LABS: Glucose,Whole Blood 112 mg/dL (70-110)
[2024-12-01] MEDS: ATORVASTATIN 20 MG TAB PO SCH (20:32)
[2024-12-02 06:33] LABS: Glucose,Whole Blood 95 mg/dL (70-110)
[2024-12-02] MEDS: FUROSEMIDE 10 MG/ML 2 ML VIAL IV STA (09:28)
[2024-12-02 09:43] LABS: African American GFR (CKD) 69 (>60 ml/min/1.73 sqM); Anion Gap 3 mmol/L; Blood Urea Nitrogen 19 mg/dL (7-17); Calcium 7.9 mg/dL (8.4-10.2); Carbon Dioxide 27 mmol/L (22-30); Chloride 107 mmol/L (98-107); Glucose 96 mg/dL (74-99); Non-African American GFR(CKD) 60 (>60 ml/min/1.73 sqM); Potassium 3.7 mmol/L (3.5-5.1); Sodium 137 mmol/L (137-145)
--- NOTE | 2024-12-02 09:49 | P.PN ---
Subjective Patient is seen in follow-up for acute kidney injury. Renal function at baseline. Does have edema in the lower extremities. On nasal cannula. Oral intake fair. Vital signs are stable. General: No acute distress. HEENT: Head exam is unremarkable. LUNGS: No audible rhonchi or wheezes. HEART: Rate and Rhythm are regular. ABDOMEN: Nontender. EXTREMITITES: 1+ edema. Objective - Vital Signs Vital signs: Vital Signs Temp 97.6 F 12/02/24 04:00 Pulse 84 12/02/24 04:00 Resp 22 12/02/24 04:00 BP 111/47 12/02/24 04:00 Pulse Ox 96 12/02/24 04:00 FiO2 35 11/30/24 04:00 Intake & Output 12/01/24 12/02/24 12/02/24 18:59 06:59 18:59 Output Total 165 210 200 Balance -165 -210 -200 Weight 100.4 kg Output: Urine 165 210 200 Other: Voiding Method Indwelling Catheter Indwelling Catheter - Labs CBC & Chem 7: 12/01/24 05:34 12/02/24 09:05 Labs: Abnormal Lab Results - Last 24 Hours (Table) 12/01/24 12/01/24 12/02/24 Range/Units 11:14 20:12 09:05 BUN 19 H (7-17) mg/dL POC Glucose (mg/dL) 114 H 112 H (70-110) mg/dL Calcium 7.9 L (8.4-10.2) mg/dL Assessment and Plan Plan: Assessment: 1. Acute kidney injury secondary to ATN secondary to hypotension and hypercalcemia. Also component of urinary retention. Creatinine 4.65 on admission and is 0.93 today. 2. 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 No hydronephrosis noted on kidney ultrasound this admission. 3. UTI on antibiotics. Urine culture positive for Acinetobacter. 4. Hypercalcemia secondary to hypovolemia and calcium supplementation. Was also on thiazide diuretic. Resolved. 5. GI bleed status post blood transfusions this admission. Status post EGD which showed superficial duodenal ulcer and gastritis. 6. Hypokalemia from poor intake and GI fluid loss. Replaced. Improved. 7. Lower extremity edema. Plan: Encouraged oral intake. Now on regular diet. Lasix 20 mg IV once again today. Avoid nephrotoxins. Continue to monitor renal function and urine output. Potential discharge to rehab today. Repeat BMP and magnesium level 2 to 3 days postdischarge. Follow-up outpatient in 1 week.
[2024-12-02] MEDS: POTASSIUM CHLORIDE ER 20 MEQ TAB.ER PO STA (10:29)
--- NOTE | 2024-12-02 10:55 | P.PN ---
Subjective Progress Note Date: 12/02/24 Principal diagnosis: GI bleed. Acute upper GI bleed secondary to duodenal ulcers This is a 79-year-old female admitted to [facility] back on 11/22/2024, initial presentation was mostly related to altered mental status. Apparently the patient was noted to be hypoxic, on her initial presentation to the ER, and upon her initial evaluation by EMS. Neurology was consulted and felt that the patient had altered mental status secondary to hypoxia and/or renal failure. Patient was seen by nephrology for her renal failure,, felt that the patient had acute kidney injury ATN from hypotension as well as secondary to to hypercalcemia with component of urinary retention and the patient had pyuria with iron deficiency anemia. Her hypercalcemia was felt to be related to calcium supplements. And the patient was on hydrochlorothiazide. On 11/27, patient was seen by surgery on consultation for drop in her hemoglobin from 8.6 on her initial presentation down to 6.2. Hence the patient was transferred to the ICU and I was asked to see her in consultation yesterday, but she was having endoscopy. EGD done yesterday showed superficial duodenal ulcer gastritis, s mall hiatal hernia, but there was no active bleeding, and Dr. Turner felt that the source of the bleeding is most likely from the 2 small duodenal ulcers and he recommended mostly PPI and Carafate. Patient did not require any intervention. Since admission the patient received a total of 2 units of packed RBCs, hemoglobin today is 7.6. Her electrolytes are relatively normal BUN is 28 creatinine 1.15 WBC count is 4.7. Platelets are 151,000. Yesterday the patient had black stools noted, but no bright red blood per rectum and no hematemesis. Considering the patient was admitted to the ICU, I was asked to see her on consultation, and I plan to monitor the patient for the next 24 hours, if she continues to do well we will transfer the patient out of the ICU to medical surgical floor in the next 24 hours. Patient denies any shortness of breath denies any cough no wheezing, no chest pain, no nausea no vomiting no abdominal pain. Patient was seen today on 11/29/2024, patient is doing well, hemodynamically stable, hemoglobin is holding, no active GI bleeding, she is not requiring any pressors, not requiring any further blood transfusions, she is now on 2 L nasal cannula, intermittently on BiPAP 12//35%, hemoglobin today is 7.2, patient received a total of 2 units of packed RBCs since admission. Her IV fluids at 70 cc/h, patient remains on Levaquin, and my plan today is to transfer the patient out of the ICU to a monitored bed and selective. Labs were reviewed including electrolytes and CBC. Progress note dated November 30, 2024. This is a 79-year-old female admitted back on November 22 with mental status changes. The patient came to the intensive care unit, on November 27, with a GI bleed. Since that time, she has received a total of 2 units of packed red blood cells. She had an EGD which revealed a nonbleeding duodenal ulcer. No interventions were undertaken. She is seen today in room 256. She is resting comfortably in bed. She is on 2 L of oxygen. No fluids. The patient is an overflow patient, to 3 S. unit. Current labs include a white count 4.2, hemoglobin 7.3, hematocrit 24.2, and a platelet count of 136,000. Sodium 140, potassium 3.8, chlorides 109, CO2 26, BUN 18, and creatinine 1.03. Glucose 124. Calcium 8.1. Urine from November 23 with positive for Acinetobacter. No chest x- ray today. Progress note dated December 01, 2024. 79-year-old female admitted back on November 22 with mental status changes. Subsequently, she came to the intensive care unit on November 27 with a GI bleed. She has received a total of 2 units of packed red blood cells. An EGD revealed a nonbleeding duodenal ulcer. There were no interventions. The patient is seen today in room 256. She is on room air. No IV fluids. Hemoglobin today was 7.8. Yesterday was 7.3. The rest of her labs include a white count of 5.4, hematocrit 25.5, and a platelet count of 129,000. Sodium 139, potassium 3.8, chlorides 107, CO2 25, BUN 16, creatinine 0.91. Glucose 101. Calcium 8.3, albumin 2.3. Progress note dated December 02, 2024. 79-year-old female initially admitted back on November 22 with mental status changes, and subsequently, came to the intensive. And on November 27, with GI bleed. The patient had an EGD, which revealed a nonbleeding duodenal ulcer. She has received a total of 2 units of packed red blood cells. She has had no further bleeding. She is resting comfortably in room 256. She is getting saline at 10 cc an hour, and nasal O2 at 2 L. The patient is apparently going to be discharged later today, to a local [facility]. Current labs include a sodium 137, potassium 3.7, chlorides 107, CO2 27, anion gap 3, BUN 19, creatinine 0.93. The patient's glucose is 96. Calcium is 7.9. Magnesium 0.9. Objective - Vital Signs Vital signs: Vital Signs Temp 97.3 F L 12/02/24 09:00 Pulse 87 12/02/24 09:00 Resp 20 12/02/24 09:00 BP 121/49 12/02/24 09:00 Pulse Ox 96 12/02/24 04:00 FiO2 35 11/30/24 04:00 Intake & Output 12/01/24 12/02/24 12/02/24 18:59 06:59 18:59 Output Total 165 210 200 Balance -165 -210 -200 Weight 100.4 kg Output: Urine 165 210 200 Other: Voiding Method Indwelling Catheter Indwelling Catheter Indwelling Catheter - Exam No acute distress, oriented 3. No respiratory distress. Currently on 2 L nasal cannula. HEENT examination is grossly unremarkable. Mucous membranes are moist. No oral lesions. Neck supple. Full range of motion. No adenopathy thyromegaly or neck vein distention. Cardiovascular examination reveals regular rhythm rate. S1-S2 normal. No S3 or S4. No discernible murmur noted. Lungs reveal clear breath sounds. Breath sounds are equal bilaterally. No adventitious lung sounds including wheezes rhonchi or crackles. Abdomen soft bowel sounds are heard. No masses or tenderness. Extremities are intact. No cyanosis clubbing or edema. Skin is without rash or lesion. Neurologic examination is brief but nonfocal. - Labs CBC & Chem 7: 12/01/24 05:34 12/02/24 09:05 Labs: Abnormal Lab Results - Last 24 Hours (Table) 12/01/24 12/01/24 12/02/24 Range/Units 11:14 20:12 09:05 BUN 19 H (7-17) mg/dL POC Glucose (mg/dL) 114 H 112 H (70-110) mg/dL Calcium 7.9 L (8.4-10.2) mg/dL Magnesium (1.6-2.3) mg/dL 12/02/24 Range/Units 10:00 BUN (7-17) mg/dL POC Glucose (mg/dL) (70-110) mg/dL Calcium (8.4-10.2) mg/dL Magnesium 0.9 L* (1.6-2.3) mg/dL Assessment and Plan Assessment: Iron deficiency anemia, secondary to duodenal ulcer and upper GI bleeding, acute on chronic. Acute hypoxemic respiratory failure, recovered. Acute kidney injury, secondary to hypotension. Type 2 diabetes mellitus. Benign essential hypertension. History of obstructive sleep apnea syndrome, currently on CPAP. Acute on chronic iron deficiency anemia. History of renal cell carcinoma with previous nephrectomy. Hyperlipidemia. Plan: Plan dated November 30, 2024. The patient is seen today in room 256. She was admitted back on November 22. She came to the intensive care unit on November 27, with an acute GI bleed. The patient initially was admitted with mental status changes. An EGD was performed, there was a duodenal ulcer, which was not actively bleeding. There was no interventions. Today she is not receiving any IV fluids. The patient is on 2 L of oxygen by nasal cannula. Since being here in the hospital she has received a total of 2 units of packed red blood cells. Labs, x-rays, and all medications are reviewed. The patient's overall prognosis remains guarded. We will continue to follow. Dictation was produced using [employer] software. Please excuse any grammatical, word or spelling errors. Plan dated December 01, 2024. The patient remains very stable. She has had no further bleeding. The patient was discovered to have a nonbleeding ulcer. The patient has received a total of 2 units of PRBCs. Labs, x-rays, medications are reviewed. Hemoglobin is stable at 7.8. It was 7.3 yesterday. The patient remains a full code. The patient could be transferred out of the intensive care unit. All labs, x-rays, and medications are reviewed. Dictation was produced using [employer] software. Please excuse any grammatical, word or spelling errors. Plan dated December 02, 2024. The patient is doing well. The patient has not had any additional bleeding. Labs are stable. She is awake and alert. She is resting comfortably in room 256. She is getting saline at 10 cc an hour which can be discontinued. She is on nasal O2 at 2 L. Yesterday she was on room air. Labs, x-rays, and all medications are reviewed. Prognosis is thought to be generally good. Dictation was produced using [employer] dictation software. Please excuse any grammatical, word or spelling errors. Time with Patient: Less than 30
[2024-12-02] MEDS ORDERED: Magnesium Replacement Protocol 1 EACH MISC MISCELLANE PRN (11:01)
[2024-12-02] MEDS: MAGNESIUM SULFATE-D5W PMX 1 GM in DEXTROSE/WATER 1 100ML.BAG IVPB SCH (11:20)
[2024-12-02 11:49] LABS: Glucose,Whole Blood 107 mg/dL (70-110)
[2024-12-02 12:27] VITALS: BMI 34.7
[2024-12-02 13:35] LABS: Glucose,Whole Blood 108 mg/dL (70-110)
[2024-12-02 17:07] LABS: Glucose,Whole Blood 101 mg/dL (70-110)
[2024-12-02 17:28] LABS: African American GFR (CKD) 69 (>60 ml/min/1.73 sqM); Anion Gap 8 mmol/L; Blood Urea Nitrogen 18 mg/dL (7-17); Calcium 8.2 mg/dL (8.4-10.2); Carbon Dioxide 23 mmol/L (22-30); Chloride 105 mmol/L (98-107); Glucose 110 mg/dL (74-99); Non-African American GFR(CKD) 60 (>60 ml/min/1.73 sqM); Potassium 3.9 mmol/L (3.5-5.1); Sodium 136 mmol/L (137-145)
[2024-12-02 21:12] LABS: Glucose,Whole Blood 111 mg/dL (70-110)
[2024-12-02] MEDS: MELATONIN 3 MG TABLET PO PRN (21:18)
[2024-12-03 05:51] LABS: Anisocytosis Slight; Basophils % (A) 0 %; Eosinophils # (A) 0.3 k/uL (0-0.7); Eosinophils % (A) 6 %; HCT 24.9 % (34.0-46.0); HGB 7.4 gm/dL (11.4-16.0); Hypochromasia Marked; Lymphocytes # (A) 0.7 k/uL (1.0-4.8); Lymphocytes % (A) 15 %; MCHC 29.8 g/dL (31.0-37.0); MCV 93.9 fL (80.0-100.0); Mean Platelet Volume 8.9; Monocytes # (A) 0.3 k/uL (0-1.0); Monocytes % (A) 6 %; Neutrophils # (A) 3.3 k/uL (1.3-7.7); Neutrophils % (A) 72 %; Platelet Count 147 k/uL (150-450); RBC 2.65 m/uL (3.80-5.40); RDW 16.4 % (11.5-15.5); WBC 4.6 k/uL (3.8-10.6)
[2024-12-03 06:54] LABS: Glucose,Whole Blood 99 mg/dL (70-110)
[2024-12-03] MEDS: MAGNESIUM SULFATE-D5W PMX 1 GM in DEXTROSE/WATER 1 100ML.BAG IVPB SCH (07:04)
--- NOTE | 2024-12-03 08:21 | P.PN ---
Subjective Progress Note Date: 12/03/24 This is a 79-year-old female who was brought into the emergency department via EMS for altered mental status. Patient reportedly has been very confused and unarousable at home with an oxygen saturation of 87%. Patient has had recent admissions for a left nephrectomy for a history of renal carcinoma, and more recent hospital stay found a possible pulmonary nodule which is being worked up as an outpatient. Patient seen this morning laying in bed. She is very confused and pulling at her oxygen tubing. She is unable to answer questions, has garbled speech. Neurology has seen and evaluated patient. Nephrology is on consult, creatinine on admission was 4.65. On prior admission creatinine was 0.9. 11/24/2024 Patient seen and evaluated laying in bed this morning with health and safety coordinator at bedside. Patient continues to be confused and has garbled speech. She does respond to her name, but her answers to questions do not fully make sense. Patient seen and evaluated by nephrology yesterday who ordered an ultrasound of her kidneys which was normal. Blood work for today is not back yet at time of dictation. Sitter at bedside states patient has not slept since she has been admitted. 11/26/2024 Patient seen and evaluated laying in bed this morning with health and safety coordinator at bedside. Patient still only alerted to herself. She continues to have garbled speech, and today seems to have worsened processing time of information. She was able to follow a simple command of raising her left leg when asked. Staff reports patient is not wanting to eat, drink, or do any oral care. Creatinine down to 1.9 yesterday, labs for today not back at time of dictation. 11/30/2024 Patient seen this morning resting comfortably in bed. On Saturday patient's hemoglobin dropped to 6.2, she underwent an EGD which showed a superficial duodenal ulcer and gastritis. She received 2 units of packed red blood cells and hemoglobin has been stable since. Hemoglobin today is 7.3. Her Protonix was increased and she was started on Carafate. Patient's mentation has improved through the weekend. She is alert and oriented but unable to remember what happened the previous week. Her kidney function has also improved. 12/03/2024 Patient seen this morning resting comfortably in bed. She continues to be stable. Awaiting placement for subacute rehab. Objective - Vital Signs Vital signs: Vital Signs Temp 98.2 F 12/03/24 00:00 Pulse 80 12/03/24 04:00 Resp 18 12/03/24 04:00 BP 128/51 12/03/24 04:00 Pulse Ox 98 12/03/24 02:00 FiO2 35 11/30/24 04:00 Intake & Output 12/02/24 12/03/24 12/03/24 18:59 06:59 18:59 Intake Total 400 Output Total 450 150 0 Balance -50 -150 0 Weight 100.4 kg 99.1 kg Intake: Intake, IV Titration 400 Amount Magnesium Sulfate-D5w Pmx 400 1 gm In Dextrose/Water 1 100ml.bag @ 100 mls/hr IVPB Q1H [facility] Rx#: [id number] Output: Urine 450 150 0 Other: Voiding Method Indwelling Catheter External Catheter # Bowel Movements 1 - Constitutional General appearance: Present: cooperative, no acute distress - EENT Eyes: Present: PERRLA - Neck Neck: Present: normal ROM. Absent: lymphadenopathy, rigidity - Respiratory Respiratory: bilateral: diminished - Cardiovascular Heart sounds: normal: S1, S2 - Gastrointestinal General gastrointestinal: Present: soft. Absent: tenderness - Integumentary Integumentary: Present: normal, normal turgor - Musculoskeletal Musculoskeletal: Present: generalized weakness - Psychiatric Psychiatric: Present: A&O x's 3 - Labs CBC & Chem 7: 12/03/24 05:25 12/02/24 17:01 Labs: Abnormal Lab Results - Last 24 Hours (Table) 12/02/24 12/02/24 12/02/24 Range/Units 09:05 10:00 17:01 RBC (3.80-5.40) m/uL Hgb (11.4-16.0) gm/dL Hct (34.0-46.0) % MCHC (31.0-37.0) g/dL RDW (11.5-15.5) % Plt Count (150-450) k/uL Lymphocytes # (1.0-4.8) k/uL Sodium 136 L (137-145) mmol/L BUN 19 H 18 H (7-17) mg/dL Glucose 110 H (74-99) mg/dL POC Glucose (mg/dL) (70-110) mg/dL Calcium 7.9 L 8.2 L (8.4-10.2) mg/dL Magnesium 0.9 L* (1.6-2.3) mg/dL 12/02/24 12/03/24 Range/Units 21:11 05:25 RBC 2.65 L (3.80-5.40) m/uL Hgb 7.4 L (11.4-16.0) gm/dL Hct 24.9 L (34.0-46.0) % MCHC 29.8 L (31.0-37.0) g/dL RDW 16.4 H (11.5-15.5) % Plt Count 147 L (150-450) k/uL Lymphocytes # 0.7 L (1.0-4.8) k/uL Sodium (137-145) mmol/L BUN (7-17) mg/dL Glucose (74-99) mg/dL POC Glucose (mg/dL) 111 H (70-110) mg/dL Calcium (8.4-10.2) mg/dL Magnesium (1.6-2.3) mg/dL Assessment and Plan (1) AMS (altered mental status) Current Visit: Yes Status: Acute Code(s): R41.82 - ALTERED MENTAL STATUS, UNSPECIFIED SNOMED Code(s): 767297204 (2) Diabetes Current Visit: No Status: Acute Code(s): E11.9 - TYPE 2 DIABETES MELLITUS WITHOUT COMPLICATIONS SNOMED Code(s): 99708745 (3) History of left nephrectomy Current Visit: No Status: Acute Priority: Medium Code(s): Z90.5 - ACQUIRED ABSENCE OF KIDNEY SNOMED Code(s): 98982318806844 (4) Hyperlipemia Current Visit: No Status: Acute Code(s): E78.5 - HYPERLIPIDEMIA, UNSPECIFIED SNOMED Code(s): 46298414 (5) Hypertension Current Visit: No Status: Acute Code(s): I10 - ESSENTIAL (PRIMARY) HYPERTENSION SNOMED Code(s): 17823513 (6) Renal cell carcinoma Current Visit: No Status: Acute Priority: High Code(s): C64.9 - MALIGNANT NEOPLASM OF UNSP KIDNEY, EXCEPT RENAL PELVIS SNOMED Code(s): 952547035 (7) NANCY (acute kidney injury) Current Visit: Yes Status: Acute Code(s): N17.9 - ACUTE KIDNEY FAILURE, UNSPECIFIED SNOMED Code(s): 65287022 (8) Hypoxia Current Visit: Yes Status: Acute Code(s): R09.02 - HYPOXEMIA SNOMED Code(s): 770983011 (9) Duodenal ulcer Current Visit: Yes Status: Acute Code(s): K26.9 - DUODENAL ULCER, UNSP ACUTE OR CHRONIC, W/O HEMOR OR PERF SNOMED Code(s): 73272198 (10) Anemia Current Visit: No Status: Acute Priority: High Code(s): D64.9 - ANEMIA, UNSPECIFIED SNOMED Code(s): 755731421 (11) Weakness Current Visit: No Status: Acute Code(s): R53.1 - WEAKNESS SNOMED Code(s): 49798013 Plan: Check CBC and CMP in the morning. Await placement for subacute rehab. Patient seen and evaluated by nurse practitioner, physician in agreement with plan.
--- NOTE | 2024-12-03 09:40 | P.PN ---
Subjective Patient is seen in follow-up for acute kidney injury. Renal function at baseline. Does have edema in the lower extremities. On nasal cannula. Oral intake poor. Vital signs are stable. General: No acute distress. HEENT: Head exam is unremarkable. LUNGS: No audible rhonchi or wheezes. HEART: Rate and Rhythm are regular. ABDOMEN: Nontender. EXTREMITITES: 1+ edema. Objective - Vital Signs Vital signs: Vital Signs Temp 96.0 F L 12/03/24 08:00 Pulse 83 12/03/24 08:00 Resp 21 12/03/24 08:00 BP 128/49 12/03/24 06:00 Pulse Ox 100 12/03/24 08:00 FiO2 35 11/30/24 04:00 Intake & Output 12/02/24 12/03/24 12/03/24 18:59 06:59 18:59 Intake Total 400 100 Output Total 450 150 175 Balance -50 -150 -75 Weight 100.4 kg 99.1 kg Intake: Intake, IV Titration 400 Amount Magnesium Sulfate-D5w Pmx 400 1 gm In Dextrose/Water 1 100ml.bag @ 100 mls/hr IVPB Q1H [facility] Rx#: [id number] Oral 100 Output: Urine 450 150 175 Other: Voiding Method Indwelling Catheter External Catheter # Bowel Movements 1 - Labs CBC & Chem 7: 12/03/24 05:25 12/02/24 17:01 Labs: Abnormal Lab Results - Last 24 Hours (Table) 12/02/24 12/02/24 12/02/24 Range/Units 09:05 10:00 17:01 RBC (3.80-5.40) m/uL Hgb (11.4-16.0) gm/dL Hct (34.0-46.0) % MCHC (31.0-37.0) g/dL RDW (11.5-15.5) % Plt Count (150-450) k/uL Lymphocytes # (1.0-4.8) k/uL Sodium 136 L (137-145) mmol/L BUN 19 H 18 H (7-17) mg/dL Glucose 110 H (74-99) mg/dL POC Glucose (mg/dL) (70-110) mg/dL Calcium 7.9 L 8.2 L (8.4-10.2) mg/dL Magnesium 0.9 L* (1.6-2.3) mg/dL 12/02/24 12/03/24 Range/Units 21:11 05:25 RBC 2.65 L (3.80-5.40) m/uL Hgb 7.4 L (11.4-16.0) gm/dL Hct 24.9 L (34.0-46.0) % MCHC 29.8 L (31.0-37.0) g/dL RDW 16.4 H (11.5-15.5) % Plt Count 147 L (150-450) k/uL Lymphocytes # 0.7 L (1.0-4.8) k/uL Sodium (137-145) mmol/L BUN (7-17) mg/dL Glucose (74-99) mg/dL POC Glucose (mg/dL) 111 H (70-110) mg/dL Calcium (8.4-10.2) mg/dL Magnesium (1.6-2.3) mg/dL Assessment and Plan Plan: Assessment: 1. Acute kidney injury secondary to ATN secondary to hypotension and hypercalcemia. Also component of urinary retention. Creatinine 4.65 on admission -0.93 yesterday. 2. 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 No hydronephrosis noted on kidney ultrasound this admission. 3. UTI on antibiotics. Urine culture positive for Acinetobacter. 4. Hypercalcemia secondary to hypovolemia and calcium supplementation. Was also on thiazide diuretic. Resolved. 5. GI bleed status post blood transfusions this admission. Status post EGD which showed superficial duodenal ulcer and gastritis. 6. Hypokalemia from poor intake and GI fluid loss. Replaced. Improved. 7. Lower extremity edema. 8. Hypomagnesemia from poor intake and diuresis. Plan: Encouraged oral intake. Now on regular diet. Lasix 40 mg IV once today. Add oral Lasix 20 mg once daily along with 10 mill equivalents of potassium supplementation daily starting tomorrow. Magnesium being replaced. Add oral magnesium oxide starting tomorrow as well. Avoid nephrotoxins. Continue to monitor renal function and urine output. Potential discharge to rehab today. Repeat BMP and magnesium level 2 to 3 days postdischarge. Follow-up outpatient in 1 week.
--- NOTE | 2024-12-03 10:27 | P.PN ---
Subjective Progress Note Date: 12/03/24 Principal diagnosis: GI bleed. Acute upper GI bleed secondary to duodenal ulcers This is a 79-year-old female admitted to [facility] back on 11/22/2024, initial presentation was mostly related to altered mental status. Apparently the patient was noted to be hypoxic, on her initial presentation to the ER, and upon her initial evaluation by EMS. Neurology was consulted and felt that the patient had altered mental status secondary to hypoxia and/or renal failure. Patient was seen by nephrology for her renal failure,, felt that the patient had acute kidney injury ATN from hypotension as well as secondary to to hypercalcemia with component of urinary retention and the patient had pyuria with iron deficiency anemia. Her hypercalcemia was felt to be related to calcium supplements. And the patient was on hydrochlorothiazide. On 11/27, patient was seen by surgery on consultation for drop in her hemoglobin from 8.6 on her initial presentation down to 6.2. Hence the patient was transferred to the ICU and I was asked to see her in consultation yesterday, but she was having endoscopy. EGD done yesterday showed superficial duodenal ulcer gastritis, s mall hiatal hernia, but there was no active bleeding, and Dr. Turner felt that the source of the bleeding is most likely from the 2 small duodenal ulcers and he recommended mostly PPI and Carafate. Patient did not require any intervention. Since admission the patient received a total of 2 units of packed RBCs, hemoglobin today is 7.6. Her electrolytes are relatively normal BUN is 28 creatinine 1.15 WBC count is 4.7. Platelets are 151,000. Yesterday the patient had black stools noted, but no bright red blood per rectum and no hematemesis. Considering the patient was admitted to the ICU, I was asked to see her on consultation, and I plan to monitor the patient for the next 24 hours, if she continues to do well we will transfer the patient out of the ICU to medical surgical floor in the next 24 hours. Patient denies any shortness of breath denies any cough no wheezing, no chest pain, no nausea no vomiting no abdominal pain. Patient was seen today on 11/29/2024, patient is doing well, hemodynamically stable, hemoglobin is holding, no active GI bleeding, she is not requiring any pressors, not requiring any further blood transfusions, she is now on 2 L nasal cannula, intermittently on BiPAP 12//35%, hemoglobin today is 7.2, patient received a total of 2 units of packed RBCs since admission. Her IV fluids at 70 cc/h, patient remains on Levaquin, and my plan today is to transfer the patient out of the ICU to a monitored bed and selective. Labs were reviewed including electrolytes and CBC. Progress note dated November 30, 2024. This is a 79-year-old female admitted back on November 22 with mental status changes. The patient came to the intensive care unit, on November 27, with a GI bleed. Since that time, she has received a total of 2 units of packed red blood cells. She had an EGD which revealed a nonbleeding duodenal ulcer. No interventions were undertaken. She is seen today in room 256. She is resting comfortably in bed. She is on 2 L of oxygen. No fluids. The patient is an overflow patient, to 3 S. unit. Current labs include a white count 4.2, hemoglobin 7.3, hematocrit 24.2, and a platelet count of 136,000. Sodium 140, potassium 3.8, chlorides 109, CO2 26, BUN 18, and creatinine 1.03. Glucose 124. Calcium 8.1. Urine from November 23 with positive for Acinetobacter. No chest x- ray today. Progress note dated December 01, 2024. 79-year-old female admitted back on November 22 with mental status changes. Subsequently, she came to the intensive care unit on November 27 with a GI bleed. She has received a total of 2 units of packed red blood cells. An EGD revealed a nonbleeding duodenal ulcer. There were no interventions. The patient is seen today in room 256. She is on room air. No IV fluids. Hemoglobin today was 7.8. Yesterday was 7.3. The rest of her labs include a white count of 5.4, hematocrit 25.5, and a platelet count of 129,000. Sodium 139, potassium 3.8, chlorides 107, CO2 25, BUN 16, creatinine 0.91. Glucose 101. Calcium 8.3, albumin 2.3. Progress note dated December 02, 2024. 79-year-old female initially admitted back on November 22 with mental status changes, and subsequently, came to the intensive. And on November 27, with GI bleed. The patient had an EGD, which revealed a nonbleeding duodenal ulcer. She has received a total of 2 units of packed red blood cells. She has had no further bleeding. She is resting comfortably in room 256. She is getting saline at 10 cc an hour, and nasal O2 at 2 L. The patient is apparently going to be discharged later today, to a local [facility]p. Current labs include a sodium 137, potassium 3.7, chlorides 107, CO2 27, anion gap 3, BUN 19, creatinine 0.93. The patient's glucose is 96. Calcium is 7.9. Magnesium 0.9. Progress note dated December 03, 2024. This is a 79-year-old female who is seen today in room 256. She was initially admitted with mental status changes, came to the ICU with a GI bleed. She did receive a couple units of blood, but has had no additional bleeding. The patient did have an EGD, which showed a nonbleeding ulcer. The patient was also scheduled to have robotic bronchoscopy today, but has been canceled. She is getting saline at 10 cc an hour. She is on nasal O2 at 2 L. Apparently the bronchoscopy and biopsy have been canceled. White count is 4.6, hemoglobin 7.4, hematocrit 24.9, platelet count 147,000. Glucose 99. Magnesium 1.6. Objective - Vital Signs Vital signs: Vital Signs Temp 96.0 F L 12/03/24 08:00 Pulse 83 12/03/24 08:00 Resp 21 12/03/24 08:00 BP 128/49 12/03/24 06:00 Pulse Ox 100 12/03/24 08:00 FiO2 35 11/30/24 04:00 Intake & Output 12/02/24 12/03/24 12/03/24 18:59 06:59 18:59 Intake Total 400 100 Output Total 450 150 175 Balance -50 -150 -75 Weight 100.4 kg 99.1 kg Intake: Intake, IV Titration 400 Amount Magnesium Sulfate-D5w Pmx 400 1 gm In Dextrose/Water 1 100ml.bag @ 100 mls/hr IVPB Q1H [facility] Rx#: [id number] Oral 100 Output: Urine 450 150 175 Other: Voiding Method Indwelling Catheter External Catheter # Bowel Movements 1 - Exam No acute distress, oriented 3. No respiratory distress. Currently on 2 L nasal cannula. HEENT examination is grossly unremarkable. Mucous membranes are moist. No oral lesions. Neck supple. Full range of motion. No adenopathy thyromegaly or neck vein distention. Cardiovascular examination reveals regular rhythm rate. S1-S2 normal. No S3 or S4. No discernible murmur noted. Lungs reveal clear breath sounds. Breath sounds are equal bilaterally. No adventitious lung sounds including wheezes rhonchi or crackles. Abdomen soft bowel sounds are heard. No masses or tenderness. Extremities are intact. No cyanosis clubbing or edema. Skin is without rash or lesion. Neurologic examination is brief but nonfocal. - Labs CBC & Chem 7: 12/03/24 05:25 12/02/24 17:01 Labs: Abnormal Lab Results - Last 24 Hours (Table) 12/02/24 12/02/24 12/02/24 Range/Units 10:00 17:01 21:11 RBC (3.80-5.40) m/uL Hgb (11.4-16.0) gm/dL Hct (34.0-46.0) % MCHC (31.0-37.0) g/dL RDW (11.5-15.5) % Plt Count (150-450) k/uL Lymphocytes # (1.0-4.8) k/uL Sodium 136 L (137-145) mmol/L BUN 18 H (7-17) mg/dL Glucose 110 H (74-99) mg/dL POC Glucose (mg/dL) 111 H (70-110) mg/dL Calcium 8.2 L (8.4-10.2) mg/dL Magnesium 0.9 L* (1.6-2.3) mg/dL 12/03/24 Range/Units 05:25 RBC 2.65 L (3.80-5.40) m/uL Hgb 7.4 L (11.4-16.0) gm/dL Hct 24.9 L (34.0-46.0) % MCHC 29.8 L (31.0-37.0) g/dL RDW 16.4 H (11.5-15.5) % Plt Count 147 L (150-450) k/uL Lymphocytes # 0.7 L (1.0-4.8) k/uL Sodium (137-145) mmol/L BUN (7-17) mg/dL Glucose (74-99) mg/dL POC Glucose (mg/dL) (70-110) mg/dL Calcium (8.4-10.2) mg/dL Magnesium (1.6-2.3) mg/dL Assessment and Plan Assessment: Iron deficiency anemia, secondary to duodenal ulcer and upper GI bleeding, acute on chronic. Acute hypoxemic respiratory failure, recovered. Acute kidney injury, secondary to hypotension. Type 2 diabetes mellitus. Benign essential hypertension. History of obstructive sleep apnea syndrome, currently on CPAP. Acute on chronic iron deficiency anemia. History of renal cell carcinoma with previous nephrectomy. Hyperlipidemia. Plan: Plan dated November 30, 2024. The patient is seen today in room 256. She was admitted back on November 22. She came to the intensive care unit on November 27, with an acute GI bleed. The patient initially was admitted with mental status changes. An EGD was performed, there was a duodenal ulcer, which was not actively bleeding. There was no interventions. Today she is not receiving any IV fluids. The patient is on 2 L of oxygen by nasal cannula. Since being here in the hospital she has received a total of 2 units of packed red blood cells. Labs, x-rays, and all medications are reviewed. The patient's overall prognosis remains guarded. We will continue to follow. Dictation was produced using [employer] software . Please excuse any grammatical, word or spelling errors. Plan dated December 01, 2024. The patient remains very stable. She has had no further bleeding. The patient was discovered to have a nonbleeding ulcer. The patient has received a total of 2 units of PRBCs. Labs, x-rays, medications are reviewed. Hemoglobin is stable at 7.8. It was 7.3 yesterday. The patient remains a full code. The patient could be transferred out of the intensive care unit. All labs, x-rays, and medications are reviewed. Dictation was produced using [employer] software. Please excuse any grammatical, word or spelling errors. Plan dated December 02, 2024. The patient is doing well. The patient has not had any additional bleeding. Labs are stable. She is awake and alert. She is resting comfortably in room 256. She is getting saline at 10 cc an hour which can be discontinued. She is on nasal O2 at 2 L. Yesterday she was on room air. Labs, x-rays, and all medications are reviewed. Prognosis is thought to be generally good. Dictation was produced using [employer] software. Please excuse any grammatical, word or spelling errors. Plan dated December 03, 2024. The patient is doing well. The bronchoscopy that was scheduled for today, has been canceled. The patient has had no further GI bleeding. From the pulmonary critical care perspective, the patient could be considered for discharge. I know the neighborhood planner was working on placement. Clinically she is stable. She can follow-up with my partner for the bronchoscopy at a later date. Labs, x-rays, medications are reviewed. Prognosis is guarded. We will continue to follow. Dictation was produced using [employer] software. Please excuse any grammatical, word or spelling errors. Time with Patient: Less than 30
[2024-12-03] MEDS: FUROSEMIDE 10 MG/ML 4 ML VIAL IV STA (10:52)
[2024-12-03 10:57] LABS: Glucose,Whole Blood 107 mg/dL (70-110)
[2024-12-03 13:28] LABS: African American GFR (CKD) 72 (>60 ml/min/1.73 sqM); Anion Gap 6 mmol/L; Blood Urea Nitrogen 17 mg/dL (7-17); Calcium 8.4 mg/dL (8.4-10.2); Carbon Dioxide 27 mmol/L (22-30); Chloride 103 mmol/L (98-107); Glucose 104 mg/dL (74-99); Non-African American GFR(CKD) 62 (>60 ml/min/1.73 sqM); Potassium 3.7 mmol/L (3.5-5.1); Sodium 136 mmol/L (137-145)
[2024-12-03 15:55] LABS: Glucose,Whole Blood 92 mg/dL (70-110)
[2024-12-03] MEDS: POTASSIUM CHLORIDE ER 20 MEQ TAB.ER PO SCH (19:50)
[2024-12-03 20:48] LABS: Glucose,Whole Blood 112 mg/dL (70-110)
[2024-12-04 03:43] LABS: Anisocytosis Slight; HCT 24.3 % (34.0-46.0); HGB 7.5 gm/dL (11.4-16.0); Hypochromasia Marked; MCH 28.2 pg (25.0-35.0); MCHC 30.7 g/dL (31.0-37.0); MCV 91.9 fL (80.0-100.0); Mean Platelet Volume 8.5; Platelet Count 149 k/uL (150-450); RBC 2.65 m/uL (3.80-5.40); RDW 16.1 % (11.5-15.5); WBC 4.4 k/uL (3.8-10.6)
[2024-12-04 03:59] LABS: ALT 10 U/L (4-34); AST 18 U/L (14-36); African American GFR (CKD) 70 (>60 ml/min/1.73 sqM); Albumin 2.4 g/dL (3.5-5.0); Alkaline Phosphatase 182 U/L (38-126); Anion Gap 5 mmol/L; Blood Urea Nitrogen 16 mg/dL (7-17); Calcium 8.3 mg/dL (8.4-10.2); Carbon Dioxide 28 mmol/L (22-30); Chloride 102 mmol/L (98-107); Glucose 93 mg/dL (74-99); Magnesium 1.7 mg/dL (1.6-2.3); Non-African American GFR(CKD) 61 (>60 ml/min/1.73 sqM); Potassium 3.3 mmol/L (3.5-5.1); Sodium 135 mmol/L (137-145); Total Bilirubin 0.7 mg/dL (0.2-1.3); Total Protein 5.1 g/dL (6.3-8.2)
[2024-12-04] MEDS: MAGNESIUM SULFATE-D5W PMX 1 GM in DEXTROSE/WATER 1 100ML.BAG IVPB ONE (05:36)
[2024-12-04] MEDS: POTASSIUM CHLORIDE 10 MEQ in WATER FOR INJECTION 1 100ML.BAG IVPB SCH (05:38)
[2024-12-04 06:21] LABS: Glucose,Whole Blood 101 mg/dL (70-110)
[2024-12-04] MEDS ORDERED: IPRATROPIUM-ALBUTEROL 3 ML NEB INHALATION PRN (08:53)
--- NOTE | 2024-12-04 09:40 | P.PN ---
Subjective Patient is seen in follow-up for acute kidney injury. Renal function at baseline. Lower extremity edema improved. On nasal cannula. Oral intake poor. Vital signs are stable. General: No acute distress. HEENT: Head exam is unremarkable. LUNGS: No audible rhonchi or wheezes. HEART: Rate and Rhythm are regular. ABDOMEN: Nontender. EXTREMITITES: 1+ edema. Objective - Vital Signs Vital signs: Vital Signs Temp 97.9 F 12/04/24 04:00 Pulse 81 12/04/24 04:00 Resp 21 12/04/24 04:00 BP 128/48 12/04/24 04:00 Pulse Ox 91 L 12/04/24 04:00 FiO2 35 11/30/24 04:00 Intake & Output 12/03/24 12/04/24 12/04/24 18:59 06:59 18:59 Intake Total 200 Output Total 175 1000 Balance 25 -1000 Weight 100.1 kg Intake: Oral 200 Output: Urine 175 1000 Other: Voiding Method External Catheter External Catheter # Voids 1 # Bowel Movements 1 - Labs CBC & Chem 7: 12/04/24 03:03 12/04/24 03:03 Labs: Abnormal Lab Results - Last 24 Hours (Table) 12/03/24 12/03/24 12/04/24 Range/Units 12:52 20:47 03:03 RBC (3.80-5.40) m/uL Hgb (11.4-16.0) gm/dL Hct (34.0-46.0) % MCHC (31.0-37.0) g/dL RDW (11.5-15.5) % Plt Count (150-450) k/uL Sodium 136 L 135 L (137-145) mmol/L Potassium 3.3 L (3.5-5.1) mmol/L Glucose 104 H (74-99) mg/dL POC Glucose (mg/dL) 112 H (70-110) mg/dL Calcium 8.3 L (8.4-10.2) mg/dL Alkaline Phosphatase 182 H (38-126) U/L Total Protein 5.1 L (6.3-8.2) g/dL Albumin 2.4 L (3.5-5.0) g/dL 12/04/24 Range/Units 03:03 RBC 2.65 L (3.80-5.40) m/uL Hgb 7.5 L (11.4-16.0) gm/dL Hct 24.3 L (34.0-46.0) % MCHC 30.7 L (31.0-37.0) g/dL RDW 16.1 H (11.5-15.5) % Plt Count 149 L (150-450) k/uL Sodium (137-145) mmol/L Potassium (3.5-5.1) mmol/L Glucose (74-99) mg/dL POC Glucose (mg/dL) (70-110) mg/dL Calcium (8.4-10.2) mg/dL Alkaline Phosphatase (38-126) U/L Total Protein (6.3-8.2) g/dL Albumin (3.5-5.0) g/dL Assessment and Plan Plan: Assessment: 1. Acute kidney injury secondary to ATN secondary to hypotension and hypercalcemia. Also component of urinary retention. Creatinine 4.65 on admiss ion - 0.91 today. 2. 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 No hydronephrosis noted on kidney ultrasound this admission. 3. UTI on antibiotics. Urine culture positive for Acinetobacter. 4. Hypercalcemia secondary to hypovolemia and calcium supplementation. Was al so on thiazide diuretic. Resolved. 5. GI bleed status post blood transfusions this admission. Status post EGD which showed superficial duodenal ulcer and gastritis. 6. Hypokalemia from poor intake and GI fluid loss. Replaced. Improved. On maintenance supplementation. 7. Lower extremity edema. Improved with diuresis. 8. Hypomagnesemia from poor intake and diuresis. Replaced. Better. On oral magnesium oxide. Plan: Encouraged oral intake. Now on regular diet. Maintain Lasix. Avoid nephrotoxins. Continue to monitor renal function and urine output. Awaits discharge to rehab. Repeat BMP and magnesium level 2 to 3 days postdischarge. Follow-up outpatient in 1 week.
[2024-12-04] MEDS: FUROSEMIDE 20 MG TAB PO SCH (09:56)
[2024-12-04] MEDS: MAGNESIUM OXIDE 400 MG TAB PO SCH (09:56)
[2024-12-04] MEDS: POTASSIUM CHLORIDE ER 10 MEQ TAB.ER.PRT PO SCH (09:56)
--- NOTE | 2024-12-04 10:11 | P.PN ---
Subjective Principal diagnosis: Altered mental status with acute renal failure. Chief complaint Altered mental status and acute renal failure. 79-year-old white female essentially awaiting rehab placement. The patient is doing much better in her mentation. No voiding difficulties minimal pain stated Objective - Vital Signs Vital signs: Vital Signs Temp 97.9 F 12/04/24 04:00 Pulse 81 12/04/24 04:00 Resp 21 12/04/24 04:00 BP 128/48 12/04/24 04:00 Pulse Ox 91 L 12/04/24 04:00 FiO2 35 11/30/24 04:00 Intake & Output 12/03/24 12/04/24 12/04/24 18:59 06:59 18:59 Intake Total 200 Output Total 175 1000 Balance 25 -1000 Weight 100.1 kg Intake: Oral 200 Output: Urine 175 1000 Other: Voiding Method External Catheter External Catheter # Voids 1 # Bowel Movements 1 - Constitutional General appearance: Present: average body habitus - EENT Eyes: Absent: abnormal pupil - Neck Neck: Absent: lymphadenopathy - Respiratory Respiratory: bilateral: diminished - Cardiovascular Rhythm: regular Heart sounds: normal: S1, S2 Abnormal Heart Sounds: Absent: S3 Gallop - Gastrointestinal General gastrointestinal: Present: soft. Absent: tenderness - Labs CBC & Chem 7: 12/04/24 03:03 12/04/24 03:03 Labs: Abnormal Lab Results - Last 24 Hours (Table) 12/03/24 12/03/24 12/04/24 Range/Units 12:52 20:47 03:03 RBC (3.80-5.40) m/uL Hgb (11.4-16.0) gm/dL Hct (34.0-46.0) % MCHC (31.0-37.0) g/dL RDW (11.5-15.5) % Plt Count (150-450) k/uL Sodium 136 L 135 L (137-145) mmol/L Potassium 3.3 L (3.5-5.1) mmol/L Glucose 104 H (74-99) mg/dL POC Glucose (mg/dL) 112 H (70-110) mg/dL Calcium 8.3 L (8.4-10.2) mg/dL Alkaline Phosphatase 182 H (38-126) U/L Total Protein 5.1 L (6.3-8.2) g/dL Albumin 2.4 L (3.5-5.0) g/dL 12/04/24 Range/Units 03:03 RBC 2.65 L (3.80-5.40) m/uL Hgb 7.5 L (11.4-16.0) gm/dL Hct 24.3 L (34.0-46.0) % MCHC 30.7 L (31.0-37.0) g/dL RDW 16.1 H (11.5-15.5) % Plt Count 149 L (150-450) k/uL Sodium (137-145) mmol/L Potassium (3.5-5.1) mmol/L Glucose (74-99) mg/dL POC Glucose (mg/dL) (70-110) mg/dL Calcium (8.4-10.2) mg/dL Alkaline Phosphatase (38-126) U/L Total Protein (6.3-8.2) g/dL Albumin (3.5-5.0) g/dL Assessment and Plan (1) NANCY (acute kidney injury) Current Visit: Yes Status: Acute Code(s): N17.9 - ACUTE KIDNEY FAILURE, UNSPECIFIED SNOMED Code(s): 94322422 (2) AMS (altered mental status) Current Visit: Yes Status: Acute Code(s): R41.82 - ALTERED MENTAL STATUS, UNSPECIFIED SNOMED Code(s): 210706653 (3) Diabetes Current Visit: No Status: Acute Code(s): E11.9 - TYPE 2 DIABETES MELLITUS WITHOUT COMPLICATIONS SNOMED Code(s): 63368127 (4) Hyperlipemia Current Visit: No Status: Acute Code(s): E78.5 - HYPERLIPIDEMIA, UNSPECIFIED SNOMED Code(s): 73200249 (5) Hypertension Current Visit: No Status: Acute Code(s): I10 - ESSENTIAL (PRIMARY) HYPERTENSION SNOMED Code(s): 18641077 (6) Renal cell carcinoma Current Visit: No Status: Acute Priority: High Code(s): C64.9 - MALIGNANT NEOPLASM OF UNSP KIDNEY, EXCEPT RENAL PELVIS SNOMED Code(s): 908149942 (7) Weakness Current Visit: No Status: Acute Code(s): R53.1 - WEAKNESS SNOMED Code(s): 33087139 Plan: Dietary consult. Encourage p.o. intake. Appreciate multiple consultants input. essentially awaiting rehab placement. We'll continue to follow.
--- NOTE | 2024-12-04 10:14 | P.DS ---
Providers Date of admission: 11/22/24 13:38 Attending physician: Gelacio Iverson Consults: 11/22/24 21:32 Consult Physician Routine Consulting Provider: Chaparrita Alejandro Consult Reason/Comments: arf Do you want consulting provider notified?: Yes 11/26/24 08:28 Consult Physician Routine Consulting Provider: Aliyah Snyder Consult Reason/Comments: Gibberish speech, worsening mentation Do you want consulting provider notified?: Yes 11/27/24 17:04 Consult Physician Routine Consulting Provider: Gilberto Galloway Consult Reason/Comments: ICU Management Do you want consulting provider notified?: Already Contacted Primary care physician: Gelacio Iverson - Discharge Diagnosis(es) (1) NANCY (acute kidney injury) Current Visit: Yes Status: Acute (2) AMS (altered mental status) Current Visit: Yes Status: Acute (3) Diabetes Current Visit: No Status: Acute (4) Hyperlipemia Current Visit: No Status: Acute (5) Hypertension Current Visit: No Status: Acute (6) Renal cell carcinoma Current Visit: No Status: Acute Priority: High (7) Weakness Current Visit: No Status: Acute Hospital Course: this is a discharge summary 79-year-old white female essentially admitted for acute renal failure and altered mental status. She ended up also having element of non-bleeding ulcer peptic. The patient had significant drop in anemia and ended up having EGD. The patient was stabilized renal failure function was back to nominal as she is had struggles since nephrectomy. The patient was transferred ICU and due to her weakness will be transferred to rehab facility. The patient is now stable for discharge we need to encourage dietary modification and get laboratories per nephrology in about 2 weeks. The patient will follow-up to see me in about one to 2 weeks. Patient Condition at Discharge: Fair Plan - Discharge Summary Discharge Rx Participant: No New Discharge Prescriptions: New Sucralfate [Carafate] 1 gm PO AC-TID tab Ferrous Sulfate [Iron (65 MG Elemental)] 325 mg PO BID-W/MEALS tab Pantoprazole [Protonix] 40 mg PO BID 30 Days #60 tab Potassium Chloride ER [K-Dur 10] 10 meq PO DAILY #30 tab Furosemide [Lasix] 20 mg PO DAILY #30 tab Magnesium Oxide [Mag-Ox] 400 mg PO DAILY #30 tab Continue Simvastatin [Zocor] 40 mg PO HS Pioglitazone HCl/Metformin HCl [Pioglitazone-Metformin 15850] 1 tab PO BID Aspirin 81 mg PO DAILY DULoxetine HCL [Cymbalta] 60 mg PO DAILY Melatonin 3 mg PO HS PRN tab PRN Reason: Insomnia Ondansetron [Zofran] 8 mg PO BID Changed HYDROcodone/APAP 5-325MG [[place] 5-325] 1 tab PO Q6HR PRN 3 Days #18 tab PRN Reason: Pain Discontinued Valsartan/Hydrochlorothiazide [Diovan Hct 320-25 mg Tablet] 1 tab PO HS Calcium Carbonate/Vitamin D3 [Caltrate 600 Plus D3 Tablet] 2 tab PO DAILY Ferrous Sulfate [Iron (65 MG Elemental)] 1 tab PO DAILY Discharge Medication List Pioglitazone HCl/Metformin HCl [Pioglitazone-Metformin ] 1 tab PO BID 09/17/14 [History] Simvastatin [Zocor] 40 mg PO HS 09/17/14 [History] Aspirin 81 mg PO DAILY 03/06/17 [History] DULoxetine HCL [Cymbalta] 60 mg PO DAILY 10/05/24 [History] Melatonin 3 mg PO HS PRN tab 11/04/24 [Rx] Ondansetron [Zofran] 8 mg PO BID 11/22/24 [History] Ferrous Sulfate [Iron (65 MG Elemental)] 325 mg PO BID-W/MEALS tab 12/01/24 [Rx] HYDROcodone/APAP 5-325MG [[place] 5-325] 1 tab PO Q6HR PRN 3 Days #18 tab 12/01/24 [Rx] Pantoprazole [Protonix] 40 mg PO BID 30 Days #60 tab 12/01/24 [Rx] Sucralfate [Carafate] 1 gm PO AC-TID tab 12/01/24 [Rx] Furosemide [Lasix] 20 mg PO DAILY #30 tab 12/04/24 [Rx] Magnesium Oxide [Mag-Ox] 400 mg PO DAILY #30 tab 12/04/24 [Rx] Potassium Chloride ER [K-Dur 10] 10 meq PO DAILY #30 tab 12/04/24 [Rx] Follow up Appointment(s)/Referral(s): Gelacio Iverson MD [Primary Care Provider] - 1 Week Discharge Disposition: TRANSFER TO SNF/ECF
[2024-12-04 10:52] LABS: Glucose,Whole Blood 74 mg/dL (70-110)
--- NOTE | 2024-12-04 10:59 | P.PN ---
Subjective Progress Note Date: 12/04/24 Principal diagnosis: GI bleed. Acute upper GI bleed secondary to duodenal ulcers This is a 79-year-old female admitted to [facility] back on 11/22/2024, initial presentation was mostly related to altered mental status. Apparently the patient was noted to be hypoxic, on her initial presentation to the ER, and upon her initial evaluation by EMS. Neurology was consulted and felt that the patient had altered mental status secondary to hypoxia and/or renal failure. Patient was seen by nephrology for her renal failure,, felt that the patient had acute kidney injury ATN from hypotension as well as secondary to to hypercalcemia with component of urinary retention and the patient had pyuria with iron deficiency anemia. Her hypercalcemia was felt to be related to calcium supplements. And the patient was on hydrochlorothiazide. On 11/27, patient was seen by surgery on consultation for drop in her hemoglobin from 8.6 on her initial presentation down to 6.2. Hence the patient was transferred to the ICU and I was asked to see her in consultation yesterday, but she was having endoscopy. EGD done yesterday showed superficial duodenal ulcer gastritis, s mall hiatal hernia, but there was no active bleeding, and Dr. Turner felt that the source of the bleeding is most likely from the 2 small duodenal ulcers and he recommended mostly PPI and Carafate. Patient did not require any intervention. Since admission the patient received a total of 2 units of packed RBCs, hemoglobin today is 7.6. Her electrolytes are relatively normal BUN is 28 creatinine 1.15 WBC count is 4.7. Platelets are 151,000. Yesterday the patient had black stools noted, but no bright red blood per rectum and no hematemesis. Considering the patient was admitted to the ICU, I was asked to see her on consultation, and I plan to monitor the patient for the next 24 hours, if she continues to do well we will transfer the patient out of the ICU to medical surgical floor in the next 24 hours. Patient denies any shortness of breath denies any cough no wheezing, no chest pain, no nausea no vomiting no abdominal pain. Patient was seen today on 11/29/2024, patient is doing well, hemodynamically stable, hemoglobin is holding, no active GI bleeding, she is not requiring any pressors, not requiring any further blood transfusions, she is now on 2 L nasal cannula, intermittently on BiPAP 12//35%, hemoglobin today is 7.2, patient received a total of 2 units of packed RBCs since admission. Her IV fluids at 70 cc/h, patient remains on Levaquin, and my plan today is to transfer the patient out of the ICU to a monitored bed and selective. Labs were reviewed including electrolytes and CBC. Progress note dated November 30, 2024. This is a 79-year-old female admitted back on November 22 with mental status changes. The patient came to the intensive care unit, on November 27, with a GI bleed. Since that time, she has received a total of 2 units of packed red blood cells. She had an EGD which revealed a nonbleeding duodenal ulcer. No interventions were undertaken. She is seen today in room 256. She is resting comfortably in bed. She is on 2 L of oxygen. No fluids. The patient is an overflow patient, to 3 S. unit. Current labs include a white count 4.2, hemoglobin 7.3, hematocrit 24.2, and a platelet count of 136,000. Sodium 140, potassium 3.8, chlorides 109, CO2 26, BUN 18, and creatinine 1.03. Glucose 124. Calcium 8.1. Urine from November 23 with positive for Acinetobacter. No chest x- ray today. Progress note dated December 01, 2024. 79-year-old female admitted back on November 22 with mental status changes. Subsequently, she came to the intensive care unit on November 27 with a GI bleed. She has received a total of 2 units of packed red blood cells. An EGD revealed a nonbleeding duodenal ulcer. There were no interventions. The patient is seen today in room 256. She is on room air. No IV fluids. Hemoglobin today was 7.8. Yesterday was 7.3. The rest of her labs include a white count of 5.4, hematocrit 25.5, and a platelet count of 129,000. Sodium 139, potassium 3.8, chlorides 107, CO2 25, BUN 16, creatinine 0.91. Glucose 101. Calcium 8.3, albumin 2.3. Progress note dated December 02, 2024. 79-year-old female initially admitted back on November 22 with mental status changes, and subsequently, came to the intensive. And on November 27, with GI bleed. The patient had an EGD, which revealed a nonbleeding duodenal ulcer. She has received a total of 2 units of packed red blood cells. She has had no further bleeding. She is resting comfortably in room 256. She is getting saline at 10 cc an hour, and nasal O2 at 2 L. The patient is apparently going to be discharged later today, to a local [facility]. Current labs include a sodium 137, potassium 3.7, chlorides 107, CO2 27, anion gap 3, BUN 19, creatinine 0.93. The patient's glucose is 96. Calcium is 7.9. Magnesium 0.9. Progress note dated December 03, 2024. This is a 79-year-old female who is seen today in room 256. She was initially admitted with mental status changes, came to the ICU with a GI bleed. She did receive a couple units of blood, but has had no additional bleeding. The patient did have an EGD, which showed a nonbleeding ulcer. The patient was also scheduled to have robotic bronchoscopy today, but has been canceled. She is getting saline at 10 cc an hour. She is on nasal O2 at 2 L. Apparently the bronchoscopy and biopsy have been canceled. White count is 4.6, hemoglobin 7.4, hematocrit 24.9, platelet count 147,000. Glucose 99. Magnesium 1.6. Progress note dated December 04, 2024. 79-year-old female seen today in room 256. The patient is on room air. The patient is getting saline at 10 cc an hour. The patient is stable for discharge in our opinion. She is not having any additional bleeding. The patient was initially admitted with mental status changes. She developed an upper GI bleed and was transferred to the intensive care unit. EGD revealed a nonbleeding ulcer. Current labs include a white count of 4.4, hemoglobin 7.5, hematocrit 24.3, and a platelet count of 149,000. Sodium 135, potassium 3.3, chlorides 102, CO2 28, BUN 16, and creatinine 0.91. Calcium is 8.3. Albumin 2.4. Objective - Vital Signs Vital signs: Vital Signs Temp 97.9 F 12/04/24 04:00 Pulse 81 12/04/24 04:00 Resp 21 12/04/24 04:00 BP 128/48 12/04/24 04:00 Pulse Ox 91 L 12/04/24 04:00 FiO2 35 11/30/24 04:00 Intake & Output 12/03/24 12/04/24 12/04/24 18:59 06:59 18:59 Intake Total 200 Output Total 175 1000 Balance 25 -1000 Weight 100.1 kg Intake: Oral 200 Output: Urine 175 1000 Other: Voiding Method External Catheter External Catheter # Voids 1 # Bowel Movements 1 - Exam No acute distress, oriented 3. No respiratory distress. Currently on room air. HEENT examination is grossly unremarkable. Mucous membranes are moist. No oral lesions. Neck supple. Full range of motion. No adenopathy thyromegaly or neck vein distention. Cardiovascular examination reveals regular rhythm rate. S1-S2 normal. No S3 or S4. No discernible murmur noted. Lungs reveal clear breath sounds. Breath sounds are equal bilaterally. No adventitious lung sounds including wheezes rhonchi or crackles. Abdomen soft bowel sounds are heard. No masses or tenderness. Extremities are intact. No cyanosis clubbing or edema. Skin is without rash or lesion. Neurologic examination is brief but nonfocal. - Labs CBC & Chem 7: 12/04/24 03:03 12/04/24 03:03 Labs: Abnormal Lab Results - Last 24 Hours (Table) 12/03/24 12/03/24 12/04/24 Range/Units 12:52 20:47 03:03 RBC (3.80-5.40) m/uL Hgb (11.4-16.0) gm/dL Hct (34.0-46.0) % MCHC (31.0-37.0) g/dL RDW (11.5-15.5) % Plt Count (150-450) k/uL Sodium 136 L 135 L (137-145) mmol/L Potassium 3.3 L (3.5-5.1) mmol/L Glucose 104 H (74-99) mg/dL POC Glucose (mg/dL) 112 H (70-110) mg/dL Calcium 8.3 L (8.4-10.2) mg/dL Alkaline Phosphatase 182 H (38-126) U/L Total Protein 5.1 L (6.3-8.2) g/dL Albumin 2.4 L (3.5-5.0) g/dL 03/28/25 Range/Units 03:03 RBC 2.65 L (3.80-5.40) m/uL Hgb 7.5 L (11.4-16.0) gm/dL Hct 24.3 L (34.0-46.0) % MCHC 30.7 L (31.0-37.0) g/dL RDW 16.1 H (11.5-15.5) % Plt Count 149 L (150-450) k/uL Sodium (137-145) mmol/L Potassium (3.5-5.1) mmol/L Glucose (74-99) mg/dL POC Glucose (mg/dL) (70-110) mg/dL Calcium (8.4-10.2) mg/dL Alkaline Phosphatase (38-126) U/L Total Protein (6.3-8.2) g/dL Albumin (3.5-5.0) g/dL Assessment and Plan Assessment: Iron deficiency anemia, secondary to duodenal ulcer and upper GI bleeding, acute on chronic. Acute hypoxemic respiratory failure, recovered. Acute kidney injury, secondary to hypotension. Type 2 diabetes mellitus. Benign essential hypertension. History of obstructive sleep apnea syndrome, currently on CPAP. Acute on chronic iron deficiency anemia. History of renal cell carcinoma with previous nephrectomy. Hyperlipidemia. Plan: Plan dated November 30, 2024. The patient is seen today in room 256. She was admitted back on November 22. She came to the intensive care unit on November 27, with an acute GI bleed. The patient initially was admitted with mental status changes. An EGD was performed, there was a duodenal ulcer, which was not actively bleeding. There was no interventions. Today she is not receiving any IV fluids. The patient is on 2 L of oxygen by nasal cannula. Since being here in the hospital she has received a total of 2 units of packed red blood cells. Labs, x-rays, and all medications are reviewed. The patient's overall prognosis remains guarded. We will continue to follow. Dictation was produced using [employer] software. Please excuse any grammatical, word or spelling errors. Plan dated December 01, 2024. The patient remains very stable. She has had no further bleeding. The patient was discovered to have a nonbleeding ulcer. The patient has received a total of 2 units of PRBCs. Labs, x-rays, medications are reviewed. Hemoglobin is stable at 7.8. It was 7.3 yesterday. The patient remains a full code. The patient could be transferred out of the intensive care unit. All labs, x-rays, and medications are reviewed. Dictation was produced using [employer] software. Please excuse any grammatical, word or spelling errors. Plan dated December 02, 2024. The patient is doing well. The patient has not had any additional bleeding. Labs are stable. She is awake and alert. She is resting comfortably in room 256. She is getting saline at 10 cc an hour which can be discontinued. She is on nasal O2 at 2 L. Yesterday she was on room air. Labs, x-rays, and all medications are reviewed. Prognosis is thought to be generally good. Dictation was produced using [employer] software. Please excuse any grammatical, word or spelling errors. Plan dated December 03, 2024. The patient is doing well. The bronchoscopy that was scheduled for today, has been canceled. The patient has had no further GI bleeding. From the pulmonary critical care perspective, the patient could be considered for discharge. I know the information systems planner was working on placement. Clinically she is stable. She can follow-up with my partner for the bronchoscopy at a later date. Labs, x-rays, medications are reviewed. Prognosis is guarded. We will continue to follow. Dictation was produced using [employer] software. Please excuse any grammatical, word or spelling errors. Plan dated December 04, 2024. The patient seems to be doing relatively well. She is on room air. She is getting saline at 10, which can be discontinued. Labs, x-rays, and all medications are reviewed. The patient apparently is going to be discharged to a local [facility]. Since coming to the ICU, she has not had any further GI bleeding. An EGD revealed a nonbleeding ulcer. We will continue to follow. Prognosis is thought to be generally good. The patient will follow-up with my partner for robotic bronchoscopy. That was planned earlier. Dictation was produced using [employer] software. Please excuse any grammatical, word or spelling errors. Time with Patient: Less than 30
[2024-12-04] MEDS: IPRATROPIUM-ALBUTEROL 3 ML NEB INHALATION SCH (11:07)
[2024-12-04 17:29] LABS: Glucose,Whole Blood 102 mg/dL (70-110)
[2024-12-04 20:45] VITALS: BP 116/78; PULSE 83; RESP 17; TEMP 98
== END 2024-12-04 08:20 | DRG 682 ==
LOC: EC 09:50 → 5NMEDONC 13:38 → 2SICU 11-27 10:11
PROVIDERS: ADMIT Family Medicine; ATTEND Family Medicine
PROC: 0DJ08ZZ Inspection of Upper Intestinal Tract, Via Natural or Artificial Opening Endoscopic (ICD-10-PCS; 2024-11-27)
PROC: 30233N1 Transfusion of Nonautologous Red Blood Cells into Peripheral Vein, Percutaneous Approach (ICD-10-PCS; principal; 2024-11-27 08:35)
DX: N17.0 Acute kidney failure with tubular necrosis (principal); G92.8 Other toxic encephalopathy; J96.01 Acute respiratory failure with hypoxia; K26.4 Chronic or unspecified duodenal ulcer with hemorrhage; D62 Acute posthemorrhagic anemia; D63.1 Anemia in chronic kidney disease; C64.9 Malignant neoplasm of unspecified kidney, except renal pelvis; E86.1 Hypovolemia; E11.22 Type 2 diabetes mellitus with diabetic chronic kidney disease; N18.31 Chronic kidney disease, stage 3a; I12.9 Hypertensive chronic kidney disease with stage 1 through stage 4 chronic kidney disease, or unspecified chronic kidney disease; N39.0 Urinary tract infection, site not specified; D50.9 Iron deficiency anemia, unspecified; K29.60 Other gastritis without bleeding; K44.9 Diaphragmatic hernia without obstruction or gangrene; G47.33 Obstructive sleep apnea (adult) (pediatric); I95.9 Hypotension, unspecified; Z79.84 Long term (current) use of oral hypoglycemic drugs; M19.90 Unspecified osteoarthritis, unspecified site; E78.5 Hyperlipidemia, unspecified; R91.8 Other nonspecific abnormal finding of lung field; E83.42 Hypomagnesemia; E83.52 Hypercalcemia; E87.6 Hypokalemia; G47.30 Sleep apnea, unspecified; Z20.822 Contact with and (suspected) exposure to COVID-19; Z87.01 Personal history of pneumonia (recurrent); Z75.1 Person awaiting admission to adequate facility elsewhere; Z79.82 Long term (current) use of aspirin; Z79.899 Other long term (current) drug therapy; Z85.528 Personal history of other malignant neoplasm of kidney; Z87.891 Personal history of nicotine dependence; Z90.5 Acquired absence of kidney; Z88.6 Allergy status to analgesic agent; Z96.652 Presence of left artificial knee joint
CPT/HCPCS: 36415; 43235; 51798; 70450; 71046; 76770; 80048; 80053; 81001; 82272; 82550; 83540; 83550; 83735; 83880; 84484; 85025; 85027; 85610; 85730; 86850; 86900; 86901; 86920; 87040; 87077; 87086; 87186; 87636; 93005; 94640; 94660; 96361; 96374; 96375; 99285

== ENCOUNTER 2024-12-24 17:19 | Inpatient (IN) | payer MEDICARE ==
--- NOTE | 2024-12-24 17:52 | ED ---
General Adult HPI - General Chief complaint: Altered Mental Status Stated complaint: AMS Time Seen by Provider: 12/24/24 17:22 Source: patient, EMS, RN notes reviewed Mode of arrival: EMS Limitations: altered mental status, physical limitation - History of Present Illness Initial comments: 79 yo female presenting with increased confusion, poor appetite, poor intake. Patient presenting from custodial. She is able to answer questions, denies pain complaints, denies fever, denies vomiting. She has not been eating or drinking well. She is on 4 L of oxygen at baseline. She states she does not walk. Concern for dehydration. - Related Data Home Medications Medication Instructions Recorded Confirmed Pioglitazone HCl/Metformin HCl 1 tab PO BID 09/17/14 12/24/24 [Pioglitazone-Metformin 15-850] Simvastatin [Zocor] 40 mg PO HS 09/17/14 12/24/24 Aspirin 81 mg PO DAILY 03/06/17 12/24/24 DULoxetine HCL [Cymbalta] 60 mg PO DAILY 10/05/24 12/24/24 Ferrous Sulfate [Iron (65 MG 325 mg PO BID 12/24/24 12/24/24 Elemental)] Loperamide [Imodium] 2 mg PO DIRECTED PRN 12/24/24 12/24/24 Potassium Chloride ER [K-Dur 10] 20 meq PO DAILY 12/24/24 12/24/24 Saliva Stimulant Comb. No.3 3 spray MUCOUS MEM TID 12/24/24 12/24/24 [Biotene Moisturizing Mouth] clindamycin HCL 300 mg PO Q6H 12/24/24 12/24/24 Previous Rx's Medication Instructions Recorded Melatonin 3 mg PO HS PRN tab 11/04/24 Pantoprazole [Protonix] 40 mg PO BID 30 Days #60 tab 12/01/24 Sucralfate [Carafate] 1 gm PO AC-TID tab 12/01/24 Magnesium Oxide [Mag-Ox] 400 mg PO DAILY #30 tab 12/04/24 Allergies Allergy/AdvReac Type Severity Reaction Status Date / Time tramadol Allergy Nausea, Verified 12/24/24 18:14 "DRY HEAVES" Review of Systems ROS Statement: Those systems with pertinent positive or pertinent negative responses have been documented in the HPI. ROS Other: All systems not noted in ROS Statement are negative. Past Medical History Past Medical History: Cancer, Diabetes Mellitus, Hyperlipidemia, Hypertension, Pneumonia, Renal Disease, Sleep Apnea/CPAP/BIPAP Additional Past Medical History / Comment(s): anemia, arthritis, grade 4 renal carcinoma, acute respiratory failure, pleural effusions, pulmonary nodules, x smoker History of Any Multi-Drug Resistant Organisms: None Reported Past Surgical History: Joint Replacement, Orthopedic Surgery Additional Past Surgical History / Comment(s): total lt knee, carpel tunnel lt wrist, left nephrectomy 2-2024, bilateral cataracts, Past Anesthesia/Blood Transfusion Reactions: Motion Sickness, Postoperative Nausea & Vomiting (PONV) Additional Past Anesthesia/Blood Transfusion Reaction / Comment(s): no hx blood transfusion Past Psychological History: No Psychological Hx Reported Smoking Status: Former smoker Past Alcohol Use History: None Reported Past Drug Use History: Marijuana - Past Family History Sister(s) Family Medical History: Cancer Additional Family Medical History / Comment(s): lymph General Exam Limitations: physical limitation General appearance: alert, in no apparent distress Head exam: Present: atraumatic, normocephalic Eye exam: Present: normal appearance, PERRL ENT exam: Present: mucous membranes dry Neck exam: Present: normal inspection. Absent: tenderness, meningismus Respiratory exam: Present: decreased breath sounds. Absent: respiratory distress, wheezes Cardiovascular Exam: Present: regular rate, normal rhythm GI/Abdominal exam: Present: soft. Absent: distended, tenderness, guarding Extremities exam: Present: normal inspection. Absent: pedal edema Back exam: Present: normal inspection Neurological exam: Present: alert. Absent: motor sensory deficit Skin exam: Present: warm, dry, intact Course Vital Signs 12/24/24 17:21 Temperature 97.5 F L Pulse Rate 85 Respiratory 14 Rate Blood Pressure 114/51 O2 Sat by Pulse 100 Oximetry Medical Decision Making - Medical Decision Making Was pt. sent in by a medical professional or institution (, PA, COREMAKER HELPER, urgent care, hospital, or custodial...) When possible be specific @ -No Did you speak to anyone other than the patient for history (EMS, parent, family, police, friend...)? What history was obtained from this source @ -No Did you review nursing and triage notes (agree or disagree)? Why? @ -I reviewed and agree with nursing and triage notes Were old charts reviewed (outside hosp., previous admission, EMS record, old EKG, old radiological studies, urgent care reports/EKG's, custodial records)? Report findings @ -No old charts were reviewed Differential Altered Mental Status: Hypoglycemia, DKA, hypercapnia, ETOH, overdose, CO poisoning, trauma, myxedema coma, HTN encephalopathy, infection, encephalitis, psychosis, intercranial hemorrhage, hepatic encephalopathy, meningitis, CVA, this is not meant to be an all-inclusive list EKG interpreted by me (3pts min.). @EKG: Sinus rhythm rate of 84, [place] interval 150, QRS duration 97, QTc 394 X-rays interpreted by me (1pt min.). @Single view chest x-ray negative for consolidative pneumonia or pneumothorax CT interpreted by me (1pt min.). @ -None done U/S interpreted by me (1pt. min.). @ -None done What testing was considered but not performed or refused? (CT, X-rays, U/S, labs)? Why? @ -None What meds were considered but not given or refused? Why? @ -None Did you discuss the management of the patient with other professionals (professionals i.e. , PA, COREMAKER HELPER, lab, RT, psych nurse, social insurance specialist, business lawyer, te acher, protection officer, case management director)? Give summary @ -Case discussed with Dr. Iverson who will admit Was smoking cessation discussed for >3mins.? @ -No Was critical care preformed (if so, how long)? @ -No Were there social determinants of health that impacted care today? How? (Homelessness, low income, unemployed, alcoholism, drug addiction, transportation, low edu. Level, literacy, decrease access to med. care, snf, rehab)? @ -No Was there de-escalation of care discussed even if they declined (Discuss DNR or withdrawal of care, Hospice)? DNR status @ -No What co-morbidities impacted this encounter? (DM, HTN, Smoking, COPD, CAD, Cancer, CVA, ARF, Chemo, Hep., AIDS, mental health diagnosis, sleep apnea, morbid obesity)? @ -Anemia, debility Was patient admitted / discharged? Hospital course, mention meds given and route, prescriptions, significant lab abnormalities, going to OR and other pertinent info. @ -[79-year-old female presented from custodial for evaluation of poor inta ke, dehydration, confusion. Patient able to answer questions, stable vitals with nonfocal neurologic exam. Patient's workup reveals worsening anemia with a hemoglobin 6.2. Patient is transfused 1 unit in the emergency department. Additionally her creatinine went from 0.91-2.7. Likely prerenal from dehydration and poor intake. Patient's continued on IV fluids she is admitted to her primary care provider Dr. Iverson who is aware. Urinalysis pending Undiagnosed new problem with uncertain prognosis? @ -No Drug Therapy requiring intensive monitoring for toxicity (Heparin, Nitro, Insulin, Cardizem)? @ -No Were any procedures done? @ -No Diagnosis/symptom? @ -Dehydration, NANCY, anemia Acute, or Chronic, or Acute on Chronic? @Acute Uncomplicated (without systemic symptoms) or Complicated (systemic symptoms)? @ -Default Side effects of treatment? @ -No Exacerbation, Progression, or Severe Exacerbation? @ -No Poses a threat to life or bodily function? How? (Chest pain, USA, GA, pneumonia, PE, COPD, DKA, ARF, appy, cholecystitis, CVA, Diverticulitis, Homicidal, Suicidal, threat to staff... and all critical care pts) @ -Yes, hypovolemia, anemia - Lab Data Result diagrams: 12/24/24 17:56 12/24/24 17:56 Lab Results 12/24/24 12/24/24 12/24/24 Range/Units 17:56 17:56 17:56 WBC 6.42 (4.50-10.00) 10*3/uL RBC 2.20 L (4.10-5.20) 10*6/uL Hgb 6.2 L* (12.0-15.0) g/dL Hct 20.0 L (37.2-46.3) % MCV 90.9 (80.0-97.0) fL MCH 28.2 (27.0-32.0) pg MCHC 31.0 L (32.0-37.0) g/dL Plt Count 183 (140-440) 10*3/uL MPV 9.8 (9.5-12.2) fL Immature Gran % (Auto) 5.1 % Immature Gran # 0.33 H (0.00-0.04) 10*3/uL PT 10.7 (10.0-12.5) sec INR 1.0 (<1.2) APTT 30.5 H (22.0-30.0) sec Sodium 137 (137-145) mmol/L Potassium 5.5 H (3.5-5.1) mmol/L Chloride 102 (98-107) mmol/L Carbon Dioxide 28 (22-30) mmol/L Anion Gap 7 mmol/L BUN 53 H (7-17) mg/dL Creatinine 2.76 H (0.52-1.04) mg/dL Est GFR (CKD-EPI)AfAm 18 (>60 ml/min/1.73 sqM) Est GFR (CKD-EPI)NonAf 16 (>60 ml/min/1.73 sqM) Glucose 79 (74-99) mg/dL Calcium 10.6 H (8.4-10.2) mg/dL Total Bilirubin 0.5 (0.2-1.3) mg/dL AST 15 (14-36) U/L ALT 10 (4-34) U/L Alkaline Phosphatase 138 H (38-126) U/L Total Protein 5.9 L (6.3-8.2) g/dL Albumin 2.7 L (3.5-5.0) g/dL Blood Type Blood Type Recheck Bld Type Recheck Status Antibody Screen Crossmatch Spec Expiration Date 12/24/24 Range/Units 18:20 WBC (4.50-10.00) 10*3/uL RBC (4.10-5.20) 10*6/uL Hgb (12.0-15.0) g/dL Hct (37.2-46.3) % MCV (80.0-97.0) fL MCH (27.0-32.0) pg MCHC (32.0-37.0) g/dL Plt Count (140-440) 10*3/uL MPV (9.5-12.2) fL Immature Gran % (Auto) % Immature Gran # (0.00-0.04) 10*3/uL PT (10.0-12.5) sec INR (<1.2) APTT (22.0-30.0) sec Sodium (137-145) mmol/L Potassium (3.5-5.1) mmol/L Chloride (98-107) mmol/L Carbon Dioxide (22-30) mmol/L Anion Gap mmol/L BUN (7-17) mg/dL Creatinine (0.52-1.04) mg/dL Est GFR (CKD-EPI)AfAm (>60 ml/min/1.73 sqM) Est GFR (CKD-EPI)NonAf (>60 ml/min/1.73 sqM) Glucose (74-99) mg/dL Calcium (8.4-10.2) mg/dL Total Bilirubin (0.2-1.3) mg/dL AST (14-36) U/L ALT (4-34) U/L Alkaline Phosphatase (38-126) U/L Total Protein (6.3-8.2) g/dL Albumin (3.5-5.0) g/dL Blood Type A Positive Blood Type Recheck A Pos Bld Type Recheck Status No Antibody Screen NEGATIVE Crossmatch See Detail Spec Expiration Date 12/27/20242319 Disposition Clinical Impression: NANCY (acute kidney injury), Anemia, Dehydration Disposition: ADMITTED IP TO THIS [facility] Condition: Stable Is patient prescribed a controlled substance at d/c from ED?: No Referrals: Gelacio Iverson MD [STAFF PHYSICIAN] - 1-2 days Time of Disposition: 19:14
--- NOTE | 2024-12-24 17:59 | XR ---
EXAMINATION TYPE: XR chest 1V portable DATE OF EXAM: 12/24/2024 5:53 PM COMPARISON: Previous chest radiograph 11/22/2024. CLINICAL INDICATION: Female, 79 years old with history of altered mental status; [facility] TECHNIQUE: XR chest 1V portable Frontal view of the chest. FINDINGS: Lungs/Pleura: There is no evidence of pleural effusion, focal consolidation, or pneumothorax. Simila r left lung base linear scarring/atelectasis and coarsening of interstitium. Pulmonary vascularity: Unremarkable. Heart/mediastinum: Cardiomegaly. Musculoskeletal: No acute osseous pathology. Other findings: None IMPRESSION: No acute cardiopulmonary disease/process. [facility], , 12/24/2024 5:57 PM
[2024-12-24] MEDS: SODIUM CHLORIDE 0.9% 1,000 ML IV ONE (18:06)
[2024-12-24 18:16] LABS: MCH 28.2 pg (27.0-32.0); MCV 90.9 fL (80.0-97.0); Mean Platelet Volume 9.8 fL (9.5-12.2); Platelet Count 183 10*3/uL (140-440); RDW 16.5 % (11.5-14.5); WBC 6.42 10*3/uL (4.50-10.00)
[2024-12-24 18:19] LABS: HGB 6.2 g/dL (12.0-15.0)
[2024-12-24 18:29] LABS: Partial Thromboplastin Time 30.5 sec (22.0-30.0); Prothrombin Time 10.7 sec (10.0-12.5)
[2024-12-24] MEDS: PANTOPRAZOLE 40 MG/10 ML VIAL IVP STA (18:32)
[2024-12-24 18:35] LABS: ALT 10 U/L (4-34); AST 15 U/L (14-36); African American GFR (CKD) 18 (>60 ml/min/1.73 sqM); Albumin 2.7 g/dL (3.5-5.0); Alkaline Phosphatase 138 U/L (38-126); Anion Gap 7 mmol/L; Blood Urea Nitrogen 53 mg/dL (7-17); Calcium 10.6 mg/dL (8.4-10.2); Carbon Dioxide 28 mmol/L (22-30); Chloride 102 mmol/L (98-107); Glucose 79 mg/dL (74-99); Non-African American GFR(CKD) 16 (>60 ml/min/1.73 sqM); Potassium 5.5 mmol/L (3.5-5.1); Sodium 137 mmol/L (137-145); Total Bilirubin 0.5 mg/dL (0.2-1.3); Total Protein 5.9 g/dL (6.3-8.2)
[2024-12-24] MEDS ORDERED: NALOXONE 0.4 MG/ML 1 ML VIAL IV PRN (19:10)
[2024-12-24 19:16] LABS: Basophils # (M) 0.06 k/uL (0-0.2); Eosinophils # (M) 0.51 k/uL (0-0.7); Metamyelocytes # (M) 0.19 k/uL (0); Metamyelocytes % 3 %; Monocytes # (M) 0.19 k/uL (0-1.0); Myelocytes # (M) 0.13 k/uL (0); Myelocytes % 2 %; Neutrophils # (M) 3.66 k/uL (1.3-7.7); Neutrophils % (M) 57 %; Nucleated Red Blood Cells 2 /100 WBC (0-0); Total Cells Counted 200
[2024-12-24 19:18] LABS: Stomatocytes Present
[2024-12-24] MEDS ORDERED: MELATONIN 3 MG TABLET PO PRN (21:57)
[2024-12-24] MEDS ORDERED: DEXTROSE 50% SYRINGE 50 ML IVP PRN ×2 (22:12)
[2024-12-24] MEDS: PANTOPRAZOLE 40 MG/10 ML VIAL IVP SCH (23:14)
[2024-12-24] MEDS: ATORVASTATIN 20 MG TAB PO SCH (23:14)
[2024-12-24] MEDS: SODIUM CHLORIDE 0.9% 1,000 ML IV SCH (23:15)
[2024-12-25 05:57] LABS: Glucose,Whole Blood 79 mg/dL (70-110)
[2024-12-25] MEDS: INSULIN LISPRO (HumaLOG) 100 UNIT/ML 10 mL VL SQ SCH ×2 (06:05→16:29)
[2024-12-25] MEDS: PIOGLITAZONE 15 MG TAB PO SCH (06:08)
[2024-12-25] MEDS: SUCRALFATE 1 GM TAB PO SCH (06:08)
[2024-12-25 06:38] LABS: HCT 24.4 % (37.2-46.3); HGB 7.6 g/dL (12.0-15.0); MCH 28.7 pg (27.0-32.0); MCHC 31.1 g/dL (32.0-37.0); MCV 92.1 fL (80.0-97.0); Mean Platelet Volume 10.6 fL (9.5-12.2); Platelet Count 165 10*3/uL (140-440); RBC 2.65 10*6/uL (4.10-5.20); RDW 16.1 % (11.5-14.5); WBC 6.69 10*3/uL (4.50-10.00)
[2024-12-25 06:59] LABS: ALT 9 U/L (4-34); AST 16 U/L (14-36); African American GFR (CKD) 21 (>60 ml/min/1.73 sqM); Albumin 2.6 g/dL (3.5-5.0); Alkaline Phosphatase 123 U/L (38-126); Anion Gap 6 mmol/L; Blood Urea Nitrogen 54 mg/dL (7-17); Calcium 10.3 mg/dL (8.4-10.2); Carbon Dioxide 26 mmol/L (22-30); Chloride 104 mmol/L (98-107); Glucose 73 mg/dL (74-99); Non-African American GFR(CKD) 18 (>60 ml/min/1.73 sqM); Potassium 5.6 mmol/L (3.5-5.1); Sodium 136 mmol/L (137-145); Total Protein 5.7 g/dL (6.3-8.2)
[2024-12-25 07:20] LABS: Anisocytosis (M) Present; Band Neutrophils % 14 %; Eosinophils # (M) 0.07 k/uL (0-0.7); Lymphocytes # (M) 1.27 k/uL (1.0-4.8); Metamyelocytes # (M) 0.13 k/uL (0); Metamyelocytes % 2 %; Myelocytes # (M) 0.33 k/uL (0); Myelocytes % 5 %; Neutrophils # (M) 4.74 k/uL (1.3-7.7); Neutrophils % (M) 57 %; Nucleated Red Blood Cells 0 /100 WBC (0-0); Stomatocytes Present; Target Cells Present; Total Cells Counted 200
[2024-12-25] MEDS ORDERED: metFORMIN 850 MG TAB PO SCH (07:30)
[2024-12-25] MEDS: ASPIRIN 81 MG PO SCH (08:56)
[2024-12-25] MEDS: DULoxetine HCL 60 MG CAPSULE.DR PO SCH (08:56)
[2024-12-25] MEDS: MAGNESIUM OXIDE 400 MG TAB PO SCH (08:56)
[2024-12-25 10:38] LABS: Appearance,Urine Turbid (Clear); Bacteria,Urine Few /hpf; Bilirubin,Urine 1+ (Negative); Blood,Urine Large (Negative); Color,Urine Yellow; Glucose,Urine (UA) Negative (Negative); Hyaline Casts,Urine 16 /lpf (0-2); Ketones,Urine Trace (Negative); Leukocyte Esterase,Urine Large (Negative); Mucus,Urine Occasional /hpf; Nitrite,Urine Negative (Negative); PH, Urine 5.5 (5.0-8.0); Protein,Urine 1+ (Negative); RBC,Urine 62 /hpf (0-5); Specific Gravity,Urine 1.019 (1.001-1.035); Squamous Epithelial Cell,Urine 2 /hpf (0-4); Urobilinogen,Urine <2.0 mg/dL (<2.0); WBC,Urine >182 /hpf (0-5)
[2024-12-25 11:20] LABS: Glucose,Whole Blood 77 mg/dL (70-110)
[2024-12-25] MEDS: ACETAMINOPHEN TAB 325 MG TAB PO PRN (11:32)
[2024-12-25] MEDS ORDERED: QUEtiapine 25 MG TAB PO PRN (14:32)
--- NOTE | 2024-12-25 14:32 | P.HPIM ---
History of Present Illness Patient was sent in from her [place] [facility] facility because of increased confusion patient does not have any fever, does not have any leukocytosis patient is found to be in acute renal failure with creatinine of 2.76 started on IV fluids and sub sequently admitted. Patient creatinine did improve serum potassium is still high at 5.6. Patient was complaining of symptoms of UTI including dysuria because of which urinalysis was obtained which looks significantly abnormal. Patient will be started on antibiotics. Patient had a similar bacteria in the fat in the urine. REVIEW OF SYSTEMS: All other systems are negative except those mentioned in the HPI PHYSICAL EXAMINATION: GENERAL: Patient is drowsy lethargic, oriented x 1-2 HEENT: Pupils are round and equally reacting to light. EOMI. No scleral icterus. No conjunctival pallor. Normocephalic, atraumatic. No pharyngeal erythema. No thyromegaly. CARDIOVASCULAR: S1 and S2 present. No murmurs, rubs, or gallops. PULMONARY: Chest is clear to auscultation, no wheezing or crackles. ABDOMEN: Soft, nontender, nondistended, normoactive bowel sounds. No palpable organomegaly. MUSCULOSKELETAL: No joint swelling or deformity. EXTREMITIES: No cyanosis, clubbing, or pedal edema. NEUROLOGICAL: Gross neurological examination did not reveal any focal deficits. SKIN: No rashes. Assessment and plan -Acute toxic and metabolic encephalopathy from urine possibility of urinary tract infection and severe dehydration continue with IV fluids. Antibiotics will be started - Possibility of urinary tract infection for which patient will be started on Rocephin awaiting urine cultures - Acute renal failure. Prerenal azotemia, vasomotor nephropathy secondary to severe dehydration that may be a competent of acute tubular necrosis. Currently patient is on IV normal saline at 75 cc which will be continued repeat electrolytes kidney function tomorrow - Hyperkalemia secondary to acute renal failure expected to improve with IV normal saline - Normocytic anemia without any clinical evidence of acute GI bleed patient hemoglobin was 6 received 1 unit of PRBC transfusion -Type 2 diabetes mellitus hold off on pioglitazone patient will be started on sliding scale insulin -Depression continue with Cymbalta -Skin breakdown and candidal intertrigo nystatin powder and zinc cream DVT prophylaxis: Subcutaneous heparin Past Medical History Past Medical History: Cancer, Diabetes Mellitus, Hyperlipidemia, Hypertension, Pneumonia, Renal Disease, Sleep Apnea/CPAP/BIPAP Additional Past Medical History / Comment(s): anemia, arthritis, grade 4 renal carcinoma, acute respiratory failure, pleural effusions, pulmonary nodules, x smoker History of Any Multi-Drug Resistant Organisms: None Reported Past Surgical History: Joint Replacement, Orthopedic Surgery Additional Past Surgical History / Comment(s): total lt knee, carpel tunnel lt wrist, left nephrectomy 2-2024, bilateral cataracts, Past Anesthesia/Blood Transfusion Reactions: Motion Sickness, Postoperative Nausea & Vomiting (PONV) Additional Past Anesthesia/Blood Transfusion Reaction / Comment(s): no reaction to blood transfusion Past Psychological History: No Psychological Hx Reported Smoking Status: Former smoker Past Alcohol Use History: None Reported Additional Past Alcohol Use History / Comment(s): quit smoking 1969' smoked for approx 10 yrs Past Drug Use History: Marijuana Additional Drug Use History / Comment(s): marijuana daily freq - Past Family History Sister(s) Family Medical History: Cancer Additional Family Medical History / Comment(s): lymph Medications and Allergies Home Medications Medication Instructions Recorded Confirmed Type Pioglitazone HCl/Metformin HCl 1 tab PO BID 09/17/14 12/24/24 History [Pioglitazone-Metformin 15] Simvastatin [Zocor] 40 mg PO HS 09/17/14 12/24/24 History Aspirin 81 mg PO DAILY 03/06/17 12/24/24 History DULoxetine HCL [Cymbalta] 60 mg PO DAILY 10/05/24 12/24/24 History Melatonin 3 mg PO HS PRN tab 11/04/24 12/24/24 Rx Pantoprazole [Protonix] 40 mg PO BID 30 Days #60 tab 12/01/24 12/24/24 Rx Sucralfate [Carafate] 1 gm PO AC-TID tab 12/01/24 12/24/24 Rx Magnesium Oxide [Mag-Ox] 400 mg PO DAILY #30 tab 12/04/24 12/24/24 Rx Ferrous Sulfate [Iron (65 MG 325 mg PO BID 12/24/24 12/24/24 History Elemental)] Loperamide [Imodium] 2 mg PO DIRECTED PRN 12/24/24 12/24/24 History Potassium Chloride ER [K-Dur 10] 20 meq PO DAILY 12/24/24 12/24/24 History Saliva Stimulant Comb. No.3 3 spray MUCOUS MEM TID 12/24/24 12/24/24 History [Biotene Moisturizing Mouth] clindamycin HCL 300 mg PO Q6H 12/24/24 12/24/24 History Allergies Allergy/AdvReac Type Severity Reaction Status Date / Time tramadol Allergy Nausea, Verified 12/24/24 18:14 "DRY HEAVES" Physical Exam Vitals: Vital Signs Temp Pulse Pulse Resp BP BP Pulse Ox 12/25/24 12:00 83 20 125/66 94 L 12/25/24 11:12 97 12/25/24 08:00 97.8 F 82 18 147/62 95 12/25/24 04:00 85 16 119/67 98 12/24/24 23:10 97.3 F L 90 18 114/65 100 12/24/24 20:50 97.4 F L 79 17 146/65 99 12/24/24 20:30 97.3 F L 80 18 117/52 98 12/24/24 20:22 97.3 F L 80 16 116/40 96 12/24/24 19:00 87 16 107/46 100 12/24/24 18:30 82 14 114/37 100 12/24/24 18:00 84 14 114/51 100 12/24/24 17:21 97.5 F L 85 14 114/51 100 Intake and Output 12/24/24 12/25/24 12/25/24 22:59 06:59 14:59 Intake Total 0 310 0 Output Total 50 Balance 0 310 -50 Intake: Oral 0 Blood Product 0 310 Rc As-1 Unit 0 310 [id number] Output: Urine 50 Other: Voiding Method Diaper Diaper External Catheter # Voids 1 1 # Bowel Movements 1 1 1 Weight 108.318 kg 108.5 kg Results CBC & Chem 7: 12/25/24 05:40 12/25/24 05:40 Labs: Abnormal Lab Results - Last 24 Hours (Table) 12/24/24 12/24/24 12/24/24 Range/Units 17:56 17:56 17:56 RBC 2.20 L (4.10-5.20) 10*6/uL Hgb 6.2 L* (12.0-15.0) g/dL Hct 20.0 L (37.2-46.3) % MCHC 31.0 L (32.0-37.0) g/dL Immature Gran # 0.33 H (0.00-0.04) 10*3/uL Metamyelocytes # (Man) 0.19 H (0) k/uL Myelocytes # (Manual) 0.13 H (0) k/uL Nucleated RBCs 2 H (0-0) /100 WBC APTT 30.5 H (22.0-30.0) sec Sodium (137-145) mmol/L Potassium 5.5 H (3.5-5.1) mmol/L BUN 53 H (7-17) mg/dL Creatinine 2.76 H (0.52-1.04) mg/dL Glucose (74-99) mg/dL Calcium 10.6 H (8.4-10.2) mg/dL Alkaline Phosphatase 138 H (38-126) U/L Total Protein 5.9 L (6.3-8.2) g/dL Albumin 2.7 L (3.5-5.0) g/dL Urine Appearance (Clear) Urine Protein (Negative) Urine Ketones (Negative) Urine Blood (Negative) Urine Bilirubin (Negative) Ur Leukocyte Esterase (Negative) Urine RBC (0-5) /hpf Urine WBC (0-5) /hpf Urine WBC Clumps (None) /hpf Urine Bacteria (None) /hpf Hyaline Casts (0-2) /lpf Urine Mucus (None) /hpf Stool Occult Blood (Negative) Crossmatch 12/24/24 12/24/24 12/25/24 Range/Units 18:20 21:00 05:40 RBC 2.65 L (4.10-5.20) 10*6/uL Hgb 7.6 L (12.0-15.0) g/dL Hct 24.4 L (37.2-46.3) % MCHC 31.1 L (32.0-37.0) g/dL Immature Gran # 0.42 H (0.00-0.04) 10*3/uL Metamyelocytes # (Man) 0.13 H (0) k/uL Myelocytes # (Manual) 0.33 H (0) k/uL Nucleated RBCs (0-0) /100 WBC APTT (22.0-30.0) sec Sodium (137-145) mmol/L Potassium (3.5-5.1) mmol/L BUN (7-17) mg/dL Creatinine (0.52-1.04) mg/dL Glucose (74-99) mg/dL Calcium (8.4-10.2) mg/dL Alkaline Phosphatase (38-126) U/L Total Protein (6.3-8.2) g/dL Albumin (3.5-5.0) g/dL Urine Appearance (Clear) Urine Protein (Negative) Urine Ketones (Negative) Urine Blood (Negative) Urine Bilirubin (Negative) Ur Leukocyte Esterase (Negative) Urine RBC (0-5) /hpf Urine WBC (0-5) /hpf Urine WBC Clumps (None) /hpf Urine Bacteria (None) /hpf Hyaline Casts (0-2) /lpf Urine Mucus (None) /hpf Stool Occult Blood Positive H (Negative) Crossmatch See Detail 12/25/24 12/25/24 Range/Units 05:40 10:15 RBC (4.10-5.20) 10*6/uL Hgb (12.0-15.0) g/dL Hct (37.2-46.3) % MCHC (32.0-37.0) g/dL Immature Gran # (0.00-0.04) 10*3/uL Metamyelocytes # (Man) (0) k/uL Myelocytes # (Manual) (0) k/uL Nucleated RBCs (0-0) /100 WBC APTT (22.0-30.0) sec Sodium 136 L (137-145) mmol/L Potassium 5.6 H (3.5-5.1) mmol/L BUN 54 H (7-17) mg/dL Creatinine 2.47 H (0.52-1.04) mg/dL Glucose 73 L (74-99) mg/dL Calcium 10.3 H (8.4-10.2) mg/dL Alkaline Phosphatase (38-126) U/L Total Protein 5.7 L (6.3-8.2) g/dL Albumin 2.6 L (3.5-5.0) g/dL Urine Appearance Turbid H (Clear) Urine Protein 1+ H (Negative) Urine Ketones Trace H (Negative) Urine Blood Large H (Negative) Urine Bilirubin 1+ H (Negative) Ur Leukocyte Esterase Large H (Negative) Urine RBC 62 H (0-5) /hpf Urine WBC >182 H (0-5) /hpf Urine WBC Clumps Few H (None) /hpf Urine Bacteria Few H (None) /hpf Hyaline Casts 16 H (0-2) /lpf Urine Mucus Occasional H (None) /hpf Stool Occult Blood (Negative) Crossmatch Thrombosis Risk Factor Assmnt - Choose All That Apply Any of the Below Risk Factors Present?: No Other Risk Factors: Yes Each Risk Factor Represents 3 Points: Age 75 years or older Thrombosis Risk Factor Assessment Total Risk Factor Score: 3 Thrombosis Risk Factor Assessment Level: Moderate Risk
[2024-12-25] MEDS: HEPARIN SODIUM,PORCINE 5,000 UNIT/ML 1 ML VIAL SQ SCH (15:19)
[2024-12-25] MEDS: NYSTATIN 100,000 UNIT/GM POWD 15 GM TOPICAL SCH (15:24)
[2024-12-25] MEDS: SODIUM ZIRCONIUM CYCLOSILICATE 10 GM PACKET PO ONE (15:24)
[2024-12-25 16:21] LABS: Glucose,Whole Blood 89 mg/dL (70-110)
[2024-12-25] MEDS: PANTOPRAZOLE 40 MG TABLET PO SCH (16:33)
[2024-12-25 19:59] LABS: Glucose,Whole Blood 96 mg/dL (70-110)
[2024-12-25] MEDS: FAMOTIDINE 20 MG TAB PO SCH (21:27)
[2024-12-26 06:03] LABS: Glucose,Whole Blood 92 mg/dL (70-110)
[2024-12-26 06:24] LABS: HCT 22.3 % (37.2-46.3); MCH 28.2 pg (27.0-32.0); MCHC 31.4 g/dL (32.0-37.0); MCV 89.9 fL (80.0-97.0); Mean Platelet Volume 9.8 fL (9.5-12.2); Platelet Count 146 10*3/uL (140-440); RBC 2.48 10*6/uL (4.10-5.20); RDW 16.4 % (11.5-14.5); WBC 5.44 10*3/uL (4.50-10.00)
[2024-12-26 06:57] LABS: African American GFR (CKD) 28 (>60 ml/min/1.73 sqM); Anion Gap 10 mmol/L; Blood Urea Nitrogen 48 mg/dL (7-17); Calcium 9.7 mg/dL (8.4-10.2); Carbon Dioxide 23 mmol/L (22-30); Chloride 105 mmol/L (98-107); Glucose 81 mg/dL (74-99); Non-African American GFR(CKD) 24 (>60 ml/min/1.73 sqM); Potassium 4.5 mmol/L (3.5-5.1); Sodium 138 mmol/L (137-145)
--- NOTE | 2024-12-26 10:41 | P.NPCON ---
History of Present Illness - Reason for Consult acute renal failure - History of Present Illness Reason for consultation: Acute kidney injury History of present illness: Patient is a 79-year-old female seen in renal consultation for acute kidney injury. Patient's creatinine in November 2024 was 0.9. 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 Patient states she underwent left nephrectomy in September 2024 due to renal cell cancer. Patient came to the hospital due to weakness. Patient did notice dark stools at home. She has been weak for 2 to 3 weeks now. Denies use of nonsteroidals at home. She does have history of diabetes. Denies history of coronary artery disease. Hemoglobin was 6.2 on admission and she did receive a unit of blood. Hemoglobin 7.0 this morning. She has been having loose bowel movements. Oral intake has been poor for the last 2 to 3 weeks. Vital signs are stable. General: No acute distress. HEENT: Head exam is unremarkable. LUNGS: No audible rhonchi or wheezes. HEART: Rate and Rhythm are regular. ABDOMEN: Nontender. EXTREMITITES: No edema. Past Medical History Past Medical History: Cancer, Diabetes Mellitus, Hyperlipidemia, Hypertension, Pneumonia, Renal Disease, Sleep Apnea/CPAP/BIPAP Additional Past Medical History / Comment(s): anemia, arthritis, grade 4 renal carcinoma, acute respiratory failure, pleural effusions, pulmonary nodules, x smoker History of Any Multi-Drug Resistant Organisms: None Reported Past Surgical History: Joint Replacement, Orthopedic Surgery Additional Past Surgical History / Comment(s): total lt knee, carpel tunnel lt wrist, left nephrectomy , bilateral cataracts, Past Anesthesia/Blood Transfusion Reactions: Motion Sickness, Postoperative Nausea & Vomiting (PONV) Additional Past Anesthesia/Blood Transfusion Reaction / Comment(s): no reaction to blood transfusion Past Psychological History: No Psychological Hx Reported Smoking Status: Former smoker Past Alcohol Use History: None Reported Additional Past Alcohol Use History / Comment(s): quit smoking 1969's smoked for approx 10 yrs Past Drug Use History: Marijuana Additional Drug Use History / Comment(s): marijuana daily freq - Past Family History Sister(s) Family Medical History: Cancer Additional Family Medical History / Comment(s): lymph Medications and Allergies Home Medications Medication Instructions Recorded Confirmed Type Pioglitazone HCl/Metformin HCl 1 tab PO BID 09/17/14 12/24/24 History [Pioglitazone-Metformin 15850] Simvastatin [Zocor] 40 mg PO HS 09/17/14 12/24/24 History Aspirin 81 mg PO DAILY 03/06/17 12/24/24 History DULoxetine HCL [Cymbalta] 60 mg PO DAILY 10/05/24 12/24/24 History Melatonin 3 mg PO HS PRN tab 11/04/24 12/24/24 Rx Pantoprazole [Protonix] 40 mg PO BID 30 Days #60 tab 12/01/24 12/24/24 Rx Sucralfate [Carafate] 1 gm PO AC-TID tab 12/01/24 12/24/24 Rx Magnesium Oxide [Mag-Ox] 400 mg PO DAILY #30 tab 12/04/24 12/24/24 Rx Ferrous Sulfate [Iron (65 MG 325 mg PO BID 12/24/24 12/24/24 History Elemental)] Loperamide [Imodium] 2 mg PO DIRECTED PRN 12/24/24 12/24/24 History Potassium Chloride ER [K-Dur 10] 20 meq PO DAILY 12/24/24 12/24/24 History Saliva Stimulant Comb. No.3 3 spray MUCOUS MEM TID 12/24/24 12/24/24 History [Biotene Moisturizing Mouth] clindamycin HCL 300 mg PO Q6H 12/24/24 12/24/24 History Allergies Allergy/AdvReac Type Severity Reaction Status Date / Time tramadol Allergy Nausea, Verified 12/24/24 18:14 "DRY HEAVES" Physical Exam Vitals: Vital Signs Temp Pulse Resp BP BP Pulse Ox 12/26/24 08:00 97.5 F L 81 20 142/80 97 12/26/24 04:00 97.5 F L 85 20 133/72 95 12/25/24 23:53 97.5 F L 85 16 131/61 97 12/25/24 20:00 97.6 F 86 24 129/73 94 L 12/25/24 16:00 97.5 F L 80 20 134/61 92 L 12/25/24 12:00 83 20 125/66 94 L 12/25/24 11:12 97 Intake and Output 12/25/24 12/26/24 12/26/24 22:59 06:59 14:59 Intake Total 120 Output Total 200 100 Balance -80 -100 Intake: Oral 120 Output: Urine 200 100 Other: Voiding Method External Catheter External Catheter External Catheter Weight 108.5 kg Results - Lab Results Most recent lab results Calcium 9.7 mg/dL (8.4-10.2) 12/26/24 05:40 12/26/24 05:40 12/26/24 05:40 Assessment and Plan Plan: Assessment: 1. Acute kidney injury secondary to ATN secondary to acute blood loss anemia. Creatinine 2.76 on admission and is 1.97 today. Baseline creatinine near 0.9 from November 2024. Kidney ultrasound from November 2024 showed no evidence of hyd ronephrosis. 2. Status post left nephrectomy secondary to renal cell cancer in September 2024. 3. Acute blood loss anemia status post blood transfusion. Surgery consulted. 4. Diabetes mellitus. 5. Hypercalcemia secondary to volume contraction. Trending down. Plan: Maintain normal saline. Encouraged oral intake. IV DDAVP x 1 dose today. Avoid nephrotoxins. Continue to monitor renal function and urine output. Thank you for the consultation. I will continue to follow the patient with you during her hospital stay.
[2024-12-26] MEDS: PANTOPRAZOLE 40 MG/10 ML VIAL IVP SCH (10:54)
[2024-12-26] MEDS: DESMOPRESSIN ACETATE IVPB ONE (11:01)
[2024-12-26] MEDS: SODIUM CHLORIDE 0.9% IVPB ONE (11:01)
[2024-12-26 12:09] LABS: Glucose,Whole Blood 89 mg/dL (70-110)
[2024-12-26 13:15] LABS: % Iron Saturation 40.72 (12.00-45.00)
--- NOTE | 2024-12-26 14:26 | P.CON ---
Consult Note - . Consult date: 12/26/24 Assessment/Plan:: 79 yo female presenting with increased confusion, poor appetite, poor intake. Patient presenting from [facility]. She is able to answer questions, denies pain complaints, denies fever, denies vomiting. She has not been eating or dri nking well. She is on 4 L of oxygen at baseline. She states she does not walk. Concern for dehydration. The patient is a poor historian. When she arrived, her hemoglobin was noted to be 6.2. Her next two hemoglobins were 7.6 and 7.0. Per nursing, she is having dark tarry stools. Review of Systems ROS Statement: Those systems with pertinent positive or pertinent negative responses have been documented in the HPI. ROS Other: All systems not noted in ROS Statement are negative. Past Medical History Past Medical History: Cancer, Diabetes Mellitus, Hyperlipidemia, Hypertension, Pneumonia, Renal Disease, Sleep Apnea/CPAP/BIPAP Additional Past Medical History / Comment(s): anemia, arthritis, grade 4 renal carcinoma, acute respiratory failure, pleural effusions, pulmonary nodules, x smoker History of Any Multi-Drug Resistant Organisms: None Reported Past Surgical History: Joint Replacement, Orthopedic Surgery Additional Past Surgical History / Comment(s): total lt knee, carpel tunnel lt wrist, left nephrectomy 2-2024, bilateral cataracts, Past Anesthesia/Blood Transfusion Reactions: Motion Sickness, Postoperative Nausea & Vomiting (PONV) Additional Past Anesthesia/Blood Transfusion Reaction / Comment(s): no hx blood transfusion Past Psychological History: No Psychological Hx Reported Smoking Status: Former smoker Past Alcohol Use History: None Reported Past Drug Use History: Marijuana - Past Family History Sister(s) Family Medical History: Cancer Additional Family Medical History / Comment(s): lymph General Exam Limitations: physical limitation General appearance: alert, in no apparent distress Head exam: Present: atraumatic, normocephalic Eye exam: Present: normal appearance, PERRL ENT exam: Present: mucous membranes dry Neck exam: Present: normal inspection. Absent: tenderness, meningismus Respiratory exam: Present: decreased breath sounds. Absent: respiratory distress, wheezes Cardiovascular Exam: Present: regular rate, normal rhythm GI/Abdominal exam: Present: soft. Absent: distended, tenderness, guarding Extremities exam: Present: normal inspection. Absent: pedal edema Back exam: Present: normal inspection Neurological exam: Present: alert. Absent: motor sensory deficit Skin exam: Present: warm, dry, intact 79 year old female with GIB -Will transfuse patient 2 units PRBCs -Will check post transfusion Hgb -If patient does not respond to blood or continues to have bloody bowel movements she may need endoscopic intervention -Patient can continue on Carbohydrate diet for now, however she may need to be made NPO if no improvement in Hgb Octavio Vizcarra DO [facility] [phone]
--- NOTE | 2024-12-26 14:48 | P.PN ---
Subjective Progress Note Date: 12/26/24 Interval History: 79-year-old female with past medical history significant for hypertension, hyperlipidemia, diabetes mellitus, history of sleep apnea, history of renal cancer, pulmonary nodules, previous smoker who was brought in from [facility] due to increased confusion. Patient had previous hospitalization recently underwent EGD for anemia and was noted to have peptic ulcer disease. at the bedside reported patient was having on and off melena. Patient noted to be in acute kidney injury with creatinine of 2.76, was started on IV fluids, and admitted to hospital for further evaluation and management. Also had elevated potassium on presentation which is now improved.. Patient was complaining of dysuria, UA was positive, currently on Rocephin for UTI. 2 more unit of packed RBCs ordered on 12/26, general surgery consulted, recommended monitor H&H and transfuse as needed, if continue to notice drop in hemoglobin will need endoscopy. Mentation improving. Remains on Rocephin for UTI. Assessment and plan: Melena: History of peptic ulcer disease: Previous EGD showed peptic ulcer disease, history of anemia with blood transfusion Check iron studies, B12, folic acid Monitor H&H, transfuse for hemoglobin less than 7.0, 1 unit of packed RBCs/18, 2 more units units of packed RBCs/19 IV Protonix General Surgery consult. Acute toxic metabolic encephalopathy: Improved UTI Brought in for altered mental status UA positive Monitor with neurochecks Rocephin Follow-up urine culture NANCY: Prerenal azotemia, secondary to dehydration IV fluids Monitor renal function Monitor potassium Avoid nephrotoxin Nephrology consult. Diabetes mellitus: Hold pioglitazone Accu-Cheks, diabetic diet Sliding-scale insulin Depression: Cymbalta Sarita intertrigo Nystatin DVT prophylaxis: SCD Monitor vital signs and labs Labs and medication were reviewed. Continue same treatment. Further recommendations as per clinical course of the patient PHYSICAL EXAMINATION: GENERAL: The patient is A&O x3, NAD HEENT: EOMI, Sclerae anicteric, Moist Mucous membranes Neck: Supple, Non tender, No JVD PULMONARY: Equal breath souds B/L, No wheezing, No crackles. CARDIOVASCULAR: S1, S2 present. No murmurs, rubs, or gallops. ABDOMEN: Soft, nontender, nondistended, normoactive bowel sounds. No guarding or rebound tenderness. MUSCULOSKELETAL: No edema, No cyanosis. No clubbing. Normal ROM. Intact peripheral pulses. NEUROLOGICAL: CN 2-12 grossly intact. No FND Skin: No Rash REVIEW OF SYSTEMS: CONSTITUTIONAL: No fever or chills. CARDIOVASCULAR: No chest pain, palpitations or syncope. PULMONARY: No shortness of breath, no cough, sore throat. GASTROINTESTINAL: No nausea, vomiting, diarrhea, abdominal pain. : No Dysuria, urgency, frequency. Extremities: No edema. NEUROLOGICAL: No headaches, no weakness, or numbness Dictation was produced using [employer] dictation software. please excuse any grammatical, word or spelling errors. Objective - Vital Signs Vital signs: Vital Signs Temp 97.8 F 12/26/24 13:17 Pulse 108 H 12/26/24 13:17 Resp 20 12/26/24 13:17 BP 118/63 12/26/24 13:17 Pulse Ox 97 12/26/24 12:48 FiO2 Intake & Output 12/25/24 12/26/24 12/26/24 18:59 06:59 18:59 Intake Total 120 0 Output Total 50 300 Balance 70 -300 0 Weight 108.5 kg Intake: Oral 120 Blood Product 0 Unit 0 Output: Urine 50 300 Other: Voiding Method External Catheter External Catheter External Catheter # Voids 1 # Bowel Movements 1 - Labs CBC & Chem 7: 12/26/24 05:40 12/26/24 05:40 Labs: Abnormal Lab Results - Last 24 Hours (Table) 12/24/24 12/26/24 12/26/24 Range/Units 18:20 05:40 05:40 RBC 2.48 L (4.10-5.20) 10*6/uL Hgb 7.0 L (12.0-15.0) g/dL Hct 22.3 L (37.2-46.3) % MCHC 31.4 L (32.0-37.0) g/dL BUN 48 H (7-17) mg/dL Creatinine 1.97 H (0.52-1.04) mg/dL TIBC (228-460) UG/DL Transferrin (204.0-354.0) mg/dL Ferritin (10.0-291.0) ng/mL Vitamin B12 (200.0-944.0) pg/mL Crossmatch See Detail 12/26/24 Range/Units 05:40 RBC (4.10-5.20) 10*6/uL Hgb (12.0-15.0) g/dL Hct (37.2-46.3) % MCHC (32.0-37.0) g/dL BUN (7-17) mg/dL Creatinine (0.52-1.04) mg/dL TIBC 167 L (228-460) UG/DL Transferrin 119.0 L (204.0-354.0) mg/dL Ferritin 379.0 H (10.0-291.0) ng/mL Vitamin B12 2128.0 H (200.0-944.0) pg/mL Crossmatch
[2024-12-26 16:59] LABS: Glucose,Whole Blood 90 mg/dL (70-110)
[2024-12-26 19:04] LABS: HCT 25.9 % (37.2-46.3); HGB 8.4 g/dL (12.0-15.0); MCH 29.1 pg (27.0-32.0); MCHC 32.4 g/dL (32.0-37.0); MCV 89.6 fL (80.0-97.0); Mean Platelet Volume 10.1 fL (9.5-12.2); Platelet Count 138 10*3/uL (140-440); RBC 2.89 10*6/uL (4.10-5.20); RDW 15.9 % (11.5-14.5); WBC 6.48 10*3/uL (4.50-10.00)
[2024-12-26 20:03] LABS: Glucose,Whole Blood 98 mg/dL (70-110)
[2024-12-27 00:46] LABS: HCT 23.5 % (37.2-46.3); HGB 7.6 g/dL (12.0-15.0); MCHC 32.3 g/dL (32.0-37.0); MCV 89.7 fL (80.0-97.0); Mean Platelet Volume 9.7 fL (9.5-12.2); Platelet Count 123 10*3/uL (140-440); RBC 2.62 10*6/uL (4.10-5.20); RDW 16.3 % (11.5-14.5); WBC 6.58 10*3/uL (4.50-10.00)
[2024-12-27 06:05] LABS: Glucose,Whole Blood 88 mg/dL (70-110)
--- NOTE | 2024-12-27 07:00 | P.PN ---
Progress Note - Text Progress Note Date: 12/27/24 Patient seen and examined. No acute events overnight. Patient received 2 units PRBCs yesterday. Patient is having dark tarry stools per nursing. VSS CVS-RRR Lungs-NLB Abdomen-soft, NTND 79 year old female with GIB -Continue to trend hemoglobin -Patient tentatively boarded for EGD tomorrow pending hemoglobin and clinical course -Regular Diet -NPO/midnight -AM labs Octavio Vizcarra DO [facility] [phone]
[2024-12-27 10:04] LABS: HCT 25.9 % (37.2-46.3); HGB 8.4 g/dL (12.0-15.0); MCH 29.4 pg (27.0-32.0); MCHC 32.4 g/dL (32.0-37.0); MCV 90.6 fL (80.0-97.0); RBC 2.86 10*6/uL (4.10-5.20); RDW 16.3 % (11.5-14.5)
[2024-12-27 10:23] LABS: African American GFR (CKD) 46 (>60 ml/min/1.73 sqM); Anion Gap 8 mmol/L; Blood Urea Nitrogen 42 mg/dL (7-17); Calcium 10.1 mg/dL (8.4-10.2); Carbon Dioxide 21 mmol/L (22-30); Chloride 111 mmol/L (98-107); Glucose 90 mg/dL (74-99); Magnesium 1.2 mg/dL (1.6-2.3); Non-African American GFR(CKD) 40 (>60 ml/min/1.73 sqM); Potassium 4.3 mmol/L (3.5-5.1); Sodium 140 mmol/L (137-145)
--- NOTE | 2024-12-27 11:07 | P.PN ---
Subjective Patient is seen in follow-up for acute kidney injury. Renal function improving. Hemodynamically stable. Denies any active bleeding. Hemoglobin 8.4 this morning. Vital signs are stable. General: No acute distress. HEENT: Head exam is unremarkable. LUNGS: No audible rhonchi or wheezes. HEART: Rate and Rhythm are regular. Cut the ABDOMEN: Nontender. EXTREMITITES: Trace edema. Objective - Vital Signs Vital signs: Vital Signs Temp 97.2 F L 12/27/24 09:57 Pulse 86 12/27/24 09:57 Resp 17 12/27/24 09:57 BP 146/64 12/27/24 09:57 Pulse Ox 94 L 12/27/24 09:57 FiO2 Intake & Output 12/26/24 12/27/24 12/27/24 18:59 06:59 18:59 Intake Total 1365 Output Total 200 300 Balance 1165 -300 Intake: Intake, IV Titration 625 Amount Desmopressin Acetate 22. 50 866 mcg In Sodium Chloride 0.9% 50 ml @ 200 mls/hr IVPB ONCE ONE Rx# :[id number] Sodium Chloride 0.9% 1, 525 000 ml @ 75 mls/hr IV . [id number] [facility] Rx#:[id number] cefTRIAXone 1 gm In 50 Sodium Chloride 0.9% 50 ml @ 100 mls/hr IVPB Q24H [facility] Rx#:[id number] Oral 120 Blood Product 620 Rc As-1 Unit 310 [id number] Output: Urine 200 300 Other: Voiding Method External Catheter Diaper Bedpan Incontinent Diaper Incontinent # Bowel Movements 1 - Labs CBC & Chem 7: 12/27/24 09:56 12/27/24 09:56 Labs: Abnormal Lab Results - Last 24 Hours (Table) 12/24/24 12/26/24 12/26/24 Range/Units 18:20 05:40 18:32 RBC 2.89 L (4.10-5.20) 10*6/uL Hgb 8.4 L (12.0-15.0) g/dL Hct 25.9 L (37.2-46.3) % Plt Count 138 L (140-440) 10*3/uL Immature Gran # (0.00-0.04) 10*3/uL Chloride (98-107) mmol/L Carbon Dioxide (22-30) mmol/L BUN (7-17) mg/dL Creatinine (0.52-1.04) mg/dL Magnesium (1.6-2.3) mg/dL TIBC 167 L (228-460) UG/DL Transferrin 119.0 L (204.0-354.0) mg/dL Ferritin 379.0 H (10.0-291.0) ng/mL Vitamin B12 2128.0 H (200.0-944.0) pg/mL Crossmatch See Detail 12/27/24 12/27/24 12/27/24 Range/Units 00:13 09:56 09:56 RBC 2.62 L 2.86 L (4.10-5.20) 10*6/uL Hgb 7.6 L 8.4 L (12.0-15.0) g/dL Hct 23.5 L 25.9 L (37.2-46.3) % Plt Count 123 L 131 L (140-440) 10*3/uL Immature Gran # 0.81 H (0.00-0.04) 10*3/uL Chloride 111 H (98-107) mmol/L Carbon Dioxide 21 L (22-30) mmol/L BUN 42 H (7-17) mg/dL Creatinine 1.30 H (0.52-1.04) mg/dL Magnesium 1.2 L (1.6-2.3) mg/dL TIBC (228-460) UG/DL Transferrin (204.0-354.0) mg/dL Ferritin (10.0-291.0) ng/mL Vitamin B12 (200.0-944.0) pg/mL Crossmatch Microbiology - Last 24 Hours (Table) 12/25/24 10:15 Urine Culture - Preliminary Urine,Voided Assessment and Plan Plan: Assessment: 1. Acute kidney injury secondary to ATN secondary to acute blood loss anemia. Creatinine 2.76 on admission and is 1.3 today. Baseline creatinine near 0.9 from November 2024. Kidney ultrasound from November 2024 showed no evidence of hydronephrosis. 2. Status post left nephrectomy secondary to renal cell cancer in September 2024. 3. Acute blood loss anemia status post blood transfusion. Surgery following. Status post IV DDAVP. EGD tomorrow. 4. Diabetes mellitus. 5. Hypercalcemia secondary to volume contraction. Check for secondary causes. 6. Hypomagnesemia from poor intake. Plan: Maintain normal saline. Decrease rate to 50 cc an hour. Encouraged oral intake. Avoid nephrotoxins. Continue to monitor renal function and urine output. Replace magnesium. Check secondary workup for hypercalcemia.
[2024-12-27 11:43] LABS: Glucose,Whole Blood 88 mg/dL (70-110)
[2024-12-27 11:43] LABS: Eosinophils # (M) 0.29 k/uL (0-0.7); Lymphocytes # (M) 1.66 k/uL (1.0-4.8); Metamyelocytes # (M) 0.22 k/uL (0); Metamyelocytes % 3 %; Monocytes # (M) 0.14 k/uL (0-1.0); Myelocytes # (M) 0.36 k/uL (0); Myelocytes % 5 %; Neutrophils # (M) 4.68 k/uL (1.3-7.7); Neutrophils % (M) 65 %; Nucleated Red Blood Cells 0 /100 WBC (0-0); Total Cells Counted 200
[2024-12-27 11:44] LABS: Platelet Count 131 10*3/uL (140-440)
[2024-12-27] MEDS: MAGNESIUM SULFATE-D5W PMX 1 GM in DEXTROSE/WATER 1 100ML.BAG IVPB SCH (11:55)
--- NOTE | 2024-12-27 13:53 | P.PN ---
Subjective Interval History: 79-year-old female with past medical history significant for hypertension, hyperlipidemia, diabetes mellitus, history of sleep apnea, history of renal cancer, pulmonary nodules, [facility]. Patient had previous hospitalization recently underwent EGD for anemia and was noted to have peptic ulcer disease. at the bedside reported patient was having on and off melena. Patient noted to be in acute kidney injury with creatinine of 2.76, was started on IV fluids, and admitted to hospital for further evaluation and management. Also had elevated potassium on presentation which is now improved.. Patient was complaining of dysuria, UA was positive, currently on Rocephin for UTI. 2 more unit of packed RBCs ordered on 12/26, general surgery consulted, recommended monitor H&H and transfuse as needed, if continue to notice drop in hemoglobin will need endoscopy. Mentation improving. Remains on Rocephin for UTI. 12/27/2024 Patient was seen and examined today. at bedside, patient still confused, A and O x 2 to 3. WBC 7.2, hemoglobin 8.4, platelet 131. BUN 42, creatinine 1.30. Nephrology on board and following, recommended to maintain IV fluids, decrease rate to 50 cc an hour. General surgery following, tentative plan for EGD tomorrow depending on hemoglobin level. Assessment and plan: Melena: History of peptic ulcer disease: Previous EGD showed peptic ulcer disease, history of anemia with blood trans fusion Check iron studies, B12, folic acid Monitor H&H, transfuse for hemoglobin less than 7.0, 1 unit of packed RBCs/18, 2 more units units of packed RBCs/19 IV Protonix General Surgery consulted--- will consider EGD if continues drop in hemoglobin or sign or symptom of active bleed. Acute toxic metabolic encephalopathy: Improving UTI Brought in for altered mental status, likely delirium, fluctuating mentation. UA positive Monitor with neurochecks Rocephin Follow-up urine culture PT/OT/LAUNDRY AID consult. NANCY: Hypercalcemia: Prerenal azotemia, secondary to dehydration IV fluids Monitor renal function Monitor potassium, monitor calcium Avoid nephrotoxin Nephrology consulted and following Diabetes mellitus: Hold pioglitazone Accu-Cheks, diabetic diet Sliding-scale insulin Depression: Cymbalta Sarita intertrigo Nystatin DVT prophylaxis: SCD Monitor vital signs and labs Labs and medication were reviewed. Continue same treatment. Further recommendations as per clinical course of the patient PHYSICAL EXAMINATION: GENERAL: The patient is A&O x2-3, NAD HEENT: EOMI, Sclerae anicteric, Moist Mucous membranes Neck: Supple, Non tender, No JVD PULMONARY: Equal breath souds B/L, No wheezing, No crackles. CARDIOVASCULAR: S1, S2 present. No murmurs, rubs, or gallops. ABDOMEN: Soft, nontender, nondistended, normoactive bowel sounds. No guarding or rebound tenderness. MUSCULOSKELETAL: No edema, No cyanosis. No clubbing. Normal ROM. Intact peripheral pulses. NEUROLOGICAL: CN 2-12 grossly intact. No FND Skin: No Rash REVIEW OF SYSTEMS: CONSTITUTIONAL: No fever or chills. CARDIOVASCULAR: No chest pain, palpitations or syncope. PULMONARY: No shortness of breath, no cough, sore throat. GASTROINTESTINAL: No nausea, vomiting, diarrhea, abdominal pain. : No Dysuria, urgency, frequency. Extremities: No edema. NEUROLOGICAL: No headaches, no weakness, or numbness Dictation was produced using [email or web address] dictation software. please excuse any grammatical, word or spelling errors. Objective - Vital Signs Vital signs: Vital Signs Temp 97.2 F L 12/27/24 09:57 Pulse 87 12/27/24 11:16 Resp 16 12/27/24 11:16 BP 118/55 12/27/24 11:16 Pulse Ox 95 12/27/24 11:16 FiO2 Intake & Output 12/26/24 12/27/24 12/27/24 18:59 06:59 18:59 Intake Total 1365 Output Total 200 300 Balance 1165 -300 Intake: Intake, IV Titration 625 Amount Desmopressin Acetate 22. 50 866 mcg In Sodium Chloride 0.9% 50 ml @ 200 mls/hr IVPB ONCE ONE Rx# :[id number] Sodium Chloride 0.9% 1, 525 000 ml @ 50 mls/hr IV . Q20H [facility] Rx#:[id number] cefTRIAXone 1 gm In 50 Sodium Chloride 0.9% 50 ml @ 100 mls/hr IVPB Q24H [facility] Rx#:[id number] Oral 120 Blood Product 620 Rc As-1 Unit 310 [id number] Output: Urine 200 300 Other: Voiding Method External Catheter Diaper Bedpan Incontinent Diaper Incontinent # Voids 1 # Bowel Movements 1 - Labs CBC & Chem 7: 12/27/24 09:56 12/27/24 09:56 Labs: Abnormal Lab Results - Last 24 Hours (Table) 12/24/24 12/26/24 12/27/24 Range/Units 18:20 18:32 00:13 RBC 2.89 L 2.62 L (4.10-5.20) 10*6/uL Hgb 8.4 L 7.6 L (12.0-15.0) g/dL Hct 25.9 L 23.5 L (37.2-46.3) % Plt Count 138 L 123 L (140-440) 10*3/uL Immature Gran # (0.00-0.04) 10*3/uL Metamyelocytes # (Man) (0) k/uL Myelocytes # (Manual) (0) k/uL Chloride (98-107) mmol/L Carbon Dioxide (22-30) mmol/L BUN (7-17) mg/dL Creatinine (0.52-1.04) mg/dL Magnesium (1.6-2.3) mg/dL Crossmatch See Detail 12/27/24 12/27/24 Range/Units 09:56 09:56 RBC 2.86 L (4.10-5.20) 10*6/uL Hgb 8.4 L (12.0-15.0) g/dL Hct 25.9 L (37.2-46.3) % Plt Count 131 L (140-440) 10*3/uL Immature Gran # 0.81 H (0.00-0.04) 10*3/uL Metamyelocytes # (Man) 0.22 H (0) k/uL Myelocytes # (Manual) 0.36 H (0) k/uL Chloride 111 H (98-107) mmol/L Carbon Dioxide 21 L (22-30) mmol/L BUN 42 H (7-17) mg/dL Creatinine 1.30 H (0.52-1.04) mg/dL Magnesium 1.2 L (1.6-2.3) mg/dL Crossmatch Microbiology - Last 24 Hours (Table) 12/25/24 10:15 Urine Culture - Preliminary Urine,Voided
[2024-12-27 16:40] LABS: Glucose,Whole Blood 108 mg/dL (70-110)
[2024-12-27 20:04] LABS: Glucose,Whole Blood 96 mg/dL (70-110)
[2024-12-27] MEDS: ZINC OXIDE PASTE (Z-GUARD) 1 APPLIC TOPICAL PRN (21:04)
[2024-12-27 22:04] LABS: HGB 7.6 g/dL (12.0-15.0); MCH 28.8 pg (27.0-32.0); MCV 87.1 fL (80.0-97.0); Mean Platelet Volume 9.9 fL (9.5-12.2); Platelet Count 110 10*3/uL (140-440); RBC 2.64 10*6/uL (4.10-5.20); RDW 16.4 % (11.5-14.5); WBC 7.67 10*3/uL (4.50-10.00)
[2024-12-28 06:07] LABS: Glucose,Whole Blood 83 mg/dL (70-110)
[2024-12-28 07:12] LABS: African American GFR (CKD) 56 (>60 ml/min/1.73 sqM); Albumin 2.4 g/dL (3.5-5.0); Anion Gap 5 mmol/L; Blood Urea Nitrogen 37 mg/dL (7-17); Calcium 9.8 mg/dL (8.4-10.2); Carbon Dioxide 25 mmol/L (22-30); Chloride 110 mmol/L (98-107); Glucose 90 mg/dL (74-99); Magnesium 1.8 mg/dL (1.6-2.3); Non-African American GFR(CKD) 49 (>60 ml/min/1.73 sqM); Potassium 3.9 mmol/L (3.5-5.1); Sodium 140 mmol/L (137-145)
[2024-12-28 07:14] LABS: Prothrombin Time 10.6 sec (10.0-12.5)
[2024-12-28 08:01] LABS: Basophils # (A) 0.04 10*3/uL (0.00-0.10); Basophils % (A) 0.5 %; Eosinophils # (A) 0.14 10*3/uL (0.04-0.35); Eosinophils % (A) 1.6 %; HCT 22.9 % (37.2-46.3); HGB 7.5 g/dL (12.0-15.0); Lymphocytes % (A) 9.3 %; MCHC 32.8 g/dL (32.0-37.0); MCV 88.4 fL (80.0-97.0); Mean Platelet Volume 10.3 fL (9.5-12.2); Monocytes # (A) 0.44 10*3/uL (0.20-1.00); Monocytes % (A) 5.1 %; Neutrophils # (A) 6.76 10*3/uL (1.80-7.70); Neutrophils % (A) 78.8 %; Platelet Count 117 10*3/uL (140-440); RBC 2.59 10*6/uL (4.10-5.20); RDW 16.4 % (11.5-14.5); WBC 8.58 10*3/uL (4.50-10.00)
[2024-12-28 09:14] LABS: Protein, Total 5.6 g/dL (6.2-8.2)
--- NOTE | 2024-12-28 10:36 | P.PN ---
Subjective Patient is seen in follow-up for acute kidney injury. Renal function improving. Hemodynamically stable. Confused. Vital signs are stable. General: No acute distress. HEENT: Head exam is unremarkable. LUNGS: No audible rhonchi or wheezes. HEART: Rate and Rhythm are regular. ABDOMEN: Nontender. EXTREMITITES: Trace edema. Objective - Vital Signs Vital signs: Vital Signs Temp 97.5 F L 12/28/24 08:42 Pulse 97 12/28/24 08:42 Resp 19 12/28/24 08:42 BP 103/48 12/28/24 08:42 Pulse Ox 96 12/28/24 08:42 FiO2 Intake & Output 12/27/24 12/28/24 12/28/24 18:59 06:59 18:59 Other: Voiding Method Bedpan Diaper Diaper Diaper Incontinent Incontinent Incontinent # Voids 1 1 # Bowel Movements 1 1 - Labs CBC & Chem 7: 12/28/24 05:47 12/28/24 05:47 Labs: Abnormal Lab Results - Last 24 Hours (Table) 12/27/24 12/27/24 12/27/24 Range/Units 09:56 11:36 21:51 RBC 2.64 L (4.10-5.20) 10*6/uL Hgb 7.6 L (12.0-15.0) g/dL Hct 23.0 L (37.2-46.3) % Plt Count 131 L 110 L (140-440) 10*3/uL Immature Gran # (0.00-0.04) 10*3/uL Lymphocytes # (0.90-5.00) 10*3/uL Metamyelocytes # (Man) 0.22 H (0) k/uL Myelocytes # (Manual) 0.36 H (0) k/uL Chloride (98-107) mmol/L BUN (7-17) mg/dL Creatinine (0.52-1.04) mg/dL Total Protein (PEP) 5.6 L (6.2-8.2) g/dL Albumin (3.5-5.0) g/dL 12/28/24 12/28/24 Range/Units 05:47 05:47 RBC 2.59 L (4.10-5.20) 10*6/uL Hgb 7.5 L (12.0-15.0) g/dL Hct 22.9 L (37.2-46.3) % Plt Count 117 L (140-440) 10*3/uL Immature Gran # 0.40 H (0.00-0.04) 10*3/uL Lymphocytes # 0.80 L (0.90-5.00) 10*3/uL Metamyelocytes # (Man) (0) k/uL Myelocytes # (Manual) (0) k/uL Chloride 110 H (98-107) mmol/L BUN 37 H (7-17) mg/dL Creatinine 1.10 H (0.52-1.04) mg/dL Total Protein (PEP) (6.2-8.2) g/dL Albumin 2.4 L (3.5-5.0) g/dL Microbiology - Last 24 Hours (Table) 12/25/24 10:15 Urine Culture - Final Urine,Voided Assessment and Plan Plan: Assessment: 1. Acute kidney injury secondary to ATN secondary to acute blood loss anemia. Creatinine 2.76 on admission and is 1.1 today. Baseline creatinine near 0.9 from November 2024. Kidney ultrasound from November 2024 showed no evidence of hy dronephrosis. 2. Status post left nephrectomy secondary to renal cell cancer in September 2024. 3. Acute blood loss anemia status post blood transfusion. Surgery following. Status post IV DDAVP. EGD pending. 4. Diabetes mellitus. 5. Hypercalcemia secondary to volume contraction. Better. PTH 14.3. Vitamin D level 45.6. 6. Hypomagnesemia from poor intake. Replaced. Better. Plan: Maintain normal saline. Encouraged oral intake. Avoid nephrotoxins. Continue to monitor renal function and urine output. Follow-up secondary workup for hypercalcemia.
[2024-12-28] MEDS ORDERED: PROPOFOL 10 MG/ML 20 ML VIAL IV ONE (12:10)
[2024-12-28 12:12] LABS: Glucose,Whole Blood 90 mg/dL (70-110)
[2024-12-28] MEDS: IV FLUID CONTINUATION 900 ML IV ONE (12:21)
--- NOTE | 2024-12-28 12:23 | P.PCN ---
Date of Procedure: 12/28/24 Preoperative Diagnosis: Melena GI bleed Anemia Postoperative Diagnosis: Gastritis Slow motility Procedure(s) Performed: EGD Anesthesia: MAC Surgeon: America Novoa Pathology: none sent Condition: stable Disposition: floor Indications for Procedure: 79-year-old female presents from nursing facility with dark stool and baseline confusion. She is found to have anemia with hemoglobin below 7 and requiring blood transfusion. Plan is for upper endoscopy for further evaluation of GI bleed. Risks, benefits and alternatives were provided to the patient. Operative Findings: Overall, mild inflammatory changes in the stomach and some retained food bolus, otherwise no active bleed or ulcer Description of Procedure: The patient was brought into the endoscopy suite and placed in left lateral decubitus position. Adequate sedation was achieved using conscious sedation. A bite-block was placed and an endoscope was placed in the oropharynx and advanced under endoscopic visualization. The endoscope was advanced through the esophagus into the stomach, through the gastric antrum and in through the pylorus. The third portion of duodenum was visualized. The endoscope was then slowly withdrawn. The first portion of duodenum was noted to appear overall normal with some retained food particles. The antrum was noted to have mild inflammatory changes. The gastric body distended normally and the gastric folds appeared normal and flattened with insufflation. No findings of ulceration noted throughout exam. A retroflexed view of the fundus and GE junction revealed no significant hiatal hernia. GE junction appeared normal and biopsies were taken. The esophagus appeared endoscopically normal. Excess air was removed and the scope was withdrawn and the procedure was completed. The patient was sent to PACU in stable condition.
[2024-12-28 14:13] LABS: Free Kappa Lt Chain Qnt, Serum 9.28 mg/dL (0.33-1.94); Free Lambda Lt Chain Qnt, Seru 5.57 mg/dL (0.57-2.63)
[2024-12-28 17:07] LABS: Glucose,Whole Blood 82 mg/dL (70-110)
[2024-12-28 19:51] LABS: Glucose,Whole Blood 120 mg/dL (70-110)
[2024-12-28] MEDS: QUEtiapine 25 MG TAB PO STA (22:19)
[2024-12-29 00:14] LABS: Glucose,Whole Blood 134 mg/dL (70-110)
[2024-12-29] MEDS: SODIUM CHLORIDE 0.9% 1,000 ML IV ONE ×3 (01:30→06:38)
[2024-12-29 01:48] LABS: MCH 28.9 pg (27.0-32.0); MCHC 31.1 g/dL (32.0-37.0); MCV 92.9 fL (80.0-97.0); RBC 2.11 10*6/uL (4.10-5.20); WBC 7.93 10*3/uL (4.50-10.00)
[2024-12-29 02:02] LABS: HCT 19.6 % (37.2-46.3); HGB 6.1 g/dL (12.0-15.0)
[2024-12-29 02:03] LABS: African American GFR (CKD) 43 (>60 ml/min/1.73 sqM); Anion Gap 6 mmol/L; Blood Urea Nitrogen 41 mg/dL (7-17); Calcium 9.4 mg/dL (8.4-10.2); Carbon Dioxide 23 mmol/L (22-30); Chloride 113 mmol/L (98-107); Glucose 114 mg/dL (74-99); Non-African American GFR(CKD) 38 (>60 ml/min/1.73 sqM); Potassium 3.9 mmol/L (3.5-5.1); Sodium 142 mmol/L (137-145)
[2024-12-29 02:06] LABS: Platelet Count 80 10*3/uL (140-440)
--- NOTE | 2024-12-29 06:06 | P.PN ---
Subjective Progress Note Date: 12/28/24 79-year-old female with past medical history significant for hypertension, hyperlipidemia, diabetes mellitus, history of sleep apnea, history of renal cancer, pulmonary nodules, previous smoker who was brought in from senior living due to increased confusion. Patient had previous hospitalization recently underwent EGD for anemia and was noted to have peptic ulcer disease. at the bedside reported patient was having on and off melena. Patient noted to be in acute kidney injury with creatinine of 2.76, was started on IV fluids, and admitted to hospital for further evaluation and management. Also had elevated potassium on presentation which is now improved.. Patient was complaining of d ysuria, UA was positive, currently on Rocephin for UTI. 2 more unit of packed RBCs ordered on 12/26, general surgery consulted, recommended monitor H&H and transfuse as needed, if continue to notice drop in hemoglobin will need endoscopy. Mentation improving. Remains on Rocephin for UTI. 12/27/2024 Patient was seen and examined today. at bedside, patient still confused, A and O x 2 to 3. WBC 7.2, hemoglobin 8.4, platelet 131. BUN 42, creatinine 1.30. Nephrology on board and following, recommended to maintain IV fluids, decrease rate to 50 cc an hour. General surgery following, tentative plan for EGD tomorrow depending on hemoglobin level. 12/28/2024 Patient is seen in follow-up today and continues to be confused. Per nursing staff patient is more altered with hallucinations and reports was given a low- dose of Seroquel. Patient has not slept in a few days and is currently n.p.o. scheduled to undergo EGD with general surgery as patient was noted to have black tarry stools. Patient has received adequate antibiotics and will discontinue at this time and monitor off any antibiotic therapy as there was concerned of patient developing a possible rash on her back. Patient is afebrile white count is normal, hemoglobin is 7.5 with no active bleeding noted. Will await EGD report. Review of systems: Unable to obtain as patient is confused and having hallucinations PHYSICAL EXAMINATION: GENERAL: The patient is A&O x1, confused, hallucinating, well-developed, elderly appearing, obese HEENT: EOMI, Sclerae anicteric, oral mucosa is dry Neck: Supple, Non tender, No JVD PULMONARY: Equal breath souds B/L, No wheezing, No crackles. CARDIOVASCULAR: S1, S2 muffled ABDOMEN: Soft, nontender, nondistended, normoactive bowel sounds. No guarding or rebound tenderness. MUSCULOSKELETAL: No edema, No cyanosis. No clubbing. Normal ROM. Intact peripheral pulses. NEUROLOGICAL: CN 2-12 grossly intact. No FND Skin: No Rash Assessment: Melena: With concerns of possible GI bleed, awaiting to undergo EGD today 12/28/2024 History of peptic ulcer disease: Previous EGD showed peptic ulcer disease history of anemia, hemoglobin 7.5 today Acute toxic metabolic encephalopathy: Multifactorial, concerns for UTI as well as hospital-acquired delirium UTI, present on admission, culture showing gram-negative bacilli and group D Enterococcus NANCY, prerenal as anemia, secondary to dehydration Hypercalcemia Diabetes mellitus, type II Morbid obesity with a BMI of 41.1 History of depression: Sarita intertrigo GI prophylaxis DVT prophylaxis Full code Plan: Patient is scheduled to undergo EGD with general surgery for black tarry stools, per nursing staff no further bleeding noted and hemoglobin is 7.5 Creatinine improved at 1.1 and will follow-up on repeat labs Patient continues with confusion and altered mentation, recommend reorientation and family sitting at the bedside is much as possible. Will increase Seroquel at night to 25 mg Per nursing staff patient possibly developing a rash although patient had reported this has been ongoing. Patient has received adequate antibiotics and will discontinue and monitor off antibiotics for now Urine culture showing group D Enterococcus and gram-negative bacilli, specimen resent as initial specimen was unsuitable Will await EGD report with general surgery Follow-up on hemoglobin and transfuse if 7 or less The impression and plan of care has been dictated by Nurse Jose F Byrne as directed. Dr. Duke MD I have performed a history and examination and MDM of this patient, discussed the same with the dictator, and agree with the dictator's assessment and plan as written ,documented as a scribe. Based on total visit time, I have performed more than 50% of the visit. Objective - Vital Signs Vital signs: Vital Signs Temp 94.5 F L 12/29/24 05:32 Pulse 79 12/29/24 05:32 Resp 18 12/29/24 05:32 BP 88/41 12/29/24 05:32 Pulse Ox 97 12/29/24 05:12 FiO2 Intake & Output 12/28/24 12/28/24 12/29/24 06:59 18:59 06:59 Intake Total 400 310 Balance 400 310 Weight 108.5 kg Intake: IV 200 Oral 200 Blood Product 310 Rc Irr As1 Unit 0 [id number] Rc Irr As1 Unit 310 [id number] Other: Voiding Method Diaper Diaper Incontinent Incontinent Incontinent # Voids 1 1 0 # Bowel Movements 1 1 - Labs CBC & Chem 7: 12/29/24 01:32 12/29/24 01:41 Labs: Abnormal Lab Results - Last 24 Hours (Table) 12/27/24 12/28/24 12/28/24 Range/Units 11:36 05:47 05:47 RBC 2.59 L (4.10-5.20) 10*6/uL Hgb 7.5 L (12.0-15.0) g/dL Hct 22.9 L (37.2-46.3) % MCHC (32.0-37.0) g/dL Plt Count 117 L (140-440) 10*3/uL Immature Gran # 0.40 H (0.00-0.04) 10*3/uL Lymphocytes # 0.80 L (0.90-5.00) 10*3/uL Chloride 110 H (98-107) mmol/L BUN 37 H (7-17) mg/dL Creatinine 1.10 H (0.52-1.04) mg/dL Glucose (74-99) mg/dL POC Glucose (mg/dL) (70-110) mg/dL Total Protein (PEP) 5.6 L (6.2-8.2) g/dL Albumin 2.4 L (3.5-5.0) g/dL Free [place] LC, Quant 9.28 H (0.33-1.94) mg/dL Free Lambda LC, Quant 5.57 H (0.57-2.63) mg/dL Crossmatch 12/28/24 12/29/24 12/29/24 Range/Units 19:46 00:10 01:32 RBC 2.11 L (4.10-5.20) 10*6/uL Hgb 6.1 L* (12.0-15.0) g/dL Hct 19.6 L* (37.2-46.3) % MCHC 31.1 L (32.0-37.0) g/dL Plt Count 80 L (140-440) 10*3/uL Immature Gran # (0.00-0.04) 10*3/uL Lymphocytes # (0.90-5.00) 10*3/uL Chloride (98-107) mmol/L BUN (7-17) mg/dL Creatinine (0.52-1.04) mg/dL Glucose (74-99) mg/dL POC Glucose (mg/dL) 120 H 134 H (70-110) mg/dL Total Protein (PEP) (6.2-8.2) g/dL Albumin (3.5-5.0) g/dL Free [place] LC, Quant (0.33-1.94) mg/dL Free Lambda LC, Quant (0.57-2.63) mg/dL Crossmatch 12/29/24 12/29/24 Range/Units 01:41 02:16 RBC (4.10-5.20) 10*6/uL Hgb (12.0-15.0) g/dL Hct (37.2-46.3) % MCHC (32.0-37.0) g/dL Plt Count (140-440) 10*3/uL Immature Gran # (0.00-0.04) 10*3/uL Lymphocytes # (0.90-5.00) 10*3/uL Chloride 113 H (98-107) mmol/L BUN 41 H (7-17) mg/dL Creatinine 1.36 H (0.52-1.04) mg/dL Glucose 114 H (74-99) mg/dL POC Glucose (mg/dL) (70-110) mg/dL Total Protein (PEP) (6.2-8.2) g/dL Albumin 2.0 L (3.5-5.0) g/dL Free [place] LC, Quant (0.33-1.94) mg/dL Free Lambda LC, Quant (0.57-2.63) mg/dL Crossmatch See Detail Microbiology - Last 24 Hours (Table) 12/25/24 10:15 Urine Culture - Final Urine,Voided
[2024-12-29] MEDS ORDERED: NOREPINEPHRINE 4 MG in SODIUM CHLORIDE 0.9% 250 ML IV SCH (06:45)
--- NOTE | 2024-12-29 06:54 | XR ---
EXAMINATION TYPE: XR chest 1V portable DATE OF EXAM: 12/29/2024 6:47 AM COMPARISON: Chest radiographs from 12/24/2024 TECHNIQUE: XR chest 1V portable Portable AP radiograph of the chest. CLINICAL INDICATION:Female, 79 years old with history of pna; FINDINGS: Patient is rotated which limits evaluation. Lungs/Pleura: No evidence of focal consolidation or pneumothorax. Blunting of the costophrenic angles is present. Pulmonary vascularity: Chronic pulmonary vascular congestion. Heart/mediastinum: Cardiomediastinal silhouette is enlarged and stable. Musculoskeletal: No acute osseous pathology. IMPRESSION: Small bilateral pleural effusions with cardiomegaly. Chronic pulmonary vascular congestion. Correlate with BNP for CHF exacerbation. No focal consolidation. [facility], , 12/29/2024 6:52 AM
[2024-12-29 06:58] LABS: HCT 28.6 % (37.2-46.3); Immature Platelet Fraction 4.7 % (1.1-6.1); MCH 29.4 pg (27.0-32.0); MCHC 31.8 g/dL (32.0-37.0); MCV 92.3 fL (80.0-97.0); Mean Platelet Volume 10.8 fL (9.5-12.2); WBC 12.78 10*3/uL (4.50-10.00)
[2024-12-29] MEDS: NOREPINEPHRINE 4 MG in SODIUM CHLORIDE 0.9% 250 ML IV SCH (07:01)
[2024-12-29 07:04] LABS: HGB 9.1 g/dL (12.0-15.0); Platelet Count 89 10*3/uL (140-440)
[2024-12-29 07:13] LABS: African American GFR (CKD) 41 (>60 ml/min/1.73 sqM); Anion Gap 7 mmol/L; Blood Urea Nitrogen 40 mg/dL (7-17); Calcium 8.9 mg/dL (8.4-10.2); Carbon Dioxide 21 mmol/L (22-30); Chloride 115 mmol/L (98-107); Glucose 129 mg/dL (74-99); Magnesium 1.9 mg/dL (1.6-2.3); Non-African American GFR(CKD) 35 (>60 ml/min/1.73 sqM); Potassium 4.2 mmol/L (3.5-5.1); Sodium 143 mmol/L (137-145)
--- NOTE | 2024-12-29 07:42 | P.CNPUL ---
History of Present Illness Consult date: 12/29/24 Requesting physician: Isabel Atkinson Reason for consult: other (ICU management) History of present illness: Patient is a 79-year-old male with past medical history significant for renal cell carcinoma status post left nephrectomy, pulmonary nodules, obstructive sleep apnea, hypertension, hyperlipidemia, diabetes mellitus. Note, that the patient had recent hospitalization November 22 through December 04 for altered mental status. During this previous admission, she was worked up for anemia and did undergo esophagogastroduodenoscopy on 11/27/2024 with findings including two superficial duodenal ulcer and gastritis with small hiatal hernia. She was sent back in from her jail, [facility], with similar concerns on 12/24/2024. Reportedly, confused with reduced oral intake and generalized weakness. Again, noted to be anemic with a hemoglobin of 6.2 g/dL. Also, reportedly having dark tarry stools. She was transfused with 2 units of PRBCs. Hemoglobin initially did come up to 8.4 g/dL and has now been trending down. She was taken back for repeat EGD yesterday, 12/28/2024, findings including g astritis. Rapid response called earlier this morning, chiefly for hypotension. Hemoglobin was 6.1 g/dL. She has received additional 2 units of PRBCs as well as a 2 L normal saline bolus. Blood pressure continued to be hypotensive, currently 88/41 mmHg. There is an indwelling urinary catheter, and currently she is anuric. Did have another large black tarry bowel movement per nursing staff. Not currently on any anticoagulants. She was transferred to the intensive care unit, and will be started on norepinephrine. Remaining labs include a CBC of 7.93, hemoglobin 6.1, hematocrit 19.6, platelets 80,000. CMP: Sodium 142, potassium 3.9, chloride 113, serum bicarb 23, BUN 41, creatinine 1.36. Normal saline continues at 50 mL/h. Lactic 1.4. She was noted to have an acute kidney injury on admission with a creatinine of 2.76 and this is down to 1.36. Urinalysis positive for few bacteria and pyuria. Urine culture was polymicrobial, and reportedly not a suitable specimen. She did receive 3 days of IV Rocephin. Did undergo previous left-sided nephrectomy on 10/06/2024 secondary to renal mass and high-grade renal cell carcinoma. She is also noted to have bilateral pulmonary nodules. Chest CTA from 10/29/2024 remarkable for a 1.5 cm right upper lobe pulmonary nodule, enlarging 8.4 mm right upper lobe nodule, as well as, 5.2 mm left upper lobe pulmonary nodule. These are being followed up on an outpatient basis. She is currently obtunded. She is hypotensive, despite 2 L fluid bolus and an additional 2 units PRBCs. General surgery has been updated. Norepinephrine is going to be started. Review of Systems ROS unobtainable: due to mental status Past Medical History Past Medical History: Cancer, Diabetes Mellitus, Hyperlipidemia, Hypertension, Pneumonia, Renal Disease, Sleep Apnea/CPAP/BIPAP Additional Past Medical History / Comment(s): anemia, arthritis, grade 4 renal carcinoma, acute respiratory failure, pleural effusions, pulmonary nodules, x smoker History of Any Multi-Drug Resistant Organisms: None Reported Past Surgical History: Joint Replacement, Orthopedic Surgery Additional Past Surgical History / Comment(s): total lt knee, carpel tunnel lt wrist, left nephrectomy -2024, bilateral cataracts, Past Anesthesia/Blood Transfusion Reactions: Motion Sickness, Postoperative Nausea & Vomiting (PONV) Additional Past Anesthesia/Blood Transfusion Reaction / Comment(s): no reaction to blood transfusion Past Psychological History: No Psychological Hx Reported Smoking Status: Former smoker Past Alcohol Use History: None Reported Additional Past Alcohol Use History / Comment(s): quit smoking smoked for approx 10 yrs Past Drug Use History: Marijuana Additional Drug Use History / Comment(s): marijuana daily freq - Past Family History Sister(s) Family Medical History: Cancer Additional Family Medical History / Comment(s): lymph Medications and Allergies Home Medications Medication Instructions Recorded Confirmed Type Pioglitazone HCl/Metformin HCl 1 tab PO BID 09/17/14 12/24/24 History [Pioglitazone-Metformin 15-] Simvastatin [Zocor] 40 mg PO HS 09/17/14 12/24/24 History Aspirin 81 mg PO DAILY 03/06/17 12/24/24 History DULoxetine HCL [Cymbalta] 60 mg PO DAILY 10/05/24 12/24/24 History Melatonin 3 mg PO HS PRN tab 11/04/24 12/24/24 Rx Pantoprazole [Protonix] 40 mg PO BID 30 Days #60 tab 12/01/24 12/24/24 Rx Sucralfate [Carafate] 1 gm PO AC-TID tab 12/01/24 12/24/24 Rx Magnesium Oxide [Mag-Ox] 400 mg PO DAILY #30 tab 12/04/24 12/24/24 Rx Ferrous Sulfate [Iron (65 MG 325 mg PO BID 12/24/24 12/24/24 History Elemental)] Loperamide [Imodium] 2 mg PO DIRECTED PRN 12/24/24 12/24/24 History Potassium Chloride ER [K-Dur 10] 20 meq PO DAILY 12/24/24 12/24/24 History Saliva Stimulant Comb. No.3 3 spray MUCOUS MEM TID 12/24/24 12/24/24 History [Biotene Moisturizing Mouth] clindamycin HCL 300 mg PO Q6H 12/24/24 12/24/24 History Allergies Allergy/AdvReac Type Severity Reaction Status Date / Time tramadol Allergy Nausea, Verified 12/24/24 18:14 "DRY HEAVES" Physical Exam Vitals: Vital Signs Temp Pulse Pulse Resp BP BP Pulse Ox 12/29/24 06:00 70 20 85/34 93 L 12/29/24 05:32 94.5 F L 79 18 88/41 12/29/24 05:30 72 15 80/44 91 L 12/29/24 05:12 94.0 F L 73 17 80/44 97 12/29/24 05:00 94.0 F L 84 24 105/88 99 12/29/24 04:52 75 20 105/88 12/29/24 04:30 79 13 93/40 12/29/24 04:15 97.6 F 68 19 94/48 12/29/24 04:00 74 25 H 78/36 97 12/29/24 03:55 97.6 F 77 20 93/40 12/29/24 03:46 68 75/26 98 12/29/24 03:30 75 27 H 79/45 99 12/29/24 03:00 75 17 92/59 99 12/29/24 02:35 97.5 F L 22 94 L 12/29/24 02:00 16 12/29/24 00:00 97.4 F L 71 16 94/58 99 12/28/24 20:00 97.6 F 85 16 90/54 91 L 12/28/24 16:07 75 16 100/58 98 12/28/24 13:00 90/59 99 12/28/24 12:41 97 15 89/51 93 L 12/28/24 11:14 92 18 110/69 93 L 12/28/24 08:42 97.5 F L 97 19 103/48 96 Intake and Output 12/28/24 12/28/24 12/29/24 14:59 22:59 06:59 Intake Total 200 200 620 Balance 200 200 620 Intake: IV 200 Oral 200 Blood Product 620 Rc Irr As1 Unit 310 [id number] Rc Irr As1 Unit 310 [id number] Other: Voiding Method Diaper Diaper Incontinent Incontinent Incontinent # Voids 1 0 # Bowel Movements 1 Weight 108.5 kg 90.9 kg GENERAL EXAM: Obtunded, 79-year-old female, will awaken to vigorous verbal stimuli, does not readily follow commands or sustain awakening HEAD: Normocephalic and atraumatic EYES: Normal reaction of pupils, equal size. NOSE: Clear with pink turbinates. THROAT: No erythema or exudates. NECK: No masses, no JVD. CHEST: No chest wall deformity. LUNGS: Equal air entry with no crackles, wheeze, rhonchi or dullness. On room air. No conversational dyspnea or accessory muscle use.. CVS: S1 and S2 normal with no audible murmur, regular rhythm. No extra heart sounds ABDOMEN: No hepatosplenomegaly, active bowel sounds, no guarding or rigidity. SPINE: No scoliosis or deformity SKIN: No rashes CENTRAL NERVOUS SYSTEM: No focal deficits, tone is normal in all 4 extremities. EXTREMITIES: There is no peripheral edema, clubbing, or cyanosis. Peripheral pulses are intact. Results - Laboratory Findings CBC and BMP: 12/29/24 11:55 12/29/24 06:38 PT/INR, D-dimer PT 10.6 sec (10.0-12.5) 12/28/24 05:47 INR 1.0 (<1.2) 12/28/24 05:47 Abnormal lab findings: Abnormal Labs 12/24/24 12/24/24 12/24/24 17:56 17:56 17:56 RBC 2.20 L Hgb 6.2 L* Hct 20.0 L MCHC 31.0 L Plt Count Immature Gran # 0.33 H Lymphocytes # Metamyelocytes # (Man) 0.19 H Myelocytes # (Manual) 0.13 H Nucleated RBCs 2 H APTT 30.5 H Sodium Potassium 5.5 H Chloride Carbon Dioxide BUN 53 H Creatinine 2.76 H Glucose POC Glucose (mg/dL) Calcium 10.6 H Magnesium TIBC Transferrin Ferritin Alkaline Phosphatase 138 H Total Protein 5.9 L Total Protein (PEP) Albumin 2.7 L Vitamin B12 Urine Appearance Urine Protein Urine Ketones Urine Blood Urine Bilirubin Ur Leukocyte Esterase Urine RBC Urine WBC Urine WBC Clumps Urine Bacteria Hyaline Casts Urine Mucus Stool Occult Blood Free Morning Sun LC, Quant Free Lambda LC, Quant Crossmatch 12/24/24 12/24/24 12/25/24 18:20 21:00 05:40 RBC 2.65 L Hgb 7.6 L Hct 24.4 L MCHC 31.1 L Plt Count Immature Gran # 0.42 H Lymphocytes # Metamyelocytes # (Man) 0.13 H Myelocytes # (Manual) 0.33 H Nucleated RBCs APTT Sodium Potassium Chloride Carbon Dioxide BUN Creatinine Glucose POC Glucose (mg/dL) Calcium Magnesium TIBC Transferrin Ferritin Alkaline Phosphatase Total Protein Total Protein (PEP) Albumin Vitamin B12 Urine Appearance Urine Protein Urine Ketones Urine Blood Urine Bilirubin Ur Leukocyte Esterase Urine RBC Urine WBC Urine WBC Clumps Urine Bacteria Hyaline Casts Urine Mucus Stool Occult Blood Positive H Free Morning Sun LC, Quant Free Lambda LC, Quant Crossmatch See Detail 12/25/24 12/25/24 12/26/24 05:40 10:15 05:40 RBC 2.48 L Hgb 7.0 L Hct 22.3 L MCHC 31.4 L Plt Count Immature Gran # Lymphocytes # Metamyelocytes # (Man) Myelocytes # (Manual) Nucleated RBCs APTT Sodium 136 L Potassium 5.6 H Chloride Carbon Dioxide BUN 54 H Creatinine 2.47 H Glucose 73 L POC Glucose (mg/dL) Calcium 10.3 H Magnesium TIBC Transferrin Ferritin Alkaline Phosphatase Total Protein 5.7 L Total Protein (PEP) Albumin 2.6 L Vitamin B12 Urine Appearance Turbid H Urine Protein 1+ H Urine Ketones Trace H Urine Blood Large H Urine Bilirubin 1+ H Ur Leukocyte Esterase Large H Urine RBC 62 H Urine WBC >182 H Urine WBC Clumps Few H Urine Bacteria Few H Hyaline Casts 16 H Urine Mucus Occasional H Stool Occult Blood Free Morning Sun LC, Quant Free Lambda LC, Quant Crossmatch 12/26/24 12/26/24 12/26/24 05:40 05:40 18:32 RBC 2.89 L Hgb 8.4 L Hct 25.9 L MCHC Plt Count 138 L Immature Gran # Lymphocytes # Metamyelocytes # (Man) Myelocytes # (Manual) Nucleated RBCs APTT Sodium Potassium Chloride Carbon Dioxide BUN 48 H Creatinine 1.97 H Glucose POC Glucose (mg/dL) Calcium Magnesium TIBC 167 L Transferrin 119.0 L Ferritin 379.0 H Alkaline Phosphatase Total Protein Total Protein (PEP) Albumin Vitamin B12 2128.0 H Urine Appearance Urine Protein Urine Ketones Urine Blood Urine Bilirubin Ur Leukocyte Esterase Urine RBC Urine WBC Urine WBC Clumps Urine Bacteria Hyaline Casts Urine Mucus Stool Occult Blood Free Morning Sun LC, Quant Free Lambda LC, Quant Crossmatch 12/27/24 12/27/24 12/27/24 00:13 09:56 09:56 RBC 2.62 L 2.86 L Hgb 7.6 L 8.4 L Hct 23.5 L 25.9 L MCHC Plt Count 123 L 131 L Immature Gran # 0.81 H Lymphocytes # Metamyelocytes # (Man) 0.22 H Myelocytes # (Manual) 0.36 H Nucleated RBCs APTT Sodium Potassium Chloride 111 H Carbon Dioxide 21 L BUN 42 H Creatinine 1.30 H Glucose POC Glucose (mg/dL) Calcium Magnesium 1.2 L TIBC Transferrin Ferritin Alkaline Phosphatase Total Protein Total Protein (PEP) Albumin Vitamin B12 Urine Appearance Urine Protein Urine Ketones Urine Blood Urine Bilirubin Ur Leukocyte Esterase Urine RBC Urine WBC Urine WBC Clumps Urine Bacteria Hyaline Casts Urine Mucus Stool Occult Blood Free Morning Sun LC, Quant Free Lambda LC, Quant Crossmatch 12/27/24 12/27/24 12/28/24 11:36 21:51 05:47 RBC 2.64 L Hgb 7.6 L Hct 23.0 L MCHC Plt Count 110 L Immature Gran # Lymphocytes # Metamyelocytes # (Man) Myelocytes # (Manual) Nucleated RBCs APTT Sodium Potassium Chloride 110 H Carbon Dioxide BUN 37 H Creatinine 1.10 H Glucose POC Glucose (mg/dL) Calcium Magnesium TIBC Transferrin Ferritin Alkaline Phosphatase Total Protein Total Protein (PEP) 5.6 L Albumin 2.4 L Vitamin B12 Urine Appearance Urine Protein Urine Ketones Urine Blood Urine Bilirubin Ur Leukocyte Esterase Urine RBC Urine WBC Urine WBC Clumps Urine Bacteria Hyaline Casts Urine Mucus Stool Occult Blood Free Morning Sun LC, Quant 9.28 H Free Lambda LC, Quant 5.57 H Crossmatch 12/28/24 12/28/24 12/29/24 05:47 19:46 00:10 RBC 2.59 L Hgb 7.5 L Hct 22.9 L MCHC Plt Count 117 L Immature Gran # 0.40 H Lymphocytes # 0.80 L Metamyelocytes # (Man) Myelocytes # (Manual) Nucleated RBCs APTT Sodium Potassium Chloride Carbon Dioxide BUN Creatinine Glucose POC Glucose (mg/dL) 120 H 134 H Calcium Magnesium TIBC Transferrin Ferritin Alkaline Phosphatase Total Protein Total Protein (PEP) Albumin Vitamin B12 Urine Appearance Urine Protein Urine Ketones Urine Blood Urine Bilirubin Ur Leukocyte Esterase Urine RBC Urine WBC Urine WBC Clumps Urine Bacteria Hyaline Casts Urine Mucus Stool Occult Blood Free Morning Sun LC, Quant Free Lambda LC, Quant Crossmatch 12/29/24 12/29/24 12/29/24 01:32 01:41 02:16 RBC 2.11 L Hgb 6.1 L* Hct 19.6 L* MCHC 31.1 L Plt Count 80 L Immature Gran # Lymphocytes # Metamyelocytes # (Man) Myelocytes # (Manual) Nucleated RBCs APTT Sodium Potassium Chloride 113 H Carbon Dioxide BUN 41 H Creatinine 1.36 H Glucose 114 H POC Glucose (mg/dL) Calcium Magnesium TIBC Transferrin Ferritin Alkaline Phosphatase Total Protein Total Protein (PEP) Albumin 2.0 L Vitamin B12 Urine Appearance Urine Protein Urine Ketones Urine Blood Urine Bilirubin Ur Leukocyte Esterase Urine RBC Urine WBC Urine WBC Clumps Urine Bacteria Hyaline Casts Urine Mucus Stool Occult Blood Free Morning Sun LC, Quant Free Lambda LC, Quant Crossmatch See Detail Assessment and Plan Assessment: Acute blood loss anemia, status post 4 units total PRBCs, so far this admission. History of peptic ulcer disease, did recently undergo repeat EGD on 12/28/2024, which was remarkable for gastritis. No active bleeding was noted. Hypotension and shock, refractory to fluid resuscitation, to be started on vasopressors Acute kidney injury, previously improving, creatinine 1.36 Renal cell carcinoma with history of previous left nephrectomy on 10/06/2024 Bilateral pulmonary nodules, being worked up on an outpatient basis, may eventually require bronchoscopy with tissue biopsy Altered mental status, consider acute toxic metabolic encephalopathy Hypothermia, with a temperature of 94 F, external warming blanket applied. History of hypertension History of hyperlipidemia Diabetes mellitus type 2 Obstructive sleep apnea Obesity, with a BMI of 34.4 kg/m Plan: Patient has been transferred to the intensive care unit. Patient has remained hypotensive despite an additional 2 units PRBCs and a 2 L crystalloid fluid bolus. She is going to be started on norepinephrine maintain MAP of 65 mmHg or greater Monitor for further acute blood loss, trend H&H, transfuse PRBC if hemoglobin less than 7 g/dL continue IV Protonix 40 mg twice daily, General Surgery has been updated Obtain chest x-ray, obtain ABG Repeat cultures sent, including blood cultures Patient will be monitored in the intensive care unit, further recommendations forthcoming I have personally seen and examined the patient, performed the documentation and the assessment and plan as written. Number of minutes spent on the visit:20 .this is a joint evaluation was done along with the nurse practitioner. This evaluation was done and 35 minutes. The patient got admitted to the intensive care unit because of hypotension, altered mentation, and anemia suspecting a upper GI bleed. Noted the patient had a recent EGD that showed no evidence of any upper GI source of bleeding. Hemoglobin dropped down to 6.1. She was given a total of 2 L of IV fluids and 2 units of packed RBC. Subsequently, the patient became more lethargic and confused and obtunded. Blood gas showed a pH of 7.17 with a pCO2 of 62 and pO2 of 84. Chest x-ray was consistent with cardiomegaly and pulmonary vascular congestion. Based on that, the patient was placed on a BiPAP at a pressure of 13 over 9 cm of water. She is known to have obstructive sleep apnea. 2D echocardiogram was ordered. The patient was oliguric and she w will be given a dose of Lasix 80 mg IV push and IV fluids will be To KVO. Blood cultures to be sent and the patient will be started on empirically on IV Zosyn. Reviewed the follow-up blood work. Hemoglobin is currently up to 9.5. She has a BUN of 40 with a creatinine of 1.4 and the rest of the electrolytes are all within normal limits. The patient was being monitored closely in the intensive care unit. Case was discussed with the at the bedside. Condition is obviously critical. A central line is also to be established. Time with Patient: Greater than 30
[2024-12-29 07:59] LABS: ABG Base Excess -6.1 mmol/L; ABG HCO3 23 mmol/L (21-25); ABG Oxygen Saturation 95.9 % (94-97); ABG PCO2 62 mmHg (35-45); ABG PO2 84 mmHg (83-108); ABG TCO2 25 mmol/L (19-24); Allen Test Performed? Yes
[2024-12-29 08:03] LABS: ABG PH 7.17 (7.35-7.45)
[2024-12-29] MEDS: DESMOPRESSIN ACETATE 20 MCG in SODIUM CHLORIDE 0.9% 50 ML IVPB ONE (08:14)
[2024-12-29] MEDS ORDERED: FUROSEMIDE 10 MG/ML 4 ML VIAL IV SCH (09:00)
[2024-12-29] MEDS: FUROSEMIDE 10 MG/ML 10 ML VIAL IV STA (09:32)
[2024-12-29] MEDS: PIPERACILLIN-TAZOBACTAM 3.375 GM in SODIUM CHLORIDE 0.9% 100 ML IVPB SCH (10:05)
--- NOTE | 2024-12-29 10:11 | P.PN ---
Subjective Patient is seen in follow-up for acute kidney injury. Renal function worse. Hemoglobin 6.1 yesterday and has received 2 units of blood. Oliguric. On BiPAP. Vital signs are stable. On vasopressor support. General: No acute distress. HEENT: On BiPAP. LUNGS: No audible rhonchi or wheezes. HEART: Rate and Rhythm are regular. ABDOMEN: Nontender. EXTREMITITES: Trace edema. Objective - Vital Signs Vital signs: Vital Signs Temp 97.0 F L 12/29/24 08:30 Pulse 94 12/29/24 09:25 Resp 25 H 12/29/24 09:25 BP 108/93 12/29/24 09:25 Pulse Ox 88 L 12/29/24 09:25 FiO2 40 12/29/24 09:19 Intake & Output 12/28/24 12/29/24 12/29/24 18:59 06:59 18:59 Intake Total 400 620 15.009 Balance 400 620 15.009 Weight 108.5 kg 90.9 kg Intake: IV 200 Intake, IV Titration 15.009 Amount Norepinephrine 4 mg In 15.009 Sodium Chloride 0.9% 250 ml @ 0.03 MCG/KG/MIN 10. 39 mls/hr IV .Q24H [facility] Rx #:[id number] Oral 200 Blood Product 620 Rc Irr As1 Unit 310 [id number] Rc Irr As1 Unit 310 [id number] Other: Voiding Method Diaper Incontinent Incontinent # Voids 1 0 # Bowel Movements 1 - Labs CBC & Chem 7: 12/29/24 06:38 12/29/24 06:38 Labs: Abnormal Lab Results - Last 24 Hours (Table) 12/27/24 12/28/24 12/29/24 Range/Units 11:36 19:46 00:10 WBC (4.50-10.00) 10*3/uL RBC (4.10-5.20) 10*6/uL Hgb (12.0-15.0) g/dL Hct (37.2-46.3) % MCHC (32.0-37.0) g/dL Plt Count (140-440) 10*3/uL ABG pH (7.35-7.45) ABG pCO2 (35-45) mmHg ABG Total CO2 (19-24) mmol/L Hemoglobin (11.4-16.0) gm/dL Chloride (98-107) mmol/L Carbon Dioxide (22-30) mmol/L BUN (7-17) mg/dL Creatinine (0.52-1.04) mg/dL Glucose (74-99) mg/dL POC Glucose (mg/dL) 120 H 134 H (70-110) mg/dL Albumin (3.5-5.0) g/dL Free Ansley LC, Quant 9.28 H (0.33-1.94) mg/dL Free Lambda LC, Quant 5.57 H (0.57-2.63) mg/dL Crossmatch 12/29/24 12/29/24 12/29/24 Range/Units 01:32 01:41 02:16 WBC (4.50-10.00) 10*3/uL RBC 2.11 L (4.10-5.20) 10*6/uL Hgb 6.1 L* (12.0-15.0) g/dL Hct 19.6 L* (37.2-46.3) % MCHC 31.1 L (32.0-37.0) g/dL Plt Count 80 L (140-440) 10*3/uL ABG pH (7.35-7.45) ABG pCO2 (35-45) mmHg ABG Total CO2 (19-24) mmol/L Hemoglobin (11.4-16.0) gm/dL Chloride 113 H (98-107) mmol/L Carbon Dioxide (22-30) mmol/L BUN 41 H (7-17) mg/dL Creatinine 1.36 H (0.52-1.04) mg/dL Glucose 114 H (74-99) mg/dL POC Glucose (mg/dL) (70-110) mg/dL Albumin 2.0 L (3.5-5.0) g/dL Free Ansley LC, Quant (0.33-1.94) mg/dL Free Lambda LC, Quant (0.57-2.63) mg/dL Crossmatch See Detail 12/29/24 12/29/24 12/29/24 Range/Units 06:38 06:38 07:49 WBC 12.78 H (4.50-10.00) 10*3/uL RBC 3.10 L (4.10-5.20) 10*6/uL Hgb 9.1 L D (12.0-15.0) g/dL Hct 28.6 L (37.2-46.3) % MCHC 31.8 L (32.0-37.0) g/dL Plt Count 89 L (140-440) 10*3/uL ABG pH 7.17 L* (7.35-7.45) ABG pCO2 62 H (35-45) mmHg ABG Total CO2 25 H (19-24) mmol/L Hemoglobin 9.2 L (11.4-16.0) gm/dL Chloride 115 H (98-107) mmol/L Carbon Dioxide 21 L (22-30) mmol/L BUN 40 H (7-17) mg/dL Creatinine 1.43 H (0.52-1.04) mg/dL Glucose 129 H (74-99) mg/dL POC Glucose (mg/dL) (70-110) mg/dL Albumin (3.5-5.0) g/dL Free [place]ley LC, Quant (0.33-1.94) mg/dL Free Lambda LC, Quant (0.57-2.63) mg/dL Crossmatch Microbiology - Last 24 Hours (Table) 12/25/24 10:15 Urine Culture - Final Urine,Voided Assessment and Plan Plan: Assessment: 1. Acute kidney injury secondary to ATN secondary to acute blood loss anemia. Creatinine 2.76 on admission and improved to 1.1 dated December 28, 2024. Creatinine 1.43 today. Baseline creatinine near 0.9 from November 2024. Kidney ultrasound from November 2024 showed no evidence of hydronephrosis. 2. Status post left nephrectomy secondary to renal cell cancer in September 2024. 3. Acute blood loss anemia status post blood transfusions. Surgery following. Status post IV DDAVP. EGD showed gastritis. 4. Diabetes mellitus. 5. Hypercalcemia secondary to volume contraction. Better. PTH 14.3. Vitamin D level 45.6. 6. Hypomagnesemia from poor intake. Replaced. Better. Plan: Patient received 80 mg IV Lasix once this morning. Encouraged oral intake. Avoid nephrotoxins. Continue to monitor renal function and urine output. Follow-up secondary workup for hypercalcemia. Wean Levophed.
[2024-12-29] MEDS: AMIODARONE 360 MG in DEXTROSE 5% IN WATER 200 ML IV ONE (11:33)
--- NOTE | 2024-12-29 12:02 | CA ---
Transthoracic Echo Report Name: Ifeoma Hess Age: 79 Gender: F : 1945 Exam Date: 12/29/2024 08:01 Exam Location: [facility] Ht (in): 64 Wt (lb): 200 Ordering Physician: Nahid Montanez Attending/Referring Phys: [employer] Kacy Spring RDCS Procedure CPT: Indications: evaluate LV function Cardiac Hx: Technical Quality: Good Contrast 1: Total Dose (mL): Contrast 2: Total Dose (mL): MEASUREMENTS (Male / Female) Normal Values 2D ECHO LV Diastolic Diameter PLAX 4.7 cm 4.2 - 5.9 / 3.9 - 5.3 cm LV Systolic Diameter PLAX 3.2 cm IVS Diastolic Thickness 1.2 cm 0.6 - 1.0 / 0.6 - 0.9 cm LVPW Diastolic Thickness 0.9 cm 0.6 - 1.0 / 0.6 - 0.9 cm LV Relative Wall Thickness 0.4 LVOT Diameter 2.0 cm LV Diastolic Volume MOD BP 91.3 cm??? 67 - 155 / 56 - 104 cm??? LV Systolic Volume MOD BP 33.3 cm??? 22 - 58 / 19 - 49 cm??? LV Ejection Fraction MOD BP 63.5 % >= 55 % LV Cardiac Index MOD BP 2476.4 cm???/min???m??? LV Diastolic Volume MOD 4C 80.1 cm??? LV Systolic Volume MOD 4C 31.4 cm??? LV Ejection Fraction MOD 4C 60.8 % LV Cardiac Index MOD 4C 2077.9 cm???/min???m??? LV Diastolic Length 4C 7.5 cm LV Systolic Length 4C 6.1 cm LV Diastolic Volume MOD 2C 104.3 cm??? LV Systolic Volume MOD 2C 35.2 cm??? LV Ejection Fraction MOD 2C 66.3 % LV Cardiac Index MOD 2C 2950.1 cm???/min???m??? LV Diastolic Length 2C 7.5 cm LV Systolic Length 2C 6.1 cm LA Volume 72.6 cm??? 18 - 58 / 22 - 52 cm??? LA Volume Index 35.2 cm???/m??? 16 - 28 cm???/m??? Ascending Aorta Diameter 2.9 cm DOPPLER AV Peak Velocity 251.2 cm/s AV Peak Gradient 25.2 mmHg AV Mean Velocity 153.7 cm/s AV Mean Gradient 11.3 mmHg AV Velocity Time Integral 45.0 cm LVOT Peak Velocity 127.5 cm/s LVOT Peak Gradient 6.5 mmHg LVOT Velocity Time Integral 22.4 cm LVOT Stroke Volume 72.7 cm??? LVOT Stroke Volume Index 37.1 ml/m??? LVOT Cardiac Index 3101.1 cm???/min???m??? AV Area Cont Eq vti 1.6 cm??? AV Area Cont Eq pk 1.6 cm??? MV Area PHT 4.8 cm??? Mitral E Point Velocity 93.3 cm/s Mitral A Point Velocity 88.8 cm/s Mitral E to A Ratio 1.1 MV Deceleration Time 158.6 ms TR Peak Velocity 377.0 cm/s TR Peak Gradient 56.9 mmHg Right Atrial Pressure 10.0 mmHg Pulmonary Artery Systolic Pressu 66.9 mmHg Right Ventricular Systolic Press 66.9 mmHg PV Peak Velocity 97.5 cm/s PV Peak Gradient 3.8 mmHg FINDINGS Left Ventricle Left ventricular ejection fraction is estimated at 55-60 %. Mildly increased septal wall thickness. Left ventricular cavity size normal. No obvious regional wall motion abnormalities. Right Ventricle Mild right ventricular dilatation. Normal right ventricular global systolic function. Severe pulmonary hypertension. Right ventricular systolic pressure estimated at 67 mm hg. Right Atrium Normal right atrial size. Left Atrium Moderately increased left atrial volume. Mitral Valve Structurally normal mitral valve. No evidence for mitral valve prolapse. No mitral stenosis. Mild mitral regurgitation.mitral annular calcification. Aortic Valve Trileaflet aortic valve. Diffuse thickening (sclerosis) of the aortic valve cusps without reduced excursion. No aortic valve stenosis or regurgitation. Tricuspid Valve Structurally normal tricuspid valve. No tricuspid stenosis. Moderate tricuspid regurgitation. Pulmonic Valve Structurally normal pulmonic valve. No pulmonic stenosis. Trace pulmonic regurgitation. Pericardium No pericardial effusion. Aorta Normal size aortic root and proximal ascending aorta. CONCLUSIONS 1. Normal left ventricular size and systolic function 2. Moderate tricuspid regurgitation with severe pulmonary hypertension 3. Mild mitral regurgitation Previewed by: Dr. Aris Reyes MD (Electronically Signed) Final Date: 29 December 2024 12:01
[2024-12-29] MEDS: DEXTROSE 5% IN WATER 100 ML with AMIODARONE 150 MG IV ONE (12:05)
[2024-12-29 12:19] LABS: HCT 28.6 % (37.2-46.3); HGB 9.5 g/dL (12.0-15.0); Immature Platelet Fraction 3.8 % (1.1-6.1); MCH 29.9 pg (27.0-32.0); MCHC 33.2 g/dL (32.0-37.0); MCV 89.9 fL (80.0-97.0); Mean Platelet Volume 10.7 fL (9.5-12.2); RBC 3.18 10*6/uL (4.10-5.20); RDW 16.5 % (11.5-14.5); WBC 12.57 10*3/uL (4.50-10.00)
[2024-12-29 12:23] LABS: Platelet Count 92 10*3/uL (140-440)
[2024-12-29] MEDS ORDERED: ZINC OXIDE 20% OINT 28.4 GM TUBE TOPICAL PRN (12:37)
--- NOTE | 2024-12-29 13:14 | P.PN ---
Subjective Progress Note Date: 12/29/24 SURGICAL PROGRESS NOTE CHIEF COMPLAINT: GI bleed HISTORY OF PRESENT ILLNESS: Patient required to transfer to the ICU yesterday due to hypotension and a drop of her hemoglobin to 6.1. She has received 2 u nits of packed red blood cells and a fluid bolus. She did require to be started on Levophed. Hemoglobin did go up from 6.1-9.1 after transfusion. She also has been hypothermic which has improved. Patient has had low urine output. Concerns for CHF. She is on Lasix. She is also lethargic and on BiPAP. In the ICU she did have a very large black bowel movement this morning. On afternoon rounds she did have smear of a black BM. PHYSICAL EXAM: VITAL SIGNS: Reviewed. GENERAL: no acute distress. on Bipap ABDOMEN: Soft. Nondistended. Nontender. NEUROLOGIC: Obtunded ASSESSMENT: 1. Acute GI bleed with melanotic stools. Status post EGD reporting gastritis and slow motility. No evidence of active bleeding or ulcer. 2. Acute blood loss anemia due to GI bleed PLAN: - Consult GI service for continued GI bleed - Continue ICU management - Continue supportive care - Continue to monitor hemoglobin - Continue to monitor for any signs or symptoms of bleeding - Continue PPI Physician Purchasing Department Clerk note has been reviewed by physician. Signing provider agrees with the documented findings, assessment, and plan of care. Attestation Patient seen and examined at bedside. Transferred to ICU secondary to hemoglobin drop and hypotension. I did recommend GI evaluation as there is availability of GI service in the hospital this week. EGD with no findings of active bleeding yesterday. Patient did have dark stool once again today. Patient currently obtunded and on BiPAP. Would be a difficult prep for colonoscopy. Patient would likely benefit most from embolization and would recommend IR embolization should there be continued concern for active GI bleed. If IR embolization is unable to be performed at this institution, I would recommend transfer to tertiary care facility. Aemrica Novoa DO Objective - Vital Signs Vital signs: Vital Signs Temp 97.0 F L 12/29/24 08:30 Pulse 126 H 12/29/24 12:20 Resp 23 12/29/24 12:25 BP 116/95 12/29/24 12:25 Pulse Ox 93 L 12/29/24 12:15 FiO2 40 12/29/24 11:16 Intake & Output 12/28/24 12/29/24 12/29/24 18:59 06:59 18:59 Intake Total 400 620 15.009 Balance 400 620 15.009 Weight 108.5 kg 90.9 kg Intake: IV 200 Intake, IV Titration 15.009 Amount Norepinephrine 4 mg In 15.009 Sodium Chloride 0.9% 250 ml @ 0.03 MCG/KG/MIN 10. 39 mls/hr IV .Q24H [facility] Rx #:[id number] Oral 200 Blood Product 620 Rc Irr As1 Unit 310 [id number] Rc Irr As1 Unit 310 [id number] Other: Voiding Method Diaper Incontinent Incontinent # Voids 1 0 # Bowel Movements 1 - Labs CBC & Chem 7: 12/29/24 11:55 12/29/24 06:38 Labs: Abnormal Lab Results - Last 24 Hours (Table) 12/27/24 12/28/24 12/29/24 Range/Units 11:36 19:46 00:10 WBC (4.50-10.00) 10*3/uL RBC (4.10-5.20) 10*6/uL Hgb (12.0-15.0) g/dL Hct (37.2-46.3) % MCHC (32.0-37.0) g/dL Plt Count (140-440) 10*3/uL ABG pH (7.35-7.45) ABG pCO2 (35-45) mmHg ABG Total CO2 (19-24) mmol/L Hemoglobin (11.4-16.0) gm/dL Chloride (98-107) mmol/L Carbon Dioxide (22-30) mmol/L BUN (7-17) mg/dL Creatinine (0.52-1.04) mg/dL Glucose (74-99) mg/dL POC Glucose (mg/dL) 120 H 134 H (70-110) mg/dL Albumin (3.5-5.0) g/dL Free Morrice LC, Quant 9.28 H (0.33-1.94) mg/dL Free Lambda LC, Quant 5.57 H (0.57-2.63) mg/dL Crossmatch 12/29/24 12/29/24 12/29/24 Range/Units 01:32 01:41 02:16 WBC (4.50-10.00) 10*3/uL RBC 2.11 L (4.10-5.20) 10*6/uL Hgb 6.1 L* (12.0-15.0) g/dL Hct 19.6 L* (37.2-46.3) % MCHC 31.1 L (32.0-37.0) g/dL Plt Count 80 L (140-440) 10*3/uL ABG pH (7.35-7.45) ABG pCO2 (35-45) mmHg ABG Total CO2 (19-24) mmol/L Hemoglobin (11.4-16.0) gm/dL Chloride 113 H (98-107) mmol/L Carbon Dioxide (22-30) mmol/L BUN 41 H (7-17) mg/dL Creatinine 1.36 H (0.52-1.04) mg/dL Glucose 114 H (74-99) mg/dL POC Glucose (mg/dL) (70-110) mg/dL Albumin 2.0 L (3.5-5.0) g/dL Free Morrice LC, Quant (0.33-1.94) mg/dL Free Lambda LC, Quant (0.57-2.63) mg/dL Crossmatch See Detail 12/29/24 12/29/24 12/29/24 Range/Units 06:38 06:38 07:49 WBC 12.78 H (4.50-10.00) 10*3/uL RBC 3.10 L (4.10-5.20) 10*6/uL Hgb 9.1 L D (12.0-15.0) g/dL Hct 28.6 L (37.2-46.3) % MCHC 31.8 L (32.0-37.0) g/dL Plt Count 89 L (140-440) 10*3/uL ABG pH 7.17 L* (7.35-7.45) ABG pCO2 62 H (35-45) mmHg ABG Total CO2 25 H (19-24) mmol/L Hemoglobin 9.2 L (11.4-16.0) gm/dL Chloride 115 H (98-107) mmol/L Carbon Dioxide 21 L (22-30) mmol/L BUN 40 H (7-17) mg/dL Creatinine 1.43 H (0.52-1.04) mg/dL Glucose 129 H (74-99) mg/dL POC Glucose (mg/dL) (70-110) mg/dL Albumin (3.5-5.0) g/dL Free Morrice LC, Quant (0.33-1.94) mg/dL Free Lambda LC, Quant (0.57-2.63) mg/dL Crossmatch 12/29/24 Range/Units 11:55 WBC 12.57 H (4.50-10.00) 10*3/uL RBC 3.18 L (4.10-5.20) 10*6/uL Hgb 9.5 L (12.0-15.0) g/dL Hct 28.6 L (37.2-46.3) % MCHC (32.0-37.0) g/dL Plt Count (140-440) 10*3/uL ABG pH (7.35-7.45) ABG pCO2 (35-45) mmHg ABG Total CO2 (19-24) mmol/L Hemoglobin (11.4-16.0) gm/dL Chloride (98-107) mmol/L Carbon Dioxide (22-30) mmol/L BUN (7-17) mg/dL Creatinine (0.52-1.04) mg/dL Glucose (74-99) mg/dL POC Glucose (mg/dL) (70-110) mg/dL Albumin (3.5-5.0) g/dL Free Morrice LC, Quant (0.33-1.94) mg/dL Free Lambda LC, Quant (0.57-2.63) mg/dL Crossmatch Microbiology - Last 24 Hours (Table) 12/25/24 10:15 Urine Culture - Final Urine,Voided
--- NOTE | 2024-12-29 14:46 | P.PCN ---
Date of Procedure: 12/29/24 Preoperative Diagnosis: Hypotension Postoperative Diagnosis: Hypotension Procedure(s) Performed: Femoral central line insertion Anesthesia: local Surgeon: Rosa M Alonzo Estimated Blood Loss (ml): 0 Condition: critical Disposition: ICU Operative Findings: Indication: Hemodynamic monitoring/Intravenous access. A time-out was completed verifying correct patient, procedure, site, positioning, and implant(s) or special equipment if applicable. The patient was placed in a dependent position appropriate for triple lumen catheter placement based on the vein to be cannulated. The patient's right femoral area was prepped and draped in sterile fashion. 1% Lidocaine was used to anesthetize the surrounding skin area. A triple lumen 9F Cordis catheter was introduced into the femoral vein using Seldinger technique. The catheter was threaded smoothly over the guide wire and appropriate blood return was obtained. Each lumen of the catheter was evacuated of air and flushed with sterile saline. The catheter was then sutured in place to the skin and a sterile dressing applied. Perfusion to the extremity distal to the point of catheter insertion was checked and found to be adequate.
--- NOTE | 2024-12-29 15:06 | P.CONS ---
History of Present Illness - Reason for Consult Consult date: 12/29/24 GI bleed Requesting physician: America Novoa - Chief Complaint Altered mental status changes - History of Present Illness This is a 79-year-old female currently being evaluated in the ICU. History is being obtained from chart and patient's nurse. Patient currently has BiPAP on, she is confused and overall nonresponsive. Patient was sent in by EMS on 12/24/2024 to the emergency department from outside [facility] with increased confusion, poor appetite and poor intake. Also reported that patient had outpatient blood work done with a hemoglobin of 7.0. Past medical history includes diabetes mellitus, anemia with recent workup in November of this year with findings of superficial duodenal ulcer gastritis and small hiatal hernia on upper endoscopy with Dr. Silva, chronic kidney disease, renal cell cancer status post left nephrectomy, sleep apnea, hypertension, hyperlipidemia, obesity, and pulmonary nodules. Apparently patient has been having black tarry stools. During this admission she had a hemoglobin of 6.2 she was transfused 2 units of blood. She was evaluated by general surgery and underwent upper endoscopy yesterday with Dr. Novoa with findings of gastritis and slow motility. No mention of any duodenal ulcers. Apparently last night she had a large black stool, she became hypotensive and was transferred to the ICU. Hemoglobin was noted to be 6.1, she was transfused 2 units of blood and given IV fluid bolus and transferred to the intensive care unit and started on Levophed. Today nursing reported another small black tarry stool. She is currently lying in bed, Levophed is being weaned, last hemoglobin 9.5. Patient has acute kidney i njury and chronic kidney disease. Hart catheter in place with about 15 cc urine output. Patient overall is nonresponsive at this time. She has been worked up in the past for iron deficiency anemia and was seen in 2017 and had upper endoscopy and colonoscopy. Upper endoscopy had findings of antral gastritis and duodenitis, colonoscopy with multiple colon polyps status post polypectomy with recommendations for repeat colonoscopy in 3 years. Patient has not been on any anticoagulation, no reported NSAID use currently on Protonix 40 mg twice daily and Carafate 1 g p.o. 3 times daily. Review of Systems ROS unobtainable: due to mental status Past Medical History Past Medical History: Cancer, Diabetes Mellitus, Hyperlipidemia, Hypertension, Pneumonia, Renal Disease, Sleep Apnea/CPAP/BIPAP Additional Past Medical History / Comment(s): anemia, arthritis, grade 4 renal carcinoma, acute respiratory failure, pleural effusions, pulmonary nodules, x smoker History of Any Multi-Drug Resistant Organisms: None Reported Past Surgical History: Joint Replacement, Orthopedic Surgery Additional Past Surgical History / Comment(s): total lt knee, carpel tunnel lt wrist, left nephrectomy 2-2024, bilateral cataracts, Past Anesthesia/Blood Transfusion Reactions: Motion Sickness, Postoperative Na usea & Vomiting (PONV) Additional Past Anesthesia/Blood Transfusion Reaction / Comm: no reaction to blood transfusion Past Psychological History: No Psychological Hx Reported Smoking Status: Former smoker Past Alcohol Use History: None Reported Additional Past Alcohol Use History / Comment(s): quit smoking 1969' smoked for approx 10 yrs Past Drug Use History: Marijuana Additional Drug Use History / Comment(s): marijuana daily freq - Past Family History Sister(s) Family Medical History: Cancer Additional Family Medical History / Comment(s): lymph Medications and Allergies Home Medications Medication Instructions Recorded Confirmed Type Pioglitazone HCl/Metformin HCl 1 tab PO BID 09/17/14 12/24/24 History [Pioglitazone-Metformin 15] Simvastatin [Zocor] 40 mg PO HS 09/17/14 12/24/24 History Aspirin 81 mg PO DAILY 03/06/17 12/24/24 History DULoxetine HCL [Cymbalta] 60 mg PO DAILY 10/05/24 12/24/24 History Melatonin 3 mg PO HS PRN tab 11/04/24 12/24/24 Rx Pantoprazole [Protonix] 40 mg PO BID 30 Days #60 tab 12/01/24 12/24/24 Rx Sucralfate [Carafate] 1 gm PO AC-TID tab 12/01/24 12/24/24 Rx Magnesium Oxide [Mag-Ox] 400 mg PO DAILY #30 tab 12/04/24 12/24/24 Rx Ferrous Sulfate [Iron (65 MG 325 mg PO BID 12/24/24 12/24/24 History Elemental)] Loperamide [Imodium] 2 mg PO DIRECTED PRN 12/24/24 12/24/24 History Potassium Chloride ER [K-Dur 10] 20 meq PO DAILY 12/24/24 12/24/24 History Saliva Stimulant Comb. No.3 3 spray MUCOUS MEM TID 12/24/24 12/24/24 History [Biotene Moisturizing Mouth] clindamycin HCL 300 mg PO Q6H 12/24/24 12/24/24 History Allergies Allergy/AdvReac Type Severity Reaction Status Date / Time tramadol Allergy Nausea, Verified 12/24/24 18:14 "DRY HEAVES" Physical Exam Vitals: Vital Signs Temp Pulse Pulse Resp BP BP Pulse Ox 12/29/24 14:00 97.0 F L 102 H 12 113/88 97 12/29/24 13:45 17 86/58 94 L 12/29/24 13:30 85 16 120/76 90 L 12/29/24 13:15 17 104/56 12/29/24 13:00 106 H 17 112/46 94 L 12/29/24 12:45 103 H 17 143/70 12/29/24 12:30 110 H 22 116/95 12/29/24 12:25 23 116/95 12/29/24 12:20 126 H 12 114/77 12/29/24 12:15 129 H 20 114/77 93 L 12/29/24 12:10 13 131/73 12/29/24 12:05 122 H 11 L 131/73 87 L 12/29/24 12:00 113 H 27 H 88/59 77 L 12/29/24 11:55 118 H 12 88/59 85 L 12/29/24 11:50 126 H 16 96/75 97 12/29/24 11:45 30 H 96/75 99 12/29/24 11:40 125 H 26 H 117/68 12/29/24 11:35 146 H 24 117/68 98 12/29/24 11:30 107 H 14 85/31 97 12/29/24 11:25 104 H 13 85/31 96 12/29/24 11:20 131 H 25 H 123/69 86 L 12/29/24 11:16 12/29/24 11:15 17 123/69 100 12/29/24 11:10 16 129/105 83 L 12/29/24 11:05 128 H 13 129/105 99 12/29/24 11:00 25 H 116/78 90 L 12/29/24 10:55 115 H 116/78 12/29/24 10:50 122 H 28 H 120/74 96 12/29/24 10:45 15 120/74 12/29/24 10:40 22 139/71 98 12/29/24 10:35 80 139/71 90 L 12/29/24 10:30 86 24 136/121 87 L 12/29/24 10:25 95 21 136/121 81 L 12/29/24 10:20 89 17 98/56 99 12/29/24 10:15 92 14 98/56 97 12/29/24 10:10 90 18 129/56 98 12/29/24 10:05 93 33 H 121/53 98 12/29/24 10:00 11 L 94/48 12/29/24 09:55 95 94/48 12/29/24 09:45 29 H 142/99 98 12/29/24 09:40 96 47 H 154/132 96 12/29/24 09:30 32 H 108/93 97 12/29/24 09:25 94 25 H 108/93 88 L 12/29/24 09:19 12/29/24 09:15 93 34 H 98/63 95 12/29/24 09:00 98 35 H 103/42 94 L 12/29/24 08:55 96 29 H 103/42 96 12/29/24 08:50 96 14 96 12/29/24 08:45 80 15 87/43 96 12/29/24 08:40 92 18 94 L 12/29/24 08:35 77 17 89/41 94 L 12/29/24 08:30 97.0 F L 96 15 67/51 96 12/29/24 08:00 97.7 F 95 16 108/49 94 L 12/29/24 07:50 96 12/29/24 07:30 89 19 86/59 91 L 12/29/24 07:00 75 16 87/67 98 12/29/24 06:00 70 20 85/34 93 L 12/29/24 05:32 94.5 F L 79 18 88/41 12/29/24 05:30 72 15 80/44 91 L 12/29/24 05:12 94.0 F L 73 17 80/44 97 12/29/24 05:00 94.0 F L 84 24 105/88 99 12/29/24 04:52 75 20 105/88 12/29/24 04:30 79 13 93/40 12/29/24 04:15 97.6 F 68 19 94/48 12/29/24 04:00 74 25 H 78/36 97 12/29/24 03:55 97.6 F 77 20 93/40 12/29/24 03:46 68 75/26 98 12/29/24 03:30 75 27 H 79/45 99 12/29/24 03:00 75 17 92/59 99 12/29/24 02:35 97.5 F L 22 94 L 12/29/24 02:00 16 12/29/24 00:00 97.4 F L 71 16 94/58 99 12/28/24 20:00 97.6 F 85 16 90/54 91 L 12/28/24 16:07 75 16 100/58 98 FiO2 12/29/24 14:00 12/29/24 13:45 12/29/24 13:30 12/29/24 13:15 12/29/24 13:00 40 12/29/24 12:45 12/29/24 12:30 12/29/24 12:25 12/29/24 12:20 12/29/24 12:15 12/29/24 12:10 12/29/24 12:05 12/29/24 12:00 12/29/24 11:55 12/29/24 11:50 12/29/24 11:45 12/29/24 11:40 12/29/24 11:35 12/29/24 11:30 12/29/24 11:25 12/29/24 11:20 12/29/24 11:16 40 12/29/24 11:15 12/29/24 11:10 12/29/24 11:05 12/29/24 11:00 12/29/24 10:55 12/29/24 10:50 12/29/24 10:45 12/29/24 10:40 12/29/24 10:35 12/29/24 10:30 12/29/24 10:25 12/29/24 10:20 12/29/24 10:15 12/29/24 10:10 12/29/24 10:05 12/29/24 10:00 12/29/24 09:55 12/29/24 09:45 12/29/24 09:40 12/29/24 09:30 12/29/24 09:25 12/29/24 09:19 40 12/29/24 09:15 12/29/24 09:00 12/29/24 08:55 12/29/24 08:50 12/29/24 08:45 12/29/24 08:40 12/29/24 08:35 12/29/24 08:30 12/29/24 08:00 12/29/24 07:50 12/29/24 07:30 12/29/24 07:00 12/29/24 06:00 12/29/24 05:32 12/29/24 05:30 12/29/24 05:12 12/29/24 05:00 12/29/24 04:52 12/29/24 04:30 12/29/24 04:15 12/29/24 04:00 12/29/24 03:55 12/29/24 03:46 12/29/24 03:30 12/29/24 03:00 12/29/24 02:35 12/29/24 02:00 12/29/24 00:00 12/28/24 20:00 12/28/24 16:07 Intake and Output 12/28/24 12/29/24 12/29/24 22:59 06:59 14:59 Intake Total 200 620 124.593 Output Total 10 Balance 200 620 114.593 Intake: IV 60 .9NS 60 Intake, IV Titration 64.593 Amount Norepinephrine 4 mg In 64.593 Sodium Chloride 0.9% 250 ml @ 0.03 MCG/KG/MIN 10. 39 mls/hr IV .Q24H [facility] Rx #:[id number] Oral 200 Blood Product 620 Rc Irr As1 Unit 310 [id number] Rc Irr As1 Unit 310 [id number] Output: Urine 10 Other: Voiding Method Diaper Incontinent Incontinent # Voids 1 0 # Bowel Movements 1 1 Weight 90.9 kg General appearance: The patient is obtunded on BiPAP. HET: Head is normocephalic and atraumatic. Conjunctiva pink. Sclera anicteric. Neck: Supple without lymphadenopathy. Trachea midline. Heart: Regular. Lungs: Equal expansion, normal respiratory effort. Abdomen: Soft, nontender, nondistended. Skin: No rashes. No jaundice. Extremities: Normal skin color and turgor. No pedal edema. Neurological: Obtunded. Results CBC & Chem 7: 12/29/24 11:55 12/29/24 06:38 Labs: Abnormal Lab Results - Last 24 Hours (Table) 12/27/24 12/28/24 12/29/24 Range/Units 11:36 19:46 00:10 WBC (4.50-10.00) 10*3/uL RBC (4.10-5.20) 10*6/uL Hgb (12.0-15.0) g/dL Hct (37.2-46.3) % MCHC (32.0-37.0) g/dL Plt Count (140-440) 10*3/uL ABG pH (7.35-7.45) ABG pCO2 (35-45) mmHg ABG Total CO2 (19-24) mmol/L Hemoglobin (11.4-16.0) gm/dL Chloride (98-107) mmol/L Carbon Dioxide (22-30) mmol/L BUN (7-17) mg/dL Creatinine (0.52-1.04) mg/dL Glucose (74-99) mg/dL POC Glucose (mg/dL) 120 H 134 H (70-110) mg/dL Albumin (3.5-5.0) g/dL Free Callender LC, Quant 9.28 H (0.33-1.94) mg/dL Free Lambda LC, Quant 5.57 H (0.57-2.63) mg/dL Crossmatch 12/29/24 12/29/24 12/29/24 Range/Units 01:32 01:41 02:16 WBC (4.50-10.00) 10*3/uL RBC 2.11 L (4.10-5.20) 10*6/uL Hgb 6.1 L* (12.0-15.0) g/dL Hct 19.6 L* (37.2-46.3) % MCHC 31.1 L (32.0-37.0) g/dL Plt Count 80 L (140-440) 10*3/uL ABG pH (7.35-7.45) ABG pCO2 (35-45) mmHg ABG Total CO2 (19-24) mmol/L Hemoglobin (11.4-16.0) gm/dL Chloride 113 H (98-107) mmol/L Carbon Dioxide (22-30) mmol/L BUN 41 H (7-17) mg/dL Creatinine 1.36 H (0.52-1.04) mg/dL Glucose 114 H (74-99) mg/dL POC Glucose (mg/dL) (70-110) mg/dL Albumin 2.0 L (3.5-5.0) g/dL Free Callender LC, Quant (0.33-1.94) mg/dL Free Lambda LC, Quant (0.57-2.63) mg/dL Crossmatch See Detail 12/29/24 12/29/24 12/29/24 Range/Units 06:38 06:38 07:49 WBC 12.78 H (4.50-10.00) 10*3/uL RBC 3.10 L (4.10-5.20) 10*6/uL Hgb 9.1 L D (12.0-15.0) g/dL Hct 28.6 L (37.2-46.3) % MCHC 31.8 L (32.0-37.0) g/dL Plt Count 89 L (140-440) 10*3/uL ABG pH 7.17 L* (7.35-7.45) ABG pCO2 62 H (35-45) mmHg ABG Total CO2 25 H (19-24) mmol/L Hemoglobin 9.2 L (11.4-16.0) gm/dL Chloride 115 H (98-107) mmol/L Carbon Dioxide 21 L (22-30) mmol/L BUN 40 H (7-17) mg/dL Creatinine 1.43 H (0.52-1.04) mg/dL Glucose 129 H (74-99) mg/dL POC Glucose (mg/dL) (70-110) mg/dL Albumin (3.5-5.0) g/dL Free Callender LC, Quant (0.33-1.94) mg/dL Free Lambda LC, Quant (0.57-2.63) mg/dL Crossmatch 12/29/24 Range/Units 11:55 WBC 12.57 H (4.50-10.00) 10*3/uL RBC 3.18 L (4.10-5.20) 10*6/uL Hgb 9.5 L (12.0-15.0) g/dL Hct 28.6 L (37.2-46.3) % MCHC (32.0-37.0) g/dL Plt Count 92 L (140-440) 10*3/uL ABG pH (7.35-7.45) ABG pCO2 (35-45) mmHg ABG Total CO2 (19-24) mmol/L Hemoglobin (11.4-16.0) gm/dL Chloride (98-107) mmol/L Carbon Dioxide (22-30) mmol/L BUN (7-17) mg/dL Creatinine (0.52-1.04) mg/dL Glucose (74-99) mg/dL POC Glucose (mg/dL) (70-110) mg/dL Albumin (3.5-5.0) g/dL Free Callender LC, Quant (0.33-1.94) mg/dL Free Lambda LC, Quant (0.57-2.63) mg/dL Crossmatch Microbiology - Last 24 Hours (Table) 12/25/24 10:15 Urine Culture - Final Urine,Voided Assessment and Plan (1) GI bleed Narrative/Plan: 79-year-old female admitted for altered mental status changes and anemia. Patient with recent admission and evaluation for anemia with Upper endoscopy completed on 11/27/2024 with findings of superficial duodenal ulcer gastritis and small hiatal hernia with recommendation for Protonix and Carafate. Patient's hemoglobin had stabilized and patient was discharged to nursing facility. Patient again found to have severe anemia with hemoglobin of 6.2 on this admission. Over the weekend there was no gastroenterology available and patient was seen by general surgery who underwent upper endoscopy yesterday with findings of gastritis and slow motility. Yesterday evening patient had become hypotensive was found to again have a drop in her hemoglobin to 6.1 got another 2 units of blood and transferred to the ICU. She reportedly has been having black tarry stools. Last colonoscopy 2016 with multiple colon polyps status post polypectomy with recommendation for repeat colonoscopy in 3 years part of a workup for iron deficiency anemia. Unfortunately at this time patient is on BiPAP, she is not responsive and unable to take anything and orally. Will order tagged RBC for further evaluation. May need to consider embolization. Continue with supportive care at this time. Current Visit: Yes Status: Acute Code(s): K92.2 - GASTROINTESTINAL HEMORRHAGE, UNSPECIFIED SNOMED Code(s): 54895432 (2) Anemia Current Visit: Yes Status: Acute Priority: High Code(s): D64.9 - ANEMIA, UNSPECIFIED SNOMED Code(s): 658331429 (3) Pulmonary hypertension Current Visit: Yes Status: Acute Code(s): I27.20 - PULMONARY HYPERTENSION, UNSPECIFIED SNOMED Code(s): 87768342 (4) Pulmonary nodules Current Visit: Yes Status: Acute Code(s): R91.8 - OTHER NONSPECIFIC ABNORMAL FINDING OF LUNG FIELD SNOMED Code(s): 148517198 (5) History of duodenal ulcer Current Visit: Yes Status: Acute Code(s): Z87.19 - PERSONAL HISTORY OF OTHER DISEASES OF THE DIGESTIVE SYSTEM SNOMED Code(s): 508422048 (6) Obstructive sleep apnea Current Visit: Yes Status: Acute Code(s): G47.33 - OBSTRUCTIVE SLEEP APNEA (ADULT) (PEDIATRIC) SNOMED Code(s): 62220170 (7) Obesity Current Visit: Yes Status: Acute Code(s): E66.9 - OBESITY, UNSPECIFIED SNOMED Code(s): 355056194 (8) NANCY (acute kidney injury) Current Visit: Yes Status: Acute Code(s): N17.9 - ACUTE KIDNEY FAILURE, UNSPECIFIED SNOMED Code(s): 30435537 (9) AMS (altered mental status) Current Visit: No Status: Acute Code(s): R41.82 - ALTERED MENTAL STATUS, UNSPECIFIED SNOMED Code(s): 387903330 (10) Diabetes Current Visit: No Status: Acute Code(s): E11.9 - TYPE 2 DIABETES MELLITUS WITHOUT COMPLICATIONS SNOMED Code(s): 94718166 (11) Renal cell carcinoma Current Visit: No Status: Acute Priority: High Code(s): C64.9 - MALIGNANT NEOPLASM OF UNSP KIDNEY, EXCEPT RENAL PELVIS SNOMED Code(s): 137010080 Plan: 1. Continue symptomatic and supportive care 2. Keep n.p.o. 3. Continue Protonix 40 mg twice daily 4. Hold anticoagulation 5. CBC every 6 hours transfuse for hemoglobin less than 7 6. Tagged RBC ordered 7. Continue with medical management and supportive care 8. Further recommendations forthcoming based on clinical course Thank you for this consultation, we will continue to follow. Dr. Darya Palacios I agree with the dictator's note, documented as a scribe by Toshia Zarate.
--- NOTE | 2024-12-29 17:23 | NM ---
EXAMINATION TYPE: NM GI bleeding DATE OF EXAM: 12/29/2024 CLINICAL INDICATION: Female, 79 years old with history of GI bleed; COMPARISON: CT abdomen and pelvis 11/02/2024 Following administration of 3 ml PYP 21.4 mCi Tc 99m Sodium Pertechnete. Immediate images post inject ion. FINDINGS: Normal tracer activity is seen in the blood pool of the abdominal aorta, common iliac arteries, femor al arteries, liver, and spleen on all of the interval images. There is focal radiotracer uptake ident ified within the central abdomen with to-and-fro appearance. IMPRESSION: Findings positive for active GI bleed within the favored small bowel of the central abdomen. A Red level critical message alert has been initiated for Toshia Zuleta via the [employer] System on 12/29/2024 5:20 PM. This message alert has been sent to Toshia Zuleta via the preferences provided by the clinician for the receipt of Radiology Critical Findings. Message ID [id number]. [facility], , 12/29/2024 5:20 PM
[2024-12-29 19:25] LABS: HCT 30.5 % (37.2-46.3); HGB 9.8 g/dL (12.0-15.0); MCH 29.2 pg (27.0-32.0); MCHC 32.1 g/dL (32.0-37.0); MCV 90.8 fL (80.0-97.0); Mean Platelet Volume 9.7 fL (9.5-12.2); RBC 3.36 10*6/uL (4.10-5.20); RDW 17.7 % (11.5-14.5); WBC 19.84 10*3/uL (4.50-10.00)
[2024-12-29 19:32] LABS: Platelet Count 82 10*3/uL (140-440)
[2024-12-29] MEDS: AMIODARONE 450 MG in DEXTROSE 5% IN WATER 250 ML IV SCH (21:07)
[2024-12-29] MEDS: QUEtiapine 25 MG TAB PO SCH (21:09)
--- NOTE | 2024-12-29 21:12 | P.CONS ---
History of Present Illness - Reason for Consult Consult date: 12/29/24 UTI, hypothermia, sepsis Requesting physician: Alice Damon - Chief Complaint Weakness x days - History of Present Illness Patient is a 79-year-old female with a past medical history nephric and for renal cell carcinoma status post left nephrectomy obstructive sleep apnea hyperlipidemia hypertension diabetes mellitus recent admission to the hospital worked up for anemia with an EGD on 11/27/2024 did has superficial duodenal ulcer and readmitted again to the hospital 5 days ago on 12/24/2024 concerning for decreased oral intake and generalized weakness patient was noticed to be anemic with hemoglobin of 6.2 and did have black tarry stool required transfusion patient has been transferred to the ICU earlier this morning and the patient was initially hypotensive received blood transfusion as well as pressors has been put on BiPAP patient was noticed to be hypothermic with a temperature of 94 F also noted to have jump in the white count up to 19.84 hemoglobin is 9.8 BUN and creatinine is mildly elevated UA on 18 was positive however cultures were negative patient did have a chest x-ray on admission no acute cardiopulmonary disease process repeat chest x-ray small bilateral effusion with cardiomegaly chronic pulmonary vascular congestion patient was started on Zosyn concerning for sepsis infectious was consulted for further management of antibiotic therapy most information has been obtained from review the chart of the nursing staff and the patient was lethargic on the BiPAP could not provide any history Review of Systems Positive points has been mentioned in HPI complete review could not be obtained because of his underlying mental status Past Medical History Past Medical History: Cancer, Diabetes Mellitus, Hyperlipidemia, Hypertension, Pneumonia, Renal Disease, Sleep Apnea/CPAP/BIPAP Additional Past Medical History / Comment(s): anemia, arthritis, grade 4 renal carcinoma, acute respiratory failure, pleural effusions, pulmonary nodules, x smoker History of Any Multi-Drug Resistant Organisms: None Reported Past Surgical History: Joint Replacement, Orthopedic Surgery Additional Past Surgical History / Comment(s): total lt knee, carpel tunnel lt wrist, left nephrectomy -2024, bilateral cataracts, Past Anesthesia/Blood Transfusion Reactions: Motion Sickness, Postoperative Nausea & Vomiting (PONV) Additional Past Anesthesia/Blood Transfusion Reaction / Comm: no reaction to blood transfusion Past Psychological History: No Psychological Hx Reported Smoking Status: Former smoker Past Alcohol Use History: None Reported Additional Past Alcohol Use History / Comment(s): quit smoking 1970's smoked for approx 10 yrs Past Drug Use History: Marijuana Additional Drug Use History / Comment(s): marijuana daily freq - Past Family History Sister(s) Family Medical History: Cancer Additional Family Medical History / Comment(s): lymph Medications and Allergies Home Medications Medication Instructions Recorded Confirmed Type Pioglitazone HCl/Metformin HCl 1 tab PO BID 09/17/14 12/24/24 History [Pioglitazone-Metformin 15-] Simvastatin [Zocor] 40 mg PO HS 09/17/14 12/24/24 History Aspirin 81 mg PO DAILY 03/06/17 12/24/24 History DULoxetine HCL [Cymbalta] 60 mg PO DAILY 10/05/24 12/24/24 History Melatonin 3 mg PO HS PRN tab 11/04/24 12/24/24 Rx Pantoprazole [Protonix] 40 mg PO BID 30 Days #60 tab 12/01/24 12/24/24 Rx Sucralfate [Carafate] 1 gm PO AC-TID tab 12/01/24 12/24/24 Rx Magnesium Oxide [Mag-Ox] 400 mg PO DAILY #30 tab 12/04/24 12/24/24 Rx Ferrous Sulfate [Iron (65 MG 325 mg PO BID 12/24/24 12/24/24 History Elemental)] Loperamide [Imodium] 2 mg PO DIRECTED PRN 12/24/24 12/24/24 History Potassium Chloride ER [K-Dur 10] 20 meq PO DAILY 12/24/24 12/24/24 History Saliva Stimulant Comb. No.3 3 spray MUCOUS MEM TID 12/24/24 12/24/24 History [Biotene Moisturizing Mouth] clindamycin HCL 300 mg PO Q6H 12/24/24 12/24/24 History Allergies Allergy/AdvReac Type Severity Reaction Status Date / Time tramadol Allergy Nausea, Verified 12/24/24 18:14 "DRY HEAVES" Physical Exam Vitals: Vital Signs Temp Pulse Pulse Resp BP BP Pulse Ox 12/29/24 14:50 12/29/24 14:00 97.0 F L 102 H 12 113/88 97 12/29/24 13:45 17 86/58 94 L 12/29/24 13:30 85 16 120/76 90 L 12/29/24 13:15 17 104/56 12/29/24 13:00 106 H 17 112/46 94 L 12/29/24 12:45 103 H 17 143/70 12/29/24 12:30 110 H 22 116/95 12/29/24 12:25 23 116/95 12/29/24 12:20 126 H 12 114/77 12/29/24 12:15 129 H 20 114/77 93 L 12/29/24 12:10 13 131/73 12/29/24 12:05 122 H 11 L 131/73 87 L 12/29/24 12:00 113 H 27 H 88/59 77 L 12/29/24 11:55 118 H 12 88/59 85 L 12/29/24 11:50 126 H 16 96/75 97 12/29/24 11:45 30 H 96/75 99 12/29/24 11:40 125 H 26 H 117/68 12/29/24 11:35 146 H 24 117/68 98 12/29/24 11:30 107 H 14 85/31 97 12/29/24 11:25 104 H 13 85/31 96 12/29/24 11:20 131 H 25 H 123/69 86 L 12/29/24 11:16 12/29/24 11:15 17 123/69 100 12/29/24 11:10 16 129/105 83 L 12/29/24 11:05 128 H 13 129/105 99 12/29/24 11:00 25 H 116/78 90 L 12/29/24 10:55 115 H 116/78 12/29/24 10:50 122 H 28 H 120/74 96 12/29/24 10:45 15 120/74 12/29/24 10:40 22 139/71 98 12/29/24 10:35 80 139/71 90 L 12/29/24 10:30 86 24 136/121 87 L 12/29/24 10:25 95 21 136/121 81 L 12/29/24 10:20 89 17 98/56 99 12/29/24 10:15 92 14 98/56 97 12/29/24 10:10 90 18 129/56 98 12/29/24 10:05 93 33 H 121/53 98 12/29/24 10:00 11 L 94/48 12/29/24 09:55 95 94/48 12/29/24 09:45 29 H 142/99 98 12/29/24 09:40 96 47 H 154/132 96 12/29/24 09:30 32 H 108/93 97 12/29/24 09:25 94 25 H 108/93 88 L 12/29/24 09:19 12/29/24 09:15 93 34 H 98/63 95 12/29/24 09:00 98 35 H 103/42 94 L 12/29/24 08:55 96 29 H 103/42 96 12/29/24 08:50 96 14 96 12/29/24 08:45 80 15 87/43 96 12/29/24 08:40 92 18 94 L 12/29/24 08:35 77 17 89/41 94 L 12/29/24 08:30 97.0 F L 96 15 67/51 96 12/29/24 08:00 97.7 F 95 16 108/49 94 L 12/29/24 07:50 96 12/29/24 07:30 89 19 86/59 91 L 12/29/24 07:00 75 16 87/67 98 12/29/24 06:00 70 20 85/34 93 L 12/29/24 05:32 94.5 F L 79 18 88/41 12/29/24 05:30 72 15 80/44 91 L 12/29/24 05:12 94.0 F L 73 17 80/44 97 12/29/24 05:00 94.0 F L 84 24 105/88 99 12/29/24 04:52 75 20 105/88 12/29/24 04:30 79 13 93/40 12/29/24 04:15 97.6 F 68 19 94/48 12/29/24 04:00 74 25 H 78/36 97 12/29/24 03:55 97.6 F 77 20 93/40 12/29/24 03:46 68 75/26 98 12/29/24 03:30 75 27 H 79/45 99 12/29/24 03:00 75 17 92/59 99 12/29/24 02:35 97.5 F L 22 94 L 12/29/24 02:00 16 12/29/24 00:00 97.4 F L 71 16 94/58 99 12/28/24 20:00 97.6 F 85 16 90/54 91 L 12/28/24 16:07 75 16 100/58 98 FiO2 12/29/24 14:50 40 12/29/24 14:00 12/29/24 13:45 12/29/24 13:30 12/29/24 13:15 12/29/24 13:00 40 12/29/24 12:45 12/29/24 12:30 12/29/24 12:25 12/29/24 12:20 12/29/24 12:15 12/29/24 12:10 12/29/24 12:05 12/29/24 12:00 12/29/24 11:55 12/29/24 11:50 12/29/24 11:45 12/29/24 11:40 12/29/24 11:35 12/29/24 11:30 12/29/24 11:25 12/29/24 11:20 12/29/24 11:16 40 12/29/24 11:15 12/29/24 11:10 12/29/24 11:05 12/29/24 11:00 12/29/24 10:55 12/29/24 10:50 12/29/24 10:45 12/29/24 10:40 12/29/24 10:35 12/29/24 10:30 12/29/24 10:25 12/29/24 10:20 12/29/24 10:15 12/29/24 10:10 12/29/24 10:05 12/29/24 10:00 12/29/24 09:55 12/29/24 09:45 12/29/24 09:40 12/29/24 09:30 12/29/24 09:25 12/29/24 09:19 40 12/29/24 09:15 12/29/24 09:00 12/29/24 08:55 12/29/24 08:50 12/29/24 08:45 12/29/24 08:40 12/29/24 08:35 12/29/24 08:30 12/29/24 08:00 12/29/24 07:50 12/29/24 07:30 12/29/24 07:00 12/29/24 06:00 12/29/24 05:32 12/29/24 05:30 12/29/24 05:12 12/29/24 05:00 12/29/24 04:52 12/29/24 04:30 12/29/24 04:15 12/29/24 04:00 12/29/24 03:55 12/29/24 03:46 12/29/24 03:30 12/29/24 03:00 12/29/24 02:35 12/29/24 02:00 12/29/24 00:00 12/28/24 20:00 12/28/24 16:07 Intake and Output 12/29/24 12/29/24 12/29/24 06:59 14:59 22:59 Intake Total 620 124.593 Output Total 10 Balance 620 114.593 Intake: IV 60 .9NS 60 Intake, IV Titration 64.593 Amount Norepinephrine 4 mg In 64.593 Sodium Chloride 0.9% 250 ml @ 0.03 MCG/KG/MIN 10. 39 mls/hr IV .Q24H [facility] Rx #:[id number] Blood Product 620 Rc Irr As1 Unit 310 [id number] Rc Irr As1 Unit 310 [id number] Output: Urine 10 Other: Voiding Method Incontinent # Voids 0 # Bowel Movements 1 Weight 90.9 kg GENERAL DESCRIPTION: Elderly female lying in bed, no distress. No tachypnea or accessory muscle of respiration use. HEENT: Shows Pallor , no scleral icterus. Oral mucous membrane is dry. NECK: Trachea central, no thyromegaly. LUNGS: Unlabored breathing. Decreased breath sound the base HEART: S1, S2, regular rate and rhythm. No loud murmur ABDOMEN: Soft, mild distention EXTREMITIES: No edema of feet. SKIN: No rash, no masses palpable. NEUROLOGICAL: The patient is lethargic on the BiPAP orientation cannot be determined Results CBC & Chem 7: 12/30/24 05:44 12/30/24 05:44 Labs: Abnormal Lab Results - Last 24 Hours (Table) 12/28/24 12/29/24 12/29/24 Range/Units 19:46 00:10 01:32 WBC (4.50-10.00) 10*3/uL RBC 2.11 L (4.10-5.20) 10*6/uL Hgb 6.1 L* (12.0-15.0) g/dL Hct 19.6 L* (37.2-46.3) % MCHC 31.1 L (32.0-37.0) g/dL Plt Count 80 L (140-440) 10*3/uL ABG pH (7.35-7.45) ABG pCO2 (35-45) mmHg ABG Total CO2 (19-24) mmol/L Hemoglobin (11.4-16.0) gm/dL Chloride (98-107) mmol/L Carbon Dioxide (22-30) mmol/L BUN (7-17) mg/dL Creatinine (0.52-1.04) mg/dL Glucose (74-99) mg/dL POC Glucose (mg/dL) 120 H 134 H (70-110) mg/dL Albumin (3.5-5.0) g/dL Procalcitonin (0.02-0.50) ng/mL Crossmatch 12/29/24 12/29/24 12/29/24 Range/Units 01:41 02:16 06:38 WBC 12.78 H (4.50-10.00) 10*3/uL RBC 3.10 L (4.10-5.20) 10*6/uL Hgb 9.1 L D (12.0-15.0) g/dL Hct 28.6 L (37.2-46.3) % MCHC 31.8 L (32.0-37.0) g/dL Plt Count 89 L (140-440) 10*3/uL ABG pH (7.35-7.45) ABG pCO2 (35-45) mmHg ABG Total CO2 (19-24) mmol/L Hemoglobin (11.4-16.0) gm/dL Chloride 113 H (98-107) mmol/L Carbon Dioxide (22-30) mmol/L BUN 41 H (7-17) mg/dL Creatinine 1.36 H (0.52-1.04) mg/dL Glucose 114 H (74-99) mg/dL POC Glucose (mg/dL) (70-110) mg/dL Albumin 2.0 L (3.5-5.0) g/dL Procalcitonin (0.02-0.50) ng/mL Crossmatch See Detail 12/29/24 12/29/2425 Range/Units 06:38 07:49 11:55 WBC 12.57 H (4.50-10.00) 10*3/uL RBC 3.18 L (4.10-5.20) 10*6/uL Hgb 9.5 L (12.0-15.0) g/dL Hct 28.6 L (37.2-46.3) % MCHC (32.0-37.0) g/dL Plt Count 92 L (140-440) 10*3/uL ABG pH 7.17 L* (7.35-7.45) ABG pCO2 62 H (35-45) mmHg ABG Total CO2 25 H (19-24) mmol/L Hemoglobin 9.2 L (11.4-16.0) gm/dL Chloride 115 H (98-107) mmol/L Carbon Dioxide 21 L (22-30) mmol/L BUN 40 H (7-17) mg/dL Creatinine 1.43 H (0.52-1.04) mg/dL Glucose 129 H (74-99) mg/dL POC Glucose (mg/dL) (70-110) mg/dL Albumin (3.5-5.0) g/dL Procalcitonin (0.02-0.50) ng/mL Crossmatch 12/29/24 Range/Units 11:55 WBC (4.50-10.00) 10*3/uL RBC (4.10-5.20) 10*6/uL Hgb (12.0-15.0) g/dL Hct (37.2-46.3) % MCHC (32.0-37.0) g/dL Plt Count (140-440) 10*3/uL ABG pH (7.35-7.45) ABG pCO2 (35-45) mmHg ABG Total CO2 (19-24) mmol/L Hemoglobin (11.4-16.0) gm/dL Chloride (98-107) mmol/L Carbon Dioxide (22-30) mmol/L BUN (7-17) mg/dL Creatinine (0.52-1.04) mg/dL Glucose (74-99) mg/dL POC Glucose (mg/dL) (70-110) mg/dL Albumin (3.5-5.0) g/dL Procalcitonin 2.20 H (0.02-0.50) ng/mL Crossmatch Microbiology - Last 24 Hours (Table) 12/25/24 10:15 Urine Culture - Final Urine,Voided Assessment and Plan (1) Sepsis Current Visit: Yes Status: Acute Code(s): A41.9 - SEPSIS, UNSPECIFIED ORGANISM SNOMED Code(s): 73439522 Plan: 1patient noted to be hypotensive requiring pressor support did have elevated white count and hypothermia meeting ready for SIRS concern for possible sepsis could be abdominal or urinary in origin patient did have significantly positive reevaluation however the cultures were negative now with significant anemia and black tarry stool questionable diverticulitis versus other abdominal pathology and will need to cover for the enteric gram-negative both aerobes and anaerobes 2-will recommend obtaining a CT abdominal pelvis with oral contrast when the patient mentation improves and is hemodynamically stable 3-obtain blood culture repeat UA and culture 4-will treat empirically with Zosyn while waiting for the workup to be completed We will follow on clinical condition and cultures to further adjust medication if needed Thank you for this consultation we will follow the patient along with you Dictation was produced using [employer] dictation software. please excuse any grammatical, word or spelling errors. Time with Patient: Greater than 30
[2024-12-29] MEDS: FUROSEMIDE 10 MG/ML 4 ML VIAL IV STA (22:16)
[2024-12-30 00:35] LABS: HCT 27.3 % (37.2-46.3); HGB 8.8 g/dL (12.0-15.0); Immature Platelet Fraction 4.5 % (1.1-6.1); MCH 29.6 pg (27.0-32.0); MCHC 32.2 g/dL (32.0-37.0); MCV 91.9 fL (80.0-97.0); Mean Platelet Volume 11.3 fL (9.5-12.2); RBC 2.97 10*6/uL (4.10-5.20); RDW 17.7 % (11.5-14.5); WBC 19.43 10*3/uL (4.50-10.00)
[2024-12-30 00:42] LABS: Platelet Count 90 10*3/uL (140-440)
--- NOTE | 2024-12-30 05:03 | P.PN ---
Subjective Progress Note Date: 12/29/24 79-year-old female with past medical history significant for hypertension, hyperlipidemia, diabetes mellitus, history of sleep apnea, history of renal cancer, pulmonary nodules, previous smoker who was brought in from [facility] due to increased confusion. Patient had previous hospitalization recently underwent EGD for anemia and was noted to have peptic ulcer disease. at the bedside reported patient was having on and off melena. Patient noted to be in acute kidney injury with creatinine of 2.76, was started on IV fluids, and admitted to hospital for further evaluation and management. Also had elevated potassium on presentation which is now improved.. Patient was complaining of d ysuria, UA was positive, currently on Rocephin for UTI. 2 more unit of packed RBCs ordered on 12/26, general surgery consulted, recommended monitor H&H and transfuse as needed, if continue to notice drop in hemoglobin will need endoscopy. Mentation improving. Remains on Rocephin for UTI. 12/27/2024 Patient was seen and examined today. at bedside, patient still confused, A and O x 2 to 3. WBC 7.2, hemoglobin 8.4, platelet 131. BUN 42, creatinine 1.30. Nephrology on board and following, recommended to maintain IV fluids, decrease rate to 50 cc an hour. General surgery following, tentative plan for EGD tomorrow depending on hemoglobin level. 12/28/2024 Patient is seen in follow-up today and continues to be confused. Per nursing staff patient is more altered with hallucinations and reports was given a low- dose of Seroquel. Patient has not slept in a few days and is currently n.p.o. scheduled to undergo EGD with general surgery as patient was noted to have black tarry stools. Patient has received adequate antibiotics and will discontinue at this time and monitor off any antibiotic therapy as there was concerned of patient developing a possible rash on her back. Patient is afebrile white count is normal, hemoglobin is 7.5 with no active bleeding noted. Will await EGD report. 12/29/2024 Patient is seen in follow-up in the ICU with multiple consultations following. patient had increased confusion with respiratory distress and hypotension requiring pressor support. Patient is status post EGD showing gastritis with general surgery following. Hemoglobin also low at 6.1 being transfused 2 units of PRBCs. GI is being consulted with concerns of possible GI bleed. Per nursing at the bedside, patient with new onset A-fib and recommend cardiology consult for further evaluation. Infectious disease also consulted as patient was having a maculopapular rash on her back after ceftriaxone which was discontinued although patient is clinically deteriorating with concerns of possible sepsis. Zosyn being added. Recommend indwelling Hart catheter for strict intake and output. Overall prognosis is extremely guarded at this time. Review of systems: Unable to obtain as patient is confused and currently on BiPAP PHYSICAL EXAMINATION: GENERAL: The patient is A&O x1, confused, following some commands, well- developed, elderly appearing, obese, currently on BiPAP with an FiO2 of 40% and PEEP is 5 HEENT: EOMI, Sclerae anicteric, oral mucosa is dry Neck: Supple, Non tender, No JVD PULMONARY: Equal breath souds B/L, No wheezing, No crackles. CARDIOVASCULAR: S1, S2 muffled ABDOMEN: Soft, nontender, nondistended, normoactive bowel sounds. No guarding or rebound tenderness. MUSCULOSKELETAL: No edema, No cyanosis. No clubbing. Normal ROM. Intact peripheral pulses. NEUROLOGICAL: CN 2-12 grossly intact. No FND Skin: No Rash Assessment: Melena: With concerns of possible GI bleed, EGD 12/28/2024 showing gastritis, GI consulted per general surgery History of peptic ulcer disease: As noted on previous EGD history of anemia, hemoglobin 6.1 today and being transfused 2 units Acute toxic metabolic encephalopathy: Multifactorial, concerns for UTI, sepsis, as well as hospital-acquired delirium UTI, present on admission, culture showing gram-negative bacilli and group D Enterococcus NANCY, prerenal azotemia, secondary to dehydration Hypercalcemia Diabetes mellitus, type II Morbid obesity with a BMI of 41.1 History of depression Sarita intertrigo GI prophylaxis DVT prophylaxis Full code Plan: Patient is underwent EGD with general surgery for black tarry stools, showing gastritis with no active bleeding noted. GI consulted per surgery with concerns of GI bleed. Hemoglobin is 6.1 today and being transfused 2 units Patient having increasing unresponsiveness and respiratory distress requiring BiPAP and has been sent to the ICU now on low-dose pressor support. Weaning as tolerated. Patient continues on BiPAP and continues to be confused Nephrology following as well and patient is only making very little urine, recommend continued indwelling Hart catheter for strict intake and output. Creatinine mildly worse and will follow-up on repeat labs Per nursing staff patient has a diffuse maculopapular rash on her back, patient had reported this has been ongoing. Patient clinically declining and now currently in the ICU with multiple cons ultations following. Antibiotics were discontinued with concerns of possible allergic reaction to the ceftriaxone. Zosyn being added and will consult infectious disease and appreciate input and recommendations. Repeat blood cultures and urine with urine culture ordered Urine culture showing group D Enterococcus and gram-negative bacilli, specimen resent as initial specimen was unsuitable Overall prognosis is guarded at this time. CODE STATUS was discussed and reported she would want all measures taken. Patient did have paperwork in the outpatient setting reporting she was in no code. The impression and plan of care has been dictated by Alice Damon, Nurse Practitioner as directed. Dr. Duke MD I have performed a history and examination and MDM of this patient, discussed the same with the dictator, and agree with the dictator's assessment and plan as written ,documented as a scribe. Based on total visit time, I have performed more than 50% of the visit. Objective - Vital Signs Vital signs: Vital Signs Temp 97.0 F L 12/29/24 08:30 Pulse 96 12/29/24 08:30 Resp 15 12/29/24 08:30 BP 67/51 12/29/24 08:30 Pulse Ox 96 12/29/24 08:30 FiO2 Intake & Output 12/28/24 12/29/24 12/29/24 18:59 06:59 18:59 Intake Total 400 620 12.931 Balance 400 620 12.931 Weight 108.5 kg 90.9 kg Intake: IV 200 Intake, IV Titration 12.931 Amount Norepinephrine 4 mg In 12.931 Sodium Chloride 0.9% 250 ml @ 0.03 MCG/KG/MIN 10. 39 mls/hr IV .Q24H [facility] Rx #:[id number] Oral 200 Blood Product 620 Rc Irr As1 Unit 310 [id number] Rc Irr As1 Unit 310 [id number] Other: Voiding Method Diaper Incontinent Incontinent # Voids 1 0 # Bowel Movements 1 - Labs CBC & Chem 7: 12/30/24 00:07 12/29/24 06:38 Labs: Abnormal Lab Results - Last 24 Hours (Table) 12/27/24 12/28/24 12/28/24 Range/Units 11:36 05:47 19:46 WBC (4.50-10.00) 10*3/uL RBC 2.59 L (4.10-5.20) 10*6/uL Hgb 7.5 L (12.0-15.0) g/dL Hct 22.9 L (37.2-46.3) % MCHC (32.0-37.0) g/dL Plt Count 117 L (140-440) 10*3/uL Immature Gran # 0.40 H (0.00-0.04) 10*3/uL Lymphocytes # 0.80 L (0.90-5.00) 10*3/uL ABG pH (7.35-7.45) ABG pCO2 (35-45) mmHg ABG Total CO2 (19-24) mmol/L Hemoglobin (11.4-16.0) gm/dL Chloride (98-107) mmol/L Carbon Dioxide (22-30) mmol/L BUN (7-17) mg/dL Creatinine (0.52-1.04) mg/dL Glucose (74-99) mg/dL POC Glucose (mg/dL) 120 H (70-110) mg/dL Total Protein (PEP) 5.6 L (6.2-8.2) g/dL Albumin (3.5-5.0) g/dL Free [place] LC, Quant 9.28 H (0.33-1.94) mg/dL Free Lambda LC, Quant 5.57 H (0.57-2.63) mg/dL Crossmatch 12/29/24 12/29/24 12/29/24 Range/Units 00:10 01:32 01:41 WBC (4.50-10.00) 10*3/uL RBC 2.11 L (4.10-5.20) 10*6/uL Hgb 6.1 L* (12.0-15.0) g/dL Hct 19.6 L* (37.2-46.3) % MCHC 31.1 L (32.0-37.0) g/dL Plt Count 80 L (140-440) 10*3/uL Immature Gran # (0.00-0.04) 10*3/uL Lymphocytes # (0.90-5.00) 10*3/uL ABG pH (7.35-7.45) ABG pCO2 (35-45) mmHg ABG Total CO2 (19-24) mmol/L Hemoglobin (11.4-16.0) gm/dL Chloride 113 H (98-107) mmol/L Carbon Dioxide (22-30) mmol/L BUN 41 H (7-17) mg/dL Creatinine 1.36 H (0.52-1.04) mg/dL Glucose 114 H (74-99) mg/dL POC Glucose (mg/dL) 134 H (70-110) mg/dL Total Protein (PEP) (6.2-8.2) g/dL Albumin 2.0 L (3.5-5.0) g/dL Free [place] LC, Quant (0.33-1.94) mg/dL Free Lambda LC, Quant (0.57-2.63) mg/dL Crossmatch 12/29/24 12/29/24 12/29/24 Range/Units 02:16 06:38 06:38 WBC 12.78 H (4.50-10.00) 10*3/uL RBC 3.10 L (4.10-5.20) 10*6/uL Hgb 9.1 L D (12.0-15.0) g/dL Hct 28.6 L (37.2-46.3) % MCHC 31.8 L (32.0-37.0) g/dL Plt Count 89 L (140-440) 10*3/uL Immature Gran # (0.00-0.04) 10*3/uL Lymphocytes # (0.90-5.00) 10*3/uL ABG pH (7.35-7.45) ABG pCO2 (35-45) mmHg ABG Total CO2 (19-24) mmol/L Hemoglobin (11.4-16.0) gm/dL Chloride 115 H (98-107) mmol/L Carbon Dioxide 21 L (22-30) mmol/L BUN 40 H (7-17) mg/dL Creatinine 1.43 H (0.52-1.04) mg/dL Glucose 129 H (74-99) mg/dL POC Glucose (mg/dL) (70-110) mg/dL Total Protein (PEP) (6.2-8.2) g/dL Albumin (3.5-5.0) g/dL Free [place] LC, Quant (0.33-1.94) mg/dL Free [place] LC, Quant (0.57-2.63) mg/dL Crossmatch See Detail 12/29/24 Range/Units 07:49 WBC (4.50-10.00) 10*3/uL RBC (4.10-5.20) 10*6/uL Hgb (12.0-15.0) g/dL Hct (37.2-46.3) % MCHC (32.0-37.0) g/dL Plt Count (140-440) 10*3/uL Immature Gran # (0.00-0.04) 10*3/uL Lymphocytes # (0.90-5.00) 10*3/uL ABG pH 7.17 L* (7.35-7.45) ABG pCO2 62 H (35-45) mmHg ABG Total CO2 25 H (19-24) mmol/L Hemoglobin 9.2 L (11.4-16.0) gm/dL Chloride (98-107) mmol/L Carbon Dioxide (22-30) mmol/L BUN (7-17) mg/dL Creatinine (0.52-1.04) mg/dL Glucose (74-99) mg/dL POC Glucose (mg/dL) (70-110) mg/dL Total Protein (PEP) (6.2-8.2) g/dL Albumin (3.5-5.0) g/dL Free [place] LC, Quant (0.33-1.94) mg/dL Free [place]ambda LC, Quant (0.57-2.63) mg/dL Crossmatch Microbiology - Last 24 Hours (Table) 12/25/24 10:15 Urine Culture - Final Urine,Voided
[2024-12-30 06:09] LABS: HCT 29.1 % (37.2-46.3); HGB 9.2 g/dL (12.0-15.0); MCH 28.6 pg (27.0-32.0); MCHC 31.6 g/dL (32.0-37.0); MCV 90.4 fL (80.0-97.0); Mean Platelet Volume 10.8 fL (9.5-12.2); RBC 3.22 10*6/uL (4.10-5.20); RDW 17.8 % (11.5-14.5); WBC 18.41 10*3/uL (4.50-10.00)
[2024-12-30 06:10] LABS: Glucose,Whole Blood 107 mg/dL (70-110)
[2024-12-30 06:10] LABS: Glucose,Whole Blood 121 mg/dL (70-110)
[2024-12-30 06:10] LABS: Glucose,Whole Blood 131 mg/dL (70-110)
[2024-12-30 06:10] LABS: Glucose,Whole Blood 118 mg/dL (70-110)
[2024-12-30 06:10] LABS: Glucose,Whole Blood 118 mg/dL (70-110)
[2024-12-30 06:10] LABS: Glucose,Whole Blood 118 mg/dL (70-110)
[2024-12-30 06:21] LABS: Platelet Count 93 10*3/uL (140-440)
[2024-12-30 06:31] LABS: African American GFR (CKD) 29 (>60 ml/min/1.73 sqM); Anion Gap 11 mmol/L; Blood Urea Nitrogen 42 mg/dL (7-17); Calcium 9.3 mg/dL (8.4-10.2); Carbon Dioxide 20 mmol/L (22-30); Chloride 115 mmol/L (98-107); Glucose 118 mg/dL (74-99); Non-African American GFR(CKD) 25 (>60 ml/min/1.73 sqM); Potassium 3.9 mmol/L (3.5-5.1); Sodium 146 mmol/L (137-145)
--- NOTE | 2024-12-30 08:09 | XR ---
EXAMINATION TYPE: XR chest 1V portable DATE OF EXAM: 12/30/2024 5:34 AM COMPARISON: None. CLINICAL INDICATION: Female, 79 years old with history of fluid overload, TECHNIQUE: XR chest 1V portable view(s) obtained semiupright position. FINDINGS: The heart size is enlarged. The pulmonary vasculature is normal. Small right pleural effusion is present. May be a right rib fracture of the seventh rib. No pneumotho rax is. Diaphragms are poorly visualized. Small left pleural effusion is present. IMPRESSION: 1. Cardiomegaly. 2. Small bilateral pleural effusions increasing on the left. 3. Correlate for right lateral seventh rib fracture [facility], , 12/30/2024 8:07 AM
[2024-12-30 09:07] LABS: ABG Base Excess -8.5 mmol/L; ABG HCO3 20 mmol/L (21-25); ABG PCO2 55 mmHg (35-45); ABG PO2 78 mmHg (83-108); ABG TCO2 22 mmol/L (19-24); Allen Test Performed? Yes
[2024-12-30 09:11] LABS: ABG PH 7.17 (7.35-7.45)
[2024-12-30] MEDS: FUROSEMIDE 10 MG/ML 10 ML VIAL IV STA (09:26)
[2024-12-30] MEDS: SODIUM BICARB 8.4% 50 ML SYR (1 MEQ/ML) IV STA (09:33)
--- NOTE | 2024-12-30 09:37 | P.PN ---
Subjective Patient is seen in follow-up for acute kidney injury. Renal function worse. Hemoglobin improved post blood transfusions. Poor historian. On amiodarone drip. Also on Levophed. Vital signs are stable. On vasopressor support. General: No acute distress. HEENT: On BiPAP. LUNGS: No audible rhonchi or wheezes. HEART: Rate and Rhythm are regular. ABDOMEN: Nontender. EXTREMITITES: Trace edema. Objective - Vital Signs Vital signs: Vital Signs Temp 97.5 F L 12/30/24 05:30 Pulse 101 H 12/30/24 07:00 Resp 19 12/30/24 07:00 BP 99/84 12/30/24 07:00 Pulse Ox 96 12/30/24 09:14 FiO2 40 12/30/24 09:19 Intake & Output 12/29/24 12/30/24 12/30/24 18:59 06:59 18:59 Intake Total 240.444 797.964 66.667 Output Total 10 150 15 Balance 230.444 647.964 51.667 Weight 94.3 kg Intake: IV 165 655 50 .9NS 140 480 50 Piperacillin-Tazobactam 3 25 175 .375 gm In Sodium Chloride 0.9% 100 ml @ 25 mls/hr IVPB Q8HR [facility] Rx# :[id number] Intake, IV Titration 75.444 142.964 16.667 Amount Amiodarone 450 mg In 16.667 16.667 Dextrose 5% in Water 250 ml @ 0.5 MG/MIN 16.667 mls/hr IV .Q15H [facility] Rx#: [id number] Norepinephrine 4 mg In 75.444 126.297 Sodium Chloride 0.9% 250 ml @ 0.03 MCG/KG/MIN 10. 39 mls/hr IV .Q24H [facility] Rx #:[id number] Oral 0 Output: Urine 10 150 15 Other: Voiding Method Incontinent Indwelling Catheter # Voids 1 # Bowel Movements 1 - Labs CBC & Chem 7: 12/30/24 05:44 12/30/24 05:44 Labs: Abnormal Lab Results - Last 24 Hours (Table) 12/29/24 12/29/24 12/29/24 Range/Units 02:32 08:39 11:55 WBC 12.57 H (4.50-10.00) 10*3/uL RBC 3.18 L (4.10-5.20) 10*6/uL Hgb 9.5 L (12.0-15.0) g/dL Hct 28.6 L (37.2-46.3) % MCHC (32.0-37.0) g/dL Plt Count 92 L (140-440) 10*3/uL ABG pH (7.35-7.45) ABG pCO2 (35-45) mmHg ABG pO2 (83-108) mmHg ABG HCO3 (21-25) mmol/L Hemoglobin (11.4-16.0) gm/dL Sodium (137-145) mmol/L Chloride (98-107) mmol/L Carbon Dioxide (22-30) mmol/L BUN (7-17) mg/dL Creatinine (0.52-1.04) mg/dL Glucose (74-99) mg/dL POC Glucose (mg/dL) 118 H 118 H (70-110) mg/dL Procalcitonin (0.02-0.50) ng/mL 12/29/24 12/29/24 12/29/24 Range/Units 11:55 13:43 18:15 WBC 19.84 H (4.50-10.00) 10*3/uL RBC 3.36 L (4.10-5.20) 10*6/uL Hgb 9.8 L (12.0-15.0) g/dL Hct 30.5 L (37.2-46.3) % MCHC (32.0-37.0) g/dL Plt Count 82 L (140-440) 10*3/uL ABG pH (7.35-7.45) ABG pCO2 (35-45) mmHg ABG pO2 (83-108) mmHg ABG HCO3 (21-25) mmol/L Hemoglobin (11.4-16.0) gm/dL Sodium (137-145) mmol/L Chloride (98-107) mmol/L Carbon Dioxide (22-30) mmol/L BUN (7-17) mg/dL Creatinine (0.52-1.04) mg/dL Glucose (74-99) mg/dL POC Glucose (mg/dL) 121 H (70-110) mg/dL Procalcitonin 2.20 H (0.02-0.50) ng/mL 12/29/24 12/30/24 12/30/24 Range/Units 21:12 00:07 05:43 WBC 19.43 H (4.50-10.00) 10*3/uL RBC 2.97 L (4.10-5.20) 10*6/uL Hgb 8.8 L (12.0-15.0) g/dL Hct 27.3 L (37.2-46.3) % MCHC (32.0-37.0) g/dL Plt Count 90 L (140-440) 10*3/uL ABG pH (7.35-7.45) ABG pCO2 (35-45) mmHg ABG pO2 (83-108) mmHg ABG HCO3 (21-25) mmol/L Hemoglobin (11.4-16.0) gm/dL Sodium (137-145) mmol/L Chloride (98-107) mmol/L Carbon Dioxide (22-30) mmol/L BUN (7-17) mg/dL Creatinine (0.52-1.04) mg/dL Glucose (74-99) mg/dL POC Glucose (mg/dL) 131 H 118 H (70-110) mg/dL Procalcitonin (0.02-0.50) ng/mL 12/30/24 12/30/24 12/30/24 Range/Units 05:44 05:44 09:01 WBC 18.41 H (4.50-10.00) 10*3/uL RBC 3.22 L (4.10-5.20) 10*6/uL Hgb 9.2 L (12.0-15.0) g/dL Hct 29.1 L (37.2-46.3) % MCHC 31.6 L (32.0-37.0) g/dL Plt Count 93 L (140-440) 10*3/uL ABG pH 7.17 L* (7.35-7.45) ABG pCO2 55 H (35-45) mmHg ABG pO2 78 L (83-108) mmHg ABG HCO3 20 L (21-25) mmol/L Hemoglobin 9.4 L (11.4-16.0) gm/dL Sodium 146 H (137-145) mmol/L Chloride 115 H (98-107) mmol/L Carbon Dioxide 20 L (22-30) mmol/L BUN 42 H (7-17) mg/dL Creatinine 1.89 H (0.52-1.04) mg/dL Glucose 118 H (74-99) mg/dL POC Glucose (mg/dL) (70-110) mg/dL Procalcitonin (0.02-0.50) ng/mL Assessment and Plan Plan: Assessment: 1. Acute kidney injury secondary to ATN secondary to acute blood loss anemia. Creatinine 2.76 on admission and improved to 1.1 dated December 28, 2024. Cr eatinine 1.89 today. Baseline creatinine near 0.9 from November 2024. Kidney ultrasound from November 2024 showed no evidence of hydronephrosis. 2. Status post left nephrectomy secondary to renal cell cancer in September 2024. 3. Acute blood loss anemia status post blood transfusions. Surgery following. Status post IV DDAVP. EGD showed gastritis. Tagged red send showed active GI bleed and small bowel. May need embolization. 4. Diabetes mellitus. 5. Hypercalcemia secondary to volume contraction. Better. PTH 14.3. Vitamin D level 45.6. 6. Hypomagnesemia from poor intake. Replaced. Better. 7. Hypernatremia from lack of oral water intake. 8. Volume overload. 9. A-fib with RVR maintained on amiodarone drip. 10. Metabolic acidosis secondary to acute kidney injury. 11. Acute on chronic diastolic CHF with moderate tricuspid vegetation and severe pulmonary hypertension. Plan: Patient scheduled to receive another dose of IV Lasix 80 mg this morning. Add D5W at 50 cc an hour. Avoid nephrotoxins. Continue to monitor renal function and urine output. Follow-up secondary workup for hypercalcemia. Wean Levophed. Also scheduled receive bicarb IV push today. Continue to assess daily for need for renal replacement therapy.
[2024-12-30] MEDS: DEXTROSE 5% IN WATER 1,000 ML with SODIUM BICARB (1 MEQ/ML) 150 ML IV SCH (10:15)
[2024-12-30 10:56] LABS: Glucose,Whole Blood 134 mg/dL (70-110)
--- NOTE | 2024-12-30 11:32 | P.PN ---
Subjective Progress Note Date: 12/30/24 SURGICAL PROGRESS NOTE CHIEF COMPLAINT: GI bleed HISTORY OF PRESENT ILLNESS: Patient remains in the ICU. She is obtunded. She has had smears of black stool. Hemoglobin stable at 9.2. Afebrile. WBC 18.41 tagged RBC scan reports finding positive for active GI bleed within the favored small bowel of the central abdomen. PHYSICAL EXAM: VITAL SIGNS: Reviewed. GENERAL: no acute distress. ABDOMEN: Soft. Nondistended. Nontender. NEUROLOGIC: Obtunded ASSESSMENT: 1. Acute GI bleed with melanotic stools. Tagged RBC scan positive for active GI bleed within the favored small bowel of the central abdomen. 2. Acute blood loss anemia due to GI bleed 3. Status post EGD reporting gastritis and slow motility. No evidence of active bleeding or ulcer. PLAN: - Await further recommendations per GI service - Continue to monitor - Continue monitor hemoglobin - Continue to monitor for any signs or symptoms of bleeding - Continue PPI - Patient may require transfer for embolization by IR service. Will await further recommendations per GI service. Physician Fireworks Maker note has been reviewed by physician. Signing provider agrees with the documented findings, assessment, and plan of care. Attestation Patient seen and examined at bedside. Small smear of black stool. Hemoglobin stable at 9.2. Tagged red blood cell scan with concern of possible small bowel bleed. Awaiting GI recommendations on possibility of small bowel capsule study. If patient continues to have hemoglobin drop or concern for continued hemorrhage, would recommend transfer for evaluation by IR service for embolizati on as that service is not provided at this institution. [place] Nov[place], Objective - Vital Signs Vital signs: Vital Signs Temp 96.7 F L 12/30/24 08:00 Pulse 80 12/30/24 11:15 Resp 14 12/30/24 11:15 BP 105/49 12/30/24 11:15 Pulse Ox 97 12/30/24 10:00 FiO2 40 12/30/24 09:19 Intake & Output 12/29/24 12/30/24 12/30/24 18:59 06:59 18:59 Intake Total 240.444 797.964 66.667 Output Total 10 150 15 Balance 230.444 647.964 51.667 Weight 94.3 kg 94.3 kg Intake: IV 165 655 50 .9NS 140 480 50 Piperacillin-Tazobactam 3 25 175 .375 gm In Sodium Chloride 0.9% 100 ml @ 25 mls/hr IVPB Q8HR [facility] Rx# :[id number] Intake, IV Titration 75.444 142.964 16.667 Amount Amiodarone 450 mg In 16.667 16.667 Dextrose 5% in Water 250 ml @ 0.5 MG/MIN 16.667 mls/hr IV .Q15H [facility] Rx#: [id number] Norepinephrine 4 mg In 75.444 126.297 Sodium Chloride 0.9% 250 ml @ 0.03 MCG/KG/MIN 10. 39 mls/hr IV .Q24H [facility] Rx #:[id number] Oral 0 Output: Urine 10 150 15 Other: Voiding Method Incontinent Indwelling Catheter # Voids 1 # Bowel Movements 1 - Labs CBC & Chem 7: 12/30/24 05:44 12/30/24 05:44 Labs: Abnormal Lab Results - Last 24 Hours (Table) 12/29/24 12/29/24 12/29/24 Range/Units 02:32 08:39 11:55 WBC 12.57 H (4.50-10.00) 10*3/uL RBC 3.18 L (4.10-5.20) 10*6/uL Hgb 9.5 L (12.0-15.0) g/dL Hct 28.6 L (37.2-46.3) % MCHC (32.0-37.0) g/dL Plt Count 92 L (140-440) 10*3/uL ABG pH (7.35-7.45) ABG pCO2 (35-45) mmHg ABG pO2 (83-108) mmHg ABG HCO3 (21-25) mmol/L Hemoglobin (11.4-16.0) gm/dL Sodium (137-145) mmol/L Chloride (98-107) mmol/L Carbon Dioxide (22-30) mmol/L BUN (7-17) mg/dL Creatinine (0.52-1.04) mg/dL Glucose (74-99) mg/dL POC Glucose (mg/dL) 118 H 118 H (70-110) mg/dL Procalcitonin (0.02-0.50) ng/mL 12/29/24 12/29/24 12/29/24 Range/Units 11:55 13:43 18:15 WBC 19.84 H (4.50-10.00) 10*3/uL RBC 3.36 L (4.10-5.20) 10*6/uL Hgb 9.8 L (12.0-15.0) g/dL Hct 30.5 L (37.2-46.3) % MCHC (32.0-37.0) g/dL Plt Count 82 L (140-440) 10*3/uL ABG pH (7.35-7.45) ABG pCO2 (35-45) mmHg ABG pO2 (83-108) mmHg ABG HCO3 (21-25) mmol/L Hemoglobin (11.4-16.0) gm/dL Sodium (137-145) mmol/L Chloride (98-107) mmol/L Carbon Dioxide (22-30) mmol/L BUN (7-17) mg/dL Creatinine (0.52-1.04) mg/dL Glucose (74-99) mg/dL POC Glucose (mg/dL) 121 H (70-110) mg/dL Procalcitonin 2.20 H (0.02-0.50) ng/mL 12/29/24 12/30/24 12/30/24 Range/Units 21:12 00:07 05:43 WBC 19.43 H (4.50-10.00) 10*3/uL RBC 2.97 L (4.10-5.20) 10*6/uL Hgb 8.8 L (12.0-15.0) g/dL Hct 27.3 L (37.2-46.3) % MCHC (32.0-37.0) g/dL Plt Count 90 L (140-440) 10*3/uL ABG pH (7.35-7.45) ABG pCO2 (35-45) mmHg ABG pO2 (83-108) mmHg ABG HCO3 (21-25) mmol/L Hemoglobin (11.4-16.0) gm/dL Sodium (137-145) mmol/L Chloride (98-107) mmol/L Carbon Dioxide (22-30) mmol/L BUN (7-17) mg/dL Creatinine (0.52-1.04) mg/dL Glucose (74-99) mg/dL POC Glucose (mg/dL) 131 H 118 H (70-110) mg/dL Procalcitonin (0.02-0.50) ng/mL 12/30/24 12/30/24 12/30/24 Range/Units 05:44 05:44 09:01 WBC 18.41 H (4.50-10.00) 10*3/uL RBC 3.22 L (4.10-5.20) 10*6/uL Hgb 9.2 L (12.0-15.0) g/dL Hct 29.1 L (37.2-46.3) % MCHC 31.6 L (32.0-37.0) g/dL Plt Count 93 L (140-440) 10*3/uL ABG pH 7.17 L* (7.35-7.45) ABG pCO2 55 H (35-45) mmHg ABG pO2 78 L (83-108) mmHg ABG HCO3 20 L (21-25) mmol/L Hemoglobin 9.4 L (11.4-16.0) gm/dL Sodium 146 H (137-145) mmol/L Chloride 115 H (98-107) mmol/L Carbon Dioxide 20 L (22-30) mmol/L BUN 42 H (7-17) mg/dL Creatinine 1.89 H (0.52-1.04) mg/dL Glucose 118 H (74-99) mg/dL POC Glucose (mg/dL) (70-110) mg/dL Procalcitonin (0.02-0.50) ng/mL 12/30/24 Range/Units 10:54 WBC (4.50-10.00) 10*3/uL RBC (4.10-5.20) 10*6/uL Hgb (12.0-15.0) g/dL Hct (37.2-46.3) % MCHC (32.0-37.0) g/dL Plt Count (140-440) 10*3/uL ABG pH (7.35-7.45) ABG pCO2 (35-45) mmHg ABG pO2 (83-108) mmHg ABG HCO3 (21-25) mmol/L Hemoglobin (11.4-16.0) gm/dL Sodium (137-145) mmol/L Chloride (98-107) mmol/L Carbon Dioxide (22-30) mmol/L BUN (7-17) mg/dL Creatinine (0.52-1.04) mg/dL Glucose (74-99) mg/dL POC Glucose (mg/dL) 134 H (70-110) mg/dL Procalcitonin (0.02-0.50) ng/mL
--- NOTE | 2024-12-30 12:30 | P.PN ---
Subjective Progress Note Date: 12/30/24 Principal diagnosis: Reason for follow-up is sepsis Patient is a 79-year-old female with a past medical history nephric and for renal cell carcinoma status post left nephrectomy obstructive sleep apnea hyperlipidemia hypertension diabetes mellitus recent admission to the hospital worked up for anemia with subsequent readmission to the hospital with generalized weakness noticed to be anemic manage on the forceps he become hypotensive and has been transferred to the ICU. ID consulted concerning for sepsis On today's evaluation that is 12/30/2024,the patient did have normalization of her temperature, the patient remains to be on a BiPAP she is awake but not able to good historian no vomiting or any other changes reported. Patient white count is 18.41 creatinine is 1.89 cultures are currently pending Objective - Vital Signs Vital signs: Vital Signs Temp 96.7 F L 12/30/24 08:00 Pulse 80 12/30/24 11:15 Resp 14 12/30/24 11:15 BP 105/49 12/30/24 11:15 Pulse Ox 97 12/30/24 10:00 FiO2 40 12/30/24 09:19 Intake & Output 12/29/24 12/30/24 12/30/24 18:59 06:59 18:59 Intake Total 240.444 797.964 66.667 Output Total 10 150 15 Balance 230.444 647.964 51.667 Weight 94.3 kg 94.3 kg Intake: IV 165 655 50 .9NS 140 480 50 Piperacillin-Tazobactam 3 25 175 .375 gm In Sodium Chloride 0.9% 100 ml @ 25 mls/hr IVPB Q8HR [facility] Rx# :[id number] Intake, IV Titration 75.444 142.964 16.667 Amount Amiodarone 450 mg In 16.667 16.667 Dextrose 5% in Water 250 ml @ 0.5 MG/MIN 16.667 mls/hr IV .Q15H [facility] Rx#: [id number] Norepinephrine 4 mg In 75.444 126.297 Sodium Chloride 0.9% 250 ml @ 0.03 MCG/KG/MIN 10. 39 mls/hr IV .Q24H [facility] Rx #:[id number] Oral 0 Output: Urine 10 150 15 Other: Voiding Method Incontinent Indwelling Catheter # Voids 1 # Bowel Movements 1 - Exam GENERAL DESCRIPTION: An elderly female lying in bed on BiPAP RESPIRATORY SYSTEM: Unlabored breathing , decreased breath sounds at bases HEART: S1 S2 regular rate and rhythm , ABDOMEN: Soft , no tenderness EXTREMITIES: No edema feet - Labs CBC & Chem 7: 12/30/24 05:44 12/30/24 05:44 Labs: Abnormal Lab Results - Last 24 Hours (Table) 12/29/24 12/29/24 12/29/24 Range/Units 02:32 08:39 11:55 WBC (4.50-10.00) 10*3/uL RBC (4.10-5.20) 10*6/uL Hgb (12.0-15.0) g/dL Hct (37.2-46.3) % MCHC (32.0-37.0) g/dL Plt Count 92 L (140-440) 10*3/uL ABG pH (7.35-7.45) ABG pCO2 (35-45) mmHg ABG pO2 (83-108) mmHg ABG HCO3 (21-25) mmol/L Hemoglobin (11.4-16.0) gm/dL Sodium (137-145) mmol/L Chloride (98-107) mmol/L Carbon Dioxide (22-30) mmol/L BUN (7-17) mg/dL Creatinine (0.52-1.04) mg/dL Glucose (74-99) mg/dL POC Glucose (mg/dL) 118 H 118 H (70-110) mg/dL Procalcitonin (0.02-0.50) ng/mL 12/29/24 12/29/24 12/29/24 Range/Units 11:55 13:43 18:15 WBC 19.84 H (4.50-10.00) 10*3/uL RBC 3.36 L (4.10-5.20) 10*6/uL Hgb 9.8 L (12.0-15.0) g/dL Hct 30.5 L (37.2-46.3) % MCHC (32.0-37.0) g/dL Plt Count 82 L (140-440) 10*3/uL ABG pH (7.35-7.45) ABG pCO2 (35-45) mmHg ABG pO2 (83-108) mmHg ABG HCO3 (21-25) mmol/L Hemoglobin (11.4-16.0) gm/dL Sodium (137-145) mmol/L Chloride (98-107) mmol/L Carbon Dioxide (22-30) mmol/L BUN (7-17) mg/dL Creatinine (0.52-1.04) mg/dL Glucose (74-99) mg/dL POC Glucose (mg/dL) 121 H (70-110) mg/dL Procalcitonin 2.20 H (0.02-0.50) ng/mL 12/29/24 12/30/24 12/30/24 Range/Units 21:12 00:07 05:43 WBC 19.43 H (4.50-10.00) 10*3/uL RBC 2.97 L (4.10-5.20) 10*6/uL Hgb 8.8 L (12.0-15.0) g/dL Hct 27.3 L (37.2-46.3) % MCHC (32.0-37.0) g/dL Plt Count 90 L (140-440) 10*3/uL ABG pH (7.35-7.45) ABG pCO2 (35-45) mmHg ABG pO2 (83-108) mmHg ABG HCO3 (21-25) mmol/L Hemoglobin (11.4-16.0) gm/dL Sodium (137-145) mmol/L Chloride (98-107) mmol/L Carbon Dioxide (22-30) mmol/L BUN (7-17) mg/dL Creatinine (0.52-1.04) mg/dL Glucose (74-99) mg/dL POC Glucose (mg/dL) 131 H 118 H (70-110) mg/dL Procalcitonin (0.02-0.50) ng/mL 12/30/24 12/30/24 12/30/24 Range/Units 05:44 05:44 09:01 WBC 18.41 H (4.50-10.00) 10*3/uL RBC 3.22 L (4.10-5.20) 10*6/uL Hgb 9.2 L (12.0-15.0) g/dL Hct 29.1 L (37.2-46.3) % MCHC 31.6 L (32.0-37.0) g/dL Plt Count 93 L (140-440) 10*3/uL ABG pH 7.17 L* (7.35-7.45) ABG pCO2 55 H (35-45) mmHg ABG pO2 78 L (83-108) mmHg ABG HCO3 20 L (21-25) mmol/L Hemoglobin 9.4 L (11.4-16.0) gm/dL Sodium 146 H (137-145) mmol/L Chloride 115 H (98-107) mmol/L Carbon Dioxide 20 L (22-30) mmol/L BUN 42 H (7-17) mg/dL Creatinine 1.89 H (0.52-1.04) mg/dL Glucose 118 H (74-99) mg/dL POC Glucose (mg/dL) (70-110) mg/dL Procalcitonin (0.02-0.50) ng/mL 12/30/24 Range/Units 10:54 WBC (4.50-10.00) 10*3/uL RBC (4.10-5.20) 10*6/uL Hgb (12.0-15.0) g/dL Hct (37.2-46.3) % MCHC (32.0-37.0) g/dL Plt Count (140-440) 10*3/uL ABG pH (7.35-7.45) ABG pCO2 (35-45) mmHg ABG pO2 (83-108) mmHg ABG HCO3 (21-25) mmol/L Hemoglobin (11.4-16.0) gm/dL Sodium (137-145) mmol/L Chloride (98-107) mmol/L Carbon Dioxide (22-30) mmol/L BUN (7-17) mg/dL Creatinine (0.52-1.04) mg/dL Glucose (74-99) mg/dL POC Glucose (mg/dL) 134 H (70-110) mg/dL Procalcitonin (0.02-0.50) ng/mL Assessment and Plan (1) Sepsis Current Visit: Yes Status: Acute Code(s): A41.9 - SEPSIS, UNSPECIFIED ORGANISM SNOMED Code(s): 67644945 Plan: 1patient noted to be hypotensive requiring pressor support did have elevated white count and hypothermia meeting ready for SIRS concern for possible sepsis could be abdominal or urinary in origin patient did have significantly positive reevaluation however the cultures were negative now with significant anemia and black tarry stool questionable diverticulitis versus other abdominal pathology and will need to cover for the enteric gram-negative both aerobes and anaerobes 2-recommending CT abdominal pelvis with oral contrast when the patient mentation improves and is hemodynamically stable 12 core the test 3-culture has been repeated results will be followed 4-patient did have normalization of the temperature white count trending down to continue Zosyn while waiting for the workup to be completed at the bedside question answered Dictation was produced using [employer] dictation software. please excuse any grammatical, word or spelling errors. Time with Patient: Less than 30
--- NOTE | 2024-12-30 12:35 | P.PN ---
Subjective Progress Note Date: 12/30/24 Principal diagnosis: GI bleed This is a 79-year-old female currently being evaluated in the ICU. History is being obtained from chart and patient's nurse. Patient currently has BiPAP on, she is confused and overall nonresponsive. Patient was sent in by EMS on 12/24/2024 to the emergency department from outside [facility] with increased confusion, poor appetite and poor intake. Also reported that patient had outpatient blood work done with a hemoglobin of 7.0. Past medical history includes diabetes mellitus, anemia with recent workup in November of this year with findings of superficial duodenal ulcer gastritis and small hiatal hernia on upper endoscopy with Dr. Silva, chronic kidney disease, renal cell cancer status post left nephrectomy, sleep apnea, hypertension, hyperlipidemia, obesity, and pulmonary nodules. Apparently patient has been having black tarry stools. During this admission she had a hemoglobin of 6.2 she was transfused 2 units of blood. She was evaluated by general surgery and underwent upper endoscopy yesterday with Dr. Novoa with findings of gastritis and slow motility. No mention of any duodenal ulcers. Apparently last night she had a large black stool, she became hypotensive and was transferred to the ICU. Hemoglobin was noted to be 6.1, she was transfused 2 units of blood and given IV fluid bolus and transferred to the intensive care unit and started on Levophed. Today nursing reported another small black tarry stool. She is currently lying in bed, Levophed is being weaned, last hemoglobin 9.5. Patient has acute kidney in jury and chronic kidney disease. Hart catheter in place with about 15 cc urine output. Patient overall is nonresponsive at this time. She has been worked up in the past for iron deficiency anemia and was seen in 2017 and had upper endoscopy and colonoscopy. Upper endoscopy had findings of antral gastritis and duodenitis, colonoscopy with multiple colon polyps status post polypectomy with recommendations for repeat colonoscopy in 3 years. Patient has not been on any anticoagulation, no reported NSAID use currently on Protonix 40 mg twice daily and Carafate 1 g p.o. 3 times daily. 12/30/2024 Patient seen and examined today as a follow-up. Yesterday she underwent tagged RBC scan which reported findings positive for active GI bleed within the favored small bowel of the central abdomen. Patient's hemoglobin currently stable at 9.2. Nursing reports no further large black bowel movements but has had some small smears that is dark. Patient is off of BiPAP currently as of this mornin g. She still remains obtunded. Nursing reports that she is unable to swallow, she is not following many commands. Patient is still having decreased urine output. Renal functioning worsening. On amiodarone drip and Levophed. Objective - Vital Signs Vital signs: Vital Signs Temp 97.5 F L 12/30/24 05:30 Pulse 101 H 12/30/24 07:00 Resp 19 12/30/24 07:00 BP 99/84 12/30/24 07:00 Pulse Ox 96 12/30/24 07:00 FiO2 40 12/30/24 06:45 Intake & Output 12/29/24 12/30/24 12/30/24 18:59 06:59 18:59 Intake Total 240.444 797.964 66.667 Output Total 10 150 15 Balance 230.444 647.964 51.667 Weight 94.3 kg Intake: IV 165 655 50 .9NS 140 480 50 Piperacillin-Tazobactam 3 25 175 .375 gm In Sodium Chloride 0.9% 100 ml @ 25 mls/hr IVPB Q8HR [facility] Rx# :[id number] Intake, IV Titration 75.444 142.964 16.667 Amount Amiodarone 450 mg In 16.667 16.667 Dextrose 5% in Water 250 ml @ 0.5 MG/MIN 16.667 mls/hr IV .Q15H [facility] Rx#: [id number] Norepinephrine 4 mg In 75.444 126.297 Sodium Chloride 0.9% 250 ml @ 0.03 MCG/KG/MIN 10. 39 mls/hr IV .Q24H [facility]ON[facility]QUE Rx #:[id number] Oral 0 Output: Urine 10 150 15 Other: Voiding Method Incontinent Indwelling Catheter # Voids 1 # Bowel Movements 1 - Exam General appearance: The patient is obtunded, eyes closed. Will respond to her name and open her eyes. HET: Head is normocephalic and atraumatic. Neck: Supple. Heart: Regular. Lungs: Equal expansion, normal respiratory effort. Abdomen: Soft, tender with palpation, nondistended. Extremities: Normal skin color and turgor. Neurological: Patient is obtunded. Responsive to painful stimuli. Does open her eyes slightly on command. - Labs CBC & Chem 7: 12/30/24 05:44 12/30/24 05:44 Labs: Abnormal Lab Results - Last 24 Hours (Table) 12/29/24 12/29/24 12/29/24 Range/Units 02:32 07:49 08:39 WBC (4.50-10.00) 10*3/uL RBC (4.10-5.20) 10*6/uL Hgb (12.0-15.0) g/dL Hct (37.2-46.3) % MCHC (32.0-37.0) g/dL Plt Count (140-440) 10*3/uL ABG pH 7.17 L* (7.35-7.45) ABG pCO2 62 H (35-45) mmHg ABG Total CO2 25 H (19-24) mmol/L Hemoglobin 9.2 L (11.4-16.0) gm/dL Sodium (137-145) mmol/L Chloride (98-107) mmol/L Carbon Dioxide (22-30) mmol/L BUN (7-17) mg/dL Creatinine (0.52-1.04) mg/dL Glucose (74-99) mg/dL POC Glucose (mg/dL) 118 H 118 H (70-110) mg/dL Procalcitonin (0.02-0.50) ng/mL 12/29/24 12/29/24 12/29/24 Range/Units 11:55 11:55 13:43 WBC 12.57 H (4.50-10.00) 10*3/uL RBC 3.18 L (4.10-5.20) 10*6/uL Hgb 9.5 L (12.0-15.0) g/dL Hct 28.6 L (37.2-46.3) % MCHC (32.0-37.0) g/dL Plt Count 92 L (140-440) 10*3/uL ABG pH (7.35-7.45) ABG pCO2 (35-45) mmHg ABG Total CO2 (19-24) mmol/L Hemoglobin (11.4-16.0) gm/dL Sodium (137-145) mmol/L Chloride (98-107) mmol/L Carbon Dioxide (22-30) mmol/L BUN (7-17) mg/dL Creatinine (0.52-1.04) mg/dL Glucose (74-99) mg/dL POC Glucose (mg/dL) 121 H (70-110) mg/dL Procalcitonin 2.20 H (0.02-0.50) ng/mL 12/29/24 12/29/24 12/30/24 Range/Units 18:15 21:12 00:07 WBC 19.84 H 19.43 H (4.50-10.00) 10*3/uL RBC 3.36 L 2.97 L (4.10-5.20) 10*6/uL Hgb 9.8 L 8.8 L (12.0-15.0) g/dL Hct 30.5 L 27.3 L (37.2-46.3) % MCHC (32.0-37.0) g/dL Plt Count 82 L 90 L (140-440) 10*3/uL ABG pH (7.35-7.45) ABG pCO2 (35-45) mmHg ABG Total CO2 (19-24) mmol/L Hemoglobin (11.4-16.0) gm/dL Sodium (137-145) mmol/L Chloride (98-107) mmol/L Carbon Dioxide (22-30) mmol/L BUN (7-17) mg/dL Creatinine (0.52-1.04) mg/dL Glucose (74-99) mg/dL POC Glucose (mg/dL) 131 H (70-110) mg/dL Procalcitonin (0.02-0.50) ng/mL 12/30/24 12/30/24 12/30/24 Range/Units 05:43 05:44 05:44 WBC 18.41 H (4.50-10.00) 10*3/uL RBC 3.22 L (4.10-5.20) 10*6/uL Hgb 9.2 L (12.0-15.0) g/dL Hct 29.1 L (37.2-46.3) % MCHC 31.6 L (32.0-37.0) g/dL Plt Count 93 L (140-440) 10*3/uL ABG pH (7.35-7.45) ABG pCO2 (35-45) mmHg ABG Total CO2 (19-24) mmol/L Hemoglobin (11.4-16.0) gm/dL Sodium 146 H (137-145) mmol/L Chloride 115 H (98-107) mmol/L Carbon Dioxide 20 L (22-30) mmol/L BUN 42 H (7-17) mg/dL Creatinine 1.89 H (0.52-1.04) mg/dL Glucose 118 H (74-99) mg/dL POC Glucose (mg/dL) 118 H (70-110) mg/dL Procalcitonin (0.02-0.50) ng/mL Assessment and Plan (1) GI bleed Narrative/Plan: 79-year-old female admitted for altered mental status changes and anemia. Patient with recent admission and evaluation for anemia with Upper endoscopy completed on 11/27/2024 with findings of superficial duodenal ulcer gastritis and small hiatal hernia with recommendation for Protonix and Carafate. Patient's hemoglobin had stabilized and patient was discharged to nursing facility. Patient again found to have severe anemia with hemoglobin of 6.2 on this admission. Over the weekend there was no gastroenterology available and patient was seen by general surgery who underwent upper endoscopy yesterday with findings of gastritis and slow motility. Yesterday evening patient had become hypotensive was found to again have a drop in her hemoglobin to 6.1 got another 2 units of blood and transferred to the ICU. She reportedly has been having black tarry stools. Last colonoscopy 2016 with multiple colon polyps status post polypectomy with recommendation for repeat colonoscopy in 3 years part of a workup for iron deficiency anemia. Unfortunately at this time patient is on B iPAP, she is not responsive and unable to take anything and orally. Will order tagged RBC for further evaluation. May need to consider embolization. Continue with supportive care at this time. Nuclear medicine tagged RBC positive for active bleed in the small bowel although patient has not had any further large bowel movements and hemoglobin stable. Continue to monitor. If patient's mental status changes will plan for small bowel capsule endoscopy. Current Visit: Yes Status: Acute Code(s): K92.2 - GASTROINTESTINAL HEMORRHAGE, UNSPECIFIED SNOMED Code(s): 34295338 (2) Anemia Current Visit: Yes Status: Acute Priority: High Code(s): D64.9 - ANEMIA, UNSPECIFIED SNOMED Code(s): 910338320 (3) Pulmonary hypertension Current Visit: Yes Status: Acute Code(s): I27.20 - PULMONARY HYPERTENSION, UNSPECIFIED SNOMED Code(s): 34837545 (4) Pulmonary nodules Current Visit: Yes Status: Acute Code(s): R91.8 - OTHER NONSPECIFIC ABNORMAL FINDING OF LUNG FIELD SNOMED Code(s): 668904165 (5) History of duodenal ulcer Current Visit: Yes Status: Acute Code(s): Z87.19 - PERSONAL HISTORY OF OTHER DISEASES OF THE DIGESTIVE SYSTEM SNOMED Code(s): 472650568 (6) Obstructive sleep apnea Current Visit: Yes Status: Acute Code(s): G47.33 - OBSTRUCTIVE SLEEP APNEA (ADULT) (PEDIATRIC) SNOMED Code(s): 90567964 (7) Obesity Current Visit: Yes Status: Acute Code(s): E66.9 - OBESITY, UNSPECIFIED SNOMED Code(s): 389570702 (8) NANCY (acute kidney injury) Current Visit: Yes Status: Acute Code(s): N17.9 - ACUTE KIDNEY FAILURE, UNSPECIFIED SNOMED Code(s): 13245514 (9) AMS (altered mental status) Current Visit: No Status: Acute Code(s): R41.82 - ALTERED MENTAL STATUS, UNSPECIFIED SNOMED Code(s): 220848134 (10) Diabetes Current Visit: No Status: Acute Code(s): E11.9 - TYPE 2 DIABETES MELLITUS WITHOUT COMPLICATIONS SNOMED Code(s): 28979046 (11) Renal cell carcinoma Current Visit: No Status: Acute Priority: High Code(s): C64.9 - MALIGNANT NEOPLASM OF UNSP KIDNEY, EXCEPT RENAL PELVIS SNOMED Code(s): 819100494 Plan: 1. Continue symptomatic and supportive care 2. Keep n.p.o. secondary to mentation. May start tube feedings. 3. Continue Protonix 40 mg twice daily 4. Hold anticoagulation 5. Tagged RBC ordered and reviewed reporting active small bowel bleed 6. Daily CBC, transfuse for hemoglobin less than 7 7. Would recommend small bowel capsule endoscopy if patient's mentation improves 8. Continue to monitor closely for further signs of GI bleed/drop in hemoglobin 9. Continue with recommendations from multiple consultants Thank you for this consultation, we will continue to follow. Dr. K Tumma I agree with the dictator's note, documented as a scribe by Toshia Zarate.
--- NOTE | 2024-12-30 15:22 | P.PN ---
Subjective Progress Note Date: 12/30/24 Patient is a 79-year-old male with past medical history significant for renal cell carcinoma status post left nephrectomy, pulmonary nodules, obstructive sleep apnea, hypertension, hyperlipidemia, diabetes mellitus. Note, that the patient had recent hospitalization November 22 through December 04 for altered mental status. During this previous admission, she was worked up for anemia and did undergo esophagogastroduodenoscopy on 11/27/2024 with findings including two superficial duodenal ulcer and gastritis with small hiatal hernia. She was sent back in from her half-way, [facility], with similar concerns on 12/24/2024. Reportedly, confused with reduced oral intake and generalized weakness. Again, noted to be anemic with a hemoglobin of 6.2 g/dL. Also, reportedly having dark tarry stools. She was transfused with 2 units of PRBCs. Hemoglobin initially did come up to 8.4 g/dL and has now been trending down. She was taken back for repeat EGD yesterday, 12/28/2024, findings including gastritis. Rapid response called earlier this morning, chiefly for hypotension. Hemoglobin was 6.1 g/dL. She has received additional 2 units of PRBCs as well as a 2 L normal saline bolus. Blood pressure continued to be hypotensive, currently 88/41 mmHg. There is an indwelling urinary catheter, and currently she is anuric. Did have another large black tarry bowel movement per nursing staff. Not currently on any anticoagulants. She was transferred to the intensive care unit, and will be started on norepinephrine. Remaining labs include a CBC of 7.93, hemoglobin 6.1, hematocrit 19.6, platelets 80,000. CMP: Sodium 142, potassium 3.9, chloride 113, serum bicarb 23, BUN 41, creatinine 1.36. Normal saline continues at 50 mL/h. Lactic 1.4. She was noted to have an acute kidney injury on admission with a creatinine of 2.76 and this is down to 1.36. Urinalysis positive for few bacteria and pyuria. Urine culture was polymicrobial, and reportedly not a suitable specimen. She did receive 3 days of IV Rocephin. Did undergo previous left-sided nephrectomy on 10/06/2024 secondary to renal mass and high-grade renal cell carcinoma. She is also noted to have bilateral pulmonary nodules. Chest CTA from 10/29/2024 remarkable for a 1.5 cm right upper lobe pulmonary nodule, enlarging 8.4 mm right upper lobe nodule, as well as, 5.2 mm left upper lobe pulmonary nodule. These are being followed up on an outpatient basis. She is currently obtunded. She is hypotensive, despite 2 L fluid bolus and an additional 2 units PRBCs. General surgery has been updated. Norepinephrine is going to be started. 12/31/2019) the patient is being seen for a follow-up. Earlier this morning, the patient was taken off the BiPAP. Nevertheless, the subsequent blood gases still showing significant acidosis, combination of metabolic and respiratory. pH is 7.17 with a pCO2 of 55 and a pO2 of 78. At that point, I immediately put the patient on microbipolar pressure of 13 over 9 cm of water. She remains quite obtunded. Noted an RBC tagged scan was performed yesterday and the patient was found to have an upper GI source of bleeding likely from the small bowel in the central abdomen. Nevertheless, she has not shown any melanotic stools over the past 12 hours. Hemoglobin remained stable at 9.2. Urine output is quite diminished and the patient's urine output is in the order of 5 cc an hour. She remains in atrial fibrillation. She is on norepinephrine running at 0.03 mcg/kg/min. She is on amiodarone drip at 0.5 mg/min and the patient is also on normal saline at rate of 50 cc an hour. Sodium levels at 146, potassium is at 3.9, bicarb is at 20, hemoglobin is at 9.2, BUN is 42 with a creatinine of 1.89. She has a component of metabolic and respiratory acidosis. Mental status remains quite diminished. No significant agitation and she is resting comfortably on BiPAP. Objective - Vital Signs Vital signs: Vital Signs Temp 97.5 F L 12/30/24 05:30 Pulse 101 H 12/30/24 07:00 Resp 19 12/30/24 07:00 BP 99/84 12/30/24 07:00 Pulse Ox 96 12/30/24 07:00 FiO2 40 12/30/24 06:45 Intake & Output 12/29/24 12/30/24 12/30/24 18:59 06:59 18:59 Intake Total 240.444 797.964 66.667 Output Total 10 150 15 Balance 230.444 647.964 51.667 Weight 94.3 kg Intake: IV 165 655 50 .9NS 140 480 50 Piperacillin-Tazobactam 3 25 175 .375 gm In Sodium Chloride 0.9% 100 ml @ 25 mls/hr IVPB Q8HR [facility] Rx# :[id number] Intake, IV Titration 75.444 142.964 16.667 Amount Amiodarone 450 mg In 16.667 16.667 Dextrose 5% in Water 250 ml @ 0.5 MG/MIN 16.667 mls/hr IV .Q15H [facility] Rx#: [id number] Norepinephrine 4 mg In 75.444 126.297 Sodium Chloride 0.9% 250 ml @ 0.03 MCG/KG/MIN 10. 39 mls/hr IV .Q24H VERONIQUE Rx #:[id number] Oral 0 Output: Urine 10 150 15 Other: Voiding Method Incontinent Indwelling Catheter # Voids 1 # Bowel Movements 1 - Exam GENERAL EXAM: Obtunded, 79-year-old female, will awaken to vigorous verbal stimuli, does not readily follow commands or sustain awakening, the patient remains on a BiPAP with a pressure of 13/9 cm of water. HEAD: Normocephalic and atraumatic EYES: Normal reaction of pupils, equal size. NOSE: Clear with pink turbinates. THROAT: No erythema or exudates. NECK: No masses, no JVD. CHEST: No chest wall deformity. LUNGS: Equal air entry with no crackles, wheeze, rhonchi or dullness. No conversational dyspnea or accessory muscle use.. CVS: S1 and S2 normal with no audible murmur, regular rhythm. No extra heart sounds ABDOMEN: No hepatosplenomegaly, active bowel sounds, no guarding or rigidity. SPINE: No scoliosis or deformity SKIN: No rashes CENTRAL NERVOUS SYSTEM: No focal deficits, tone is normal in all 4 extremities. EXTREMITIES: There is no peripheral edema, clubbing, or cyanosis. Peripheral pulses are intact. - Labs CBC & Chem 7: 12/30/24 05:44 12/30/24 05:44 Labs: Abnormal Lab Results - Last 24 Hours (Table) 12/29/24 12/29/24 12/29/24 Range/Units 02:32 08:39 11:55 WBC 12.57 H (4.50-10.00) 10*3/uL RBC 3.18 L (4.10-5.20) 10*6/uL Hgb 9.5 L (12.0-15.0) g/dL Hct 28.6 L (37.2-46.3) % MCHC (32.0-37.0) g/dL Plt Count 92 L (140-440) 10*3/uL Sodium (137-145) mmol/L Chloride (98-107) mmol/L Carbon Dioxide (22-30) mmol/L BUN (7-17) mg/dL Creatinine (0.52-1.04) mg/dL Glucose (74-99) mg/dL POC Glucose (mg/dL) 118 H 118 H (70-110) mg/dL Procalcitonin (0.02-0.50) ng/mL 12/29/24 12/29/24 12/29/24 Range/Units 11:55 13:43 18:15 WBC 19.84 H (4.50-10.00) 10*3/uL RBC 3.36 L (4.10-5.20) 10*6/uL Hgb 9.8 L (12.0-15.0) g/dL Hct 30.5 L (37.2-46.3) % MCHC (32.0-37.0) g/dL Plt Count 82 L (140-440) 10*3/uL Sodium (137-145) mmol/L Chloride (98-107) mmol/L Carbon Dioxide (22-30) mmol/L BUN (7-17) mg/dL Creatinine (0.52-1.04) mg/dL Glucose (74-99) mg/dL POC Glucose (mg/dL) 121 H (70-110) mg/dL Procalcitonin 2.20 H (0.02-0.50) ng/mL 12/29/24 12/30/24 12/30/24 Range/Units 21:12 00:07 05:43 WBC 19.43 H (4.50-10.00) 10*3/uL RBC 2.97 L (4.10-5.20) 10*6/uL Hgb 8.8 L (12.0-15.0) g/dL Hct 27.3 L (37.2-46.3) % MCHC (32.0-37.0) g/dL Plt Count 90 L (140-440) 10*3/uL Sodium (137-145) mmol/L Chloride (98-107) mmol/L Carbon Dioxide (22-30) mmol/L BUN (7-17) mg/dL Creatinine (0.52-1.04) mg/dL Glucose (74-99) mg/dL POC Glucose (mg/dL) 131 H 118 H (70-110) mg/dL Procalcitonin (0.02-0.50) ng/mL 12/30/24 12/30/24 Range/Units 05:44 05:44 WBC 18.41 H (4.50-10.00) 10*3/uL RBC 3.22 L (4.10-5.20) 10*6/uL Hgb 9.2 L (12.0-15.0) g/dL Hct 29.1 L (37.2-46.3) % MCHC 31.6 L (32.0-37.0) g/dL Plt Count 93 L (140-440) 10*3/uL Sodium 146 H (137-145) mmol/L Chloride 115 H (98-107) mmol/L Carbon Dioxide 20 L (22-30) mmol/L BUN 42 H (7-17) mg/dL Creatinine 1.89 H (0.52-1.04) mg/dL Glucose 118 H (74-99) mg/dL POC Glucose (mg/dL) (70-110) mg/dL Procalcitonin (0.02-0.50) ng/mL Assessment and Plan Assessment: Acute blood loss anemia, status post 4 units total PRBCs, so far this admission. The patient had a RBC tagged scan and the patient was found to have small bowel source of bleeding, mid abdomen. At this point in time, hemoglobin stable at 9.2 and the patient has not had any further episodes of GI bleed. She remains NPO. She remains on Protonix. She remains on Carafate. General surgery and gastroenterology are both on the case. Acute hypoxic/hypercapnic respiratory failure. The patient has significant res piratory and metabolic acidosis, being supported with a BiPAP pressure of 13 over 9 cm of water. Chest x-ray is consistent with pulm vessel congestion and edema along with cardiomegaly. Superinfection with pneumonia is felt to be less likely. History of peptic ulcer disease, did recently undergo repeat EGD on 12/28/2024, which was remarkable for gastritis. No active bleeding was noted. Hypotension and shock, refractory to fluid resuscitation, to be started on vasopressors Atrial fibrillation, rate controlled and the patient is currently on amiodarone 0.5 mg/min drip Acute kidney injury, previously improving, creatinine is on the rise and the patient remains oliguric. Urine output is quite diminished. No significant response to diuretics given to her yesterday. None anion gap metabolic acidosis Renal cell carcinoma with history of previous left nephrectomy on 10/06/2024 Bilateral pulmonary nodules, being worked up on an outpatient basis, may eventually require bronchoscopy with tissue biopsy Altered mental status, consider acute toxic metabolic encephalopathy Hypothermia, recovered History of hypertension History of hyperlipidemia Diabetes mellitus type 2 Obstructive sleep apnea Obesity, with a BMI of 34.4 kg/m Plan: Continue BiPAP support at a pressure of 13 /9 cm of water Give the patient a total of 3 doses of 50 mEq of sodium bicarb will start bicarb infusion at rate of 100 cc an hour give dose of Lasix 80 mg IV push x 1 Monitor mental status Watch for any signs of GI bleeding and the patient has a stable hemoglobin for now Wean of pressors if possible, currently on low-dose norepinephrine Continue amiodarone drip Continue IV Zosyn as empiric antibiotic coverage Start scheduled insulin coverage IV Protonix Hold rest of the oral medications the patient is quite obtunded and she is unable to swallow Condition is obviously critical. Will continue to follow and make further recommendations based on her progress. Echocardiogram showed normal LV function with a normal systolic function. Moderate degree of tricuspid regurgitation and severe pulm hypertension. Will obtain a follow-up blood gas Condition remains critical Will continue to follow and make further recommendations based on her progress. Respiratory care evaluation was done and 35 minutes. Time with Patient: Greater than 30
[2024-12-30 16:58] LABS: ABG Base Excess -1.3 mmol/L; ABG HCO3 25 mmol/L (21-25); ABG Oxygen Saturation 99.1 % (94-97); ABG PCO2 48 mmHg (35-45); ABG PH 7.32 (7.35-7.45); ABG PO2 107 mmHg (83-108); ABG TCO2 26 mmol/L (19-24); Allen Test Performed? Yes
[2024-12-30 18:56] LABS: Glucose,Whole Blood 137 mg/dL (70-110)
--- NOTE | 2024-12-30 19:50 | XR ---
EXAMINATION TYPE: XR chest 1V portable DATE OF EXAM: 12/30/2024 7:42 PM COMPARISON: Chest radiographs from 12/30/2024. CLINICAL INDICATION: Female, 79 years old with history of Confirm NG placement; [facility] TECHNIQUE: XR chest 1V portable Frontal view of the chest. FINDINGS: Lungs/Pleura: No evidence of focal consolidation or pneumothorax. Blunting of the costophrenic angles is present. Pulmonary vascularity: Pulmonary vascular congestion. Heart/mediastinum: Cardiomediastinal silhouette is enlarged. Musculoskeletal: No acute osseous pathology. Other findings: None Lines/Tubes: Nasogastric tube with its distal tip and side-port projecting under the diaphragm. IMPRESSION: 1. Nasogastric tube terminating below the diaphragm. 2. Cardiomegaly, pulmonary vascular congestion and bilateral pleural effusions. Correlate with BNP f or congestive heart failure. [facility], , 12/30/2024 7:47 PM
[2024-12-30] MEDS: AMIODARONE 450 MG in DEXTROSE 5% IN WATER 250 ML IV SCH (22:33)
[2024-12-30 23:30] LABS: Glucose,Whole Blood 160 mg/dL (70-110)
[2024-12-30] MEDS: INSULIN LISPRO (HumaLOG) 100 UNIT/ML 10 mL VL SQ SCH (23:51)
[2024-12-31 01:03] LABS: Appearance,Urine Turbid (Clear); Bacteria,Urine Few /hpf; Bilirubin,Urine Negative (Negative); Blood,Urine Moderate (Negative); Budding Yeast,Urine Many /hpf; Color,Urine Colorless; Glucose,Urine (UA) Negative (Negative); Hyphae Yeast, Urine Rare /hpf; Ketones,Urine Negative (Negative); Leukocyte Esterase,Urine Large (Negative); Mucus,Urine Rare /hpf; Nitrite,Urine Negative (Negative); PH, Urine 5.5 (5.0-8.0); Protein,Urine 1+ (Negative); RBC,Urine 117 /hpf (0-5); Specific Gravity,Urine 1.015 (1.001-1.035); Squamous Epithelial Cell,Urine 1 /hpf (0-4); Urobilinogen,Urine <2.0 mg/dL (<2.0); WBC,Urine >182 /hpf (0-5)
--- NOTE | 2024-12-31 05:59 | P.PN ---
Subjective Progress Note Date: 12/30/24 79-year-old female with past medical history significant for hypertension, hyperlipidemia, diabetes mellitus, history of sleep apnea, history of renal cancer, pulmonary nodules, previous smoker who was brought in from [facility] due to increased confusion. Patient had previous hospitalization recently underwent EGD for anemia and was noted to have peptic ulcer disease. at the bedside reported patient was having on and off melena. Patient noted to be in acute kidney injury with creatinine of 2.76, was started on IV fluids, and admitted to hospital for further evaluation and management. Also had elevated potassium on presentation which is now improved.. Patient was complaining of d ysuria, UA was positive, currently on Rocephin for UTI. 2 more unit of packed RBCs ordered on 12/26, general surgery consulted, recommended monitor H&H and transfuse as needed, if continue to notice drop in hemoglobin will need endoscopy. Mentation improving. Remains on Rocephin for UTI. 12/27/2024 Patient was seen and examined today. at bedside, patient still confused, A and O x 2 to 3. WBC 7.2, hemoglobin 8.4, platelet 131. BUN 42, creatinine 1.30. Nephrology on board and following, recommended to maintain IV fluids, decrease rate to 50 cc an hour. General surgery following, tentative plan for EGD tomorrow depending on hemoglobin level. 12/28/2024 Patient is seen in follow-up today and continues to be confused. Per nursing staff patient is more altered with hallucinations and reports was given a low- dose of Seroquel. Patient has not slept in a few days and is currently n.p.o. scheduled to undergo EGD with general surgery as patient was noted to have black tarry stools. Patient has received adequate antibiotics and will discontinue at this time and monitor off any antibiotic therapy as there was concerned of patient developing a possible rash on her back. Patient is afebrile white count is normal, hemoglobin is 7.5 with no active bleeding noted. Will await EGD report. 12/29/2024 Patient is seen in follow-up in the ICU with multiple consultations following. patient had increased confusion with respiratory distress and hypotension requiring pressor support. Patient is status post EGD showing gastritis with general surgery following. Hemoglobin also low at 6.1 being transfused 2 units of PRBCs. GI is being consulted with concerns of possible GI bleed. Per nursing at the bedside, patient with new onset A-fib and recommend cardiology consult for further evaluation. Infectious disease also consulted as patient was having a maculopapular rash on her back after ceftriaxone which was discontinued although patient is clinically deteriorating with concerns of possible sepsis. Zosyn being added. Recommend indwelling Hart catheter for strict intake and output. Overall prognosis is extremely guarded at this time. 12/30/2024 Patient is seen in follow-up today with multiple consultations following continues in the ICU on BiPAP. Patient continues on pressor support and did undergo small capsule study which was positive for GI bleed within the favored small bowel of the central abdomen. Hemoglobin is 9.2 today with no active bleeding. Nursing staff patient has not had another bowel movement although did have scant amount of black stools smeared on the brief. Patient remains on now bicarb drip with kidney functions worsening and nephrology is following monitoring for renal replacement therapy. Patient has been given multiple doses of IV Lasix with no significant urinary output. Continue indwelling Hart catheter for strict intake and output monitoring. Patient is continued on amiodarone drip with cardiology following. Patient is currently afebrile and white count has normalized with infectious disease following maintained on Zosyn at this time while awaiting cultures. Review of systems: Unable to obtain as patient is obtunded and currently on BiPAP PHYSICAL EXAMINATION: GENERAL: The patient is A&O x0, confused, obtunded, not following commands, well-developed, elderly appearing, obese, currently on BiPAP with an FiO2 of 40% and PEEP is 5, ill-appearing HEENT: EOMI, Sclerae anicteric, oral mucosa is dry Neck: Supple, Non tender, No JVD PULMONARY: Equal breath souds B/L, No wheezing, No crackles. CARDIOVASCULAR: S1, S2 muffled ABDOMEN: Soft, nontender, nondistended, normoactive bowel sounds. No guarding or rebound tenderness. MUSCULOSKELETAL: No edema, No cyanosis. No clubbing. Normal ROM. Intact peripheral pulses. NEUROLOGICAL: CN 2-12 grossly intact. No FND Skin: Diffuse blotchy redness with morbilliform type rash on the upper back, significant excoriation of bilateral buttock and sacral area Assessment: Melena: With concerns of possible GI bleed, EGD 12/28/2024 showing gastritis, GI following and patient is status post tagged RBC that was positive for active GI bleed within the favored small bowel of the central abdomen, hemoglobin is 9.2 Acute blood loss anemia, secondary to above History of peptic ulcer disease: As noted on previous EGD history of anemia, hemoglobin 9.2 today status post 2 units of PRBC Acute toxic metabolic encephalopathy: Multifactorial, concerns for UTI, sepsis, as well as hospital-acquired delirium Acute hypoxic respiratory failure secondary to pulmonary vascular congestion, requiring BiPAP Hypotension and shock, requiring pressor support New onset atrial fibrillation, currently maintained on amiodarone with cardiology following UTI, present on admission, culture showing gram-negative bacilli and group D Enterococcus NANCY, prerenal azotemia, secondary to dehydration worsening with nephrology following considering possible renal replacement therapy Hypercalcemia Diabetes mellitus, type II Morbid obesity with a BMI of 41.1 History of depression Sarita intertrigo History of renal cell carcinoma with recent left nephrectomy in September 2024 GI prophylaxis DVT prophylaxis Full code Plan: Patient is underwent EGD with general surgery for black tarry stools, showing gastritis with no active bleeding noted. GI consulted per surgery with concerns of GI bleed. Status post tagged RBC which was positive for an active bleed in the central abdomen. Patient is status post 2 units of PRBCs yesterday and hemoglobin is stable at 9.2 with no active bleeding currently. Possible NG tube for nutrition to be placed today. Patient continues to be unresponsiveness and maintained on BiPAP in the ICU and also continues on low-dose pressor support. Weaning as tolerated. Nephrology following as well and patient is only making very little urine, recommend continued indwelling Hart catheter for strict intake and output. Creatinine mildly worse and will follow-up on repeat labs. Being monitored closely by nephrology with concerns of requiring renal replacement therapy if kidney functions continue to worsen Per nursing staff patient has a diffuse morbilliform rash on her back, patient had reported this has been ongoing. Slightly improved Patient continues on IV Zosyn with infectious disease following. Repeat blood cultures and urine culture ordered Urine culture showing group D Enterococcus and gram-negative bacilli, specimen resent as initial specimen was unsuitable Overall prognosis is guarded at this time. CODE STATUS was discussed and reported she would want all measures taken. Patient did have paperwork in the outpatient setting reporting she was in no code. The impression and plan of care has been dictated by Alice Damon, Nurse Practitioner as directed. Dr. Duke MD I have performed a history and examination and MDM of this patient, discussed the same with the dictator, and agree with the dictator's assessment and plan as written ,documented as a scribe. Based on total visit time, I have performed more than 50% of the visit. Objective - Vital Signs Vital signs: Vital Signs Temp 97.5 F L 12/30/24 05:30 Pulse 101 H 12/30/24 07:00 Resp 19 12/30/24 07:00 BP 99/84 12/30/24 07:00 Pulse Ox 96 12/30/24 09:14 FiO2 40 12/30/24 09:19 Intake & Output 12/29/24 12/30/24 12/30/24 18:59 06:59 18:59 Intake Total 240.444 797.964 66.667 Output Total 10 150 15 Balance 230.444 647.964 51.667 Weight 94.3 kg Intake: IV 165 655 50 .9NS 140 480 50 Piperacillin-Tazobactam 3 25 175 .375 gm In Sodium Chloride 0.9% 100 ml @ 25 mls/hr IVPB Q8HR VERONIQUE Rx# :[id number] Intake, IV Titration 75.444 142.964 16.667 Amount Amiodarone 450 mg In 16.667 16.667 Dextrose 5% in Water 250 ml @ 0.5 MG/MIN 16.667 mls/hr IV .Q15H VERONIQUE Rx#: [id number] Norepinephrine 4 mg In 75.444 126.297 Sodium Chloride 0.9% 250 ml @ 0.03 MCG/KG/MIN 10. 39 mls/hr IV .Q24H VERONIQUE Rx #:[id number] Oral 0 Output: Urine 10 150 15 Other: Voiding Method Incontinent Indwelling Catheter # Voids 1 # Bowel Movements 1 - Labs CBC & Chem 7: 12/30/24 05:44 12/30/24 05:44 Labs: Abnormal Lab Results - Last 24 Hours (Table) 12/29/24 12/29/24 12/29/24 Range/Units 02:32 08:39 11:55 WBC 12.57 H (4.50-10.00) 10*3/uL RBC 3.18 L (4.10-5.20) 10*6/uL Hgb 9.5 L (12.0-15.0) g/dL Hct 28.6 L (37.2-46.3) % MCHC (32.0-37.0) g/dL Plt Count 92 L (140-440) 10*3/uL ABG pH (7.35-7.45) ABG pCO2 (35-45) mmHg ABG pO2 (83-108) mmHg ABG HCO3 (21-25) mmol/L Hemoglobin (11.4-16.0) gm/dL Sodium (137-145) mmol/L Chloride (98-107) mmol/L Carbon Dioxide (22-30) mmol/L BUN (7-17) mg/dL Creatinine (0.52-1.04) mg/dL Glucose (74-99) mg/dL POC Glucose (mg/dL) 118 H 118 H (70-110) mg/dL Procalcitonin (0.02-0.50) ng/mL 12/29/24 12/29/24 12/29/24 Range/Units 11:55 13:43 18:15 WBC 19.84 H (4.50-10.00) 10*3/uL RBC 3.36 L (4.10-5.20) 10*6/uL Hgb 9.8 L (12.0-15.0) g/dL Hct 30.5 L (37.2-46.3) % MCHC (32.0-37.0) g/dL Plt Count 82 L (140-440) 10*3/uL ABG pH (7.35-7.45) ABG pCO2 (35-45) mmHg ABG pO2 (83-108) mmHg ABG HCO3 (21-25) mmol/L Hemoglobin (11.4-16.0) gm/dL Sodium (137-145) mmol/L Chloride (98-107) mmol/L Carbon Dioxide (22-30) mmol/L BUN (7-17) mg/dL Creatinine (0.52-1.04) mg/dL Glucose (74-99) mg/dL POC Glucose (mg/dL) 121 H (70-110) mg/dL Procalcitonin 2.20 H (0.02-0.50) ng/mL 12/29/24 12/30/24 12/30/24 Range/Units 21:12 00:07 05:43 WBC 19.43 H (4.50-10.00) 10*3/uL RBC 2.97 L (4.10-5.20) 10*6/uL Hgb 8.8 L (12.0-15.0) g/dL Hct 27.3 L (37.2-46.3) % MCHC (32.0-37.0) g/dL Plt Count 90 L (140-440) 10*3/uL ABG pH (7.35-7.45) ABG pCO2 (35-45) mmHg ABG pO2 (83-108) mmHg ABG HCO3 (21-25) mmol/L Hemoglobin (11.4-16.0) gm/dL Sodium (137-145) mmol/L Chloride (98-107) mmol/L Carbon Dioxide (22-30) mmol/L BUN (7-17) mg/dL Creatinine (0.52-1.04) mg/dL Glucose (74-99) mg/dL POC Glucose (mg/dL) 131 H 118 H (70-110) mg/dL Procalcitonin (0.02-0.50) ng/mL 12/30/24 12/30/24 12/30/24 Range/Units 05:44 05:44 09:01 WBC 18.41 H (4.50-10.00) 10*3/uL RBC 3.22 L (4.10-5.20) 10*6/uL Hgb 9.2 L (12.0-15.0) g/dL Hct 29.1 L (37.2-46.3) % MCHC 31.6 L (32.0-37.0) g/dL Plt Count 93 L (140-440) 10*3/uL ABG pH 7.17 L* (7.35-7.45) ABG pCO2 55 H (35-45) mmHg ABG pO2 78 L (83-108) mmHg ABG HCO3 20 L (21-25) mmol/L Hemoglobin 9.4 L (11.4-16.0) gm/dL Sodium 146 H (137-145) mmol/L Chloride 115 H (98-107) mmol/L Carbon Dioxide 20 L (22-30) mmol/L BUN 42 H (7-17) mg/dL Creatinine 1.89 H (0.52-1.04) mg/dL Glucose 118 H (74-99) mg/dL POC Glucose (mg/dL) (70-110) mg/dL Procalcitonin (0.02-0.50) ng/mL
[2024-12-31 06:14] LABS: Basophils # (A) 0.06 10*3/uL (0.00-0.10); Basophils % (A) 0.5 %; Eosinophils # (A) 0.19 10*3/uL (0.04-0.35); Eosinophils % (A) 1.6 %; HCT 25.7 % (37.2-46.3); HGB 8.6 g/dL (12.0-15.0); Lymphocytes # (A) 1.19 10*3/uL (0.90-5.00); Lymphocytes % (A) 9.8 %; MCH 29.5 pg (27.0-32.0); MCHC 33.5 g/dL (32.0-37.0); Monocytes # (A) 0.71 10*3/uL (0.20-1.00); Monocytes % (A) 5.9 %; Neutrophils # (A) 9.71 10*3/uL (1.80-7.70); Neutrophils % (A) 80.2 %; RBC 2.92 10*6/uL (4.10-5.20); RDW 17.2 % (11.5-14.5)
[2024-12-31 06:17] LABS: Platelet Count 63 10*3/uL (140-440)
[2024-12-31 06:22] LABS: Glucose,Whole Blood 172 mg/dL (70-110)
[2024-12-31 06:48] LABS: ALT 12 U/L (4-34); AST 13 U/L (14-36); African American GFR (CKD) 28 (>60 ml/min/1.73 sqM); Albumin 2.1 g/dL (3.5-5.0); Alkaline Phosphatase 147 U/L (38-126); Anion Gap 10 mmol/L; Blood Urea Nitrogen 44 mg/dL (7-17); Calcium 8.8 mg/dL (8.4-10.2); Carbon Dioxide 27 mmol/L (22-30); Chloride 109 mmol/L (98-107); Glucose 160 mg/dL (74-99); Magnesium 1.6 mg/dL (1.6-2.3); Non-African American GFR(CKD) 25 (>60 ml/min/1.73 sqM); Potassium 3.2 mmol/L (3.5-5.1); Sodium 146 mmol/L (137-145); Total Bilirubin 0.6 mg/dL (0.2-1.3); Total Protein 4.9 g/dL (6.3-8.2)
[2024-12-31] MEDS ORDERED: Potassium Replacement Protocol 1 EACH MISC MISCELLANE PRN (06:53)
[2024-12-31] MEDS ORDERED: Magnesium Replacement Protocol 1 EACH MISC MISCELLANE PRN (06:54)
[2024-12-31] MEDS: MAGNESIUM SULFATE-D5W PMX 1 GM in DEXTROSE/WATER 1 100ML.BAG IVPB ONE (06:59)
[2024-12-31] MEDS: POTASSIUM BICARBONATE/CIT AC 20 MEQ TABLET.EFF NG-TUBE SCH (06:59)
--- NOTE | 2024-12-31 07:11 | XR ---
EXAMINATION TYPE: XR chest 1V portable DATE OF EXAM: 12/31/2024 4:53 AM COMPARISON: 12/30/2024 CLINICAL INDICATION: Female, 79 years old with history of fluid overload, TECHNIQUE: XR chest 1V portable view(s) obtained. FINDINGS: The heart size is enlarged. The pulmonary vasculature is prominent. Small bilateral pleural effusions are present. Nasogastric tube transverses the thorax. IMPRESSION: 1. Stable appearing congestive heart failure. 2. Nasogastric tube transversing the thorax [facility] Carlos Manuel Ramirez, , 12/31/2024 7:08 AM
--- NOTE | 2024-12-31 08:52 | P.PN ---
Subjective Progress Note Date: 12/31/24 Principal diagnosis: GI bleed This is a 79-year-old female currently being evaluated in the ICU. History is being obtained from chart and patient's nurse. Patient currently has BiPAP on, she is confused and overall nonresponsive. Patient was sent in by EMS on 12/24/2024 to the emergency department from outside longterm with increased confusion, poor appetite and poor intake. Also reported that patient had outpatient blood work done with a hemoglobin of 7.0. Past medical history includes diabetes mellitus, anemia with recent workup in November of this year with findings of superficial duodenal ulcer gastritis and small hiatal hernia on upper endoscopy with Dr. Silva, chronic kidney disease, renal cell cancer status post left nephrectomy, sleep apnea, hypertension, hyperlipidemia, obesity, and pulmonary nodules. Apparently patient has been having black tarry stools. During this admission she had a hemoglobin of 6.2 she was transfused 2 units of blood. She was evaluated by general surgery and underwent upper endoscopy yesterday with Dr. Novoa with findings of gastritis and slow motility. No mention of any duodenal ulcers. Apparently last night she had a large black stool, she became hypotensive and was transferred to the ICU. Hemoglobin was noted to be 6.1, she was transfused 2 units of blood and given IV fluid bolus and transferred to the intensive care unit and started on Levophed. Today nursing reported another small black tarry stool. She is currently lying in bed, Levophed is being weaned, last hemoglobin 9.5. Patient has acute kidney in jury and chronic kidney disease. Hart catheter in place with about 15 cc urine output. Patient overall is nonresponsive at this time. She has been worked up in the past for iron deficiency anemia and was seen in 2017 and had upper endoscopy and colonoscopy. Upper endoscopy had findings of antral gastritis and duodenitis, colonoscopy with multiple colon polyps status post polypectomy with recommendations for repeat colonoscopy in 3 years. Patient has not been on any anticoagulation, no reported NSAID use currently on Protonix 40 mg twice daily and Carafate 1 g p.o. 3 times daily. 12/30/2024 Patient seen and examined today as a follow-up. Yesterday she underwent tagged RBC scan which reported findings positive for active GI bleed within the favored small bowel of the central abdomen. Patient's hemoglobin currently stable at 9.2. Nursing reports no further large black bowel movements but has had some small smears that is dark. Patient is off of BiPAP currently as of this mornin g. She still remains obtunded. Nursing reports that she is unable to swallow, she is not following many commands. Patient is still having decreased urine output. Renal functioning worsening. On amiodarone drip and Levophed. 12/31/2024 Patient seen and examined today as a follow-up. Patient remains on BiPAP, bicarb drip, and Levophed. Patient remains overall nonresponsive/obtunded. NG tube was placed yesterday and tube feedings were started currently at 10 mL/h. Apparently patient had a large black liquid stool at 6 AM. She had a slight drop in her hemoglobin from 9.2-8.6. Objective - Vital Signs Vital signs: Vital Signs Temp 94.1 F L 12/31/24 07:00 Pulse 73 12/31/24 07:00 Resp 18 12/31/24 07:00 BP 116/57 12/31/24 07:00 Pulse Ox 98 12/31/24 07:00 FiO2 40 12/31/24 07:34 Intake & Output 12/30/24 12/31/24 12/31/24 18:59 06:59 18:59 Intake Total 9922.526 6595.964 Output Total 265 305 Balance 636.089 8699.964 Weight 94.3 kg 93.8 kg Intake: IV 950 1475 .9NS 125 Dextrose 5% in Water 1, 700 1300 000 ml @ 100 mls/hr IV . [id number] VERONIQUE with Sodium Bicarb (1 Meq/ml) 150 ml Rx#:[id number] Piperacillin-Tazobactam 3 125 175 .375 gm In Sodium Chloride 0.9% 100 ml @ 25 mls/hr IVPB Q8HR VERONIQUE Rx# :[id number] Intake, IV Titration 129.223 118.964 Amount Amiodarone 450 mg In 16.667 Dextrose 5% in Water 250 ml @ 0.5 MG/MIN 16.667 mls/hr IV .Q15H VERONIQUE Rx#: [id number] Norepinephrine 4 mg In 112.556 118.964 Sodium Chloride 0.9% 250 ml @ 0.03 MCG/KG/MIN 10. 39 mls/hr IV .Q24H VERONIQUE Rx #:[id number] Tube Feeding 100 Other 120 Output: Urine 265 305 Other: Voiding Method Indwelling Catheter Indwelling Catheter # Voids 1 # Bowel Movements 1 - Exam General appearance: The patient is obtunded, eyes closed. Will respond to her name and open her eyes. HET: Head is normocephalic and atraumatic. Neck: Supple. Heart: Regular. Lungs: Equal expansion, normal respiratory effort. Abdomen: Soft, tender with palpation, nondistended. Extremities: Normal skin color and turgor. Neurological: Patient is obtunded. Responsive to painful stimuli. Does open her eyes slightly on command. - Labs CBC & Chem 7: 12/31/24 06:02 12/31/24 05:31 Labs: Abnormal Lab Results - Last 24 Hours (Table) 12/30/24 12/30/24 12/30/24 Range/Units 09:01 10:54 16:50 WBC (4.50-10.00) 10*3/uL RBC (4.10-5.20) 10*6/uL Hgb (12.0-15.0) g/dL Hct (37.2-46.3) % Plt Count (140-440) 10*3/uL Immature Gran # (0.00-0.04) 10*3/uL Neutrophils # (1.80-7.70) 10*3/uL ABG pH 7.17 L* 7.32 L (7.35-7.45) ABG pCO2 55 H 48 H (35-45) mmHg ABG pO2 78 L (83-108) mmHg ABG HCO3 20 L (21-25) mmol/L ABG Total CO2 26 H (19-24) mmol/L ABG O2 Saturation 99.1 H (94-97) % Hemoglobin 9.4 L 8.7 L (11.4-16.0) gm/dL Sodium (137-145) mmol/L Potassium (3.5-5.1) mmol/L Chloride (98-107) mmol/L BUN (7-17) mg/dL Creatinine (0.52-1.04) mg/dL Glucose (74-99) mg/dL POC Glucose (mg/dL) 134 H (70-110) mg/dL AST (14-36) U/L Alkaline Phosphatase (38-126) U/L Total Protein (6.3-8.2) g/dL Albumin (3.5-5.0) g/dL Urine Appearance (Clear) Urine Protein (Negative) Urine Blood (Negative) Ur Leukocyte Esterase (Negative) Urine RBC (0-5) /hpf Urine WBC (0-5) /hpf Urine WBC Clumps (None) /hpf Urine Bacteria (None) /hpf Urine Mucus (None) /hpf Urine Yeast (Budding) (None) /hpf 12/30/24 12/30/24 12/31/24 Range/Units 18:55 23:28 00:22 WBC (4.50-10.00) 10*3/uL RBC (4.10-5.20) 10*6/uL Hgb (12.0-15.0) g/dL Hct (37.2-46.3) % Plt Count (140-440) 10*3/uL Immature Gran # (0.00-0.04) 10*3/uL Neutrophils # (1.80-7.70) 10*3/uL ABG pH (7.35-7.45) ABG pCO2 (35-45) mmHg ABG pO2 (83-108) mmHg ABG HCO3 (21-25) mmol/L ABG Total CO2 (19-24) mmol/L ABG O2 Saturation (94-97) % Hemoglobin (11.4-16.0) gm/dL Sodium (137-145) mmol/L Potassium (3.5-5.1) mmol/L Chloride (98-107) mmol/L BUN (7-17) mg/dL Creatinine (0.52-1.04) mg/dL Glucose (74-99) mg/dL POC Glucose (mg/dL) 137 H 160 H (70-110) mg/dL AST (14-36) U/L Alkaline Phosphatase (38-126) U/L Total Protein (6.3-8.2) g/dL Albumin (3.5-5.0) g/dL Urine Appearance Turbid H (Clear) Urine Protein 1+ H (Negative) Urine Blood Moderate H (Negative) Ur Leukocyte Esterase Large H (Negative) Urine RBC 117 H (0-5) /hpf Urine WBC >182 H (0-5) /hpf Urine WBC Clumps Many H (None) /hpf Urine Bacteria Few H (None) /hpf Urine Mucus Rare H (None) /hpf Urine Yeast (Budding) Many H (None) /hpf 12/31/24 12/31/24 12/31/24 Range/Units 05:31 06:02 06:20 WBC 12.10 H (4.50-10.00) 10*3/uL RBC 2.92 L (4.10-5.20) 10*6/uL Hgb 8.6 L (12.0-15.0) g/dL Hct 25.7 L (37.2-46.3) % Plt Count 63 L (140-440) 10*3/uL Immature Gran # 0.24 H (0.00-0.04) 10*3/uL Neutrophils # 9.71 H (1.80-7.70) 10*3/uL ABG pH (7.35-7.45) ABG pCO2 (35-45) mmHg ABG pO2 (83-108) mmHg ABG HCO3 (21-25) mmol/L ABG Total CO2 (19-24) mmol/L ABG O2 Saturation (94-97) % Hemoglobin (11.4-16.0) gm/dL Sodium 146 H (137-145) mmol/L Potassium 3.2 L (3.5-5.1) mmol/L Chloride 109 H (98-107) mmol/L BUN 44 H (7-17) mg/dL Creatinine 1.93 H (0.52-1.04) mg/dL Glucose 160 H (74-99) mg/dL POC Glucose (mg/dL) 172 H (70-110) mg/dL AST 13 L (14-36) U/L Alkaline Phosphatase 147 H (38-126) U/L Total Protein 4.9 L (6.3-8.2) g/dL Albumin 2.1 L (3.5-5.0) g/dL Urine Appearance (Clear) Urine Protein (Negative) Urine Blood (Negative) Ur Leukocyte Esterase (Negative) Urine RBC (0-5) /hpf Urine WBC (0-5) /hpf Urine WBC Clumps (None) /hpf Urine Bacteria (None) /hpf Urine Mucus (None) /hpf Urine Yeast (Budding) (None) /hpf Microbiology - Last 24 Hours (Table) 12/29/24 06:38 Blood Culture - Preliminary Blood Assessment and Plan (1) GI bleed Narrative/Plan: 79-year-old female admitted for altered mental status changes and anemia. Patient with recent admission and evaluation for anemia with Upper endoscopy completed on 11/27/2024 with findings of superficial duodenal ulcer gastritis and small hiatal hernia with recommendation for Protonix and Carafate. Patient's hemoglobin had stabilized and patient was discharged to nursing facility. Patient again found to have severe anemia with hemoglobin of 6.2 on this admission. Over the weekend there was no gastroenterology available and patient was seen by general surgery who underwent upper endoscopy yesterday with findings of gastritis and slow motility. Yesterday evening patient had become hypotensive was found to again have a drop in her hemoglobin to 6.1 got another 2 units of blood and transferred to the ICU. She reportedly has been having black tarry stools. Last colonoscopy 2016 with multiple colon polyps status post polypectomy with recommendation for repeat colonoscopy in 3 years part of a workup for iron deficiency anemia. Unfortunately at this time patient is on BiPAP, she is not responsive and unable to take anything and orally. Will order tagged RBC for further evaluation. May need to consider embolization. Continue with supportive care at this time. Nuclear medicine tagged RBC positive for active bleed in the small bowel although patient has not had any further large bowel movements and hemoglobin stable. Patient's mental status remains unchanged. Unable to perform small bowel capsule endoscopy. Since patient is continuing to have signs of continued GI bleed with large loose black bowel movement and drop in hemoglobin recommend transfer to tertiary center for possible embolization. Current Visit: Yes Status: Acute Code(s): K92.2 - GASTROINTESTINAL HEMORRHAGE, UNSPECIFIED SNOMED Code(s): 82327609 (2) Anemia Current Visit: Yes Status: Acute Priority: High Code(s): D64.9 - ANEMIA, UNSPECIFIED SNOMED Code(s): 482105844 (3) Pulmonary hypertension Current Visit: Yes Status: Acute Code(s): I27.20 - PULMONARY HYPERTENSION, UNSPECIFIED SNOMED Code(s): 08090201 (4) Pulmonary nodules Current Visit: Yes Status: Acute Code(s): R91.8 - OTHER NONSPECIFIC ABNORMAL FINDING OF LUNG FIELD SNOMED Code(s): 016682053 (5) History of duodenal ulcer Current Visit: Yes Status: Acute Code(s): Z87.19 - PERSONAL HISTORY OF OTHER DISEASES OF THE DIGESTIVE SYSTEM SNOMED Code(s): 302257918 (6) Obstructive sleep apnea Current Visit: Yes Status: Acute Code(s): G47.33 - OBSTRUCTIVE SLEEP APNEA (ADULT) (PEDIATRIC) SNOMED Code(s): 13939860 (7) Obesity Current Visit: Yes Status: Acute Code(s): E66.9 - OBESITY, UNSPECIFIED SNOMED Code(s): 600656588 (8) NANCY (acute kidney injury) Current Visit: Yes Status: Acute Code(s): N17.9 - ACUTE KIDNEY FAILURE, UNSPECIFIED SNOMED Code(s): 46589034 (9) AMS (altered mental status) Current Visit: No Status: Acute Code(s): R41.82 - ALTERED MENTAL STATUS, UNSPECIFIED SNOMED Code(s): 122992717 (10) Diabetes Current Visit: No Status: Acute Code(s): E11.9 - TYPE 2 DIABETES MELLITUS WITHOUT COMPLICATIONS SNOMED Code(s): 62588993 (11) Renal cell carcinoma Current Visit: No Status: Acute Priority: High Code(s): C64.9 - MALIGNANT NEOPLASM OF UNSP KIDNEY, EXCEPT RENAL PELVIS SNOMED Code(s): 408207364 Plan: 1. Continue symptomatic and supportive care 2. Patient was started on tube feedings. May need to consider holding if patient is excepted to tertiary center with plans for transfer 3. Continue Protonix 40 mg twice daily 4. Hold anticoagulation 5. Tagged RBC ordered and reviewed reporting active small bowel bleed 6. Daily CBC, transfuse for hemoglobin less than 7 7. Recommend transfer to tertiary center for higher level of care and possible small bowel embolization. This was discussed with general surgery as well. This was discussed with patient's nurse who will contact primary medical team. Thank you for this consultation, we will continue to follow. Dr. Darya Palacios I agree with the dictator's note, documented as a scribe by Toshia Zarate.
[2024-12-31 08:59] LABS: ABG Base Excess 3.4 mmol/L; ABG HCO3 29 mmol/L (21-25); ABG Oxygen Saturation 98.2 % (94-97); ABG PCO2 51 mmHg (35-45); ABG PH 7.37 (7.35-7.45); ABG PO2 91 mmHg (83-108); ABG TCO2 31 mmol/L (19-24); Allen Test Performed? Yes
--- NOTE | 2024-12-31 10:21 | P.PN ---
Subjective Patient is seen in follow-up for acute kidney injury. Renal function stable. On bicarb drip. Acidosis improved. Sodium stable at 146. On BiPAP. Vital signs are stable. On vasopressor support. General: No acute distress. HEENT: On BiPAP. LUNGS: No audible rhonchi or wheezes. HEART: Rate and Rhythm are regular. ABDOMEN: Nontender. EXTREMITITES: 1+ edema. Objective - Vital Signs Vital signs: Vital Signs Temp 94.1 F L 12/31/24 07:00 Pulse 73 12/31/24 07:00 Resp 18 12/31/24 07:00 BP 116/57 12/31/24 07:00 Pulse Ox 98 12/31/24 07:00 FiO2 40 12/31/24 07:34 Intake & Output 12/30/24 12/31/24 12/31/24 18:59 06:59 18:59 Intake Total 5865.291 4300.964 220 Output Total 265 305 10 Balance 833.248 6336.964 210 Weight 94.3 kg 93.8 kg Intake: IV 950 1475 200 .9NS 125 Dextrose 5% in Water 1, 700 1300 200 000 ml @ 100 mls/hr IV . [id number] [facility] with Sodium Bicarb (1 Meq/ml) 150 ml Rx#:[id number] Piperacillin-Tazobactam 3 125 175 .375 gm In Sodium Chloride 0.9% 100 ml @ 25 mls/hr IVPB Q8HR [facility] Rx# :[id number] Intake, IV Titration 129.223 118.964 Amount Amiodarone 450 mg In 16.667 Dextrose 5% in Water 250 ml @ 0.5 MG/MIN 16.667 mls/hr IV .Q15H [facility] Rx#: [id number] Norepinephrine 4 mg In 112.556 118.964 Sodium Chloride 0.9% 250 ml @ 0.03 MCG/KG/MIN 10. 39 mls/hr IV .Q24H [facility] Rx #:[id number] Tube Feeding 100 20 Other 120 Output: Urine 265 305 10 Other: Voiding Method Indwelling Catheter Indwelling Catheter # Voids 1 # Bowel Movements 1 - Labs CBC & Chem 7: 12/31/24 06:02 12/31/24 05:31 Labs: Abnormal Lab Results - Last 24 Hours (Table) 12/30/24 12/30/24 12/30/24 Range/Units 10:54 16:50 18:55 WBC (4.50-10.00) 10*3/uL RBC (4.10-5.20) 10*6/uL Hgb (12.0-15.0) g/dL Hct (37.2-46.3) % Plt Count (140-440) 10*3/uL Immature Gran # (0.00-0.04) 10*3/uL Neutrophils # (1.80-7.70) 10*3/uL ABG pH 7.32 L (7.35-7.45) ABG pCO2 48 H (35-45) mmHg ABG HCO3 (21-25) mmol/L ABG Total CO2 26 H (19-24) mmol/L ABG O2 Saturation 99.1 H (94-97) % Hemoglobin 8.7 L (11.4-16.0) gm/dL Sodium (137-145) mmol/L Potassium (3.5-5.1) mmol/L Chloride (98-107) mmol/L BUN (7-17) mg/dL Creatinine (0.52-1.04) mg/dL Glucose (74-99) mg/dL POC Glucose (mg/dL) 134 H 137 H (70-110) mg/dL AST (14-36) U/L Alkaline Phosphatase (38-126) U/L Total Protein (6.3-8.2) g/dL Albumin (3.5-5.0) g/dL Urine Appearance (Clear) Urine Protein (Negative) Urine Blood (Negative) Ur Leukocyte Esterase (Negative) Urine RBC (0-5) /hpf Urine WBC (0-5) /hpf Urine WBC Clumps (None) /hpf Urine Bacteria (None) /hpf Urine Mucus (None) /hpf Urine Yeast (Budding) (None) /hpf 12/30/24 12/31/24 12/31/24 Range/Units 23:28 00:22 05:31 WBC (4.50-10.00) 10*3/uL RBC (4.10-5.20) 10*6/uL Hgb (12.0-15.0) g/dL Hct (37.2-46.3) % Plt Count (140-440) 10*3/uL Immature Gran # (0.00-0.04) 10*3/uL Neutrophils # (1.80-7.70) 10*3/uL ABG pH (7.35-7.45) ABG pCO2 (35-45) mmHg ABG HCO3 (21-25) mmol/L ABG Total CO2 (19-24) mmol/L ABG O2 Saturation (94-97) % Hemoglobin (11.4-16.0) gm/dL Sodium 146 H (137-145) mmol/L Potassium 3.2 L (3.5-5.1) mmol/L Chloride 109 H (98-107) mmol/L BUN 44 H (7-17) mg/dL Creatinine 1.93 H (0.52-1.04) mg/dL Glucose 160 H (74-99) mg/dL POC Glucose (mg/dL) 160 H (70-110) mg/dL AST 13 L (14-36) U/L Alkaline Phosphatase 147 H (38-126) U/L Total Protein 4.9 L (6.3-8.2) g/dL Albumin 2.1 L (3.5-5.0) g/dL Urine Appearance Turbid H (Clear) Urine Protein 1+ H (Negative) Urine Blood Moderate H (Negative) Ur Leukocyte Esterase Large H (Negative) Urine RBC 117 H (0-5) /hpf Urine WBC >182 H (0-5) /hpf Urine WBC Clumps Many H (None) /hpf Urine Bacteria Few H (None) /hpf Urine Mucus Rare H (None) /hpf Urine Yeast (Budding) Many H (None) /hpf 12/31/24 12/31/24 12/31/24 Range/Units 06:02 06:20 08:57 WBC 12.10 H (4.50-10.00) 10*3/uL RBC 2.92 L (4.10-5.20) 10*6/uL Hgb 8.6 L (12.0-15.0) g/dL Hct 25.7 L (37.2-46.3) % Plt Count 63 L (140-440) 10*3/uL Immature Gran # 0.24 H (0.00-0.04) 10*3/uL Neutrophils # 9.71 H (1.80-7.70) 10*3/uL ABG pH (7.35-7.45) ABG pCO2 51 H (35-45) mmHg ABG HCO3 29 H (21-25) mmol/L ABG Total CO2 31 H (19-24) mmol/L ABG O2 Saturation 98.2 H (94-97) % Hemoglobin 8.0 L (11.4-16.0) gm/dL Sodium (137-145) mmol/L Potassium (3.5-5.1) mmol/L Chloride (98-107) mmol/L BUN (7-17) mg/dL Creatinine (0.52-1.04) mg/dL Glucose (74-99) mg/dL POC Glucose (mg/dL) 172 H (70-110) mg/dL AST (14-36) U/L Alkaline Phosphatase (38-126) U/L Total Protein (6.3-8.2) g/dL Albumin (3.5-5.0) g/dL Urine Appearance (Clear) Urine Protein (Negative) Urine Blood (Negative) Ur Leukocyte Esterase (Negative) Urine RBC (0-5) /hpf Urine WBC (0-5) /hpf Urine WBC Clumps (None) /hpf Urine Bacteria (None) /hpf Urine Mucus (None) /hpf Urine Yeast (Budding) (None) /hpf Microbiology - Last 24 Hours (Table) 12/29/24 06:38 Blood Culture - Preliminary Blood Assessment and Plan Plan: Assessment: 1. Acute kidney injury secondary to ATN secondary to acute blood loss anemia. Creatinine 2.76 on admission and improved to 1.1 dated December 28, 2024. Renal fu nction subsequently worsened again due to hemodynamic ATN. Creatinine 1.93 today. Baseline creatinine near 0.9 from November 2024. Kidney ultrasound from November 2024 showed no evidence of hydronephrosis. 2. Status post left nephrectomy secondary to renal cell cancer in September 2024. 3. Acute blood loss anemia status post blood transfusions. Surgery following. Status post IV DDAVP. EGD showed gastritis. Tagged red send showed active GI bleed and small bowel. May need embolization. 4. Diabetes mellitus. 5. Hypercalcemia secondary to volume contraction. Better. PTH 14.3. Vitamin D level 45.6. 6. Hypomagnesemia from poor intake. Replaced. 7. Hypernatremia from lack of oral water intake. 8. Volume overload. 9. A-fib with RVR status post amiodarone drip. 10. Metabolic acidosis secondary to acute kidney injury. Improved with bicarb drip. 11. Acute on chronic diastolic CHF with moderate tricuspid vegetation and severe pulmonary hypertension. Plan: Stop bicarb drip. Start water flushes 200 cc every 6 hours with tube feeds. Add IV Lasix 40 mg twice daily. Potassium and magnesium replaced. Avoid nephrotoxins. Continue to monitor renal function and urine output. Follow-up secondary workup for hypercalcemia. Wean Levophed. Continue to assess daily for need for renal replacement therapy. Potential transfer for embolization.
--- NOTE | 2024-12-31 11:43 | P.PN ---
Subjective Progress Note Date: 12/31/24 Patient is a 79-year-old male with past medical history significant for renal cell carcinoma status post left nephrectomy, pulmonary nodules, obstructive sleep apnea, hypertension, hyperlipidemia, diabetes mellitus. Note, that the patient had recent hospitalization November 22 through December 04 for altered mental status. During this previous admission, she was worked up for anemia and did undergo esophagogastroduodenoscopy on 11/27/2024 with findings including two superficial duodenal ulcer and gastritis with small hiatal hernia. She was sent back in from her long term, [facility], with similar concerns on 12/24/2024. Reportedly, confused with reduced oral intake and generalized weakness. Again, noted to be anemic with a hemoglobin of 6.2 g/dL. Also, reportedly having dark tarry stools. She was transfused with 2 units of PRBCs. Hemoglobin initially did come up to 8.4 g/dL and has now been trending down. She was taken back for repeat EGD yesterday, 12/28/2024, findings including gastritis. Rapid response called earlier this morning, chiefly for hypotension. Hemoglobin was 6.1 g/dL. She has received additional 2 units of PRBCs as well as a 2 L normal saline bolus. Blood pressure continued to be hypotensive, currently 88/41 mmHg. There is an indwelling urinary catheter, and currently she is anuric. Did have another large black tarry bowel movement per nursing staff. Not currently on any anticoagulants. She was transferred to the intensive care unit, and will be started on norepinephrine. Remaining labs include a CBC of 7.93, hemoglobin 6.1, hematocrit 19.6, platelets 80,000. CMP: Sodium 142, potassium 3.9, chloride 113, serum bicarb 23, BUN 41, creatinine 1.36. Normal saline continues at 50 mL/h. Lactic 1.4. She was noted to have an acute kidney injury on admission with a creatinine of 2.76 and this is down to 1.36. Urinalysis positive for few bacteria and pyuria. Urine culture was polymicrobial, and reportedly not a suitable specimen. She did receive 3 days of IV Rocephin. Did undergo previous left-sided nephrectomy on 10/06/2024 secondary to renal mass and high-grade renal cell carcinoma. She is also noted to have bilateral pulmonary nodules. Chest CTA from 10/29/2024 remarkable for a 1.5 cm right upper lobe pulmonary nodule, enlarging 8.4 mm right upper lobe nodule, as well as, 5.2 mm left upper lobe pulmonary nodule. These are being followed up on an outpatient basis. She is currently obtunded. She is hypotensive, despite 2 L fluid bolus and an additional 2 units PRBCs. General surgery has been updated. Norepinephrine is going to be started. 12/31/2019) the patient is being seen for a follow-up. Earlier this morning, the patient was taken off the BiPAP. Nevertheless, the subsequent blood gases still showing significant acidosis, combination of metabolic and respiratory. pH is 7.17 with a pCO2 of 55 and a pO2 of 78. At that point, I immediately put the patient on microbipolar pressure of 13 over 9 cm of water. She remains quite obtunded. Noted an RBC tagged scan was performed yesterday and the patient was found to have an upper GI source of bleeding likely from the small bowel in the central abdomen. Nevertheless, she has not shown any melanotic stools over the past 12 hours. Hemoglobin remained stable at 9.2. Urine output is quite diminished and the patient's urine output is in the order of 5 cc an hour. She remains in atrial fibrillation. She is on norepinephrine running at 0.03 mcg/kg/min. She is on amiodarone drip at 0.5 mg/min and the patient is also on normal saline at rate of 50 cc an hour. Sodium levels at 146, potassium is at 3.9, bicarb is at 20, hemoglobin is at 9.2, BUN is 42 with a creatinine of 1.89. She has a component of metabolic and respiratory acidosis. Mental status remains quite diminished. No significant agitation and she is resting comfortably on BiPAP. 12/31/2024, the patient remains lethargic and obtunded. The patient remains on a BiPAP with a pressure of 13 over 9 cm of water. Chest x-ray shows cardiomegaly and mild pulm vascular congestion. Follow-up blood gases showed a pH of 7.37 with a pCO2 of 51 and pO2 of 91. This was an FiO2 of 40%. She responds to painful stimuli and she is moving all 4 extremities without any limitation. She did encounter another bloody bowel movement and hemoglobin has dropped down to 8.6. GI has recommended transfer for possible embolization by interventional radiology. However, the is not interested in transferring around. She remains on no anticoagulation. She remains in atrial fibrillation. The patient is off amiodarone and the rate is controlled. She is on low-dose norepinephrine at 0.02 mcg/kg/min. She remains on a bicarb infusion at rate of 100 cc an hour. Urine output is in order of 10 cc an hour. NG tube was inserted and she was started on a low-dose tube feeds at a rate of 10 cc an hour of vital high- protein. The white cell count of 12.1. Hemoglobin 8.6, sodium is 146, K is at 3.2, bicarb is 27 with a BUN of 44 and a creatinine of 1.9. UA was abnormal and the patient is currently on IV Zosyn. Condition obviously remains quite critical at this point. Objective - Vital Signs Vital signs: Vital Signs Temp 94.1 F L 12/31/24 07:00 Pulse 73 12/31/24 07:00 Resp 18 12/31/24 07:00 BP 116/57 12/31/24 07:00 Pulse Ox 98 12/31/24 07:00 FiO2 40 12/31/24 07:34 Intake & Output 12/30/24 12/31/24 12/31/24 18:59 06:59 18:59 Intake Total 5534.105 9793.964 Output Total 265 305 Balance 907.111 9728.964 Weight 94.3 kg 93.8 kg Intake: IV 950 1475 .9NS 125 Dextrose 5% in Water 1, 700 1300 000 ml @ 100 mls/hr IV . [id number] [facility] with Sodium Bicarb (1 Meq/ml) 150 ml Rx#:[id number] Piperacillin-Tazobactam 3 125 175 .375 gm In Sodium Chloride 0.9% 100 ml @ 25 mls/hr IVPB Q8HR [facility] Rx# :[id number] Intake, IV Titration 129.223 118.964 Amount Amiodarone 450 mg In 16.667 Dextrose 5% in Water 250 ml @ 0.5 MG/MIN 16.667 mls/hr IV .Q15H [facility] Rx#: [id number] Norepinephrine 4 mg In 112.556 118.964 Sodium Chloride 0.9% 250 ml @ 0.03 MCG/KG/MIN 10. 39 mls/hr IV .Q24H [facility] Rx #:[id number] Tube Feeding 100 Other 120 Output: Urine 265 305 Other: Voiding Method Indwelling Catheter Indwelling Catheter # Voids 1 # Bowel Movements 1 - Exam GENERAL EXAM: Obtunded, 79-year-old female, will awaken to tactile and verbal stimuli, does not readily follow commands or sustain awakening, the patient remains on a BiPAP with a pressure of 13/9 cm of water.The patient is on FiO2 of 40%. HEAD: Normocephalic and atraumatic EYES: Normal reaction of pupils, equal size. NOSE: Clear with pink turbinates. THROAT: No erythema or exudates. NECK: No masses, no JVD. CHEST: No chest wall deformity. LUNGS: Equal air entry with no crackles, wheeze, rhonchi or dullness. No conversational dyspnea or accessory muscle use.. CVS: S1 and S2 normal with no audible murmur, regular rhythm. No extra heart sounds ABDOMEN: No hepatosplenomegaly, active bowel sounds, no guarding or rigidity. SPINE: No scoliosis or deformity SKIN: No rashes CENTRAL NERVOUS SYSTEM: No focal deficits, tone is normal in all 4 extremities. EXTREMITIES: There is no peripheral edema, clubbing, or cyanosis. Peripheral pulses are intact. - Labs CBC & Chem 7: 12/31/24 06:02 12/31/24 05:31 Labs: Abnormal Lab Results - Last 24 Hours (Table) 12/30/24 12/30/24 12/30/24 Range/Units 09:01 10:54 16:50 WBC (4.50-10.00) 10*3/uL RBC (4.10-5.20) 10*6/uL Hgb (12.0-15.0) g/dL Hct (37.2-46.3) % Plt Count (140-440) 10*3/uL Immature Gran # (0.00-0.04) 10*3/uL Neutrophils # (1.80-7.70) 10*3/uL ABG pH 7.17 L* 7.32 L (7.35-7.45) ABG pCO2 55 H 48 H (35-45) mmHg ABG pO2 78 L (83-108) mmHg ABG HCO3 20 L (21-25) mmol/L ABG Total CO2 26 H (19-24) mmol/L ABG O2 Saturation 99.1 H (94-97) % Hemoglobin 9.4 L 8.7 L (11.4-16.0) gm/dL Sodium (137-145) mmol/L Potassium (3.5-5.1) mmol/L Chloride (98-107) mmol/L BUN (7-17) mg/dL Creatinine (0.52-1.04) mg/dL Glucose (74-99) mg/dL POC Glucose (mg/dL) 134 H (70-110) mg/dL AST (14-36) U/L Alkaline Phosphatase (38-126) U/L Total Protein (6.3-8.2) g/dL Albumin (3.5-5.0) g/dL Urine Appearance (Clear) Urine Protein (Negative) Urine Blood (Negative) Ur Leukocyte Esterase (Negative) Urine RBC (0-5) /hpf Urine WBC (0-5) /hpf Urine WBC Clumps (None) /hpf Urine Bacteria (None) /hpf Urine Mucus (None) /hpf Urine Yeast (Budding) (None) /hpf 12/30/24 12/30/24 12/31/24 Range/Units 18:55 23:28 00:22 WBC (4.50-10.00) 10*3/uL RBC (4.10-5.20) 10*6/uL Hgb (12.0-15.0) g/dL Hct (37.2-46.3) % Plt Count (140-440) 10*3/uL Immature Gran # (0.00-0.04) 10*3/uL Neutrophils # (1.80-7.70) 10*3/uL ABG pH (7.35-7.45) ABG pCO2 (35-45) mmHg ABG pO2 (83-108) mmHg ABG HCO3 (21-25) mmol/L ABG Total CO2 (19-24) mmol/L ABG O2 Saturation (94-97) % Hemoglobin (11.4-16.0) gm/dL Sodium (137-145) mmol/L Potassium (3.5-5.1) mmol/L Chloride (98-107) mmol/L BUN (7-17) mg/dL Creatinine (0.52-1.04) mg/dL Glucose (74-99) mg/dL POC Glucose (mg/dL) 137 H 160 H (70-110) mg/dL AST (14-36) U/L Alkaline Phosphatase (38-126) U/L Total Protein (6.3-8.2) g/dL Albumin (3.5-5.0) g/dL Urine Appearance Turbid H (Clear) Urine Protein 1+ H (Negative) Urine Blood Moderate H (Negative) Ur Leukocyte Esterase Large H (Negative) Urine RBC 117 H (0-5) /hpf Urine WBC >182 H (0-5) /hpf Urine WBC Clumps Many H (None) /hpf Urine Bacteria Few H (None) /hpf Urine Mucus Rare H (None) /hpf Urine Yeast (Budding) Many H (None) /hpf 12/31/24 12/31/24 12/31/24 Range/Units 05:31 06:02 06:20 WBC 12.10 H (4.50-10.00) 10*3/uL RBC 2.92 L (4.10-5.20) 10*6/uL Hgb 8.6 L (12.0-15.0) g/dL Hct 25.7 L (37.2-46.3) % Plt Count 63 L (140-440) 10*3/uL Immature Gran # 0.24 H (0.00-0.04) 10*3/uL Neutrophils # 9.71 H (1.80-7.70) 10*3/uL ABG pH (7.35-7.45) ABG pCO2 (35-45) mmHg ABG pO2 (83-108) mmHg ABG HCO3 (21-25) mmol/L ABG Total CO2 (19-24) mmol/L ABG O2 Saturation (94-97) % Hemoglobin (11.4-16.0) gm/dL Sodium 146 H (137-145) mmol/L Potassium 3.2 L (3.5-5.1) mmol/L Chloride 109 H (98-107) mmol/L BUN 44 H (7-17) mg/dL Creatinine 1.93 H (0.52-1.04) mg/dL Glucose 160 H (74-99) mg/dL POC Glucose (mg/dL) 172 H (70-110) mg/dL AST 13 L (14-36) U/L Alkaline Phosphatase 147 H (38-126) U/L Total Protein 4.9 L (6.3-8.2) g/dL Albumin 2.1 L (3.5-5.0) g/dL Urine Appearance (Clear) Urine Protein (Negative) Urine Blood (Negative) Ur Leukocyte Esterase (Negative) Urine RBC (0-5) /hpf Urine WBC (0-5) /hpf Urine WBC Clumps (None) /hpf Urine Bacteria (None) /hpf Urine Mucus (None) /hpf Urine Yeast (Budding) (None) /hpf Microbiology - Last 24 Hours (Table) 12/29/24 06:38 Blood Culture - Preliminary Blood Assessment and Plan Assessment: Acute blood loss anemia, status post 4 units total PRBCs, so far this admission. The patient had a RBC tagged scan and the patient was found to have small bowel source of bleeding, mid abdomen. At this point in time, hemoglobin stable at 9.2 and the patient has not had any further episodes of GI bleed. Subsequent hemoglobin dropped down to 8.6. The patient had another episode of bloody bowel movement. It was recommended transfer for interventional radiology embolization of small bowel source of bleeding. Nevertheless, family was not agreeable. Treatment is supportive at this point in time. Will monitor the hemoglobin. Acute hypoxic/hypercapnic respiratory failure. The patient has significant respiratory and metabolic acidosis, being supported with a BiPAP pressure of 13 over 9 cm of water. Chest x-ray is consistent with pulm vessel congestion and edema along with cardiomegaly. Superinfection with pneumonia is felt to be less likely. The patient currently is on IV Zosyn. The patient remains on a BiPAP. Improvement in the acid-base status based on today's blood work and blood gases. History of peptic ulcer disease, did recently undergo repeat EGD on 12/28/2024, which was remarkable for gastritis. No active bleeding was noted. Hypotension and shock, refractory to fluid resuscitation, to be started on vasopressors, the patient remains on low-dose norepinephrine Atrial fibrillation, rate controlled and the patient is off amiodarone Acute kidney injury, previously improving, creatinine is on the rise and the patient remains oliguric. Urine output is quite diminished. No significant response to diuretics and the patient remains oliguric. None anion gap metabolic acidosis, currently on a bicarb infusion Renal cell carcinoma with history of previous left nephrectomy on 10/06/2024 Bilateral pulmonary nodules, being worked up on an outpatient basis, may eventually require bronchoscopy with tissue biopsy Altered mental status, consider acute toxic metabolic encephalopathy Hypothermia, recovered History of hypertension History of hyperlipidemia Diabetes mellitus type 2 Obstructive sleep apnea Obesity, with a BMI of 34.4 kg/m Plan: Continue BiPAP support at a pressure of 13 /9 cm of water, FiO2 at 40% Continue bicarb infusion at rate of 100 cc an hour Patient is currently off amiodarone drip Low-dose norepinephrine for hemodynamic support Monitor mental status Watch for any signs of GI bleeding and hemoglobin Wean of pressors if possible, currently on low-dose norepinephrine Continue IV Zosyn as empiric antibiotic coverage Start scheduled insulin coverage IV Protonix NG tube is in place and suggest holding the tube feed for the next 24 hours. Monitor the hemoglobin. Condition is obviously critical. Will continue to follow and make further recommendations based on her progress. Echocardiogram showed normal LV function with a normal systolic function. Mod erate degree of tricuspid regurgitation and severe pulm hypertension. is more interested in towards comfort care measures. Final decision has not been done yet. Condition remains critical Will continue to follow and make further recommendations based on her progress. Respiratory care evaluation was done and 35 minutes. Time with Patient: Greater than 30
[2024-12-31 11:46] LABS: Glucose,Whole Blood 119 mg/dL (70-110)
[2024-12-31 13:28] VITALS: BMI 35.4
--- NOTE | 2024-12-31 13:35 | P.PN ---
Subjective Progress Note Date: 12/31/24 SURGICAL PROGRESS NOTE CHIEF COMPLAINT: GI bleed HISTORY OF PRESENT ILLNESS: Patient remains in the ICU. She is obtunded. She is on bipap. She had another large black stool. Hemoglobin did decrease from 9.2-8.6. Initially there was discussion about transfer for possible embolization with IR service. But later in the day the family decided to maybe proceed with comfort care measures. CODE STATUS is no code. PHYSICAL EXAM: VITAL SIGNS: Reviewed. GENERAL: no acute distress. ABDOMEN: Soft. Nondistended. Nontender. NEUROLOGIC: Obtunded ASSESSMENT: 1. Acute GI bleed with melanotic stools. Tagged RBC scan positive for active GI bleed within the favored small bowel of the central abdomen. 2. Acute blood loss anemia due to GI bleed 3. Status post EGD reporting gastritis and slow motility. No evidence of active bleeding or ulcer. PLAN: -At this time family is making decision regarding possible comfort care. CODE STATUS no code. - Continue supportive care at this time Physician Hot Walker note has been reviewed by physician. Signing provider agrees with the documented findings, assessment, and plan of care. Attestation Patient seen and examined at bedside on 12/31/2024. Did have large dark stool. Hemoglobin 8.6. She is obtunded and on BiPAP. Recommendation was made for transfer for IR embolization. Family is discussing comfort care measures. No plan for acute surgical intervention at this time. America Novoa DO Objective - Vital Signs Vital signs: Vital Signs Temp 95.2 F L 12/31/24 08:00 Pulse 67 12/31/24 10:45 Resp 20 12/31/24 10:45 BP 103/50 12/31/24 10:45 Pulse Ox 100 12/31/24 10:15 FiO2 40 12/31/24 11:45 Intake & Output 12/30/24 12/31/24 12/31/24 18:59 06:59 18:59 Intake Total 3797.005 4746.964 220 Output Total 265 305 10 Balance 455.681 9524.964 210 Weight 94.3 kg 93.8 kg 93.8 kg Intake: IV 950 1475 200 .9NS 125 Dextrose 5% in Water 1, 700 1300 200 000 ml @ 100 mls/hr IV . [id number] [facility]ONIQUE with Sodium Bicarb (1 Meq/ml) 150 ml Rx#:[id number] Piperacillin-Tazobactam 3 125 175 .375 gm In Sodium Chloride 0.9% 100 ml @ 25 mls/hr IVPB Q8HR [facility] Rx# :[id number] Intake, IV Titration 129.223 118.964 Amount Amiodarone 450 mg In 16.667 Dextrose 5% in Water 250 ml @ 0.5 MG/MIN 16.667 mls/hr IV .Q15H [facility] Rx#: [id number] Norepinephrine 4 mg In 112.556 118.964 Sodium Chloride 0.9% 250 ml @ 0.03 MCG/KG/MIN 10. 39 mls/hr IV .Q24H [facility] Rx #:[id number] Tube Feeding 100 20 Other 120 Output: Urine 265 305 10 Other: Voiding Method Indwelling Catheter Indwelling Catheter # Voids 1 # Bowel Movements 1 - Labs CBC & Chem 7: 12/31/24 06:02 12/31/24 05:31 Labs: Abnormal Lab Results - Last 24 Hours (Table) 12/30/24 12/30/24 12/30/24 Range/Units 16:50 18:55 23:28 WBC (4.50-10.00) 10*3/uL RBC (4.10-5.20) 10*6/uL Hgb (12.0-15.0) g/dL Hct (37.2-46.3) % Plt Count (140-440) 10*3/uL Immature Gran # (0.00-0.04) 10*3/uL Neutrophils # (1.80-7.70) 10*3/uL ABG pH 7.32 L (7.35-7.45) ABG pCO2 48 H (35-45) mmHg ABG HCO3 (21-25) mmol/L ABG Total CO2 26 H (19-24) mmol/L ABG O2 Saturation 99.1 H (94-97) % Hemoglobin 8.7 L (11.4-16.0) gm/dL Sodium (137-145) mmol/L Potassium (3.5-5.1) mmol/L Chloride (98-107) mmol/L BUN (7-17) mg/dL Creatinine (0.52-1.04) mg/dL Glucose (74-99) mg/dL POC Glucose (mg/dL) 137 H 160 H (70-110) mg/dL AST (14-36) U/L Alkaline Phosphatase (38-126) U/L Total Protein (6.3-8.2) g/dL Albumin (3.5-5.0) g/dL Urine Appearance (Clear) Urine Protein (Negative) Urine Blood (Negative) Ur Leukocyte Esterase (Negative) Urine RBC (0-5) /hpf Urine WBC (0-5) /hpf Urine WBC Clumps (None) /hpf Urine Bacteria (None) /hpf Urine Mucus (None) /hpf Urine Yeast (Budding) (None) /hpf 12/31/24 12/31/24 12/31/24 Range/Units 00:22 05:31 06:02 WBC 12.10 H (4.50-10.00) 10*3/uL RBC 2.92 L (4.10-5.20) 10*6/uL Hgb 8.6 L (12.0-15.0) g/dL Hct 25.7 L (37.2-46.3) % Plt Count 63 L (140-440) 10*3/uL Immature Gran # 0.24 H (0.00-0.04) 10*3/uL Neutrophils # 9.71 H (1.80-7.70) 10*3/uL ABG pH (7.35-7.45) ABG pCO2 (35-45) mmHg ABG HCO3 (21-25) mmol/L ABG Total CO2 (19-24) mmol/L ABG O2 Saturation (94-97) % Hemoglobin (11.4-16.0) gm/dL Sodium 146 H (137-145) mmol/L Potassium 3.2 L (3.5-5.1) mmol/L Chloride 109 H (98-107) mmol/L BUN 44 H (7-17) mg/dL Creatinine 1.93 H (0.52-1.04) mg/dL Glucose 160 H (74-99) mg/dL POC Glucose (mg/dL) (70-110) mg/dL AST 13 L (14-36) U/L Alkaline Phosphatase 147 H (38-126) U/L Total Protein 4.9 L (6.3-8.2) g/dL Albumin 2.1 L (3.5-5.0) g/dL Urine Appearance Turbid H (Clear) Urine Protein 1+ H (Negative) Urine Blood Moderate H (Negative) Ur Leukocyte Esterase Large H (Negative) Urine RBC 117 H (0-5) /hpf Urine WBC >182 H (0-5) /hpf Urine WBC Clumps Many H (None) /hpf Urine Bacteria Few H (None) /hpf Urine Mucus Rare H (None) /hpf Urine Yeast (Budding) Many H (None) /hpf 12/31/24 12/31/24 12/31/24 Range/Units 06:20 08:57 11:44 WBC (4.50-10.00) 10*3/uL RBC (4.10-5.20) 10*6/uL Hgb (12.0-15.0) g/dL Hct (37.2-46.3) % Plt Count (140-440) 10*3/uL Immature Gran # (0.00-0.04) 10*3/uL Neutrophils # (1.80-7.70) 10*3/uL ABG pH (7.35-7.45) ABG pCO2 51 H (35-45) mmHg ABG HCO3 29 H (21-25) mmol/L ABG Total CO2 31 H (19-24) mmol/L ABG O2 Saturation 98.2 H (94-97) % Hemoglobin 8.0 L (11.4-16.0) gm/dL Sodium (137-145) mmol/L Potassium (3.5-5.1) mmol/L Chloride (98-107) mmol/L BUN (7-17) mg/dL Creatinine (0.52-1.04) mg/dL Glucose (74-99) mg/dL POC Glucose (mg/dL) 172 H 119 H (70-110) mg/dL AST (14-36) U/L Alkaline Phosphatase (38-126) U/L Total Protein (6.3-8.2) g/dL Albumin (3.5-5.0) g/dL Urine Appearance (Clear) Urine Protein (Negative) Urine Blood (Negative) Ur Leukocyte Esterase (Negative) Urine RBC (0-5) /hpf Urine WBC (0-5) /hpf Urine WBC Clumps (None) /hpf Urine Bacteria (None) /hpf Urine Mucus (None) /hpf Urine Yeast (Budding) (None) /hpf Microbiology - Last 24 Hours (Table) 12/29/24 06:38 Blood Culture - Preliminary Blood
--- NOTE | 2024-12-31 14:35 | P.PN ---
Subjective Progress Note Date: 12/31/24 79-year-old female with past medical history significant for hypertension, hyperlipidemia, diabetes mellitus, history of sleep apnea, history of renal cancer, pulmonary nodules, previous smoker who was brought in from longterm due to increased confusion. Patient had previous hospitalization recently u nderwent EGD for anemia and was noted to have peptic ulcer disease. at the bedside reported patient was having on and off melena. Patient noted to be in acute kidney injury with creatinine of 2.76, was started on IV fluids, and admitted to hospital for further evaluation and management. Also had elevated potassium on presentation which is now improved.. Patient was complaining of dysuria, UA was positive, currently on Rocephin for UTI. 2 more unit of packed RBCs ordered on 12/26, general surgery consulted, recommended monitor H&H and transfuse as needed, if continue to notice drop in hemoglobin will need endoscopy. Mentation improving. Remains on Rocephin for UTI. 12/27/2024 Patient was seen and examined today. at bedside, patient still confused, A and O x 2 to 3. WBC 7.2, hemoglobin 8.4, platelet 131. BUN 42, creatinine 1.30. Nephrology on board and following, recommended to maintain IV fluids, decrease rate to 50 cc an hour. General surgery following, tentative plan for EGD tomorrow depending on hemoglobin level. 12/28/2024 Patient is seen in follow-up today and continues to be confused. Per nursing staff patient is more altered with hallucinations and reports was given a low- dose of Seroquel. Patient has not slept in a few days and is currently n.p.o. scheduled to undergo EGD with general surgery as patient was noted to have black tarry stools. Patient has received adequate antibiotics and will discontinue at this time and monitor off any antibiotic therapy as there was concerned of patient developing a possible rash on her back. Patient is afebrile white count is normal, hemoglobin is 7.5 with no active bleeding noted. Will await EGD re port. 12/29/2024 Patient is seen in follow-up in the ICU with multiple consultations following. patient had increased confusion with respiratory distress and hypotension requiring pressor support. Patient is status post EGD showing gastritis with general surgery following. Hemoglobin also low at 6.1 being transfused 2 units of PRBCs. GI is being consulted with concerns of possible GI bleed. Per nursing at the bedside, patient with new onset A-fib and recommend cardiology consult for further evaluation. Infectious disease also consulted as patient was having a maculopapular rash on her back after ceftriaxone which was discontinued although patient is clinically deteriorating with concerns of possible sepsis. Zosyn being added. Recommend indwelling Hart catheter for strict intake and output. Overall prognosis is extremely guarded at this time. 12/30/2024 Patient is seen in follow-up today with multiple consultations following continues in the ICU on BiPAP. Patient continues on pressor support and did undergo small capsule study which was positive for GI bleed within the favored small bowel of the central abdomen. Hemoglobin is 9.2 today with no active bleeding. Nursing staff patient has not had another bowel movement although did have scant amount of black stools smeared on the brief. Patient remains on now bicarb drip with kidney functions worsening and nephrology is following monitoring for renal replacement therapy. Patient has been given multiple doses of IV Lasix with no significant urinary output. Continue indwelling Hart catheter for strict intake and output monitoring. Patient is continued on amiodarone drip with cardiology following. Patient is currently afebrile and white count has normalized with infectious disease following maintained on Zosyn at this time while awaiting cultures. 12/31/2024 Patient is evaluated in the intensive care unit. She remains unresponsive and obtunded and remains on BiPAP with an FiO2 of 40%. Patient's chest x-ray today reveals CHF and bilateral pleural effusions. GI evaluated the patient and also the tagged RBC scan felt that patient does have an active GI bleed in the small bowel and recommending transfer to tertiary care for possible embolization. Patient did have a large liquid black bowel movement this morning. Urine culture and blood culture have been repeated and currently pending at this time. white blood cell count today is 12.10, hemoglobin 8.6, platelet count of 63. Her sodium level is 146 potassium 3.2, chloride 109, BUN of 44 creatinine of 1.93. Her blood glucoses in the range of the 100s. Magnesium level of 1.6. Alk phos of 147. Her Pro-Laci was elevated at 2.20. A.m. cortisol 21.6 a repeat urinalysis still remains positive however slightly improved as compared to prior. She continues on antibiotics in the form of IV Zosyn. Patient remains on a small dose of Levophed. She is on a bicarb drip running at 100 mL/h. Discussed clinical condition and recommendations with patient's Travis over the phone this morning and again at the bedside this afternoon in the intensive care unit. Patient's initially did request to start comfort care measures however now he is requesting to start them tomorrow and will follow-up with the family to confirm comfort care versus transfer. Review of systems: Unable to obtain as patient is obtunded and currently on BiPAP PHYSICAL EXAMINATION: GENERAL: The patient is A&O x0, confused, obtunded, not following commands, well-developed, elderly appearing, obese, currently on BiPAP with an FiO2 of 40% and PEEP is 5, ill-appearing HEENT: EOMI, Sclerae anicteric, oral mucosa is dry Neck: Supple, Non tender, No JVD PULMONARY: Equal breath souds B/L, No wheezing, No crackles. CARDIOVASCULAR: S1, S2 muffled ABDOMEN: Soft, nontender, nondistended, normoactive bowel sounds. No guarding or rebound tenderness. MUSCULOSKELETAL: No edema, No cyanosis. No clubbing. Normal ROM. Intact peripheral pulses. NEUROLOGICAL: CN 2-12 grossly intact. No FND Skin: Diffuse blotchy redness with morbilliform type rash on the upper back, significant excoriation of bilateral buttock and sacral area Assessment: Melena: With concerns of possible GI bleed, EGD 12/28/2024 showing gastritis, GI following and patient is status post tagged RBC that was positive for active GI bleed within the favored small bowel of the central abdomen, hemoglobin is 9.2 Acute blood loss anemia, secondary to above History of peptic ulcer disease: As noted on previous EGD history of anemia, hemoglobin 9.2 today status post 2 units of PRBC with acute blood loss anemia Acute toxic metabolic encephalopathy: Multifactorial, concerns for UTI, sepsis, as well as hospital-acquired delirium Acute hypoxic respiratory failure secondary to pulmonary vascular congestion, requiring BiPAP Hypotension and shock, requiring pressor support New onset atrial fibrillation, currently maintained on amiodarone with cardiology following UTI, present on admission, culture showing gram-negative bacilli and group D Enterococcus NANCY, acute tubular necrosis initially from acute blood loss anemia and dehydration improved and now worsened again due to hemodynamic ATN. Hypercalcemia Diabetes mellitus, type II Morbid obesity with a BMI of 41.1 History of depression Sarita intertrigo History of renal cell carcinoma with recent left nephrectomy in September 2024 GI prophylaxis DVT prophylaxis Full code Plan: Patient is underwent EGD with general surgery for black tarry stools, showing gastritis with no active bleeding noted. GI consulted per surgery with concerns of GI bleed. Status post tagged RBC which was positive for an active bleed in the central abdomen. Patient is status post 2 units of PRBCs yesterday. Patient had a large black liquid bowel movement today with concern for an acute active GI bleed in the small bowel per the tagged RBC scan. I was recommending transfer to tertiary care [facility] for GI services and possible embolization. NG tube remains in place. Patient continues to be unresponsiveness and maintained on BiPAP in the ICU and also continues on low-dose pressor support. Weaning as tolerated. Nephrology following as well and patient is only making very little urine, recommend continued indwelling Hart catheter for strict intake and output. Creatinine mildly worse and will follow-up on repeat labs. Being monitored closely by nephrology with concerns of requiring renal replacement therapy if kidney functions continue to worsen Per nursing staff patient has a diffuse morbilliform rash on her back, patient had reported this has been ongoing. Slightly improved Patient continues on IV Zosyn with infectious disease following. Repeat blood cultures and urine culture ordered Urine culture showing group D Enterococcus and gram-negative bacilli, specimen resent as initial specimen was unsuitable Overall prognosis is guarded at this time. CODE STATUS was discussed and reported she would want all measures taken. Patient did have paperwork in the outpatient setting reporting she was in no code. We will likely pursue comfort care measures for this patient will follow-up with the family this afternoon regarding final decision otherwise we will have to initiate transfer to tertiary [facility]. Greater than 30 minutes have been spent with his critical care patient with review of the chart and discussion with patient's over the phone and at the bedside. The impression and plan of care has been dictated by Isabel Atkinson, Nurse Practitioner as directed. Dr. Duke MD I have performed a history and physical examination and medical decision making of this patient, discussed the same with the dictator, and agree with the dictators assessment and plan as written, documented as a scribe. Based on total visit time, I have performed more than 50% of this visit. Objective - Vital Signs Vital signs: Vital Signs Temp 94.1 F L 12/31/24 07:00 Pulse 73 12/31/24 07:00 Resp 18 12/31/24 07:00 BP 116/57 12/31/24 07:00 Pulse Ox 98 12/31/24 07:00 FiO2 40 12/31/24 07:34 Intake & Output 12/30/24 12/31/24 12/31/24 18:59 06:59 18:59 Intake Total 4253.008 6923.964 220 Output Total 265 305 10 Balance 203.491 5607.964 210 Weight 94.3 kg 93.8 kg Intake: IV 950 1475 200 .9NS 125 Dextrose 5% in Water 1, 700 1300 200 000 ml @ 100 mls/hr IV . [id number] [facility] with Sodium Bicarb (1 Meq/ml) 150 ml Rx#:[id number] Piperacillin-Tazobactam 3 125 175 .375 gm In Sodium Chloride 0.9% 100 ml @ 25 mls/hr IVPB Q8HR [facility] Rx# :[id number] Intake, IV Titration 129.223 118.964 Amount Amiodarone 450 mg In 16.667 Dextrose 5% in Water 250 ml @ 0.5 MG/MIN 16.667 mls/hr IV .Q15H [facility] Rx#: [id number] Norepinephrine 4 mg In 112.556 118.964 Sodium Chloride 0.9% 250 ml @ 0.03 MCG/KG/MIN 10. 39 mls/hr IV .Q24H [facility] Rx #:[id number] Tube Feeding 100 20 Other 120 Output: Urine 265 305 10 Other: Voiding Method Indwelling Catheter Indwelling Catheter # Voids 1 # Bowel Movements 1 - Labs CBC & Chem 7: 12/31/24 06:02 12/31/24 05:31 Labs: Abnormal Lab Results - Last 24 Hours (Table) 12/30/24 12/30/24 12/30/24 Range/Units 10:54 16:50 18:55 WBC (4.50-10.00) 10*3/uL RBC (4.10-5.20) 10*6/uL Hgb (12.0-15.0) g/dL Hct (37.2-46.3) % Plt Count (140-440) 10*3/uL Immature Gran # (0.00-0.04) 10*3/uL Neutrophils # (1.80-7.70) 10*3/uL ABG pH 7.32 L (7.35-7.45) ABG pCO2 48 H (35-45) mmHg ABG HCO3 (21-25) mmol/L ABG Total CO2 26 H (19-24) mmol/L ABG O2 Saturation 99.1 H (94-97) % Hemoglobin 8.7 L (11.4-16.0) gm/dL Sodium (137-145) mmol/L Potassium (3.5-5.1) mmol/L Chloride (98-107) mmol/L BUN (7-17) mg/dL Creatinine (0.52-1.04) mg/dL Glucose (74-99) mg/dL POC Glucose (mg/dL) 134 H 137 H (70-110) mg/dL AST (14-36) U/L Alkaline Phosphatase (38-126) U/L Total Protein (6.3-8.2) g/dL Albumin (3.5-5.0) g/dL Urine Appearance (Clear) Urine Protein (Negative) Urine Blood (Negative) Ur Leukocyte Esterase (Negative) Urine RBC (0-5) /hpf Urine WBC (0-5) /hpf Urine WBC Clumps (None) /hpf Urine Bacteria (None) /hpf Urine Mucus (None) /hpf Urine Yeast (Budding) (None) /hpf 12/30/24 12/31/24 12/31/24 Range/Units 23:28 00:22 05:31 WBC (4.50-10.00) 10*3/uL RBC (4.10-5.20) 10*6/uL Hgb (12.0-15.0) g/dL Hct (37.2-46.3) % Plt Count (140-440) 10*3/uL Immature Gran # (0.00-0.04) 10*3/uL Neutrophils # (1.80-7.70) 10*3/uL ABG pH (7.35-7.45) ABG pCO2 (35-45) mmHg ABG HCO3 (21-25) mmol/L ABG Total CO2 (19-24) mmol/L ABG O2 Saturation (94-97) % Hemoglobin (11.4-16.0) gm/dL Sodium 146 H (137-145) mmol/L Potassium 3.2 L (3.5-5.1) mmol/L Chloride 109 H (98-107) mmol/L BUN 44 H (7-17) mg/dL Creatinine 1.93 H (0.52-1.04) mg/dL Glucose 160 H (74-99) mg/dL POC Glucose (mg/dL) 160 H (70-110) mg/dL AST 13 L (14-36) U/L Alkaline Phosphatase 147 H (38-126) U/L Total Protein 4.9 L (6.3-8.2) g/dL Albumin 2.1 L (3.5-5.0) g/dL Urine Appearance Turbid H (Clear) Urine Protein 1+ H (Negative) Urine Blood Moderate H (Negative) Ur Leukocyte Esterase Large H (Negative) Urine RBC 117 H (0-5) /hpf Urine WBC >182 H (0-5) /hpf Urine WBC Clumps Many H (None) /hpf Urine Bacteria Few H (None) /hpf Urine Mucus Rare H (None) /hpf Urine Yeast (Budding) Many H (None) /hpf 12/31/24 12/31/24 12/31/24 Range/Units 06:02 06:20 08:57 WBC 12.10 H (4.50-10.00) 10*3/uL RBC 2.92 L (4.10-5.20) 10*6/uL Hgb 8.6 L (12.0-15.0) g/dL Hct 25.7 L (37.2-46.3) % Plt Count 63 L (140-440) 10*3/uL Immature Gran # 0.24 H (0.00-0.04) 10*3/uL Neutrophils # 9.71 H (1.80-7.70) 10*3/uL ABG pH (7.35-7.45) ABG pCO2 51 H (35-45) mmHg ABG HCO3 29 H (21-25) mmol/L ABG Total CO2 31 H (19-24) mmol/L ABG O2 Saturation 98.2 H (94-97) % Hemoglobin 8.0 L (11.4-16.0) gm/dL Sodium (137-145) mmol/L Potassium (3.5-5.1) mmol/L Chloride (98-107) mmol/L BUN (7-17) mg/dL Creatinine (0.52-1.04) mg/dL Glucose (74-99) mg/dL POC Glucose (mg/dL) 172 H (70-110) mg/dL AST (14-36) U/L Alkaline Phosphatase (38-126) U/L Total Protein (6.3-8.2) g/dL Albumin (3.5-5.0) g/dL Urine Appearance (Clear) Urine Protein (Negative) Urine Blood (Negative) Ur Leukocyte Esterase (Negative) Urine RBC (0-5) /hpf Urine WBC (0-5) /hpf Urine WBC Clumps (None) /hpf Urine Bacteria (None) /hpf Urine Mucus (None) /hpf Urine Yeast (Budding) (None) /hpf Microbiology - Last 24 Hours (Table) 12/29/24 06:38 Blood Culture - Preliminary Blood Assessment and Plan Time with Patient: Greater than 30
--- NOTE | 2024-12-31 14:42 | P.PN ---
Subjective Progress Note Date: 12/31/24 Principal diagnosis: Reason for follow-up is sepsis Patient is a 79-year-old female with a past medical history nephric and for renal cell carcinoma status post left nephrectomy obstructive sleep apnea hyperlipidemia hypertension diabetes mellitus recent admission to the hospital worked up for anemia with subsequent readmission to the hospital with generalized weakness noticed to be anemic manage on the forceps he become hypotensive and has been transferred to the ICU. ID consulted concerning for sepsis On today's evaluation that is 12/31/2024,the patient is mildly hypothermic remains to be on a BiPAP patient remains to be lethargic cannot provide any history no other changes reported by the nursing staff. Patient white count is down to 12.10, creatinine is 1.93 blood cultures currently pending Objective - Vital Signs Vital signs: Vital Signs Temp 95.2 F L 12/31/24 08:00 Pulse 67 12/31/24 10:45 Resp 20 12/31/24 10:45 BP 103/50 12/31/24 10:45 Pulse Ox 100 12/31/24 10:15 FiO2 40 12/31/24 07:34 Intake & Output 12/30/24 12/31/24 12/31/24 18:59 06:59 18:59 Intake Total 4433.363 3183.964 220 Output Total 265 305 10 Balance 029.389 4805.964 210 Weight 94.3 kg 93.8 kg Intake: IV 950 1475 200 .9NS 125 Dextrose 5% in Water 1, 700 1300 200 000 ml @ 100 mls/hr IV . [id number] [facility] with Sodium Bicarb (1 Meq/ml) 150 ml Rx#:[id number] Piperacillin-Tazobactam 3 125 175 .375 gm In Sodium Chloride 0.9% 100 ml @ 25 mls/hr IVPB Q8HR [facility] Rx# :[id number] Intake, IV Titration 129.223 118.964 Amount Amiodarone 450 mg In 16.667 Dextrose 5% in Water 250 ml @ 0.5 MG/MIN 16.667 mls/hr IV .Q15H [facility] Rx#: [id number] Norepinephrine 4 mg In 112.556 118.964 Sodium Chloride 0.9% 250 ml @ 0.03 MCG/KG/MIN 10. 39 mls/hr IV .Q24H [facility] Rx #:[id number] Tube Feeding 100 20 Other 120 Output: Urine 265 305 10 Other: Voiding Method Indwelling Catheter Indwelling Catheter # Voids 1 # Bowel Movements 1 - Exam GENERAL DESCRIPTION: An elderly female lying in bed on BiPAP RESPIRATORY SYSTEM: Unlabored breathing , decreased breath sounds at bases HEART: S1 S2 regular rate and rhythm , ABDOMEN: Soft , no tenderness EXTREMITIES: No edema feet - Labs CBC & Chem 7: 12/31/24 06:02 12/31/24 05:31 Labs: Abnormal Lab Results - Last 24 Hours (Table) 12/30/24 12/30/24 12/30/24 Range/Units 16:50 18:55 23:28 WBC (4.50-10.00) 10*3/uL RBC (4.10-5.20) 10*6/uL Hgb (12.0-15.0) g/dL Hct (37.2-46.3) % Plt Count (140-440) 10*3/uL Immature Gran # (0.00-0.04) 10*3/uL Neutrophils # (1.80-7.70) 10*3/uL ABG pH 7.32 L (7.35-7.45) ABG pCO2 48 H (35-45) mmHg ABG HCO3 (21-25) mmol/L ABG Total CO2 26 H (19-24) mmol/L ABG O2 Saturation 99.1 H (94-97) % Hemoglobin 8.7 L (11.4-16.0) gm/dL Sodium (137-145) mmol/L Potassium (3.5-5.1) mmol/L Chloride (98-107) mmol/L BUN (7-17) mg/dL Creatinine (0.52-1.04) mg/dL Glucose (74-99) mg/dL POC Glucose (mg/dL) 137 H 160 H (70-110) mg/dL AST (14-36) U/L Alkaline Phosphatase (38-126) U/L Total Protein (6.3-8.2) g/dL Albumin (3.5-5.0) g/dL Urine Appearance (Clear) Urine Protein (Negative) Urine Blood (Negative) Ur Leukocyte Esterase (Negative) Urine RBC (0-5) /hpf Urine WBC (0-5) /hpf Urine WBC Clumps (None) /hpf Urine Bacteria (None) /hpf Urine Mucus (None) /hpf Urine Yeast (Budding) (None) /hpf 12/31/24 12/31/24 12/31/24 Range/Units 00:22 05:31 06:02 WBC 12.10 H (4.50-10.00) 10*3/uL RBC 2.92 L (4.10-5.20) 10*6/uL Hgb 8.6 L (12.0-15.0) g/dL Hct 25.7 L (37.2-46.3) % Plt Count 63 L (140-440) 10*3/uL Immature Gran # 0.24 H (0.00-0.04) 10*3/uL Neutrophils # 9.71 H (1.80-7.70) 10*3/uL ABG pH (7.35-7.45) ABG pCO2 (35-45) mmHg ABG HCO3 (21-25) mmol/L ABG Total CO2 (19-24) mmol/L ABG O2 Saturation (94-97) % Hemoglobin (11.4-16.0) gm/dL Sodium 146 H (137-145) mmol/L Potassium 3.2 L (3.5-5.1) mmol/L Chloride 109 H (98-107) mmol/L BUN 44 H (7-17) mg/dL Creatinine 1.93 H (0.52-1.04) mg/dL Glucose 160 H (74-99) mg/dL POC Glucose (mg/dL) (70-110) mg/dL AST 13 L (14-36) U/L Alkaline Phosphatase 147 H (38-126) U/L Total Protein 4.9 L (6.3-8.2) g/dL Albumin 2.1 L (3.5-5.0) g/dL Urine Appearance Turbid H (Clear) Urine Protein 1+ H (Negative) Urine Blood Moderate H (Negative) Ur Leukocyte Esterase Large H (Negative) Urine RBC 117 H (0-5) /hpf Urine WBC >182 H (0-5) /hpf Urine WBC Clumps Many H (None) /hpf Urine Bacteria Few H (None) /hpf Urine Mucus Rare H (None) /hpf Urine Yeast (Budding) Many H (None) /hpf 12/31/24 12/31/24 Range/Units 06:20 08:57 WBC (4.50-10.00) 10*3/uL RBC (4.10-5.20) 10*6/uL Hgb (12.0-15.0) g/dL Hct (37.2-46.3) % Plt Count (140-440) 10*3/uL Immature Gran # (0.00-0.04) 10*3/uL Neutrophils # (1.80-7.70) 10*3/uL ABG pH (7.35-7.45) ABG pCO2 51 H (35-45) mmHg ABG HCO3 29 H (21-25) mmol/L ABG Total CO2 31 H (19-24) mmol/L ABG O2 Saturation 98.2 H (94-97) % Hemoglobin 8.0 L (11.4-16.0) gm/dL Sodium (137-145) mmol/L Potassium (3.5-5.1) mmol/L Chloride (98-107) mmol/L BUN (7-17) mg/dL Creatinine (0.52-1.04) mg/dL Glucose (74-99) mg/dL POC Glucose (mg/dL) 172 H (70-110) mg/dL AST (14-36) U/L Alkaline Phosphatase (38-126) U/L Total Protein (6.3-8.2) g/dL Albumin (3.5-5.0) g/dL Urine Appearance (Clear) Urine Protein (Negative) Urine Blood (Negative) Ur Leukocyte Esterase (Negative) Urine RBC (0-5) /hpf Urine WBC (0-5) /hpf Urine WBC Clumps (None) /hpf Urine Bacteria (None) /hpf Urine Mucus (None) /hpf Urine Yeast (Budding) (None) /hpf Microbiology - Last 24 Hours (Table) 12/29/24 06:38 Blood Culture - Preliminary Blood Assessment and Plan (1) Sepsis Current Visit: Yes Status: Acute Code(s): A41.9 - SEPSIS, UNSPECIFIED ORGANISM SNOMED Code(s): 57593578 Plan: 1patient noted to be hypotensive requiring pressor support did have elevated white count and hypothermia meeting ready for SIRS concern for possible sepsis could be abdominal or urinary in origin patient did have significantly positive reevaluation however the cultures were negative now with significant anemia and black tarry stool questionable diverticulitis versus other abdominal pathology and will need to cover for the enteric gram-negative both aerobes and anaerobes 2-patient blood culture currently pending white count has been trending down continue to have problem with a GI bleed GI recommended transfer to tertiary care for possible embolization is considering hospice we will wait for the decision for now continue with Zosyn Sister at the bedside question answered Dictation was produced using [employer] dictation software. please excuse any grammatical, word or spelling errors. Time with Patient: Less than 30
[2024-12-31] MEDS: FUROSEMIDE 10 MG/ML 4 ML VIAL IV SCH (16:58)
[2024-12-31] MEDS ORDERED: LORazepam 2 MG/ML INJ IV PRN (17:55)
[2024-12-31] MEDS ORDERED: DRY MOUTH SPRAY 59 SPRAY/59 ML SPRAY MUCOUS MEM PRN (17:55)
[2024-12-31] MEDS ORDERED: HYDROmorphone 2 MG/ML 1 ML SYRINGE IVP PRN (17:55)
[2024-12-31] MEDS ORDERED: ATROPINE OPHTH SOLN 1% 5ML BTL SUBLINGUAL PRN (17:55)
[2024-12-31] MEDS: SCOPOLAMINE 1 MG/72 HR PATCH TRANSDERM SCH (18:44)
[2024-12-31] MEDS: MORPHINE SULFATE 100 MG in SODIUM CHLORIDE 0.9% 90 ML IV SCH (20:22)
[2024-12-31 20:25] VITALS: BP 87/66; PULSE 109; RESP 25; TEMP 97.8
[2024-12-31] MEDS: MORPHINE SULFATE 4 MG/ML SYRINGE IVP PRN (20:31)
[2024-12-31] MEDS: MORPHINE SULFATE 2 MG/ML SYRINGE IVP PRN (21:04)
--- NOTE | 2024-12-31 21:53 | P.PN ---
Subjective Progress Note Date: 12/31/24 HISTORY OF PRESENTING ILLNESS: 79-year-old with past medical history of renal cell cancer status post left nephrectomy, September 2024, hypertension dyslipidemia and type 2 diabetes. She was last hospitalized on November 23 for altered mental status. She was also worked up for severe anemia with upper GI endoscopy and was found to have 2 superficial duodenal ulcer gastritis and small hiatal hernia. This time she got admitted with concerns of acute GI bleeding, metabolic encephalopathy and hypotension which was refractory to IV fluid resuscitation requiring IV pressor. 12/30/2024 patient was noticed to be in atrial fibrillation RVR for which amiodarone was started and patient remained hemodynamically unstable requiring pressors. For this cardiology was consulted 12/31/2024, today she has been off pressors because her heart rates are controlled. On review of telemetry she is noticed to be in sinus rhythm with frequent PACs. She is maintained on low-dose norepinephrine. Creatinine is 1.9. She appears volume overloaded for which I would give her some IV diuretics. REVIEW OF SYSTEMS: Could not be obtained as patient is maintained on continuous BiPAP support PHYSICAL EXAMINATION: Neck: Brisk carotid upstroke, no jugular venous distention. Lungs: On BiPAP support, crackles audible, diminished air entry in bilateral lung lau Heart: Irregularly irregular pulse, mild systolic murmur audible Abdomen: Soft nontender, positive bowel sounds. Extremities: 2+ pitting edema bilateral lower extremity Neuro: Alert, oritented, no focal deficits. Detailed neuro exam was not performed. ASSESSMENT: # Acute blood loss anemia status post 4 units PRBC. Concerns of small bowel bleeding on RBC tagged scan # Iatrogenic fluid overload from IV fluid hydration and blood transfusion # Shock, multifactorial, refractory to IV fluids, on pressors # Acute hypoxic and hypercapnic respiratory failure # Paroxysmal atrial fibrillation, currently sinus rhythm # NANCY # Renal cell cancer with previous left nephrectomy September 2024 # Bilateral pulm nodule # Metabolic encephalopathy PLAN: Overall prognosis poor Recommend IV Lasix 40 mg twice daily for fluid overload Monitor kidney function Continue BiPAP support Hold anticoagulation. Hold amiodarone at this time. Continue pressor support as needed. Continue to monitor telemetry Patient and family are considering palliative care/hospice care Robin Hatfield MD, FACC, RPVI Thank you for allowing [facility] to participate in this patient's care. Feel free to reach out in case of any followup questions. Objective - Vital Signs Vital signs: Vital Signs Temp 97.8 F 12/31/24 20:00 Pulse 109 H 12/31/24 20:15 Resp 25 H 12/31/24 20:15 BP 87/66 12/31/24 20:15 Pulse Ox 94 L 12/31/24 18:30 FiO2 40 12/31/24 20:00 Intake & Output 12/31/24 12/31/24 01/01/25 06:59 18:59 06:59 Intake Total 1813.964 894.140 3.85 Output Total 305 50 Balance 1508.964 844.140 3.85 Weight 93.8 kg 93.8 kg Intake: IV 1475 425 Dextrose 5% in Water 1, 1300 300 000 ml @ 100 mls/hr IV . [id number] VERONIQUE with Sodium Bicarb (1 Meq/ml) 150 ml Rx#:[id number] Piperacillin-Tazobactam 3 175 125 .375 gm In Sodium Chloride 0.9% 100 ml @ 25 mls/hr IVPB Q8HR [facility] Rx# :[id number] Intake, IV Titration 118.964 79.140 3.85 Amount Morphine Sulfate 100 mg 3.85 In Sodium Chloride 0.9% 90 ml @ 2 MG/HR 2 mls/hr IV .Q24H [facility] Rx#: [id number] Norepinephrine 4 mg In 118.964 79.140 Sodium Chloride 0.9% 250 ml @ 0.03 MCG/KG/MIN 10. 39 mls/hr IV .Q24H [facility] Rx #:[id number] Oral 100 Tube Feeding 100 90 Other 120 200 Output: Urine 305 50 Other: Voiding Method Indwelling Catheter Indwelling Catheter Indwelling Catheter # Voids 1 # Bowel Movements 1 - Labs CBC & Chem 7: 12/31/24 06:02 12/31/24 05:31 Labs: Abnormal Lab Results - Last 24 Hours (Table) 12/30/24 12/31/24 12/31/24 Range/Units 23:28 00:22 05:31 WBC (4.50-10.00) 10*3/uL RBC (4.10-5.20) 10*6/uL Hgb (12.0-15.0) g/dL Hct (37.2-46.3) % Plt Count (140-440) 10*3/uL Immature Gran # (0.00-0.04) 10*3/uL Neutrophils # (1.80-7.70) 10*3/uL ABG pCO2 (35-45) mmHg ABG HCO3 (21-25) mmol/L ABG Total CO2 (19-24) mmol/L ABG O2 Saturation (94-97) % Hemoglobin (11.4-16.0) gm/dL Sodium 146 H (137-145) mmol/L Potassium 3.2 L (3.5-5.1) mmol/L Chloride 109 H (98-107) mmol/L BUN 44 H (7-17) mg/dL Creatinine 1.93 H (0.52-1.04) mg/dL Glucose 160 H (74-99) mg/dL POC Glucose (mg/dL) 160 H (70-110) mg/dL AST 13 L (14-36) U/L Alkaline Phosphatase 147 H (38-126) U/L Total Protein 4.9 L (6.3-8.2) g/dL Albumin 2.1 L (3.5-5.0) g/dL Urine Appearance Turbid H (Clear) Urine Protein 1+ H (Negative) Urine Blood Moderate H (Negative) Ur Leukocyte Esterase Large H (Negative) Urine RBC 117 H (0-5) /hpf Urine WBC >182 H (0-5) /hpf Urine WBC Clumps Many H (None) /hpf Urine Bacteria Few H (None) /hpf Urine Mucus Rare H (None) /hpf Urine Yeast (Budding) Many H (None) /hpf 12/31/24 12/31/24 12/31/24 Range/Units 06:02 06:20 08:57 WBC 12.10 H (4.50-10.00) 10*3/uL RBC 2.92 L (4.10-5.20) 10*6/uL Hgb 8.6 L (12.0-15.0) g/dL Hct 25.7 L (37.2-46.3) % Plt Count 63 L (140-440) 10*3/uL Immature Gran # 0.24 H (0.00-0.04) 10*3/uL Neutrophils # 9.71 H (1.80-7.70) 10*3/uL ABG pCO2 51 H (35-45) mmHg ABG HCO3 29 H (21-25) mmol/L ABG Total CO2 31 H (19-24) mmol/L ABG O2 Saturation 98.2 H (94-97) % Hemoglobin 8.0 L (11.4-16.0) gm/dL Sodium (137-145) mmol/L Potassium (3.5-5.1) mmol/L Chloride (98-107) mmol/L BUN (7-17) mg/dL Creatinine (0.52-1.04) mg/dL Glucose (74-99) mg/dL POC Glucose (mg/dL) 172 H (70-110) mg/dL AST (14-36) U/L Alkaline Phosphatase (38-126) U/L Total Protein (6.3-8.2) g/dL Albumin (3.5-5.0) g/dL Urine Appearance (Clear) Urine Protein (Negative) Urine Blood (Negative) Ur Leukocyte Esterase (Negative) Urine RBC (0-5) /hpf Urine WBC (0-5) /hpf Urine WBC Clumps (None) /hpf Urine Bacteria (None) /hpf Urine Mucus (None) /hpf Urine Yeast (Budding) (None) /hpf 04/24/ Range/Units 11:44 WBC (4.50-10.00) 10*3/uL RBC (4.10-5.20) 10*6/uL Hgb (12.0-15.0) g/dL Hct (37.2-46.3) % Plt Count (140-440) 10*3/uL Immature Gran # (0.00-0.04) 10*3/uL Neutrophils # (1.80-7.70) 10*3/uL ABG pCO2 (35-45) mmHg ABG HCO3 (21-25) mmol/L ABG Total CO2 (19-24) mmol/L ABG O2 Saturation (94-97) % Hemoglobin (11.4-16.0) gm/dL Sodium (137-145) mmol/L Potassium (3.5-5.1) mmol/L Chloride (98-107) mmol/L BUN (7-17) mg/dL Creatinine (0.52-1.04) mg/dL Glucose (74-99) mg/dL POC Glucose (mg/dL) 119 H (70-110) mg/dL AST (14-36) U/L Alkaline Phosphatase (38-126) U/L Total Protein (6.3-8.2) g/dL Albumin (3.5-5.0) g/dL Urine Appearance (Clear) Urine Protein (Negative) Urine Blood (Negative) Ur Leukocyte Esterase (Negative) Urine RBC (0-5) /hpf Urine WBC (0-5) /hpf Urine WBC Clumps (None) /hpf Urine Bacteria (None) /hpf Urine Mucus (None) /hpf Urine Yeast (Budding) (None) /hpf Microbiology - Last 24 Hours (Table) 12/29/24 06:38 Blood Culture - Preliminary Blood
--- NOTE | 2025-01-04 15:39 | P.DS ---
Providers Date of admission: 12/24/24 19:10 Expected date of discharge: 01/01/25 Attending physician: Gelacio Iverson Consults: 12/26/24 09:26 Consult Physician Routine Consulting Provider: Alejandro Ojeda Consult Reason/Comments: GIB, Anemia Do you want consulting provider notified?: Yes 12/26/24 09:29 Consult Physician Routine Consulting Provider: Chaparrita Alejandro Consult Reason/Comments: NANCY Do you want consulting provider notified?: Yes 12/29/24 06:31 Consult Physician Stat Consulting Provider: Rosa M Alonzo Consult Reason/Comments: icu Do you want consulting provider notified?: Already Contacted 12/29/24 08:48 Consult Physician Urgent Consulting Provider: Maria Dolores Chopra Consult Reason/Comments: uti?, hypothermic, septic, confusion Do you want consulting provider notified?: Yes 12/29/24 11:05 Consult Physician Routine Consulting Provider: Aris Reyes Consult Reason/Comments: afib Do you want consulting provider notified?: Yes 12/29/24 11:48 Consult Physician Routine Consulting Provider: Lor Palacios Consult Reason/Comments: Gi bleed Do you want consulting provider notified?: Yes Primary care physician: Destiny Day DO Hospital Course: Preliminary cause of Urinary tract infection with sepsis and septic shock, present on admission Final diagnosis Melena, with concerns of possible GI bleed, EGD 12/28/2024 showing gastritis, GI following and patient is status post tagged RBC that was positive for active GI bleed within the favored small bowel of the central abdomen, hemoglobin is 9.2 Acute blood loss anemia, secondary to above History of peptic ulcer disease: As noted on previous EGD history of anemia, hemoglobin 9.2 today status post 2 units of PRBC with acute blood loss anemia Acute toxic metabolic encephalopathy: Multifactorial, concerns for UTI, sepsis, as well as hospital-acquired delirium Acute hypoxic respiratory failure secondary to pulmonary vascular congestion, requiring BiPAP Hypotension and shock, requiring pressor support New onset atrial fibrillation, currently maintained on amiodarone with cardiology following UTI, present on admission, culture showing gram-negative bacilli and group D Enterococcus NANCY, acute tubular necrosis initially from acute blood loss anemia and dehydration improved and now worsened again due to hemodynamic ATN. Hypercalcemia Diabetes mellitus, type II Morbid obesity with a BMI of 41.1 History of depression Sarita intertrigo History of renal cell carcinoma with recent left nephrectomy in September 2024 GI prophylaxis DVT prophylaxis No code Patient disposition According to nursing documentation, time of was 2204 on 12/31/2024. Please refer to nursing documentation for further information. Total time taken is greater than 35 minutes Hospital course 79-year-old female with past medical history significant for hypertension, hyperlipidemia, diabetes mellitus, history of sleep apnea, history of renal cancer, pulmonary nodules, previous smoker who was brought in from snf due to increased confusion. Patient had previous hospitalization recently underwent EGD for anemia and was noted to have peptic ulcer disease. at the bedside reported patient was having on and off melena. Patient noted to be in acute kidney injury with creatinine of 2.76, was started on IV fluids, and admitted to hospital for further evaluation and management. Also had elevated potassium on presentation which is now improved.. Patient was complaining of dysuria, UA was positive, currently on Rocephin for UTI. 2 more unit of packed RBCs ordered on 12/26, general surgery consulted, recommended monitor H&H and transfuse as needed, if continue to notice drop in hemoglobin will need endoscopy. Mentation improving. Remains on Rocephin for UTI. 12/27/2024 Patient was seen and examined today. at bedside, patient still confused, A and O x 2 to 3. WBC 7.2, hemoglobin 8.4, platelet 131. BUN 42, creatinine 1.30. Nephrology on board and following, recommended to maintain IV fluids, decrease rate to 50 cc an hour. General surgery following, tentative plan for EGD tomorrow depending on hemoglobin level. 12/28/2024 Patient is seen in follow-up today and continues to be confused. Per nursing staff patient is more altered with hallucinations and reports was given a low- dose of Seroquel. Patient has not slept in a few days and is currently n.p.o. scheduled to undergo EGD with general surgery as patient was noted to have black tarry stools. Patient has received adequate antibiotics and will discontinue at this time and monitor off any antibiotic therapy as there was concerned of patient developing a possible rash on her back. Patient is afebrile white count is normal, hemoglobin is 7.5 with no active bleeding noted. Will await EGD report. 12/29/2024 Patient is seen in follow-up in the ICU with multiple consultations following. patient had increased confusion with respiratory distress and hypotension requiring pressor support. Patient is status post EGD showing gastritis with general surgery following. Hemoglobin also low at 6.1 being transfused 2 units of PRBCs. GI is being consulted with concerns of possible GI bleed. Per nursing at the bedside, patient with new onset A-fib and recommend cardiology consult for further evaluation. Infectious disease also consulted as patient was having a morbilliform type rash on her back after ceftriaxone which was discontinued although patient is clinically deteriorating with concerns of possible sepsis. Zosyn being added. Recommend indwelling Hart catheter for strict intake and output. Overall prognosis is extremely guarded at this time. 12/30/2024 Patient is seen in follow-up today with multiple consultations following continues in the ICU on BiPAP. Patient continues on pressor support and did undergo small capsule study which was positive for GI bleed within the favored small bowel of the central abdomen. Hemoglobin is 9.2 today with no active bleeding. Nursing staff patient has not had another bowel movement although did have scant amount of black stools smeared on the brief. Patient remains on now bicarb drip with kidney functions worsening and nephrology is following monitoring for renal replacement therapy. Patient has been given multiple doses of IV Lasix with no significant urinary output. Continue indwelling Hart catheter for strict intake and output monitoring. Patient is continued on amiodarone drip with cardiology following. Patient is currently afebrile and white count has normalized with infectious disease following maintained on Zosyn at this time while awaiting cultures. 12/31/2024 Patient is evaluated in the intensive care unit. She remains unresponsive and obtunded and remains on BiPAP with an FiO2 of 40%. Patient's chest x-ray today reveals CHF and bilateral pleural effusions. GI evaluated the patient and also the tagged RBC scan felt that patient does have an active GI bleed in the small bowel and recommending transfer to tertiary care for possible embolization. Patient did have a large liquid black bowel movement this morning. Urine culture and blood culture have been repeated and currently pending at this time. white blood cell count today is 12.10, hemoglobin 8.6, platelet count of 63. Her sodium level is 146 potassium 3.2, chloride 109, BUN of 44 creatinine of 1.93. Her blood glucoses in the range of the 100s. Magnesium level of 1.6. Alk phos of 147. Her Pro-Laci was elevated at 2.20. A.m. cortisol 21.6 a repeat urinalysis still remains positive however slightly improved as compared to prior. She continues on antibiotics in the form of IV Zosyn. Patient remains on a small dose of Levophed. She is on a bicarb drip running at 100 mL/h. Discussed clinical condition and recommendations with patient's Travis over the phone this morning and again at the bedside this afternoon in the intensive care unit. Patient's initially did request to start comfort care measures however now he is requesting to start them tomorrow and will follow-up with the family to confirm comfort care versus transfer. Patient later in the evening was placed on comfort care orders per family request and per nursing staff, at 2204. The impression and plan of care has been dictated by Alice Damon, Nurse Practitioner as directed. Dr. Duke MD I have performed a history and physical examination and medical decision making of this patient, discussed the same with the dictator, and agree with the dictators assessment and plan as written, documented as a scribe. Based on total visit time, I have performed more than 50% of this visit. Patient Condition at Discharge: Poor Plan - Discharge Summary New Discharge Prescriptions: No Action Simvastatin [Zocor] 40 mg PO HS Pioglitazone HCl/Metformin HCl [Pioglitazone-Metformin ] 1 tab PO BID Aspirin 81 mg PO DAILY DULoxetine HCL [Cymbalta] 60 mg PO DAILY Melatonin 3 mg PO HS PRN tab PRN Reason: Insomnia Sucralfate [Carafate] 1 gm PO AC-TID tab Pantoprazole [Protonix] 40 mg PO BID 30 Days #60 tab Ferrous Sulfate [Iron (65 MG Elemental)] 325 mg PO BID Magnesium Oxide [Mag-Ox] 400 mg PO DAILY #30 tab clindamycin HCL 300 mg PO Q6H Loperamide [Imodium] 2 mg PO DIRECTED PRN PRN Reason: Loose Stool Potassium Chloride ER [K-Dur 10] 20 meq PO DAILY Saliva Stimulant Comb. No.3 [Biotene Moisturizing Mouth] 3 spray MUCOUS MEM TID Discharge Medication List Pioglitazone HCl/Metformin HCl [Pioglitazone-Metformin ] 1 tab PO BID 09/17/14 [History] Simvastatin [Zocor] 40 mg PO HS 09/17/14 [History] Aspirin 81 mg PO DAILY 03/06/17 [History] DULoxetine HCL [Cymbalta] 60 mg PO DAILY 10/05/24 [History] Melatonin 3 mg PO HS PRN tab 11/04/24 [Rx] Pantoprazole [Protonix] 40 mg PO BID 30 Days #60 tab 12/01/24 [Rx] Sucralfate [Carafate] 1 gm PO AC-TID tab 12/01/24 [Rx] Magnesium Oxide [Mag-Ox] 400 mg PO DAILY #30 tab 12/04/24 [Rx] Ferrous Sulfate [Iron (65 MG Elemental)] 325 mg PO BID 12/24/24 [History] Loperamide [Imodium] 2 mg PO DIRECTED PRN 12/24/24 [History] Potassium Chloride ER [K-Dur 10] 20 meq PO DAILY 12/24/24 [History] Saliva Stimulant Comb. No.3 [Biotene Moisturizing Mouth] 3 spray MUCOUS MEM TID 12/24/24 [History] clindamycin HCL 300 mg PO Q6H 12/24/24 [History] Follow up Appointment(s)/Referral(s): Gelaico Iverson MD [STAFF PHYSICIAN] - 1-2 days Discharge Disposition: - Preliminary Cause of Preliminary Cause of : Urinary tract infection with sepsis and septic shock
[2025-01-05 08:56] LABS: Albumin 2.39 g/dL (3.80-4.90); Gamma Globulin 1.28 g/dL (0.70-1.50)
== END 2024-12-31 22:04 | disposition expired | DRG 682 ==
LOC: EC 17:19 → 3SCARD 19:10 → 2SICU 12-29 02:31
PROVIDERS: ADMIT Family Medicine; ATTEND Family Medicine
PROC: 30233N1 Transfusion of Nonautologous Red Blood Cells into Peripheral Vein, Percutaneous Approach (ICD-10-PCS; 2024-12-24)
PROC: 0DB48ZX Excision of Esophagogastric Junction, Via Natural or Artificial Opening Endoscopic, Diagnostic (ICD-10-PCS; 2024-12-28)
PROC: 06HM33Z Insertion of Infusion Device into Right Femoral Vein, Percutaneous Approach (ICD-10-PCS; principal; 2024-12-28 07:30)
PROC: 3E033XZ Introduction of Vasopressor into Peripheral Vein, Percutaneous Approach (ICD-10-PCS; 2024-12-29)
PROC: 5A09357 Assistance with Respiratory Ventilation, Less than 24 Consecutive Hours, Continuous Positive Airway Pressure (ICD-10-PCS; 2024-12-29)
DX: N17.0 Acute kidney failure with tubular necrosis (principal); A41.9 Sepsis, unspecified organism; G92.8 Other toxic encephalopathy; I50.33 Acute on chronic diastolic (congestive) heart failure; J96.02 Acute respiratory failure with hypercapnia; J96.01 Acute respiratory failure with hypoxia; R65.21 Severe sepsis with septic shock; E87.4 Mixed disorder of acid-base balance; T18.2XXA Foreign body in stomach, initial encounter; C64.9 Malignant neoplasm of unspecified kidney, except renal pelvis; I13.0 Hypertensive heart and chronic kidney disease with heart failure and stage 1 through stage 4 chronic kidney disease, or unspecified chronic kidney disease; F05 Delirium due to known physiological condition; E11.22 Type 2 diabetes mellitus with diabetic chronic kidney disease; E66.01 Morbid (severe) obesity due to excess calories; I27.20 Pulmonary hypertension, unspecified; F32.A Depression, unspecified; I07.1 Rheumatic tricuspid insufficiency; Z68.41 Body mass index [BMI] 40.0-44.9, adult; D62 Acute posthemorrhagic anemia; E87.0 Hyperosmolality and hypernatremia; N39.0 Urinary tract infection, site not specified; E87.20 Acidosis, unspecified; I48.0 Paroxysmal atrial fibrillation; Z66 Do not resuscitate; Z51.5 Encounter for palliative care; I95.9 Hypotension, unspecified; K29.70 Gastritis, unspecified, without bleeding; K63.5 Polyp of colon; K29.80 Duodenitis without bleeding; B37.2 Candidiasis of skin and nail; E78.5 Hyperlipidemia, unspecified; E83.42 Hypomagnesemia; E86.0 Dehydration; N18.2 Chronic kidney disease, stage 2 (mild); E87.5 Hyperkalemia; E83.52 Hypercalcemia; G47.33 Obstructive sleep apnea (adult) (pediatric); Z79.82 Long term (current) use of aspirin; Z79.899 Other long term (current) drug therapy; Z85.528 Personal history of other malignant neoplasm of kidney; Z87.11 Personal history of peptic ulcer disease; Z87.891 Personal history of nicotine dependence; Z90.5 Acquired absence of kidney; K22.4 Dyskinesia of esophagus; B95.2 Enterococcus as the cause of diseases classified elsewhere; T68.XXXA Hypothermia, initial encounter; Z98.42 Cataract extraction status, left eye; Z98.41 Cataract extraction status, right eye; Z87.01 Personal history of pneumonia (recurrent)
CPT/HCPCS: 36415; 36430; 36600; 43200; 71045; 78278; 80048; 80053; 81001; 82040; 82272; 82306; 82533; 82607; 82652; 82728; 82805; 83036; 83540; 83550; 83605; 83735; 83883; 83970; 84145; 84165; 85025; 85027; 85610; 85730; 86334; 86335; 86850; 86900; 86901; 86920; 87040; 87086; 93005; 93306; 94660; 94760; 96374; 96375; 99285